=== PATIENT | male | born 1955 | race Caucasian/White ===

== ENCOUNTER 2020-01-26 08:33 | Outpatient (CLI) | payer MEDICARE, SELFPAY ==
[2020-01-26 08:57] LABS: Basophils Absolute Auto 0.1 K/mm3 (0.0-0.1); Basophils Percent Auto 1.8 % (0.2-1.2); Eosinophils Absolute Auto 0.3 K/mm3 (0-0.3); Eosinophils Percent Auto 5.1 % (0-4.4); Hematocrit 39.4 % (42.0-52.0); Hemoglobin 12.9 g/dL (14.0-18.0); Immature Granulocyte Absolute 0.02 K/mm3 (0.00-0.031); Immature Granulocyte Percent A 0.3 % (0-0.5); Lymphocytes Absolute Auto 2.12 K/mm3 (0.9-3.2); Lymphocytes Percent Auto 31.5 % (18.3-44.2); Mean Corpuscular HGB Conc 32.7 g/dl (32-36); Mean Corpuscular Hemoglobin 29.1 pg (26-34); Mean Corpuscular Volume 88.7 fl (80-100); Mean Platelet Volume 9.6 fl (7.4-10.4); Monocytes Absolute Auto 0.6 K/mm3 (0.1-0.6); Monocytes Percent Auto 9.5 % (2.6-8.5); Neutrophils Absolute Auto 3.5 K/mm3 (1.3-6.7); Neutrophils Percent Auto 51.8 % (45.5-73.1); Platelet Count Result 305 k/mm3 (150-375); Red Blood Count 4.44 M/mm3 (4.6-6.20); Red Cell Distribution Width 14.5 % (11.5-14.5); White Blood Count 6.7 K/mm3 (4.5-10.0)
[2020-01-26 12:28] LABS: Potassium 4.5 mmol/L (3.4-5.0)
[2020-01-26 12:39] LABS: Alanine Aminotransferase 23 U/L (4-50); Albumin Level 3.9 g/dL (3.5-5.1); Alkaline Phosphatase 66 U/L (38-126); Anion Gap 7 mmol/L (8-16); Aspartate Amino Transferase 30 U/L (17-59); Bilirubin,Total 0.6 mg/dL (0.2-1.3); Blood Urea Nitrogen 17 mg/dL (9-20); Calcium 9.3 mg/dL (8.4-10.2); Carbon Dioxide 28 mmol/L (22-30); Chloride 104 mmol/L (98-107); Estimated Glomerular Filt Rate > 60; Glucose 94 mg/dL (75-110); Sodium 139 mmol/L (137-145)
[2020-01-26 12:40] LABS: Immunoglobulin A 55 mg/dL (70-400); Immunoglobulin G 1203 mg/dL (700-1600)
[2020-01-26 13:37] LABS: Immunoglobulin M 1913 mg/dL (40-230)
[2020-01-31 21:23] LABS: Abnormal Protein Band 1 0.8 g/dL; Albumin 3.6 g/dL (3.8-4.8); Alpha 1 Globulin 0.3 g/dL (0.2-0.3); Alpha 2 Globulin 0.6 g/dL (0.5-0.9); Beta 1 Globulin 0.6 g/dL (0.4-0.6); Gamma Globulin 1.7 g/dL (0.8-1.7); Protein, Total 7.3 g/dL (6.1-8.1)
== END 2020-01-26 08:34 | disposition home or self-care (01) ==
LOC: ANHLAB 08:38
PROVIDERS: PCP Internal Medicine; Visit Provider Internal Medicine Hematology & Oncology
DX: D47.2 Monoclonal gammopathy (principal)
CPT/HCPCS: 36415; 80053; 82784; 84155; 84165; 85025; 86334

== ENCOUNTER 2020-10-30 08:19 | Outpatient (CLI) | payer MEDICARE, SELFPAY ==
[2020-10-30 08:43] LABS: Basophils Absolute Auto 0.1 K/mm3 (0.0-0.1); Basophils Percent Auto 1.8 % (0.2-1.2); Eosinophils Absolute Auto 0.3 K/mm3 (0-0.3); Eosinophils Percent Auto 3.9 % (0-4.4); Hematocrit 41.3 % (42.0-52.0); Hemoglobin 13.5 g/dL (14.0-18.0); Immature Granulocyte Absolute 0.01 K/mm3 (0.00-0.031); Immature Granulocyte Percent A 0.1 % (0-0.5); Lymphocytes Absolute Auto 2.15 K/mm3 (0.9-3.2); Mean Corpuscular HGB Conc 32.7 g/dl (32-36); Mean Corpuscular Hemoglobin 29.2 pg (26-34); Mean Corpuscular Volume 89.2 fl (80-100); Mean Platelet Volume 9.4 fl (7.4-10.4); Monocytes Absolute Auto 0.8 K/mm3 (0.1-0.6); Monocytes Percent Auto 10.6 % (2.6-8.5); Neutrophils Absolute Auto 3.8 K/mm3 (1.3-6.7); Neutrophils Percent Auto 53.6 % (45.5-73.1); Platelet Count Result 338 k/mm3 (150-375); Red Blood Count 4.63 M/mm3 (4.6-6.20); Red Cell Distribution Width 14.3 % (11.5-14.5); White Blood Count 7.2 K/mm3 (4.5-10.0)
[2020-10-30 11:15] LABS: Alanine Aminotransferase 20 U/L (4-50); Albumin Level 4.1 g/dL (3.5-5.1); Alkaline Phosphatase 80 U/L (38-126); Anion Gap 9 mmol/L (8-16); Aspartate Amino Transferase 24 U/L (17-59); Bilirubin,Total 0.4 mg/dL (0.2-1.3); Blood Urea Nitrogen 18 mg/dL (9-20); Calcium 10.1 mg/dL (8.4-10.2); Carbon Dioxide 29 mmol/L (22-30); Chloride 104 mmol/L (98-107); Estimated Glomerular Filt Rate > 60; Glucose 103 mg/dL (75-110); Potassium 4.7 mmol/L (3.4-5.0); Sodium 142 mmol/L (137-145)
[2020-10-30 11:24] LABS: Immunoglobulin A 56 mg/dL (70-400); Immunoglobulin G 1148 mg/dL (700-1600)
[2020-10-30 13:20] LABS: Immunoglobulin M 2148 mg/dL (40-230)
[2020-11-01 04:26] LABS: Kappa\\Lambda Light Chains 11.27 (0.26-1.65); Lambda Light Chain 10.3 mg/L (5.7-26.3)
[2020-11-01 20:50] LABS: Abnormal Protein Band 1 0.9 g/dL; Albumin 3.9 g/dL (3.8-4.8); Alpha 1 Globulin 0.3 g/dL (0.2-0.3); Alpha 2 Globulin 0.7 g/dL (0.5-0.9); Beta 1 Globulin 0.7 g/dL (0.4-0.6); Gamma Globulin 1.9 g/dL (0.8-1.7); Protein, Total 8.2 g/dL (6.1-8.1)
== END 2020-10-30 08:20 | disposition home or self-care (01) ==
LOC: ANHLAB 08:29
PROVIDERS: PCP Internal Medicine; Visit Provider Internal Medicine Hematology & Oncology
DX: D47.2 Monoclonal gammopathy (principal)
CPT/HCPCS: 36415; 80053; 82784; 83883; 84155; 84165; 85025; 86334

== ENCOUNTER 2023-06-20 11:01 | Emergency (ER) | payer MEDICARE, SELFPAY ==
--- NOTE | ~2023-06-20 | XR_ITS ---
XR ribs LT 2V w CXR 2V DATE: 06/20/2023 11:46 INDICATION: Left rib pain, worse with inspiration. TECHNIQUE: PA and lateral views of the chest. 3 views of the left ribs COMPARISON: None FINDINGS: Normal heart size. No hilar or mediastinal enlargement. There is aortic arch calcification, mild aortic unfolding. No hilar or mediastinal enlargement. There is mild discoid atelectasis or scarring at the lung bases. The lungs otherwise appear clear. No pneumothorax. No significant pleural effusion. There is an old healed fracture of the left 10th rib. No recent left rib fracture is evident. Degenerative spurring and scoliosis of the thoracic spine. Dextroscoliosis and multilevel prominent degenerative disc disease of the lumbar spine. IMPRESSION: No recent left rib fracture is evident Mild bibasilar discoid atelectasis Reviewed, dictated and finalized at location B. 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
--- NOTE | 2023-06-20 11:29 | ED.EXTPRO ---
HPI - Extremity Problem General Chief complaint: Chest Pain Stated complaint: Left Side Body Pain Time Seen by Provider: 06/20/23 11:02 Source: patient Mode of arrival: ambulatory Limitations: no limitations History of Present Illness HPI Narrative: Justin is a 67-year-old male patient presenting to the clinic today with complaints of left-sided rib pain x4 days. He reports no known injury. States pain is worse with taking a deep breath, coughing, or sneezing. History of rib fractures on the right side but nothing on the left. Denies productive cough. No fever or chills. Denies any shortness of breath. Pain does not worsen with movement of the left arm. Denies any heavy lifting recently. Related Data Home Medications Medication Instructions Recorded Confirmed omeprazole 20 mg capsule,delayed 20 mg PO DAILY 06/20/23 release pravastatin 40 mg tablet 40 mg PO DAILY 06/20/23 06/20/23 Allergies Allergy/AdvReac Type Severity Reaction Status Date / Time Penicillins Allergy Rash Verified 06/20/23 11:34 Review of Systems Review of Systems: Pertinent positives per HPI. Patient denies any fever, chills, rash, headache, visual changes, dizziness, runny nose, sore throat, shortness of breath, palpitations, nausea, vomiting, diarrhea, constipation, abdominal pain, or any urinary issues. PMFSH Comments At the time of my signature, I reviewed and agree with the nursing past medical, surgical, social, and family history. There is no relevant family history pertinent to the patient complaint. Exam Narrative: General: Well-developed, well nourished, in no apparent distress Head: Normocephalic, atraumatic Eyes: Pupils equally round and reactive to light bilaterally, EOM intact, sclera and conjunctive clear, no discharge, lids normal Ears: TMs intact and clear, ear canals clear, no drainage, grossly hearing normal. Nose: Nares patent, no discharge, no inflammation, no sinus tenderness. Mouth: Oropharynx without lesions or masses, good dentition, MMM. Neck: Supple, trachea midline, no enlargement of anterior or posterior cervical nodes, no thyroid masses or goiter palpable. Chest: Symmetric, no bruising or swelling noted, even rise and fall of the chest wall with respirations, no tenderness to palpation over the left anterior/lateral chest wall. Cardio: Regular rate and rhythm, s1 and s2 normal, no murmur appreciated. Resp: Clear to auscultation bilaterally anteriorly and posteriorly, no rhonchi, rales, wheezing or rubs Extremities: No deformity, no edema, no cyanosis, capillary refill less than 2 seconds, peripheral pulses palpable and strong. Integumentary: [place], warm, and dry, intact without lesion, no rashes. Course Course Emergency Course: Portions of this record may have been created with voice recognition software. Level of Care: Express Care Visit Vital Signs Vital signs: Vital Signs Oxygen Delivery Room Air 06/20/23 11:25 Temperature 36.6 C 06/20/23 11:35 Pulse Rate 72 06/20/23 11:35 Respiratory Rate 20 06/20/23 11:35 Blood Pressure 125/71 06/20/23 11:35 Pulse Oximetry 100 06/20/23 11:35 Oxygen Delivery Room Air 06/20/23 11:35 Vital signs reviewed MDM - Extremity (Nontraumatic) MDM Narrative Medical decision making narrative: At the time of visit patient is resting comfortably on the exam table. Patient appears to be nontoxic. Diagnostics: Chest x-rays negative for any sign pneumonia or rib fracture. Does show mild atelectasis in the bilateral lower lung bases Plan: I suspect patient may have pleurisy. Will send in prescription for Medrol Dosepak. Recommend follow-up with his PCP next week if symptoms persist. Supportive measures were discussed with the patient and they voiced understanding discharge instructions and agrees to treatment plan. Return precautions reviewed Differential Diagnosis Differential diagnosis: Likely other (Pleurisy, rib fr
[2023-06-20 11:35] VITALS: BP 125/71; PULSE 72; RESP 20; TEMP 36.6; O2SAT 100
== END 2023-06-20 12:35 | disposition home or self-care (01) ==
PROVIDERS: Emergency Provider Nurse Practitioner Family; PCP Internal Medicine
DX: R09.1 Pleurisy (principal); J98.11 Atelectasis; Z79.899 Other long term (current) drug therapy
CPT/HCPCS: 71046; 71100; 99213; G0463

== ENCOUNTER 2023-07-21 08:36 | Outpatient (CLI) | payer MEDICARE, SELFPAY ==
[2023-07-21 09:23] LABS: Basophils Absolute Auto 0.1 K/mm3 (0.0-0.1); Basophils Percent Auto 1.3 % (0.2-1.2); Eosinophils Absolute Auto 0.3 K/mm3 (0-0.3); Eosinophils Percent Auto 5.4 % (0-4.4); Hematocrit 33.9 % (42.0-52.0); Hemoglobin 10.8 g/dL (14.0-18.0); Immature Granulocyte Absolute 0.02 K/mm3 (0.00-0.031); Immature Granulocyte Percent A 0.3 % (0-0.5); Lymphocytes Absolute Auto 1.82 K/mm3 (0.9-3.2); Mean Corpuscular HGB Conc 31.9 g/dl (32-36); Mean Corpuscular Hemoglobin 29.8 pg (26-34); Mean Corpuscular Volume 93.6 fl (80-100); Mean Platelet Volume 8.9 fl (7.4-10.4); Monocytes Absolute Auto 0.7 K/mm3 (0.1-0.6); Monocytes Percent Auto 11.4 % (2.6-8.5); Neutrophils Absolute Auto 3.1 K/mm3 (1.3-6.7); Neutrophils Percent Auto 51.6 % (45.5-73.1); Platelet Count Result 363 k/mm3 (150-375); Red Blood Count 3.62 M/mm3 (4.6-6.20); Red Cell Distribution Width 16.2 % (11.5-14.5); White Blood Count 6.1 K/mm3 (4.5-10.0)
[2023-07-21 10:19] LABS: Alanine Aminotransferase 23 U/L (6-50); Albumin Level 3.8 g/dL (3.5-5.1); Alkaline Phosphatase 94 U/L (38-126); Anion Gap 3 mmol/L (8-16); Aspartate Amino Transferase 28 U/L (17-59); Bilirubin,Total 0.4 mg/dL (0.2-1.3); Blood Urea Nitrogen 18 mg/dL (9-20); Calcium 10.4 mg/dL (8.4-10.2); Carbon Dioxide 32 mmol/L (22-30); Chloride 104 mmol/L (98-107); Estimated Glomerular Filt Rate 60; Glucose 146 mg/dL (65-110); Potassium 3.8 mmol/L (3.4-5.0); Sodium 139 mmol/L (137-145)
[2023-07-21 14:57] LABS: Immunoglobulin G 1135 mg/dL (700-1600)
[2023-07-21 15:14] LABS: Immunoglobulin A < 40 mg/dL (70-400); Immunoglobulin M > 4000 mg/dL (40-230)
[2023-07-23 15:15] LABS: Abnormal Protein Band 1 3.1 g/dL; Albumin 2.9 g/dL (3.8-4.8); Alpha 1 Globulin 0.3 g/dL (0.2-0.3); Alpha 2 Globulin 0.6 g/dL (0.5-0.9); Beta 1 Globulin 0.5 g/dL (0.4-0.6); Gamma Globulin 3.8 g/dL (0.8-1.7); Protein, Total 8.5 g/dL (6.1-8.1)
[2023-07-23 22:20] LABS: Kappa\\Lambda Light Chains 9.27 (0.26-1.65); Lambda Light Chain 12.5 mg/L (5.7-26.3)
== END 2023-07-21 08:37 | disposition home or self-care (01) ==
LOC: ANHLAB 08:39
PROVIDERS: PCP Internal Medicine; Visit Provider Internal Medicine Hematology & Oncology
DX: D47.2 Monoclonal gammopathy (principal)
CPT/HCPCS: 36415; 80053; 82784; 83883; 84155; 84165; 85025

== ENCOUNTER 2023-08-05 07:49 | Outpatient (CLI) | payer MEDICARE, SELFPAY ==
--- NOTE | ~2023-08-05 | PE_ITS ---
EXAMINATION: PET skull to mid thigh DATE: 08/05/2023 09:46 INDICATION: Multiple myeloma TECHNIQUE: Blood glucose level was 80 mg/dL. 8.993 mCi of 18-fluorodeoxyglucose (18-FDG) was administ ered i.v. Low dose computed tomography (CT) images were acquired from the base of the brain to the pr oximal thighs for attenuation correction and anatomic localization. Positron emission tomography (PET ) images were acquired in the same distribution beginning 49 minutes after injection. Images includin g fused PET/CT images were reconstructed in axial, coronal, and sagittal planes. Automated exposure c ontrol technique was employed. The dose-length product was 1073.19mGy-cm. COMPARISON: CT neck, chest, abdomen and pelvis dated 06/24/2018 FINDINGS: Head/neck: There is symmetric increased activity in the oral cavity, palatine tonsils, parotid glands, submandi bular glands, laryngeal muscles and ocular muscles without CT correlate, likely physiologic. No patho logically enlarged cervical lymphadenopathy or suspicious foci of increased FDG uptake in the visuali zed head or neck. Chest: Elevation the right hemidiaphragm. No suspicious pulmonary nodules, pneumonia, pulmonary edema or ple ural effusion. Heart size is normal. Atherosclerotic coronary artery calcifications. No pericardial o r pleural effusion. No pathologically enlarged or FDG avid thoracic lymphadenopathy. Abdomen/pelvis/proximal thighs: Physiologic renal accumulation and excretion of FDG activity in the kidneys, bladder and along portio ns of ureters. Prostatomegaly measuring 4.5 x 3.5 cm. Normal degree and heterogenous pattern of incre ased uptake throughout the liver without radiologic correlate or dominant FDG avid lesion. The gallbl adder, pancreas, spleen and bilateral adrenal glands are normal. Mild uptake scattered throughout the bowels without radiologic correlate, also likely physiologic. No other abnormal foci of increased FD G uptake or pathologically enlarged lymphadenopathy in the abdomen, pelvis or proximal thighs. Musculoskeletal: Mild lumbar dextrocurvature with severe spondylosis. No interval change in a region of central macros copic fat attenuation with peripheral heterotopic ossification along the right iliac is muscle insert ion along the anterior margin of the right iliac wing which is without evident FDG uptake most likely heterotopic ossification related to old avulsion injury. No suspicious lytic, blastic or abnormally FDG avid bone lesions. IMPRESSION: 1. No abnormal FDG avid lesions to suggest malignancy/metastatic disease. Specifically no lytic or FD G avid bone lesions to suggest multiple myeloma. Reviewed, dictated and finalized at location A. IMPRESSION: 1. No abnormal FDG avid lesions to suggest malignancy/metastatic disease. Speci fically no lytic or FDG avid bone lesions to suggest multiple myeloma.
[2023-08-05 08:08] LABS: Glucose Point of Care 80 mg/dl (65-105)
== END 2023-08-05 07:50 | disposition home or self-care (01) ==
PROVIDERS: PCP Internal Medicine; Visit Provider Internal Medicine Hematology & Oncology
DX: C90.00 Multiple myeloma not having achieved remission (principal)
CPT/HCPCS: 78815; A9552

== ENCOUNTER 2023-08-06 03:36 | Day surgery (SDC) | payer MEDICARE, SELFPAY ==
[2023-08-05 13:40] VITALS: BMI 25.6
--- NOTE | ~2023-08-06 | BM_ITS ---
EXAMINATION: CCL bone marrow asp w bx diag ORDER COMPLETED DATE: 08/06/2023 16:45 INDICATION: Multiple myeloma TECHNIQUE: A time-out was performed to verify the patient's name, date of , and procedure to b e performed. The procedure including the risks and benefits was discussed with the patient. Risks dis cussed included bleeding, infection, nerve injury and allergic reaction. The patient understood the r isks and agreed to proceed. The skin overlying the right posterior iliac spine was prepped and draped in usual sterile fashion. Anesthetic was administered with 1% lidocaine subcutaneously. Moderate co nscious sedation was achieved with 50 mcg fentanyl IV. An 11 gauge needle was inserted into the right ilium with fluoroscopic guidance. Bone marrow was aspirated. An 8 gauge needle was then inserted int o the right ilium with fluoroscopic guidance. A core bone marrow biopsy was obtained. The needle was removed and the entry site was cleaned and dressed. There were no immediate complications. A total o f 0 fluoroscopic images were recorded. Fluoroscopy exposure time was 0.1 minutes. FINDINGS: Real-time fluoroscopy demonstrates the biopsy needle tip overlying the right posterior estelle c spine. IMPRESSION: 1. Successful fluoroscopic guided bone marrow aspiration. 2. Successful fluoroscopic guided bone marrow biopsy. Reviewed, dictated and finalized at location A.
[2023-08-06 08:58] VITALS: BMI 25.6
[2023-08-06 08:59] VITALS: BP 108/66; PULSE 61; RESP 16; TEMP 36.6; O2SAT 97
[2023-08-06] MEDS: SODIUM CHLORIDE 0.9% IV 500 ML 30 ML (09:17)
[2023-08-06 09:22] LABS: Basophils Absolute Auto 0.1 K/mm3 (0.0-0.1); Basophils Percent Auto 1.3 % (0.2-1.2); Eosinophils Absolute Auto 0.3 K/mm3 (0-0.3); Eosinophils Percent Auto 5.3 % (0-4.4); Hematocrit 35.4 % (42.0-52.0); Hemoglobin 11.2 g/dL (14.0-18.0); Immature Granulocyte Absolute 0.01 K/mm3 (0.00-0.031); Immature Granulocyte Percent A 0.2 % (0-0.5); Lymphocytes Absolute Auto 1.79 K/mm3 (0.9-3.2); Lymphocytes Percent Auto 29.7 % (18.3-44.2); Mean Corpuscular HGB Conc 31.6 g/dl (32-36); Mean Corpuscular Hemoglobin 29.6 pg (26-34); Mean Corpuscular Volume 93.4 fl (80-100); Mean Platelet Volume 9.5 fl (7.4-10.4); Monocytes Absolute Auto 0.8 K/mm3 (0.1-0.6); Monocytes Percent Auto 12.4 % (2.6-8.5); Neutrophils Absolute Auto 3.1 K/mm3 (1.3-6.7); Neutrophils Percent Auto 51.1 % (45.5-73.1); Platelet Count Result 326 k/mm3 (150-375); Red Blood Count 3.79 M/mm3 (4.6-6.20); Red Cell Distribution Width 15.7 % (11.5-14.5)
[2023-08-06 09:27] LABS: INR 1.2; Prothrombin Time 15.6 Seconds (11.1-14.7)
--- NOTE | 2023-08-06 10:05 | WPDMODSED ---
Moderate Sedation Note-Pt Data Patient Data Diagnosis: MGUS Present Complaint: MGUS Procedure to be performed/Plan: bone marrow biopsy Allergies Allergy/AdvReac Type Severity Reaction Status Date / Time Penicillins Allergy Rash Verified 08/06/23 08:57 Home Medications Medication Instructions Recorded Confirmed Type pravastatin 40 mg tablet 40 mg PO DAILY 06/20/23 08/05/23 History aspirin 81 mg chewable tablet 81 mg PO DAILY 08/05/23 08/05/23 History ferrous sulfate 325 mg (65 mg 325 mg PO EVERY OTHER DAY 08/05/23 08/05/23 History iron) tablet tuiyqemgqnue-hjcddlll-kakeys tablet 1 tablet PO DAILY 08/05/23 08/05/23 History psyllium husk 0.4 gram capsule 0.4 g PO DAILY 08/05/23 08/05/23 History (Metamucil) Sedation/Anesthesia: No previous sedation/anesthesia problems (including family history). [facility] Social History Social History Smoking status: Former smoker Tobacco type: cigarettes Second hand tobacco smoke exposure: No Alcohol intake: never Substance use: never Substance use type: does not use Living arrangements: with family Spiritual care concerns: No Mod Sed Physical Exam Physical Exam Pre Procedural Exam: Normal: Appearance, Neck, Throat, Lungs, Heart Rate and Heart Rhythm Hours since solid foods: 15 Hours since liquid intake: 15 Mallampati Classification: class II Internal Medicine - PN: Obj Da Vital Signs Vital Signs: Vital Signs - 24 hr 08/06/23 08:59 Temperature 97.9 F Pulse Rate 61 Respiratory Rate 16 Blood Pressure 108/66 Pulse Oximetry 97 Oxygen Delivery Room Air Labs 08/06/23 08:56 Labs: Laboratory Results - last 24 hr 08/06/23 08:56 WBC 6.0 RBC 3.79 L Hgb 11.2 L Hct 35.4 L MCV 93.4 MCH 29.6 MCHC 31.6 L RDW 15.7 H Plt Count 326 MPV 9.5 Immature Gran % (Auto) 0.2 Neut % (Auto) 51.1 Lymph % (Auto) 29.7 [facility] % (Auto) 12.4 H Eos % (Auto) 5.3 H Baso % (Auto) 1.3 H Lymph # (Auto) 1.79 [facility] # (Auto) 0.8 H Eos # (Auto) 0.3 Baso # (Auto) 0.1 Abs Immat Gran (auto) 0.01 Absolute Neuts (auto) 3.1 Absolute Nucleated RBC 0.000 Nucleated RBC % 0.0 PT 15.6 H INR 1.2 ASA Classification/Sedation ASA Classification/Sedation ASA Class: II Emergent: No Risks: Risks, benefits and alternatives explained and patient/family accepted plan for sedation. Patient re-evaluated immediately prior to sedation.
[2023-08-06 10:50] VITALS: BP 122/76; PULSE 68; RESP 14; TEMP 36.4; O2SAT 100
[2023-08-06 11:00] VITALS: BP 113/73; PULSE 72; RESP 16; O2SAT 97
[2023-08-06 11:15] VITALS: BP 120/68; PULSE 65; RESP 16; O2SAT 100
[2023-08-06 11:30] VITALS: BP 124/74; PULSE 72; RESP 16; O2SAT 97
[2023-08-06 11:45] VITALS: BP 121/75; PULSE 73; RESP 16; O2SAT 98
== END 2023-08-06 12:10 | disposition home or self-care (01) ==
PROVIDERS: PCP Internal Medicine; Referring Provider Internal Medicine Hematology & Oncology; Visit Provider Radiology Diagnostic Radiology
DX: C83.00 Small cell B-cell lymphoma, unspecified site (principal); Z79.82 Long term (current) use of aspirin; Z87.891 Personal history of nicotine dependence
CPT/HCPCS: 36415; 38222; 85025; 85610; 88184; 88185; 88305; 88311; 88313; 88342; 88364; 88365; 88368; 88369; J1642; J2250; J3010; J7040

== ENCOUNTER 2023-09-08 14:36 | Outpatient (CLI) | payer MEDICARE, SELFPAY ==
[2023-09-08 14:51] LABS: Basophils Absolute Auto 0.1 K/mm3 (0.0-0.1); Basophils Percent Auto 1.6 % (0.2-1.2); Eosinophils Absolute Auto 0.6 K/mm3 (0-0.3); Eosinophils Percent Auto 9.1 % (0-4.4); Hematocrit 33.8 % (42.0-52.0); Hemoglobin 10.8 g/dL (14.0-18.0); Immature Granulocyte Absolute 0.01 K/mm3 (0.00-0.031); Immature Granulocyte Percent A 0.1 % (0-0.5); Lymphocytes Absolute Auto 2.87 K/mm3 (0.9-3.2); Lymphocytes Percent Auto 42.3 % (18.3-44.2); Mean Corpuscular Hemoglobin 30.1 pg (26-34); Mean Corpuscular Volume 94.2 fl (80-100); Mean Platelet Volume 10.1 fl (7.4-10.4); Monocytes Absolute Auto 0.5 K/mm3 (0.1-0.6); Monocytes Percent Auto 7.2 % (2.6-8.5); Neutrophils Absolute Auto 2.7 K/mm3 (1.3-6.7); Neutrophils Percent Auto 39.7 % (45.5-73.1); Platelet Count Result 220 k/mm3 (150-375); Red Blood Count 3.59 M/mm3 (4.6-6.20); Red Cell Distribution Width 15.5 % (11.5-14.5); White Blood Count 6.8 K/mm3 (4.5-10.0)
[2023-09-08 16:38] LABS: Alanine Aminotransferase 17 U/L (6-50); Albumin Level 4.2 g/dL (3.5-5.1); Alkaline Phosphatase 82 U/L (38-126); Anion Gap 6 mmol/L (4-12); Aspartate Amino Transferase 24 U/L (17-59); Bilirubin,Total 0.6 mg/dL (0.2-1.3); Blood Urea Nitrogen 20 mg/dL (9-20); Calcium 10.2 mg/dL (8.4-10.2); Carbon Dioxide 29 mmol/L (22-30); Chloride 104 mmol/L (98-107); Estimated Glomerular Filt Rate 50; Glucose 128 mg/dL (65-110); Potassium 4.2 mmol/L (3.4-5.0); Sodium 139 mmol/L (137-145)
== END 2023-09-08 14:37 | disposition home or self-care (01) ==
LOC: ANHLAB 14:38
PROVIDERS: PCP Internal Medicine; Visit Provider Internal Medicine Hematology & Oncology
DX: C90.00 Multiple myeloma not having achieved remission (principal)
CPT/HCPCS: 36415; 80053; 85025

== ENCOUNTER 2023-10-09 14:00 | Outpatient (CLI) | payer MEDICARE, SELFPAY ==
[2023-10-09 14:18] LABS: Basophils Absolute Auto 0.1 K/mm3 (0.0-0.1); Basophils Percent Auto 1.8 % (0.2-1.2); Eosinophils Absolute Auto 0.4 K/mm3 (0-0.3); Eosinophils Percent Auto 5.8 % (0-4.4); Hematocrit 37.8 % (42.0-52.0); Hemoglobin 12.4 g/dL (14.0-18.0); Immature Granulocyte Absolute 0.01 K/mm3 (0.00-0.031); Immature Granulocyte Percent A 0.1 % (0-0.5); Lymphocytes Absolute Auto 2.46 K/mm3 (0.9-3.2); Lymphocytes Percent Auto 33.2 % (18.3-44.2); Mean Corpuscular HGB Conc 32.8 g/dl (32-36); Mean Corpuscular Hemoglobin 30.8 pg (26-34); Mean Corpuscular Volume 93.8 fl (80-100); Mean Platelet Volume 10.2 fl (7.4-10.4); Monocytes Absolute Auto 0.4 K/mm3 (0.1-0.6); Monocytes Percent Auto 5.7 % (2.6-8.5); Neutrophils Percent Auto 53.4 % (45.5-73.1); Platelet Count Result 218 k/mm3 (150-375); Red Blood Count 4.03 M/mm3 (4.6-6.20); Red Cell Distribution Width 14.5 % (11.5-14.5); White Blood Count 7.4 K/mm3 (4.5-10.0)
[2023-10-09 17:43] LABS: Alanine Aminotransferase 17 U/L (6-50); Albumin Level 3.9 g/dL (3.5-5.1); Alkaline Phosphatase 70 U/L (38-126); Anion Gap 2 mmol/L (4-12); Aspartate Amino Transferase 24 U/L (17-59); Bilirubin,Total 0.5 mg/dL (0.2-1.3); Calcium 8.9 mg/dL (8.4-10.2); Carbon Dioxide 30 mmol/L (22-30); Chloride 106 mmol/L (98-107); Estimated Glomerular Filt Rate 46; Glucose 140 mg/dL (65-110); Potassium 4.4 mmol/L (3.4-5.0); Sodium 138 mmol/L (137-145)
[2023-10-09 17:55] LABS: Blood Urea Nitrogen 25 mg/dL (9-20)
[2023-10-09 18:09] LABS: Immunoglobulin G 1011 mg/dL (700-1600)
[2023-10-09 19:29] LABS: Immunoglobulin A < 40 mg/dL (70-400); Immunoglobulin M 1734 mg/dL (40-230)
[2023-10-10 13:03] LABS: Kappa\\Lambda Light Chains 9.72 (0.26-1.65); Lambda Light Chain 8.7 mg/L (5.7-26.3)
[2023-10-11 01:13] LABS: Protein, Total 6.7 g/dL (6.1-8.1)
[2023-10-14 14:49] LABS: Abnormal Protein Band 1 1.1 g/dL (NONE DETECTED); Albumin 3.5 g/dL (3.8-4.8); Alpha 1 Globulin 0.2 g/dL (0.2-0.3); Alpha 2 Globulin 0.5 g/dL (0.5-0.9); Beta 1 Globulin 0.4 g/dL (0.4-0.6); Gamma Globulin 1.8 g/dL (0.8-1.7)
== END 2023-10-09 14:01 | disposition home or self-care (01) ==
LOC: ANHLAB 14:05
PROVIDERS: PCP Internal Medicine; Visit Provider Internal Medicine Hematology & Oncology
DX: C90.00 Multiple myeloma not having achieved remission (principal)
CPT/HCPCS: 36415; 80053; 82784; 83883; 84155; 84165; 85025

== ENCOUNTER 2023-12-12 08:14 | Outpatient (CLI) | payer MEDICARE, SELFPAY ==
[2023-12-12 08:38] LABS: Basophils Absolute Auto 0.1 K/mm3 (0.0-0.1); Eosinophils Absolute Auto 0.4 K/mm3 (0-0.3); Eosinophils Percent Auto 5.7 % (0-4.4); Hematocrit 42.7 % (42.0-52.0); Hemoglobin 14.3 g/dL (14.0-18.0); Immature Granulocyte Absolute 0.01 K/mm3 (0.00-0.031); Immature Granulocyte Percent A 0.2 % (0-0.5); Lymphocytes Absolute Auto 2.21 K/mm3 (0.9-3.2); Lymphocytes Percent Auto 36.2 % (18.3-44.2); Mean Corpuscular HGB Conc 33.5 g/dl (32-36); Mean Corpuscular Hemoglobin 30.5 pg (26-34); Mean Platelet Volume 10.4 fl (7.4-10.4); Monocytes Absolute Auto 0.5 K/mm3 (0.1-0.6); Monocytes Percent Auto 8.9 % (2.6-8.5); Neutrophils Absolute Auto 2.9 K/mm3 (1.3-6.7); Platelet Count Result 216 k/mm3 (150-375); Red Blood Count 4.69 M/mm3 (4.6-6.20); White Blood Count 6.1 K/mm3 (4.5-10.0)
[2023-12-12 14:31] LABS: Alanine Aminotransferase 18 U/L (6-50); Alkaline Phosphatase 71 U/L (38-126); Anion Gap 6 mmol/L (4-12); Aspartate Amino Transferase 24 U/L (17-59); Bilirubin,Total 0.5 mg/dL (0.2-1.3); Blood Urea Nitrogen 20 mg/dL (9-20); Calcium 9.1 mg/dL (8.4-10.2); Carbon Dioxide 29 mmol/L (22-30); Chloride 102 mmol/L (98-107); Estimated Glomerular Filt Rate 60; Glucose 89 mg/dL (65-110); Potassium 4.3 mmol/L (3.4-5.0); Sodium 137 mmol/L (137-145)
[2023-12-12 15:53] LABS: Immunoglobulin G 976 mg/dL (700-1600)
[2023-12-12 17:47] LABS: Immunoglobulin A < 40 mg/dL (70-400); Immunoglobulin M 1258 mg/dL (40-230)
[2023-12-15 11:28] LABS: Protein, Total 6.6 g/dL (6.1-8.1)
[2023-12-15 12:13] LABS: Kappa\\Lambda Light Chains 12.76 (0.26-1.65); Lambda Light Chain 7.2 mg/L (5.7-26.3)
[2023-12-16 11:13] LABS: Abnormal Protein Band 1 0.8 g/dL (NONE DETECTED); Albumin 3.6 g/dL (3.8-4.8); Alpha 1 Globulin 0.2 g/dL (0.2-0.3); Alpha 2 Globulin 0.5 g/dL (0.5-0.9); Beta 1 Globulin 0.5 g/dL (0.4-0.6); Gamma Globulin 1.4 g/dL (0.8-1.7)
== END 2023-12-12 08:15 | disposition home or self-care (01) ==
LOC: ANHLAB 08:17
PROVIDERS: PCP Internal Medicine; Visit Provider Internal Medicine Hematology & Oncology
DX: C90.00 Multiple myeloma not having achieved remission (principal)
CPT/HCPCS: 36415; 80053; 82784; 83883; 84155; 84165; 85025

== ENCOUNTER 2024-02-14 14:45 | Emergency (ER) | payer MEDICARE, SELFPAY ==
--- NOTE | 2024-02-14 14:47 | ED.URI ---
HPI - URI/Sore Throat General Chief Complaint: Upper Respiratory Infection Stated Complaint: +COVID today Time Seen by Provider: 02/14/24 14:47 Source: patient Mode of arrival: ambulatory Limitations: no limitations History of Present Illness HPI Narrative: Justin is a 68-year-old male patient presenting to the clinic today with complaints nasal congestion and headache. He reports Friday he felt like he was starting to have a head cold. Tested himself today and he was positive for COVID. He denies any chest pain, shortness of breath, fevers, chills, or body aches MD elicited complaint: nasal congestion Related Data Home Medications Medication Instructions Recorded Confirmed pravastatin 40 mg tablet 40 mg PO DAILY 06/20/23 08/05/23 aspirin 81 mg chewable tablet 81 mg PO DAILY 08/05/23 08/05/23 ferrous sulfate 325 mg (65 mg 325 mg PO EVERY OTHER DAY 08/05/23 08/05/23 iron) tablet tcwlbtytnuuc-pvbusbkv-kwznjr tablet 1 tablet PO DAILY 08/05/23 08/05/23 psyllium husk 0.4 gram capsule 0.4 g PO DAILY 08/05/23 08/05/23 (Metamucil) Allergies Allergy/AdvReac Type Severity Reaction Status Date / Time Penicillins Allergy Rash Verified 08/06/23 08:57 Review of Systems Review of Systems: Pertinent positives per HPI. Patient denies any fever, chills, rash, visual changes, dizziness, cough, shortness of breath, chest pain, palpitations, nausea, vomiting, diarrhea, constipation, abdominal pain, or any urinary issues. PMFSH Social History Social History Smoking status: Former smoker Tobacco type: cigarettes Second hand tobacco smoke exposure: No Alcohol intake: never Substance use: never Substance use type: does not use Living arrangements: with family Spiritual care concerns: No Comments At the time of my signature, I reviewed and agree with the nursing past medical, surgical, social, and family history. There is no relevant family history pertinent to the patient complaint. Exam Narrative: General: Well-developed, well nourished, in no apparent distress Head: Normocephalic, atraumatic Eyes: Pupils equally round and reactive to light bilaterally, EOM intact, sclera and conjunctive clear, no discharge, lids normal Ears: TMs intact and clear, ear canals clear, no drainage, grossly hearing normal. Nose: Nares patent, clear nasal discharge, no inflammation, no sinus tenderness. Mouth: Oral pharynx without lesions or masses, good dentition, MMM. Neck: Supple, trachea midline, no enlargement of anterior or posterior cervical nodes, no thyroid masses or goiter palpable. Cardio: Regular rate and rhythm, s1 and s2 normal, no murmur appreciated. Resp: Clear to auscultation bilaterally, no rhonchi, rales, wheezing or rubs Course Course Emergency Course: Portions of this record may have been created with voice recognition software. Level of Care: Express Care Visit Vital Signs Vital signs: Vital signs reviewed MDM - URI/Sore Throat MDM Narrative Medical decision making narrative: At the time of visit patient is resting comfortably on the exam table. Patient appears to be nontoxic. Labs: COVID testing was performed and was positive in clinic today Plan: I suspect patient has COVID-19. Supportive measures were discussed with the patient and they voiced understanding discharge instructions and agrees to treatment plan. Return precautions reviewed Differential Diagnosis Differential diagnosis: Likely upper respiratory infection, otitis media, sinusitis, viral infection, bronchitis, influenza, pharyngitis and other (COVID) Discharge Plan Discharge Clinical Impression: COVID-19 Patient Disposition: Home, Self-Care Condition: Stable Instructions: Antibiotic Form, How to Recover from COVID-19 at Home (ED) Additional Instructions: COVID testing was positive in the clinic today. May take DayQuil/NyQuil for cold/f
[2024-02-14 15:10] VITALS: BP 104/59; PULSE 59; RESP 16; TEMP 37; O2SAT 98
[2024-02-16 14:27] LABS: EDCOVIDSCREEN Positive (Negative)
== END 2024-02-14 15:25 | disposition home or self-care (01) ==
PROVIDERS: Emergency Provider Nurse Practitioner Family; PCP Internal Medicine
DX: U07.1 COVID-19 (principal); Z87.891 Personal history of nicotine dependence; E78.00 Pure hypercholesterolemia, unspecified; K21.9 Gastro-esophageal reflux disease without esophagitis; Z79.82 Long term (current) use of aspirin
CPT/HCPCS: 87426; 99212; G0463

== ENCOUNTER 2024-03-26 08:27 | Outpatient (CLI) | payer MEDICARE, SELFPAY ==
[2024-03-26 08:43] LABS: Basophils Absolute Auto 0.1 K/mm3 (0.0-0.1); Basophils Percent Auto 2.3 % (0.2-1.2); Eosinophils Absolute Auto 0.3 K/mm3 (0-0.3); Eosinophils Percent Auto 5.4 % (0-4.4); Hematocrit 41.4 % (42.0-52.0); Hemoglobin 13.8 g/dL (14.0-18.0); Immature Granulocyte Absolute 0.02 K/mm3 (0.00-0.031); Immature Granulocyte Percent A 0.4 % (0-0.5); Lymphocytes Percent Auto 40.4 % (18.3-44.2); Mean Corpuscular HGB Conc 33.3 g/dl (32-36); Mean Corpuscular Hemoglobin 30.4 pg (26-34); Mean Corpuscular Volume 91.2 fl (80-100); Mean Platelet Volume 10.3 fl (7.4-10.4); Monocytes Absolute Auto 0.5 K/mm3 (0.1-0.6); Monocytes Percent Auto 8.6 % (2.6-8.5); Neutrophils Absolute Auto 2.4 K/mm3 (1.3-6.7); Neutrophils Percent Auto 42.9 % (45.5-73.1); Platelet Count Result 236 k/mm3 (150-375); Red Blood Count 4.54 M/mm3 (4.6-6.20); White Blood Count 5.7 K/mm3 (4.5-10.0)
[2024-03-26 10:34] LABS: Alanine Aminotransferase 20 U/L (6-50); Alkaline Phosphatase 71 U/L (38-126); Anion Gap 2 mmol/L (4-12); Aspartate Amino Transferase 26 U/L (17-59); Bilirubin,Total 0.5 mg/dL (0.2-1.3); Blood Urea Nitrogen 22 mg/dL (9-20); Carbon Dioxide 32 mmol/L (22-30); Chloride 104 mmol/L (98-107); Estimated Glomerular Filt Rate > 60; Glucose 95 mg/dL (65-110); Potassium 4.3 mmol/L (3.4-5.0); Sodium 138 mmol/L (137-145)
[2024-03-26 11:51] LABS: Immunoglobulin G 846 mg/dL (700-1600)
[2024-03-26 11:55] LABS: Immunoglobulin A < 40 mg/dL (70-400)
[2024-03-26 12:18] LABS: Immunoglobulin M 1629 mg/dL (40-230)
[2024-03-29 13:33] LABS: Kappa\\Lambda Light Chains 10.01 (0.26-1.65); Lambda Light Chain 7.6 mg/L (5.7-26.3)
[2024-03-31 07:23] LABS: Protein, Total 6.9 g/dL (6.1-8.1)
== END 2024-03-26 08:28 | disposition home or self-care (01) ==
LOC: ANHLAB 08:29
PROVIDERS: PCP Internal Medicine; Visit Provider Internal Medicine Hematology & Oncology
DX: D47.2 Monoclonal gammopathy (principal)
CPT/HCPCS: 36415; 80053; 82784; 83883; 84155; 84165; 85025

== ENCOUNTER 2024-07-23 08:27 | Outpatient (CLI) | payer MEDICARE, SELFPAY ==
--- OUTSIDE RECORDS SUMMARY | 2024-07-23 08:40 | XMS_ITS | Referral Summary ---
Author Organization [facility] [address] [place] [id number] Care Team Providers Care Employee Placement Specialist Name Role Phone Ceferino Henriquez MD Primary Care Provide r Allergies Active Allergy Reactions Criticality Noted Date Comments Penicillins Rash Medium 06/10/2018 Minor reaction. PCN allergy form filled out Medications pravastatin (PRAVACHOL) 40 mg tablet Take 40 mg by mouth nightly 08/26/2019 Active aspirin 81 mg enteric coated tablet Take 81 mg by mouth daily 05/23/2020 Active multivitamin-mi nerals-lutein tablet Take 1 tablet by mouth daily Active psyllium (Metamucil) 0.4 gram capsule Take 0.4 g by mouth 2 (two) times a day 05/23/2020 Active Active Problems Problem Noted Date Diagnosed Date s/p right L4-5 natividad-lami on 11/23/[address] Brisa ashley 11/23/2020 Radiculopathy, lumbosacral region 09/12/2020 Lumbosacral spondylosis without myelopathy 09/12 Chronic left-sided low back pain with left-sided sciatica 09/12/2020 Spinal stenosis of lumbar re gion without neurogenic claudication 09/12/2020 Hyperlipidemia 08/23/2020 MGUS (monoclonal gammopathy of unknown significa nce) 06/10/2018 Immunizations Immunization Administration Dates Next Due Influenza, Quadrivalent, Sonali l Culture-based MDCK, Preservative Free, Antibiotic Free, Intramuscular 03/23/2017 Influenza, Quadrivalent, Hig h Dose, Preservative Free, Intrr 02/01/2020 Influenza, Quadrivalent, Split, Intramuscular ,04/19/2016 Influenza, Quadrivalent, Spl it, Preservative Free, Intramuscular 02/15/2018,05/01/2015 Influenza, Trivalent, IM (MDV) 04/25/2014 Influenza, Unspecified 03/12/2017 MMR 11/25/2018 Pfizer SARS-CoV-2 Monovalent Vaccination (12+ Yrs) PURPLE 07/18/2020,06/27/2020 Pneumococcal Conjugate PCV 13 11/22/2019 Pneumococcal Polysaccharide PPV23 12/27/2016, Tdap 11/26/2016,10/27/2016 ZOSTER LIVE 10/27/2016 Zoster, unspecified 11/26/2016 Social History Tobacco Use Types Packs/Day Years Used Date Smoking Tobacco: Former Cigarettes Q uit: 06/08/1987 Smokeless Tobacco: Never Sex and Gender Information Value Date Recorded Sex Assigned at Not on file Legal Sex Male 9:29 AM CDT Gender Identity Male 09/06/2020 11:42 AM CDT Sexual Orientation Straight 09/06/2020 11 :42 AM CDT Last Filed Vital Signs Vital Sign Reading Time Taken Comments Blood Pressure 104/59 11/23/2020 2:15 PM CDT Pulse 59 11/23/2020 2:15 PM CDT Temperature 36.4 C (97.5 F) 11/23/2020 1:35 PM CDT Respiratory Rate 11 11/23/2020 2:15 PM CDT Oxygen Saturation 97% 11/23/2020 2:15 PM CDT Inhaled Oxygen Concentration - - Weight 84.5 kg (186 lb 3.2 oz) 01/05/2021 10:30 AM CDT Height 180.3 cm (5' 10.98 ) 01/05/2021 10:30 AM CDT Body Mass Index 25.98 01/05/2021 10:30 AM CDT Plan of Treatment Not on file Insurance MEDICARE [facility] MEDICARE MEDICARE [facility] MEDICARE Care Teams Employee Placement Specialist Relationship Specialty Start Date End Date Ceferino Henriquez MD [address] [place] [address] PCP - General Internal Medicine 08/15/20
--- OUTSIDE RECORDS SUMMARY | 2024-07-23 08:40 | XMS_ITS | Data Portability ---
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 The re is intricate and outright complexity to this case. This case needs to be followed closely and aggressively owning to having a high degree of sequel, co-morbidity and mortality. Extensive testing/imaging /specialist consultation had to be ordered. Not available 12/16/2021 17:27:41 Plan of Treatment Reminders Order Date Submit Date Provider Last Modified By Organization Details Last Modified Time Details Appointments None recorded. Lab lipid panel, serum 2021 PARISH Not available 2 13:05:23 PTH (parathyroi d hormone), intact, serum or plasma 2021 022 [email or web address] Not available 2 10:31:36 CMP, serum or plasma 2021 022 [facility] Not available 18:37:04 calcium, ionized, blood 2021 022 [facility] Not available 18:37:05 Referral cardiologis t referral 2021 022 Masood Bonilla MD ([facility]), [address], [address], [place], [address], 15:43:[address] referral 2021 022 [email or web address] 0 [facility], [address] [place], [address], 16:19:24 Procedures None recorded. Surgeries None recorded. Imaging None recorded. Medication Orders None recorded. Patient TargetsNo targets recorded. Patient Instructions Encounter Date Encounter Id Patient Instructions Last Modified By Organization Details Last Modified Time 06/11/2021 [id number] chest pain: care instructions Not available 06/11/2021 16:38:17 hypercalcemia: care instructions Not available 06/11/2021 16:24:34 Consideration fo r MDM included time spent. The Time spent on on this patient encounter may have included (But not exclusively limited to): Time spent on referrals to other health long term care pharmacist Time spent documenting the encounter Time spent on independent review of diagnostics and interpretation of findings (unless the provider is separately billing for the interpretation of the study). Care coordination when not billed as a separate service Time spent preparing to see the patient, for example review of diagnostics Time spent reviewing a separately collected history Time spent on physical exam Time spent on ordering treatment(s) Not available 06/14/2021 07:48:50 12/11/2021 [id number] When You Want to Lose Weight: Care Instructions Not available 12/11/2021 09:19:04 learning about healthy weight Not available 12/11/2021 09:19:04 body mass index: care instructions Not available 12/11/2021 09:19:04 eating healthy foods: care instructions Not available 12/11/2021 09:19:04 high cholesterol : care instructions Not available 12/11/2021 09:19:04 Consideration fo r MDM included time spent. The Time spent on on this patient encounter may have included (But not exclusively limited to): Time spent on referrals to other health long term care pharmacist Time spent documenting the encounter Time spent on independent review of diagnostics and interpretation of findings (unless the provider is separately billing for the interpretation of the study). 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 Referral for Ch est pain Referring Physician: Evan Villegas [facility], Encounter Date: 06/11/2021 Results Created Date Observation Date Name Description Value Unit Range Abnormal Flag Note LastModifiedBy Organization Detail LastModifiedTime 06/12/1906/13/2021 PTH, INTAC T AND CALCI UM parathyroid hormone, intact 29 pg/mL 14-64 normal Inter preti ve Guide Intac t PTH Calci um ----- ----- ----- --- ----- ----- ----- -- Carmen l Parat hyroi d Carmen l Carmen l Hypop cheryl yroid ism Low or Low Carmen l Low Hyper parat hyroi dism Prima ry Carmen l or High High Secon raul High Carmen l or Low Terti ashley High High Non-P cheryl yroid Hyper calce david Low or Low Carmen l High Not Available [facility] [facility] [address], [place], [address], 06/13/2021 18:37:03 06/12/19 22 06/13/2021 PTH, INTAC T AND CALCI UM calcium 9.3 mg/dL 8.6-10 .3 normal Not Available [facility] [facility] [address], [place], [address], 06/13/2021 18:37:03 06/12/19 22 06/13/2021 COMPR EHENS JULIAN METAB OLIC PANEL glucose 89 mg/dL 65-99 normal Fasti ng refer ence inter stephanie Not Available [facility] [facility] [address], [place], [address], 06/13/2021 18:37:04 06/12/19 22 06/13/2021 COMPR EHENS JULIAN METAB OLIC PANEL urea nitrogen (BUN) 21 mg/dL 7-25 normal Not Available [facility] [address], [place], [address], 06/13/2021 18:37:04 06/12/19 22 06/13/2021 COMPR EHENS JULIAN METAB OLIC PANEL creatinine 1.09 mg/dL 0.70-1 .25 normal For patie nts >49 years of age, the refer ence limit for Creat inine is appro ximat schuyler 13% highe r for peopl e ident ified as Afric an-Am francisco javier n. Not Available [facility] [address], [place], [address], 06/13/2021 18:37:04 06/12/19 22 06/13/2021 COMPR EHENS JULIAN METAB OLIC PANEL eGFR non-afr. ethiopian 70 mL/mi n/1.7 3m2 > or = 60 normal Not Available [facility] [address], [place], [address], 06/13/2021 18:37:04 06/12/19 22 06/13/2021 COMPR EHENS JULIAN METAB OLIC PANEL eGFR 82 mL/mi n/1.7 3m2 > or = 60 normal Not Available [facility] [address], [place], [address], 06/13/2021 18:37:04 06/12/19 22 06/13/2021 COMPR EHENS JULIAN METAB OLIC PANEL BUN/creatini ne ratio NOT APPLIC ABLE (calc ) 6-22 Not Available [facility] [address], [place], [address], 06/13/2021 18:37:04 06/12/19 22 06/13/2021 COMPR EHENS JULIAN METAB OLIC PANEL sodium 138 mmol/ L 135-14 6 normal Not Available [facility] [address], [place], [address], 06/13/2021 18:37:04 06/12/19 22 06/13/2021 COMPR EHENS JULIAN METAB OLIC PANEL potassium 4.6 mmol/ L 3.5-5. 3 normal Not Available [facility] [address], [place], [address], 06/13/2021 18:37:04 06/12/19 22 06/13/2021 COMPR EHENS JULIAN METAB OLIC PANEL chloride 101 mmol/ L 98-110 normal Not Available [facility] [address], [place], [address], 06/13/2021 18:37:04 06/12/19 22 06/13/2021 COMPR EHENS JULIAN METAB OLIC PANEL carbon dioxide 29 mmol/ L 20-32 normal Not Available [facility] [address], [place], [address], 06/13/2021 18:37:04 06/12/19 22 06/13/2021 COMPR EHENS JULIAN METAB OLIC PANEL calcium 9.3 mg/dL 8.6-10 .3 normal Not Available [facility] [address], [place], [address], 06/13/2021 18:37:04 06/12/19 22 06/13/2021 COMPR EHENS JULIAN METAB OLIC PANEL protein, total 8.0 g/dL 6.1-8. 1 normal Not Available [facility] [address], [place], [address], 06/13/2021 18:37:04 06/12/19 22 06/13/2021 COMPR EHENS JULIAN METAB OLIC PANEL albumin 3.6 g/dL 3.6-5. 1 normal Not Available [facility] [facility] [address], [place], [address], 06/13/2021 18:37:04 06/12/19 22 06/13/2021 COMPR EHENS JULIAN METAB OLIC PANEL globulin 4.4 g/dL_ (calc ) 1.9-3. 7 high Not Available [facility] [address], [place], [address], 06/13/2021 18:37:04 06/12/19 22 06/13/2021 COMPR EHENS JULIAN METAB OLIC PANEL albumin/glob ulin ratio 0.8 (calc ) 1.0-2. 5 low Not Available [facility] [address], [place], [address], 06/13/2021 18:37:04 06/12/19 22 06/13/2021 COMPR EHENS JULIAN METAB OLIC PANEL bilirubin, total 0.3 mg/dL 0.2-1. 2 normal Not Available [facility] [address], [place], [address], 06/13/2021 18:37:04 06/12/19 22 06/13/2021 COMPR EHENS JULIAN METAB OLIC PANEL alkaline phosphatase 65 U/L 35-144 normal Not Available [facility] [address], [place], [address], 06/13/2021 18:37:04 06/12/19 22 06/13/2021 COMPR EHENS JULIAN METAB OLIC PANEL AST 21 U/L 10-35 normal Not Available [facility] [address], [place], [address], 06/13/2021 18:37:04 06/12/19 22 06/13/2021 COMPR EHENS JULIAN METAB OLIC PANEL ALT 17 U/L 9-46 normal Not Available [facility] [address], [place], [address], 06/13/2021 18:37:04 06/12/19 22 06/13/2021 CALCI UM, IONIZ ED calcium, ionized 5.2 mg/dL 4.8-5. 6 normal Not Available [facility] [address], [place], [address], 06/13/2021 18:37:05 12/15/19 22 12/15/2021 LIPID PANEL , STAND HERLINDA cholesterol, total 115 mg/dL <200 normal Not Available [facility] [address], [place], [address], 12/15/2021 13:05:23 12/15/19 22 12/15/2021 LIPID PANEL , STAND HERLINDA HDL cholesterol 39 mg/dL > or = 40 low Not Available [facility] [address], [place], [address], 12/15/2021 13:05:23 12/15/19 22 12/15/2021 LIPID PANEL , STAND HERLINDA triglyceride s 50 mg/dL <150 normal Not Available [facility] [address], [place], [address], 12/15/2021 13:05:23 12/15/19 22 12/15/2021 LIPID PANEL , STAND HERLINDA LDL-choleste rol 64 mg/dL _(igor c) normal Refer ence range : <100 Grabiel able range <100 mg/dL for prima ry preve ntion ; <70 mg/dL for patie nts with CHD or diabe tic patie nts with > or = 2 CHD risk facto rs. LDL-C is now calcu lated using the Tita n-Hop kins calcu asif n, which is a valid ated novel metho d rolf wise r accur acy than the Fried jenny equat ion in the estim ation of LDL-C . Tita MONTOYA et al. ZEYAD. 2013; 310(1 9): 2061- 2068 (http ://ed ucati on.[employer] Dinora sandersonBoedo. com/f aq/FA Q164) Not Available [facility] [address], [place], [address], 12/15/2021 13:05:23 12/15/19 22 12/15/2021 LIPID PANEL , STAND HERLINDA chol/HDLC ratio 2.9 (calc ) <5.0 normal Not Available [facility] [address], [place], [address], 12/15/2021 13:05:23 12/15/19 22 12/15/2021 LIPID PANEL , STAND HERLINDA non HDL cholesterol 76 mg/dL _(igor c) <130 normal For patie nts with diabe jennifer plus 1 major ASCVD risk facto r, treat ing to a non-H DL-C goal of <100 mg/dL (LDL- C of <70 mg/dL ) is consi dered a noe silvao n. Not Available [facility] [address], [place], [address], 12/15/2021 13:05:23 12/26/19 22 12/26/2021 PSA (FREE AND TOTAL ) PSA, total 0.8 NG/mL < or = 4.0 normal Not Available [facility] [address], [place], [address], 12/26/2021 13:50:35 12/26/19 22 12/26/2021 PSA (FREE AND TOTAL ) PSA, free 0.2 NG/mL normal Not Available [facility] [address], [place], [address], 12/26/2021 13:50:35 12/26/19 22 12/26/2021 PSA (FREE AND TOTAL ) PSA, % free 25 %_(ca lc) >25 low PSA(n g/mL) Free PSA(% ) Estim ated( x) Proba bilit y of Cance r(as% ) 0-2.5 (*) Appro x. 1 2.6-4 .0(1) 0-27( 2) 24(3) 4.1-1 0(4) 0-10 56 11-15 28 16-20 20 21-25 16 >or =26 8 >10(+ ) N/A >50 Refer ences :(1)Tad zelaya et al.:U rolog y 60: 469-4 74 (2001 ) (2)Peyton lucero et al.:J .Urol 168: 922-9 25 (2001 ) Free PSA(% ) Sensi tivit y(%) Speci ficit y(%) < or = 25 85 19 < or = 30 93 9 (3)Peyton lucero et al.:J AMA 277: 1452- 1455 (1996 ) (4)Peyton lucero et al.:J AMA 279: 1542- 1547 (1997 ) (x)Th david estim ates vary with age, ethni city, famil y histo ry and NORY resul ts. (*)Th e diagn ostic usefu lness of % Free PSA has not been estab lishe d in patie nts with total PSA below 2.6 ng/mL (+)In men with PSA above 10 ng/mL , prost ate cance r risk is deter mined by total PSA alone . The Total PSA value from this assay syste m is stand ardiz ed again st the equim olar PSA stand herlinda. The test resul t will be appro ximat schuyler 20% highe r when julian red to the WHO-s tanda rdize d Total PSA (Siem ens assay ). Julian rison of seria l PSA resul ts shoul d be inter prete d with this fact in mind. PSA was perfo rmed using the Beckm an Coult er Immun oassa y metho d. Value s obtai gutierrez from diffe rent assay metho ds canno t be used inter espinoza eaduncany . PSA level s, regar dless of value , shoul d not be inter prete d as absol thi evide nce of the prese nce or absen ce of [facility] se. Not Available [facility] [address], [place], [address], 12/26/2021 13:50:35 Result Notes None recorded. Problems Name Problem SNOMED Code Status Onset Date Resolution Date Notes Provider Name and Address Organization Details Recorded Time Hyperproteinem ia 27983541 Active 2021 Evan salinas MD [address] [place], [place] [address] [address], [address], [address] 07:46:06 Chest pain 17025906 Active 2021 Evan salinas MD [address] [place] [address], [address], [address] 07:46:46 Hypercalcemia 09673028 Active 2021 Evan salinas MD [address] [place], [place] [address] [address], [address], [address] 07:46:51 Monoclonal free kappa light chain detected 068425765 Active 2021 Evan salinas MD [address] [place] [address], [address], [address] 09:09:21 Hyperlipidemia 89754765 Active 2021 Evan salinas MD [facility] [address] [place] [address], [address], [address] 09:09:22 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 Procedures Surgical History Date Name Laterality Status Provider Name and Address Organization Details Recorded Time 07/01/202 1 [facility] [place] 06/11/2021 15:03:45 7 Hernia Repair [facility] [place] 06/11/2021 15:03:36 Imaging Results None recorded. Procedure Notes None recorded. Medical Equipment None Reported. Allergies Allergen ID Allergen Name Allergen Category Reaction Reaction Severity Criticality Documentation Date Start Date Code Code System Note Provider Name and Address Organization Details Recorded Time 161955 Product containin g penicilli n (product) medicatio n Not available Not available Not available 06/11/2021 99819 8001 SNOMED [facility] [place] 15:01:52 Medications Name Sig Start Date Stop Date Status Note LastModified by Organization Details LastModified Time pravastatin 40 mg tablet TAKE 1 TABLET BY MOUTH EVERY EVENING 2021 active Not Available Not Available Not Avai lable PreviDent 5000 Booster Plus 1.1 % dental paste USE DIRECTED 12/11 completed Not Available Not Available Not Available Vitals Date Recorded Body weight Body mass index (BMI) Body height Heart rate Oxygen saturation Oxygen saturation in Arterial blood by Pulse oximetry Systolic blood pressure Diastolic blood pressure Provider Name and Address Organization Details Last Updated DateTime 2 40923.1 1 g 26.4 kg/m2 180.34 cm 66 /min 97 % 97 % 130 mm[Hg] 81 mm[Hg] [facility] [place] 2 15:01:22 Date Recorded Body height Body mass index (BMI) Body weight Heart rate Oxygen saturation Oxygen saturation in Arterial blood by Pulse oximetry Systolic blood pressure Diastolic blood pressure Provider Name and Address Organization Details Last Updated DateTime 2 180.34 cm 26.3 kg/m2 94318.4 7 g 84 /min 98 % 98 % 124 mm[Hg] 70 mm[Hg] [facility] [place] 2 09:03:38 Social History Question Answer Notes LastModified by Organizat ion Details LastModified Time Tobacco Smoking Status Former [facility] [place] 06/11/2021 15:02:24 Do You Have An Advance Directive? No Information not available 06/11/2021 What Is Your Level Of Alcohol Consumption? None Information not available 06/11/2021 Do You Wear A Helmet When Biking? Yes Information not available 12/11/2021 Are You Blind Or Do You Have Difficulty Seeing? No Information not available 12/11/2021 Is Blood Transfusion Acceptable In An Emergency? Yes Information not available 12/11/2021 What Is Your Level Of Caffeine Consumption? Occasional Information not available 06/11/2021 Are You Currently Employed? No Information not available 12/11/2021 Are You Deaf Or Do You Have Serious Difficulty Hearing? No Information not available 12/11/2021 What Type Of Diet Are You Following? REGULAR Information not available 06/11/2021 When Did You Quit Smoking? 16+yearssincel astciandrésette Information not available 12/11/2021 Are There Any Guns Present In Your Home? No Information not available 06/11/2021 Do You Have A Medical Power Of Residential Housekeeper? No Information not available 12/11/2021 How Many Children Do You Have? 2 Information not available 12/11/2021 Do You Have Any Pets? Yes [facility] Information not available 12/11/2021 What Is Your Relationship Status? Information not available 06/11/2021 Do You Use Your Seat Belt Or Car Seat Routinely? Yes Information not available 06/11/2021 Are You Sexually Active? Yes [facility] Information not available 12/11/2021 Do You Have Smoke And Carbon Monoxide Detectors In Your Home? Yes Information not available 06/11/2021 Are You Passively Exposed To Smoke? No Information no t available 06/11/2021 Do You Use Any Illicit Or Recreational Drugs? No [facility] Information not available 12/11/2021 Do You Use Sunscreen Routinely? Yes Information not available 06/11/2021 How Many Years Have You Smoked Tobacco? 14 Information not available 06/11/2021 Do You Or Have You Ever Used Any Other Forms Of Tobacco Or Nicotine? No [facility] Information not available 12/11/2021 Sex: Unknown Functional Status Question Answer Note LastModified by Organizat ion Details LastModified Time Do you have difficulty walking or climbing stairs? No [facility] Information not available 12/11/2021 Do you have difficulty doing errands alone? No [facility] Information not available 12/11/2021 Are you able to care for yourself? Yes [facility] Information n ot available 12/11/2021 Do you have difficulty dressing or bathing? No [facility] Information not available 12/11/2021 What is your exercise level? Moderate Information not available 06/11/2021 Mental Status Question Answer Note LastModified by Organization D etails LastModified Time Do you have difficulty concentrating, remembering or making decisions? No [facility] Information no t available 12/11/2021 Family History Relationship Description Onset Age of this Age Resolved Age Notes LastModified by Organization Details LastModified Time Father Family history of malignant neoplasm Not available 2021 15:04:28 Medical History Condition Response Hyperlipidemia Y Past Encounters Encounter ID Performer Location Encounter Start Date Encounter Closed Date Diagnosis/Indication Diagnosis SNOMED-CT Code Diagnosis ICD10 Code Diagnosis Note [id number] Evan Villegas MD [facility] [address] [place] [address] [address] [place] [address] 06/11/2021 14:27:33 06/11/2021 16:40:33 Hyperproteinemia 83807298 E88.[address] núñez for 1 year follow up in get labs Hypercalcemia 52734124 E 83.52 albumin corrected 10.2it was 10.3 and correted was 10.5will do work up Screening for malignant neoplasm of skin 704013587 Z12.83 Utilizing the Dermlite DL 4, an evaluation was performed on the patient using polarized and non-polari zed light (with and without Pigment boost). Using the Chaos and Clues method her skin and any lesions found were evaluated. I discussed the results with the patient. My findings were consistent with a concern for -malignanc y (SCC, BCC, MM) -benign lesions Pt will need: -dermatolo gy/surgica l referral Chest pain 90568557 R07. 9 atypicalwi ll send to cardiology for evaluation [id number] Evan Villegas MD [facility] [address] [place] [address] 12/11/2021 08:58:19 12/11/2021 09:34:04 Monoclonal free kappa light chain detected 428244929 R89.4 following with heme Hyperlipidemia 40093190 E78.5 lipids Hyperproteinemia 4570217 9 E88.09 following with heme Hyperimmun oglobulin M syndrome 05890381 D80.5 following with heme Overweight 482762513 E66 .3 Recommend weight loss of 1 lb per week, Recommend daily walking program, walking a minimum of 30 mins most days of the week. Recommend avoiding alcohol on a regular basis. Recommend regular meals do not skip meals. Avoid sodas, and consume a diet high in fiber and protein. recommend fruits vegetables on a regular basis, and lean sources of protein. Recommend increased water consumptio n. No Sodas or energy drinks I do not recommend protein bars or protein powders. Recommend counting calories using My Plate applicatio n. Recommend Keep a food log/journa l. Health Concerns Section Related Observation LastModified by Organization Detai ls LastModified Time None Recorded Concern Status LastModified by Organization Details LastModified Time None Recorded Advance Directives Directive N: Payers Encounter Date Sequence Insurance Name Policy Number Policy Reddy Covered Member ID Reddy Member ID Guarantor Name 06/11/2021 1 [place]ICARE-[place] (MEDICARE[place] Justin Mckeon [id number] Justin Mckeon 06/11/2021 2 [facility] Justin Mckeon [id number] Justin Mckeon 12/11/2021 1 [place] (MEDICARE[place] Justin Mckeon [id number] Justin Mckeon 12/11/2021 2 [facility] Justin Mckeon [id number] Justin Mckeon Notes Date Note Type Note Provider Name and Address Organization Details Recorded Time 2 text/html Initial Khys04th male who presents for initial visit:PMHhyperlipidemiaS ome atypical chestpain - followed by a 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 protein level - no abnormalitiesAortic ultrosound - 2019 no abnormalitieshernia repair -2006laminectomy- 20Fam HxFather: cancer of the lung, cancer of the liverMother: diseased at 49 y.o dt. dvt- pulmonary embolism, kidney failureCurrent symptomsGeneral: Denies weight changes, night sweats, fatigue, fevers.HEENT: Denies headache, sore throat, coughing, changes in vision, blurry vision, rhinorrhea, changing hearing, tinnitis, dizziness, bleeding gums, photophobiaCardio/lung: Admits some chest pain secondary to stress, tension. Denies syncope, SOB, cyanosis, palpitations, dyspena, claudication, edema, wheezing, sputum productionAbdominal: 2-3BM/day. Denies abdominal pain, nausea, vomiting, diarrhea, constipation, dysphagia, anorexiaGU: Denies dysuria, nocturia, frequency, hesitancy.Skin: Denies rashes, mass, lesions itching. Changing molesEndo: Denies excessive hunger, thirst, sweating. Hot /cold intolerancePsych: Denies insomnia, depression, anxiety or mood changes Evan Villegas MD [address], [place], [address], [facility] [place] 06/14/2021 07:49:06 2 text/html 6 month follow up He has benign paraproteinemiaDr. Singhjust had blood work for FCSprotein 8.2albumin 3.6 kappa light chains+igm kappa monoclonal detected was found to have hypercalcemia but repeat was norm phizercovid vaccine2///06/2109// /12/07 Evan Villegas MD [address], [place], [address], [place] - [facility] [place] 12/16/2021 17:28:24
--- OUTSIDE RECORDS SUMMARY | 2024-07-23 08:40 | XMS_ITS | Clinical Summary ---
Author Organization [facility] Address [address] [place] [address] Care Team Providers Care Automobile Rental Representative Name Role Phone Joy Henriquez MD Primary Care Provider Allergies Active Allergy Reactions Criticality Noted Date Comments Penicillins Rash Low 06/10/2018 Medications aspirin (ECOTRIN EC) 81 mg Tablet, Delayed Release (E.C.) Take 81 mg by mouth daily. Active multivitamins-mi nerals-lutein (CENTRUM SILVER) Tablet Take 1 Tablet by mouth daily. Active pravastatin (PRAVACHOL) 40 mg tablet pravastatin 40 mg tablet TK 1 T PO QD IN THE KATELYN 0 Active ferrous sulfate 325 mg (65 mg iron) tablet Take 325 mg by mouth daily. Active Psyllium Husk-Aspartame (Metamucil [facility] Fiber) 3.4 gram/5.8 gram Powder 8 Active zanubrutinib 80 mg capsuleIndicatio ns:MGUS (monoclonal gammopathy of unknown significance) Take 2 Capsules (160 mg) by mouth 2 times daily. 120 Capsule 3 5 Active Active Problems Problem Noted Date Diagnosed Date MGUS (monoclonal gammopathy of unknown significa nce) 06/10/2018 Encounters Date Type Department Care Team Description 06/08/2024 Specialty Pharmacy [facility] [address] [place] [phone] Nini Aguilar PHARMACIST 06/01/2024 Specialty Pharmacy [facility] [address] [place] [phone] Zoe Cruz, PHARMACIST Specialty Pharmacy Refill Coordination 05/27/2024 Refill [facility] [address] [place] [address] Eduardo Zuniga MD MGUS (monoclonal gammopathy of unknown significance) 05/25/2024 External Device Data [facility] ABSTRACTION Provider, Abstract 05/03/2024 Refill [facility] [address] [place] [address] Eduardo Zuniga MD MGUS (monoclonal gammopathy of unknown significance) 05/03/2024 Refill [facility] [address] [place] [address] Eduardo Zuniga MD MGUS (monoclonal gammopathy of unknown significance) from Last 3 Months Family History Medical History Relation Name Comments Cancer Father Heart Disease Half-Sister Relation Name Status Comments Brother Alive Father Half-Brother Alive Half-Sister Alive Mother Sister Alive Social History Tobacco Use Types Packs/Day Years Used Date Smoking Tobacco: Former Cigarettes 1.5 14 0 06/10/1974 - 06/10/1988 Smokeless Tobacco: Never Tobacco Cessation:Counseling Given: Not Answered Alcohol Use Standard Drinks/Week Comments Yes 0 (1 standard drink = 0.6 oz pur e alcohol) occasional Sex and Gender Information Value Date Recorded Sex Assigned at Male 03/01/2024 7:22 PM CDT Legal Sex Male 1:36 PM 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 RELATIONS ACCOUNT EXECUTIVE Gender Identity Male 03/01/2024 7:22 PM CDT Sexual Orientation Not on file Last Filed Vital Signs Vital Sign Reading Time Taken Comments Blood Pressure 111/59 04/02/2024 11:54 AM PUBLIC RELATIONS ACCOUNT EXECUTIVE Pulse 64 04/02/2024 11:54 AM PUBLIC RELATIONS ACCOUNT EXECUTIVE Temperature 36.7 C (98 F) 04/02/2024 11:54 AM PUBLIC RELATIONS ACCOUNT EXECUTIVE Respiratory Rate 16 04/02/2024 11:54 AM PUBLIC RELATIONS ACCOUNT EXECUTIVE Oxygen Saturation 96% 04/02/2024 11:54 AM PUBLIC RELATIONS ACCOUNT EXECUTIVE Inhaled Oxygen Concentration - - Weight 86.3 kg (190 lb 3.2 oz) 04/02/2024 11:54 AM PUBLIC RELATIONS ACCOUNT EXECUTIVE Height 180.3 cm (5' 11 ) 11/07/2020 10:40 AM CDT Body Mass Index 26.53 11/07/2020 10:40 AM CDT Plan of Treatment Upcoming Encounters Date Type Department Care Team (Late st Contact Info) Description 08/06/2024 11:00 AM CDT Office Visit [facility] - [facility] [address] [place] [address] Eduardo Zuniga MD [address] [facility] [address] [place] [address] Health Maintenance Due Date Last Done Comments Pre-Diabetes and Diabetes Screening 1955 Traditional Medicare (ACO) A nnual Wellness Visit 1973 FIT-DNA Q 3 years 08/14/1999 FIT/FOBT Q 1 year 08/14/1999 Flex Sig/CT Colonography Q 5 years 08/14/1999 RSV VACCINE (60+ or ) (1 - Risk 60-74 years 1-dose series) 2014 ZOSTER VACCINE (1 of 2) 12/22/2016 10/27/2016 Abdominal Aortic Aneurysm (A AA) Screening 08/14/2019 INFLUENZA VACCINE (#1) 2023 , 02/21/2021, 02/01/2020, Additional history exists COVID-19 Vaccine (4 - 2023-2 5 season) 2024 02/22/2021, 07/18/2020, 06/27/2020 PNEUMOCOCCAL VACCINE 50+ YEA RS (4 of 4 - PCV20 or PCV21) 11/21/2024 11/22/2019, 12/27/2016, 12/01/2016 DTAP/TDAP/TD VACCINES (3 - T d or Tdap) 11/26/2026 11/26/2016, 10/27/2016 COLORECTAL SCREENING 01/02/2033 01/02/2023 Colorectal Cancer Screening 01/02/2033 Insurance MEDICARE PART A AND B [facility] [id number] [employer] Medicare Part D RX [employer] Member Subscriber Plan / Payer (Ef fective 2024-Present) Name:Justin Mckeon Relation to Subscriber:Self Name:Justin Mckeon Payer ID:Not on file Group ID:[id number] Type:RX Medicare Part D Address: [address] Care Teams Automobile Rental Representative Relationship Specialty Start Date End Date Joy Henriquez MD PCP - General Internal Medicine 05/25/18
--- OUTSIDE RECORDS SUMMARY | 2024-07-23 08:40 | XMS_ITS | Data Portability ---
Author Organization [facility] She[facility], [facility] [address] [place] [address] Assessment No assessment recorded. Plan of Treatment Reminders Order Date Submit Date Provider Last Modified By Organization Details Last Modified Time Details Appointments None recorded. Lab None recorded. Referral None recorded. Procedures None recorded. Surgeries None recorded. Imaging None recorded. Medication Orders clindamycin HCl 300 mg capsule 2021 [facility][id number], [address] [place], [id number], 19:50:03 Allergy Relief (fluticason e) 50 mcg/actuati on nasal spray,suspe nsion 2021 [facility] #[id number], [address] [place], [place], [id number], 19:50:02 Patient TargetsNo targets recorded. Patient Instructions Encounter Date Encounter Id Patient Instructions Last Modified By Organization Details Last Modified Time 04/25/2022 [id number] earache: care instructions Not available 04/25/2022 19:49:52 ear infection (otitis media): care instructions Not available 04/25/2022 19:49:52 eustachian tube problems: care instructions Not available 04/25/2022 19:49:52 Reason for Referral None Reported. Problems Name Problem SNOMED Code Status Onset Date Resolution Date Notes Provider Name and Address Organization Details Recorded Time Hyperlipidemia 78005862 Active 2021 CRISTIANROSA Betancur [facility] 19:41:06 Problem Notes None recorded. Procedures Surgical History Date Name Laterality Status Provider Name and Address Organization Details Recorded Time Hernia Repair completed CRISTIAN Sheehan [facility] 04/25/2022 19:42:22 Imaging Results None recorded. Procedure Notes None recorded. Medical Equipment None Reported. Allergies Allergen ID Allergen Name Allergen Category Reaction Reaction Severity Criticality Documentation Date Start Date Code Code System Note Provider Name and Address Organization Details Recorded Time Product containin g penicilli n (product) medicatio n Not available Not available Not available 04/25/2022 [id number] SNOMED ROSA Ngo [facility] 19:40:04 Medications Name Sig Start Date Stop Date Status Note LastModified by Organization Details LastModified Time clindamycin HCl 300 mg capsule Take 1 capsule every 8 hours by oral route for 10 days. 2021 active Not Available Not Available Not Avai lable pravastatin active Not Available Not A vailable Not Available Allergy Relief (fluticasone ) 50 mcg/actuatio n nasal spray,suspen blas Loman 2 sprays every day by intranasal route for 7 days. 2021 active Not Available Not Available Not Avai lable Vitals Date Recorded Body height Body mass index (BMI) Body weight Oxygen saturation Oxygen saturation in Arterial blood by Pulse oximetry Heart rate Respiratory rate Body temperature Systolic blood pressure Diastolic blood pressure Provider Name and Address Organization Details Last Updated DateTime 2 180.34 cm 25.1 kg/m2 42557.6 3 g 100 % 100 % 65 /min 16 /min 97.9 [degF] 124 mm[Hg] 77 mm[Hg] CRISTIAN LEE - [facility] 19:43:24 Social History Question Answer Notes LastModified by Organizat ion Details LastModified Time Tobacco Smoking Status Never Smoker ROSA Jimenez [facility] 04/25/2022 19:42:08 What Is Your Level Of Alcohol Consumption? None Information not available 04/25/2022 Are You Currently Employed? No Information not available 04/25/2022 Have You Had Direct Contact, Or Contact During Intimacy, With Monkeypox Rash, Scabs, Or Body Fluids From A Person With Monkeypox? No Information not available 04/25/2022 Do You Use Any Illicit Or Recreational Drugs? No Information not available 04/25/2022 Have You Recently Traveled Abroad? No Information not available 04/25/2022 Are You Currently In School? No Information not available 04/25/2022 Do You Or Have You Ever Used Any Other Forms Of Tobacco Or Nicotine? No Information not available 04/25/2022 Sex: Unknown Functional Status None recorded. Mental Status None recorded. Family History Relationship Description Onset Age of this Age Resolved Age Notes LastModified by Organization Details LastModified Time Father No current problems or disability [email or web address] Not available 04/25/2022 19:41:11 Mother No current problems or disability [email or web address] [email or web address] Not available 04/25/2022 19:41:11 Medical History No medical history recorded. Past Encounters Encounter ID Performer Location Encounter Start Date Encounter Closed Date Diagnosis/Indication Diagnosis SNOMED-CT Code Diagnosis ICD10 Code Diagnosis Note [id number] [facility] [address] [facility] [address] [place] [address] 04/25/2022 18:59:42 04/25/2022 19:59:54 Acute right otitis media 973802905 H66.91 Health Concerns Section Related Observation LastModified by Organization Detai ls LastModified Time None Recorded Concern Status LastModified by Organization Details LastModified Time None Recorded Advance Directives Directive None Recorded Payers Encounter Date Sequence Insurance Name Policy Number Policy Reddy Covered Member ID Reddy Member ID Guarantor Name 04/25/2022 1 [place] Justin Mckeon [id number] Justin Mckeon 04/25/2022 2 [employer] OPTIONS (MEDICARE SUPPLEMENT) Justin Mckeon [id number] Justin Mckeon Notes Date Note Type Note Provider Name and Address Organization Details Recorded Time 04/25/2022 text/html Ear Pain Brief HPIReported bypatient.Notes:ri ght ear pain x 3 d, feels full. Using OTC ear pain gtts without relief. ROSA HERNÁNDEZ [facility] [place], [address], [place] - [facility] 04/25/2022 19:52:09
--- OUTSIDE RECORDS SUMMARY | 2024-07-23 08:40 | XMS_ITS | Encounter Summary ---
Author Organization [facility] [employer] [place] [facility] Address [address] [place] [address] Phone Care Team Providers Care Clinical Resource Coordinator Name Role Phone Joy Henriquez MD Primary Care Provider [phone] Encounter Details Date Type Department Care Team (Late st Contact Info) Description 07/21/2024 Documentation Only [place] [facility] [address] [place] [address] [address] [place] [address] Shoaib Murray DO [address] [facility] [address] [place] [address] Social History Tobacco Use Types Packs/Day Years Used Date Smoking Tobacco: Never Assessed Sex and Gender Information Value Date Recorded Sex Assigned at Not on file Legal Sex Male 3:33 PM EDT Gender Identity Not on file Sexual Orientation Not on file documented as of this encounter Plan of Treatment Upcoming Encounters Date Type Department Care Team (Late st Contact Info) Description 07/27/2024 1:45 PM CDT Office [facility] [place] [facility] [address] [facility] [address] [place] [address] Shoaib Murray DO [address] [facility] [address] [place] [address] documented as of this encounter Visit Diagnoses Not on filedocumented in this encounter Care Teams Clinical Resource Coordinator Relationship Specialty Start Date End Date Joy Henriquez MD [address] [facility] [place] [address] PCP - General Internal Medicine 09/12/23 documented as of this encounter
--- OUTSIDE RECORDS SUMMARY | 2024-07-23 08:40 | XMS_ITS | Referral Summary ---
Author Organization [facility] Address [address] [place] [address] Care Team Providers Care Reclamation Furnace Operator Name Role Phone Unavailable Primary Care Provider Unavailabl e Source Comments [facility],non-owned Affiliates and Associated Physician Practices is amultiple site organization consisting of ambulatory clinics and hospital sitesin [place], [place], [place] and [place]. This disclosure is being madepursuant to the Care Everywhere program and may not contain all information available regarding this patient. Last updated 18.[facility] Social History Tobacco Use Types Packs/Day Years Used Date Smoking Tobacco: Never Assessed Sex and Gender Information Value Date Recorded Sex Assigned at Not on file Gender Identity Not on file Sexual Orientation Not on file Plan of Treatment Not on file
--- OUTSIDE RECORDS SUMMARY | 2024-07-23 08:40 | XMS_ITS | Clinical Summary ---
Author Organization [facility] [address] [place] [address] Care Team Providers Care Aviation Boatswain'S Mate Name Role Phone Ceferino Henriquez MD Primary [...] 11/26/2016,10/27/2016 ZOSTER LIVE 10/27/2016 Zoster, unspecified 11/26/2016 Surgical History Surgery Date Site/Laterality Comments HERNIA REPAIR 05/19/2006 - 05/18/2007 Medical History Medical History Date Comments Hypertension Low back pain Arthritis Lumbar spondylosis Family History Medical History Relation Name Comments No Known Problems Father No Known Problems Mother Relation Name Status Comments Father Mother Social History Tobacco Use Types Packs/Day Years Used Date Smoking Tobacco: Former Cigarettes Q uit: 06/08/1987 Smokeless Tobacco: Never Sex and Gender Information Value Date Recorded Sex Assigned at Not on file Legal Sex Male 9:29 AM CDT Gender Identity Male 09/06/2020 11:42 AM CDT Sexual Orientation Straight 09/06/2020 11 :42 AM CDT Obstetrics History Last Filed Vital Signs Vital Sign Reading [...] 01/05/2021 10:30 AM CDT Plan of Treatment Health Maintenance Due Date Last Done Comments Colon Cancer Screening-Colonoscopy 1955 Depression Screening 1955 Hepatitis C Screening 1955 Prostate Cancer Screening-PSA 1955 Hepatitis B Screening 1972 Zoster Vaccine (1 of 2) 12/22/2016 11/26/2016, 10/27 Abdominal Aortic Aneurysm (A AA) Screen 08/14/2019 Well Visit 65+ 08/14/2019 Covid-19 Vaccine (3 - Pfizer risk series) 08/15/2020 07/18/2020, 06/27/2020 Fall Risk Assessment 11/23/2021 11/23/2020 Influenza Vaccine (#1) 2024 , 02/01/2020, 02/04/2019, Additional history exists Pneumococcal vaccine 65+ (4 of 4 - PCV20 or PCV21) 11/21/2024 11/22/2019, 12/27/2016, 12/01/2016 DTaP/Tdap/Td Vaccine (3 - Td or Tdap) 11/26/2026 11/26/2016, 10/27/2016 Insurance MEDICARE [facility] Member Subscriber Plan / Payer (Ef fective 2020-Present) Name:Justin Mckeon Relation to Subscriber:Self Name:Justin Mckeon Payer ID:[id number] Group ID:Not on file Type:COMMERCIAL Address: [facility] [id number] [place] [phone] MEDICARE MEDICARE [facility] MEDICARE Care Teams Aviation Boatswain'S Mate Relationship Specialty Start Date End Date Ceferino Henriquez MD [address] [place] [address] PCP - General Internal Medicine 08/15/20
--- OUTSIDE RECORDS SUMMARY | 2024-07-23 08:40 | XMS_ITS | Data Portability ---
Author Organization [facility], Main Office [place] [address] [place] [address] Care Team Providers Care Clerical Specialist Name Role Phone HUY HENRIQUEZ Primary Care Provider [phone] BILL ZUNIGA Hematology/Oncology [phone] BRIA ALEXANDRE Administrative Specialist SHOAIB CABRERA Message Broker Developer Assessment Encounter Date Assessment Date Assessment LastModified by Organization Details LastModified Time 05/05/2023 05/05/2023 11/02/2020: PSA 0.79 TSH/FT4; WNL CMP: WNL Chol 131, TG 57, HDL 39, LDL 81 CBC: HGB 12.7 02/19/2021: CMP: BUN 20H, TP 8.5, Glob 4.5H Chol 152, TG 54, HDL 50, LDL 91 TSH/FT4: WNL CBC: WNL Not available 05/05/2023 08:53:15 09/08/2023 09/08/2023 11/02/2020: PSA 0.79 TSH/FT4; WNL CMP: WNL Chol 131, TG 57, HDL 39, LDL 81 CBC: HGB 12.7 02/19/2021: CMP: BUN 20H, TP 8.5, Glob 4.5H Chol 152, TG 54, HDL 50, LDL 91 TSH/FT4: WNL CBC: WNL 08/11/2023: Dr Zuniga [facility] Bx: Lymphocytic Lymphoma : H/H 11.1/34.7 Gluc 100, BUN 23, Cr 1.43, GFR 49, TP 10.9 Here for 40 minutes Not available 09/08/2023 10:28:17 12/15/2023 12/15/2023 11/02/2020: PSA 0.79 TSH/FT4; WNL CMP: WNL Chol 131, TG 57, HDL 39, LDL 81 CBC: HGB 12.7 02/19/2021: CMP: BUN 20H, TP 8.5, Glob 4.5H Chol 152, TG 54, HDL 50, LDL 91 TSH/FT4: WNL CBC: WNL 08/11/2023: Dr Zuniga [facility] Bx: Lymphocytic Lymphoma : H/H 11.1/34.7 Gluc 100, BUN 23, Cr 1.43, GFR 49, TP 10.9 12/08/2023: Lipids: WNL BUN 12/12/2023: Dr Zuniga CMP/CBC: WNL Here for 40 minutes, discussed his various labs, also his apts with his consults [email or web address] Not available 12/15/2023 14:17:43 03/29/2024 03/29/2024 11/02/2020: PSA 0.79 TSH/FT4; WNL CMP: WNL Chol 131, TG 57, HDL 39, LDL 81 CBC: HGB 12.7 02/19/2021: CMP: BUN 20H, TP 8.5, Glob 4.5H Chol 152, TG 54, HDL 50, LDL 91 TSH/FT4: WNL CBC: WNL 08/11/2023: Dr Zuniga [facility] Bx: Lymphocytic Lymphoma : H/H 11.1/34.7 Gluc 100, BUN 23, Cr 1.43, GFR 49, TP 10.9 12/08/2023: Lipids: WNL BUN 22 12/12/2023: Dr Zuniga CMP/CBC: WNL 01/05/2024: PSA 0.9 03/26/2024: Dr Zuniga BUN 22 Not available 03/29/2024 11:12:28 Plan of Treatment Reminders Order Date Submit Date Provider Last Modified By Organization Details Last Modified Time Details Appointments Any 15 2024 09:30A Stefani ashley MD Not available Not available Not available Lab lipid panel, serum 2023 024 [email or web address] Not available 03/29/2024 11:39:41 CMP, serum or plasma 2023 024 Not available 03/29/2024 11:39:41 CBC w/ auto diff 2023 024 [email or web address] Not available 03/29/2024 11:39:42 TSH + free T4, serum 2023 024 [email or web address] Not available 03/29/2024 11:39:42 PSA, total + free, serum or plasma [email or web address] ([facility] [address] [place], [address], 01/21/2024 11:07:14 lipid panel, serum 2023 024 PARISH Not available 03/22/2024 12:20:59 CMP, serum or plasma 2023 024 PARISH Not available 03/22/2024 12:21:05 CBC w/ auto diff 2023 024 PARISH Not available 03/22/2024 11:42:11 TSH + free T4, serum 2023 024 [email or web address] Not available 06/14/2024 10:12:31 lipid panel, serum 2023 024 PARISH Not available 12/08/2023 11:53:03 CMP, serum or plasma 2023 024 PARISH Not available 09/08/2023 18:23:00 CBC w/ auto diff 2023 024 PARISH Not available 09/08/2023 17:58:20 TSH + free T4, serum 2023 024 PARISH Not available 12/09/2023 15:01:59 PSA, total + free, serum or plasma 2023 024 [email or web address] Not available 03/15/2024 09:57:02 lipid panel, serum 2022 023 PARISH Not available 08/29/2023 13:12:25 CMP, serum or plasma 2022 023 PARISH Not available 08/29/2023 13:12:29 CBC w/ auto diff 2022 023 PARISH Not available 07/22/2023 17:08:03 TSH + free T4, serum 2022 023 PARISH Not available 09/02/2023 10:27:39 Referral nephrolog ist referral 2023 024 [email or web address] [place], [address], [address], [place], [address], 03/29/2024 14:46:18 ophthalmo logist referral - Please call patient to schedule. 2023 024 [email or web address] Mena Mcqueen MD, [address], [address], 06/29/2024 16:34:11 nephrolog ist referral 2023 024 [email or web address] [place], [address], [address], [place], [address], 06/14/2024 11:26:16 ophthalmo logist referral 2023 024 [email or web address] Mena Mcqueen MD, [address], [address], 06/14/2024 11:26:15 nephrolog ist referral 2023 024 [email or web address] [place], [address], [address], [place], [address], 04/12/2024 09:03:18 ophthalmo logist referral 2023 024 Mena Mcqueen MD, [address] [facility], [facility], [place], [address], 03/08/2024 10:59:43 cardiolog ist referral 2022 023 [place], [address] [facility] [address], [place], [address], 06/23/2023 15:34:22 ophthalmo logist referral 2022 023 Mena Mcqueen MD, [address] [facility], [facility], [place], [address], 12/03/2023 17:04:47 hematolog ist referral 2022 023 PARISH Zuniga MD, [address], [place], [address], 07/31/2023 17:59:03 Procedures None recorded. Surgeries None recorded. Imaging None recorded. Medication Orders None recorded. Patient TargetsNo targets recorded. Patient Instructions Encounter Date Encounter Id Patient Instructions Last Modified By Organization Details Last Modified Time 09/08/2023 [id number] dementia rating scale-2* [email or web address] Not available 09/08/2023 10:27:30 depression screening* [email or web address] 2 Not available 09/08/2023 10:27:30 alcohol misuse* [email or web address] 2 Not available 09/08/2023 10:27:30 multi-dimensiona l health assessment questionnaire* [email or web address] Not available 09/08/2023 10:27:30 Personalized a lt Plan and Screening Recommendations Advance Directives - Do you have one? No Advance Directives - Do we have your advance directive on file in your health record? Primary Prevention/Interven tion (prevents or decreases the chance of common diseases from occurring) Smoking Risk: Non Smoker Alcohol Misuse Screening: Negative Weight: Appropriate Physical activity: Appropriate physical activity minimum of 10-20 minutes of activity that causes mild breathlessness/day Nutrition: Good Average Fall Risk (screened today): Low Vaccines Pneumococcal: Ordered Recommended today Recommended today, but you have declined No further needed Influenza: Your next one in the fall of this year Chronic Disease Risks Stroke: Low Risk I have no recommendations Heart Attack: Low risk I have no recommendations Clogging of the Arteries: Low risk I have no recommendations Diabetes: Low Risk Intermediate Risk Active diagnosis, Continue current treatment plan Secondary Prevention/Interven tion (detects treatable diseases before they may cause symptoms, disability, or ) Prostate Cancer Screening: Colon Cancer Screening: Colonoscopy Date Screening Last Performed: Eye Disease Screening: Dementia Risk: Low I have no recommendations Depression Screening: Negative [email or web address] Not available 09/08/2023 10:22:10 Reason for Referral Seaming Machine Operator Referral for Retinal disorder Referring Physician: Lizbet Selby Medicine, Encounter Date: 05/05/2023 Administrative Specialist Referral for At ypical chest pain Referring Physician: Lizbet Selby, Encounter Date: 05/05/2023 Referring Physician: Lizbet Selby, Encounter Date: 05/05/2023 Seaming Machine Operator Referral for Retinal disorder Referring Physician: Lizbet Selby, Encounter Date: 09/08/2023 Message Broker Developer Referral for Ch ronic kidney disease Referring Physician: Lizbet Selby, Encounter Date: 09/08/2023 Seaming Machine Operator Referral for Retinal disorder Referring Physician: Lizbet Selby, Encounter Date: 12/15/2023 Message Broker Developer Referral for Ch ronic kidney disease Referring Physician: Lizbet Selby, Encounter Date: 12/15/2023 Seaming Machine Operator Referral for Retinal disorder Please call patient to schedule. Referring Physician: Lizbet Selby, Encounter Date: 03/29/2024 Message Broker Developer Referral for Ch ronic kidney disease Referring Physician: Lizbet Selby, Encounter Date: 03/29/2024 Results Created Date Observation Date Name Description Value Unit Range Abnormal Flag Note LastModifiedBy Organization Detail LastModifiedTime 02/20/20 21 02/19/2021 COMPR EHENS JULIAN METAB OLIC PANEL alanine aminotransfe rase 23 U/L 0-50 Not Available [facility] (Lab) [address] [place], [address], 02/19/2021 21:09:47 02/20/20 21 02/19/2021 COMPR EHENS JULIAN METAB OLIC PANEL creatinine 1.15 mg/dL 0.66-1 .25 Not Available [facility] (Lab) [address], [place], [address], 02/19/2021 21:09:47 02/20/20 21 02/19/2021 COMPR EHENS JULIAN METAB OLIC PANEL GFR >60 Refer ence Range : Ralph ge GFR Healt hy Adult : >60 mL/mi n/1.7 3 m2 Chron ic Kidne y Disea se: 15-60 mL/mi n/1.7 3 m2 Kidne y Failu re: <15/m L/min /1.73 m2 www.n iddk. nih.g ov MDRD study equat ion hasn' t been valid ated in child juana <18 yrs of age, pregn ant women , the elder ly >85 yrs of age, or in some racia l or ethni c subgr oups, suc as Hispa nics. Outsi de the valid ated mike eters , estim ated GFR is less accur ate requi ring clini igor judgm ent on a case by case basis . Clini igor inter preta tion for other races and ages must be made by the clini slick . Futhe rmore , any of th e limit ation s with the use of serum creat inine relat ed to nutri rafaela l statu s o r medic ation usage hasn' t accou nted for the MDRD Study equat ion. For perso ns < 18 yrs of age, a pedia tric GFR calcu lator can be locat ed on the [facility] websi te: https ://maddie de la rosa.o carmelo/pr ofess ional s/kdo qi/gf r_cal culat or Not Available [facility] (Lab) [address] [place], [address], 02/19/2021 21:09:47 02/20/20 21 02/19/2021 COMPR EHENS JULIAN METAB OLIC PANEL alkaline phosphatase 86 U/L 38-126 Not Available [facility] (Lab) [address] [place], [address], 02/19/2021 21:09:47 02/20/20 21 02/19/2021 COMPR EHENS JULIAN METAB OLIC PANEL aspartate aminotransfe rase 25 U/L 15-46 Not Available [facility] (Lab) [address] [place], [address], 02/19/2021 21:09:47 02/20/20 21 02/19/2021 COMPR EHENS JULIAN METAB OLIC PANEL bilirubin, total 0.50 mg/dL 0.20-1 .30 Not Available [facility] (Lab) [address] [place], [address], 02/19/2021 21:09:47 02/20/20 21 02/19/2021 COMPR EHENS JULIAN METAB OLIC PANEL calcium 9.7 mg/dL 8.4-10 .2 Not Available [facility] (Lab) [address] [place], [address], 02/19/2021 21:09:47 02/20/20 21 02/19/2021 COMPR EHENS JULIAN METAB OLIC PANEL total protein 8.5 g/dL 6.3-8. 2 high Not Available [facility] (Lab) [address] [place], [address], 02/19/2021 21:09:47 02/20/20 21 02/19/2021 COMPR EHENS JULIAN METAB OLIC PANEL albumin 4.0 g/dL 3.0-4. 4 Not Available [facility] (Lab) [address] [place], [address], 02/19/2021 21:09:47 02/20/20 21 02/19/2021 COMPR EHENS JULIAN METAB OLIC PANEL globulin 4.5 g/dL 2.6-4. 2 high Not Available [facility] (Lab) [address] [place], [address], 02/19/2021 21:09:47 02/20/20 21 02/19/2021 COMPR EHENS JULIAN METAB OLIC PANEL A/G ratio 0.9 ratio 1.0-2. [address] [facility] (Lab) [address] [place], [address], 02/19/2021 21:09:47 02/20/20 21 02/19/2021 COMPR EHENS JULIAN METAB OLIC PANEL carbon dioxide 26 mmol/ L 22-[address] [facility] (Lab) [address] [place], [address], 02/19/2021 21:09:47 02/20/20 21 02/19/2021 COMPR EHENS JULIAN METAB OLIC PANEL sodium 138 mmol/ L 137-[address] [facility] (Lab) [address] [place], [address], 02/19/2021 21:09:47 02/20/20 21 02/19/2021 COMPR EHENS JULIAN METAB OLIC PANEL potassium 4.4 mmol/ L 3.5-5. [address] [facility] (Lab) [address] [place], [address], 02/19/2021 21:09:47 02/20/20 21 02/19/2021 COMPR EHENS JULIAN METAB OLIC PANEL chloride 104 mmol/ L 98-[address] [facility] (Lab) [address] [place], [address], 02/19/2021 21:09:47 02/20/20 21 02/19/2021 COMPR EHENS JULIAN METAB OLIC PANEL agap 12.4 mmol/ L 14-22 low Not Available [facility] (Lab) [address] [place], [address], 02/19/2021 21:09:47 02/20/20 21 02/19/2021 COMPR EHENS JULIAN METAB OLIC PANEL glucose 92 mg/dL 70-[address] [facility] (Lab) [address] [place], [address], 02/19/2021 21:09:47 02/20/20 21 02/19/2021 COMPR EHENS JULIAN METAB OLIC PANEL BUN 20 mg/dL 8-19 high Not Available [facility] (Lab) [address] [place], [address], 02/19/2021 21:09:47 02/20/20 21 02/19/2021 TSH thyroid-stim ulating hormone 1.380 uIU/m L 0.465- 4.680 Not Available [facility] (Lab) [address] [place], [address], 02/19/2021 13:49:55 02/20/20 21 02/19/2021 CBC/C OMPLE TE BLD COUNT W/DIF F hematocrit 43.2 % 39.3-5 0.0 Not Available [facility] (Lab) [address] [place], [address], 02/19/2021 12:57:27 02/20/20 21 02/19/2021 CBC/C OMPLE TE BLD COUNT W/DIF F white blood cells 8.1 x10'3 /uL 4.2-10 .8 Not Available [facility] (Lab) [address] [place], [address], 02/19/2021 12:57:27 02/20/20 21 02/19/2021 CBC/C OMPLE TE BLD COUNT W/DIF F red blood cells 4.73 x10'6 /uL 4.10-[address] [facility] (Lab) [address] [place], [address], 02/19/2021 12:57:27 02/20/20 21 02/19/2021 CBC/C OMPLE TE BLD COUNT W/DIF F hemoglobin 13.8 g/dL 13.2-[address] [facility] (Lab) [address] [place], [address], 02/19/2021 12:57:27 02/20/20 21 02/19/2021 CBC/C OMPLE TE BLD COUNT W/DIF F mean red cell volume 91.3 fL 80.0-9 7.0 Not Available [facility] (Lab) [address] [place], [address], 02/19/2021 12:57:27 02/20/20 21 02/19/2021 CBC/C OMPLE TE BLD COUNT W/DIF F mean red cell hemoglobin 29.2 pg 27.0-3 3.0 Not Available [facility] (Lab) [address] [place], [address], 02/19/2021 12:57:27 02/20/20 21 02/19/2021 CBC/C OMPLE TE BLD COUNT W/DIF F mean RBC HGB concentratio n 31.9 g/dL 31.0-3 6.0 Not Available [facility] (Lab) [address] [place], [address], 02/19/2021 12:57:27 02/20/20 21 02/19/2021 CBC/C OMPLE TE BLD COUNT W/DIF F red cell distribution width 14.8 % 11.8-1 5.5 Not Available [facility] (Lab) [address] [place], [address], 02/19/2021 12:57:27 02/20/2002/19/2021 CBC/C OMPLE TE BLD COUNT W/DIF F platelets 352 x10'3 /uL 150-[address] [facility] (Lab) [address] [place], [address], 02/19/2021 12:57:27 02/20/20 21 02/19/2021 CBC/C OMPLE TE BLD COUNT W/DIF F mean platelet volume 10.6 fL 9.0-[address] [facility] (Lab) [address] [place], [address], 02/19/2021 12:57:27 02/20/2002/19/2021 CBC/C OMPLE TE BLD COUNT W/DIF F neutrophils 58.5 % 39.0-[address] [facility] (Lab) [address] [place], [address], 02/19/2021 12:57:27 02/20/2002/19/2021 CBC/C OMPLE TE BLD COUNT W/DIF F lymphocytes 26.1 % 16.0-[address] [facility] (Lab) [address] [place], [address], 02/19/2021 12:57:27 02/20/2002/19/2021 CBC/C OMPLE TE BLD COUNT W/DIF F monocytes 10.1 % 5.0-12 .0 Not Available [facility] (Lab) [address] [place], [address], 02/19/2021 12:57:27 02/20/2002/19/2021 CBC/C OMPLE TE BLD COUNT W/DIF F eosinophils 3.7 % 1.0-7. 0 Not Available [facility] (Lab) [address] [place], [address], 02/19/2021 12:57:27 02/20/2002/19/2021 CBC/C OMPLE TE BLD COUNT W/DIF F basophils 1.2 % 0.0-2. 0 Not Available [facility] (Lab) [address] [place], [address], 02/19/2021 12:57:27 02/20/20 21 02/19/2021 CBC/C OMPLE TE BLD COUNT W/DIF F immature granulocytes 0.4 % 0.00-0 .50 Not Available [facility] (Lab) [address] [place], [address], 02/19/2021 12:57:27 02/20/2002/19/2021 CBC/C OMPLE TE BLD COUNT W/DIF F neutrophils, absolute count 4.72 x10'3 /uL 1.5-8. 0 Not Available [facility] (Lab) [address] [place], [address], 02/19/2021 12:57:27 02/20/2002/19/2021 CBC/C OMPLE TE BLD COUNT W/DIF F lymphocytes, absolute count 2.11 x10'3 /uL 1.07-3 .43 Not Available [facility] (Lab) [address] [place], [address], 02/19/2021 12:57:27 02/20/2002/19/2021 CBC/C OMPLE TE BLD COUNT W/DIF F monocytes, absolute count 0.82 x10'3 /uL 0.29-0 .99 Not Available [facility] (Lab) [address] [place], [address], 02/19/2021 12:57:27 02/20/20 21 02/19/2021 CBC/C OMPLE TE BLD COUNT W/DIF F eosinophils, absolute count 0.30 x10'3 /uL 0.02-0 .53 Not Available [facility] (Lab) [address] [place], [address], 02/19/2021 12:57:27 02/20/2002/19/2021 CBC/C OMPLE TE BLD COUNT W/DIF F basophils, absolute count 0.10 x10'3 /uL 0.01-0 .08 high Not Available [facility] (Lab) [address] [place], [address], 02/19/2021 12:57:27 02/20/20 21 02/19/2021 CBC/C OMPLE TE BLD COUNT W/DIF F immature granulocytes ,absolute 0.03 x10'3 /uL 0.00-0 .05 Not Available [facility] (Lab) [address] [place], [address], 02/19/2021 12:57:27 02/20/2002/19/2021 CBC/C OMPLE TE BLD COUNT W/DIF F nucleated red blood cells 0.0 % -0 Not Available [facility] (Lab) [address] [place], [address], 02/19/2021 12:57:27 02/20/2002/19/2021 CBC/C OMPLE TE BLD COUNT W/DIF F NRBC# 0.00 x10'3 /uL Not Available [facility] (Lab) [address] [place], [address], 02/19/2021 12:57:27 02/20/2002/19/2021 LIPID PANEL cholesterol 152 mg/dL 140-19 9 NIH DARCIE NSUS RECOM MENDA TION FOR EDWIGE STERO L: ADULT CHILD LOW RISK: <200 <170 BORDE RLINE : <200- 239 ----- HIGH RISK: >240 >200 Not Available [facility] (Lab) [address] [place], [address], 02/19/2021 21:09:41 02/20/20 21 02/19/2021 LIPID PANEL triglyceride s 54 mg/dL 0-150 NIH DARCIE NSUS REPOR T RECOM MENDA TION FOR TRIGL YCERI CAIO: ADULT CHILD LOW RISK: <150 ----- BODER LINE: 150-1 99 ----- HIGH RISK: >200 ----- Not Available [facility] (Lab) [address] [place], [address], 02/19/2021 21:09:41 02/20/20 21 02/19/2021 LIPID PANEL HDL cholesterol 50 mg/dL 40- Not Available [facility] (Lab) [address] [place], [address], 02/19/2021 21:09:41 02/20/20 21 02/19/2021 LIPID PANEL LDL cholesterol, calculated 91 mg/dL 0-130 NIH DARCIE NSUS REPOR T RECOM MENDA TIONS FOR LDL: ADULT CHILD LOW RISK <130 <110 (OPTI MAL LDL) <100 ----- BORDE RLINE : 130-1 59 ----- HIGH RISK: >160 >130 A TRIGL YCERI DE RESUL T >400 INVAL IDATE S THE CALCU LATIO N FOR LDL FRACT IONAT ION - THE LDL RESUL T WILL NOT BE REPOR DANELLE. Not Available [facility] (Lab) [address] [place], [address], 02/19/2021 21:09:41 02/20/20 21 02/19/2021 T4 FREE free T4 1.08 NG/dL 0.78-2 .19 Not Available [facility] (Lab) [address] [place], [address], 02/19/2021 13:40:21 05/07/20 23 05/07/2023 RAPID STREP A DNA strep A DNA, JESSICA NEGATI VE negati ve Not Available [facility] (Lab) [address] [place], [address], 05/07/2023 15:20:19 05/07/20 23 05/07/2023 COVID -19, INFLU SELMA A+B PANEL sars-cov-2 RNA(covid19) ,RT-PCR NEGATI VE This test has been autho rized by the FDA under an Emerg ency Use Autho rizat ion (EUA) for use by autho rized labor atori es. Negat julian resul ts do not precl ude SARS- CoV-2 and shoul d not be used as the sole basis for treat ment or other patie nt manag ement decis ions. Test resul ts shoul d be corre lated with the clini igor histo ry, epide miolo gical data, and other data avail able to the clini slick evalu ating the patie nt. Braxton marks w the Fact Sheet s for healt h care provi ders and patie nts at the [facility] jennifer: https ://ww w.[employer]aila technologies .gov/ media /3057 12/do wnloa d https ://[employer] w.[employer] .gov/ media /6747 13/do wnloa d Sasha blanco y: Real- Time RT-PC R Not Available [facility] (Lab) [address] [place], [address], 05/07/2023 16:18:32 05/07/20 23 05/07/2023 COVID -19, INFLU SELMA A+B PANEL influenza A RNA, RT-PCR NEGATI VE Not Available [facility] (Lab) [address] [place], [address], 05/07/2023 16:18:32 05/07/20 23 05/07/2023 COVID -19, INFLU SELMA A+B PANEL influenza B RNA, RT-PCR NEGATI VE Not Available [facility] (Lab) [address] [place], [address], 05/07/2023 16:18:32 08/29/19 24 08/29/2023 LIPID PANEL cholesterol 102 mg/dL 140-19 9 low NIH DARCIE NSUS RECOM MENDA TION FOR EDWIGE STERO L: ADULT CHILD LOW RISK: <200 <170 BORDE RLINE : <200- 239 ----- HIGH RISK: >240 >200 Not Available [facility] (Lab) [address] [place], [address], 08/29/2023 13:12:25 08/29/19 24 08/29/2023 LIPID PANEL triglyceride s 51 mg/dL 0-150 NIH DARCIE NSUS REPOR T RECOM MENDA TION FOR TRIGL YCERI CAIO: ADULT CHILD LOW RISK: <150 ----- BODER LINE: 150-1 99 ----- HIGH RISK: >200 ----- Not Available [facility] (Lab) [address] [place], [address], 08/29/2023 13:12:25 08/29/19 24 08/29/2023 LIPID PANEL HDL cholesterol 46 mg/dL 40- Not Available [facility] (Lab) [address] [place], [address], 08/29/2023 13:12:25 08/29/19 24 08/29/2023 LIPID PANEL LDL cholesterol, calculated 46 mg/dL 0-130 NIH DARCIE NSUS REPOR T RECOM MENDA TIONS FOR LDL: ADULT CHILD LOW RISK <130 <110 (OPTI MAL LDL) <100 ----- BORDE RLINE : 130-1 59 ----- HIGH RISK: >160 >130 A TRIGL YCERI DE RESUL T >400 INVAL IDATE S THE CALCU LATIO N FOR LDL FRACT IONAT ION - THE LDL RESUL T WILL NOT BE REPOR DANELLE. Not Available [facility] (Lab) [address] [place], [address], 08/29/2023 13:12:25 08/29/1908/29/2023 COMPR EHENS JULIAN METAB OLIC PANEL sodium 139 mmol/ L 137-[address] [facility] (Lab) [address] [place], [address], 08/29/2023 13:12:29 08/29/19 24 08/29/2023 COMPR EHENS JULIAN METAB OLIC PANEL potassium 4.5 mmol/ L 3.5-5. [address] [facility] (Lab) [address] [place], [address], 08/29/2023 13:12:29 08/29/19 24 08/29/2023 COMPR EHENS JULIAN METAB OLIC PANEL chloride 104 mmol/ L 98-[address] [facility] (Lab) [address] [place], [address], 08/29/2023 13:12:29 08/29/19 24 08/29/2023 COMPR EHENS JULINA METAB OLIC PANEL carbon dioxide 34 mmol/ L 22-[address] [facility] (Lab) [address] [place], [address], 08/29/2023 13:12:29 08/29/19 24 08/29/2023 COMPR EHENS JULIAN METAB OLIC PANEL anion gap 5.5 mmol/ L 14-[address] [facility] (Lab) [address] [place], [address], 08/29/2023 13:12:29 08/29/19 24 08/29/2023 COMPR EHENS JULIAN METAB OLIC PANEL glucose 100 mg/dL 70-[address] [facility] (Lab) [address] [place], [address], 08/29/2023 13:12:29 08/29/19 24 08/29/2023 COMPR EHENS JULIAN METAB OLIC PANEL BUN 23 mg/dL 8-[address] [facility] (Lab) [address] [place], [address], 08/29/2023 13:12:29 08/29/19 24 08/29/2023 COMPR EHENS JULIAN METAB OLIC PANEL creatinine 1.43 mg/dL 0.66-1 [address] [facility] (Lab) [address] [place], [address], 08/29/2023 13:12:29 08/29/19 24 08/29/2023 COMPR EHENS JULIAN METAB OLIC PANEL GFR 49 Refer ence Range : Ralph ge GFR Healt hy Adult : >60 mL/mi n/1.7 3 m2 Chron ic Kidne y Disea se: 15-60 mL/mi n/1.7 3 m2 Kidne y Failu re: <15/m L/min /1.73 m2 [email or web address] The MDRD study equat ion has not been valid ated in child juana <18 years of age; pregn ant women ; the elder ly >85 years of age; or in some racia l or ethni c subgr oups, such as Hispa nics. Outsi de the valid ated mike eters , estim ated GFR is less accur ate, requi ring clini igor judgm ent on a case- by-ca se basis . Clini igor inter preta tion for other races and ages must be made by the clini slick. The MDRD study equat ion has not been valid ated for the evalu ation of serum creat inine relat ed to nutri rafaela l statu s or medic ation usage . For perso ns <18 years of age, a pedia tric GFR calcu lator is avail able on the [facility] websi te: [email or web address] :[email or web address] culat or Not Available [facility] (Lab) [address] [place], [address], 08/29/2023 13:12:29 08/29/19 24 08/29/2023 COMPR EHENS JULIAN METAB OLIC PANEL alkaline phosphatase 83 U/L 38-126 Not Available [facility] (Lab) [address] [place], [address], 08/29/2023 13:12:29 08/29/19 24 08/29/2023 COMPR EHENS JULIAN METAB OLIC PANEL alanine aminotransfe rase 19 U/L 0-50 Not Available [facility] (Lab) [address] [place], [address], 08/29/2023 13:12:29 08/29/19 24 08/29/2023 COMPR EHENS JULIAN METAB OLIC PANEL aspartate aminotransfe rase 26 U/L 15-46 Not Available [facility] (Lab) [address] [place], [address], 08/29/2023 13:12:29 08/29/19 24 08/29/2023 COMPR EHENS JULIAN METAB OLIC PANEL bilirubin, total 0.60 mg/dL 0.20-1 .30 Not Available [facility] (Lab) [address] [place], [address], 08/29/2023 13:12:29 08/29/19 24 08/29/2023 COMPR EHENS JULIAN METAB OLIC PANEL calcium 10.6 mg/dL 8.4-10 .2 high Not Available [facility] (Lab) [address] [place], [address], 08/29/2023 13:12:29 08/29/19 24 08/29/2023 COMPR EHENS JULIAN METAB OLIC PANEL total protein 10.9 g/dL 6.3-8. 2 high Not Available [facility] (Lab) [address] [place], [address], 08/29/2023 13:12:29 08/29/19 24 08/29/2023 COMPR EHENS JULIAN METAB OLIC PANEL albumin 3.8 g/dL 3.0-4. 4 Not Available [facility] (Lab) [address] [place], [address], 08/29/2023 13:12:29 08/29/19 24 08/29/2023 COMPR EHENS JULIAN METAB OLIC PANEL globulin 7.1 g/dL 2.6-4. 2 high Not Available [facility] (Lab) [address] [place], [address], 08/29/2023 13:12:29 08/29/19 24 08/29/2023 COMPR EHENS JULIAN METAB OLIC PANEL A/G ratio 0.5 ratio 1.0-2. 0 low Not Available [facility] (Lab) [address] [place], [address], 08/29/2023 13:12:29 08/29/19 24 08/29/2023 CBC/C OMPLE TE BLD COUNT W/DIF F white blood cells 6.7 x10'3 /uL 4.2-10 .8 Not Available [facility] (Lab) [address] [place], [address], 08/29/2023 13:13:35 08/29/19 24 08/29/2023 CBC/C OMPLE TE BLD COUNT W/DIF F red blood cells 3.66 x10'6 /uL 4.10-5 .80 low Not Available [facility] (Lab) [address] [place], [address], 08/29/2023 13:13:35 08/29/19 24 08/29/2023 CBC/C OMPLE TE BLD COUNT W/DIF F hemoglobin 11.1 g/dL 13.2-1 7.0 low Not Available [facility] (Lab) [address] [place], [address], 08/29/2023 13:13:35 08/29/19 24 08/29/2023 CBC/C OMPLE TE BLD COUNT W/DIF F hematocrit 34.7 % 39.3-5 0.0 low Not Available [facility] (Lab) [address] [place], [address], 08/29/2023 13:13:35 08/29/19 24 08/29/2023 CBC/C OMPLE TE BLD COUNT W/DIF F mean red cell volume 94.8 fL 80.0-9 7.0 Not Available [facility] (Lab) [address] [place], [address], 08/29/2023 13:13:35 08/29/19 24 08/29/2023 CBC/C OMPLE TE BLD COUNT W/DIF F mean red cell hemoglobin 30.3 pg 27.0-[address] [facility] (Lab) [address] [place], [address], 08/29/2023 13:13:35 08/29/19 24 08/29/2023 CBC/C OMPLE TE BLD COUNT W/DIF F mean RBC HGB concentratio n 32.0 g/dL 31.0-3 6.0 Not Available [facility] (Lab) [address] [place], [address], 08/29/2023 13:13:35 08/29/19 24 08/29/2023 CBC/C OMPLE TE BLD COUNT W/DIF F red cell distribution width 15.4 % 11.8-1 5.5 Not Available [facility] (Lab) [address] [place], [address], 08/29/2023 13:13:35 08/29/19 24 08/29/2023 CBC/C OMPLE TE BLD COUNT W/DIF F platelets 304 x10'3 /uL 150-40 0 Not Available [facility] (Lab) [address] [place], [address], 08/29/2023 13:13:35 08/29/19 24 08/29/2023 CBC/C OMPLE TE BLD COUNT W/DIF F mean platelet volume 10.1 fL 9.0-12 .4 Not Available [facility] (Lab) [address] [place], [address], 08/29/2023 13:13:35 08/29/19 24 08/29/2023 CBC/C OMPLE TE BLD COUNT W/DIF F neutrophils 34.6 % 39.0-7 2[address] [facility] (Lab) [address] [place], [address], 08/29/2023 13:13:35 08/29/19 24 08/29/2023 CBC/C OMPLE TE BLD COUNT W/DIF F lymphocytes 49.7 % 16.0-4 [address] [facility] (Lab) [address] [place], [address], 08/29/2023 13:13:35 08/29/19 24 08/29/2023 CBC/C OMPLE TE BLD COUNT W/DIF F monocytes 6.1 % 5.0-12 .0 Not Available [facility] (Lab) [address] [place], [address], 08/29/2023 13:13:35 08/29/19 24 08/29/2023 CBC/C OMPLE TE BLD COUNT W/DIF F eosinophils 7.4 % 1.0-7. [address] [facility] (Lab) [address] [place], [address], 08/29/2023 13:13:35 08/29/19 24 08/29/2023 CBC/C OMPLE TE BLD COUNT W/DIF F basophils 2.1 % 0.0-2. [address] [facility] (Lab) [address] [place], [address], 08/29/2023 13:13:35 08/29/19 24 08/29/2023 CBC/C OMPLE TE BLD COUNT W/DIF F immature granulocytes 0.1 % 0.00-0 .50 Not Available [facility] (Lab) [address] [place], [address], 08/29/2023 13:13:35 08/29/19 24 08/29/2023 CBC/C OMPLE TE BLD COUNT W/DIF F neutrophils, absolute count 2.33 x10'3 /uL 1.5-8. 0 Not Available [facility] (Lab) [address] [place], [address], 08/29/2023 13:13:35 08/29/19 24 08/29/2023 CBC/C OMPLE TE BLD COUNT W/DIF F lymphocytes, absolute count 3.35 x10'3 /uL 1.07-3 .43 Not Available [facility] (Lab) [address] [place], [address], 08/29/2023 13:13:35 08/29/19 24 08/29/2023 CBC/C OMPLE TE BLD COUNT W/DIF F monocytes, absolute count 0.41 x10'3 /uL 0.29-0 .99 Not Available [facility] (Lab) [address] [place], [address], 08/29/2023 13:13:35 08/29/19 24 08/29/2023 CBC/C OMPLE TE BLD COUNT W/DIF F eosinophils, absolute count 0.50 x10'3 /uL 0.02-0 .53 Not Available [facility] (Lab) [address] [place], [address], 08/29/2023 13:13:35 08/29/19 24 08/29/2023 CBC/C OMPLE TE BLD COUNT W/DIF F basophils, absolute count 0.14 x10'3 /uL 0.01-0 .08 high Not Available [facility] (Lab) [address] [place], [address], 08/29/2023 13:13:35 08/29/19 24 08/29/2023 CBC/C OMPLE TE BLD COUNT W/DIF F immature granulocytes ,absolute 0.01 x10'3 /uL 0.00-0 .05 Not Available [facility] (Lab) [address] [place], [address], 08/29/2023 13:13:35 08/29/19 24 08/29/2023 CBC/C OMPLE TE BLD COUNT W/DIF F nucleated red blood cells 0.0 % -0 Not Available [facility] (Lab) [address] [place], [address], 08/29/2023 13:13:35 08/29/19 24 08/29/2023 CBC/C OMPLE TE BLD COUNT W/DIF F NRBC# 0.00 x10'3 /uL Not Available [facility] (Lab) [address] [place], [address], 08/29/2023 13:13:35 08/30/19 24 09/03/2023 MISCE LLANE OUS TEST misc test COMMEN T SENT TO REFER ENCE LAB; SEE SEPAR ATE REPOR T Not Available [facility] (Lab) [address] [place], [address], 09/03/2023 10:15:32 09/17/19 24 09/17/2023 HEMOG LOBIN A1C HA1C 5.5 % 4.0-6. 0 Diabe jennifer Scree to Crite matthew: <5.7% Consi stent with absen ce of diabe jennifer 5.7-6 .4% Consi stent with incre ased risk for diabe jennifer (pred iabet es) >OR=6 .5% Consi stent with diabe jennifer REFER ENCE: Diabe jennifer Care 2015, 39(Summers ppl.1 ):s13 -s22 Not Available [facility] (Lab) [address] [place], [address], 09/17/2023 21:11:08 12/08/19 24 12/08/2023 CBC/C OMPLE TE BLD COUNT W/DIF F white blood cells 5.7 x10'3 /uL 4.2-10 .8 Not Available [facility] (Lab) [address] [place], [address], 12/08/2023 11:43:21 12/08/19 24 12/08/2023 CBC/C OMPLE TE BLD COUNT W/DIF F red blood cells 4.57 x10'6 /uL 4.10-5 .80 Not Available [facility] (Lab) [address] [facility] [place], [address], 12/08/2023 11:43:21 12/08/19 24 12/08/2023 CBC/C OMPLE TE BLD COUNT W/DIF F hemoglobin 14.2 g/dL 13.2-1 7.0 Not Available [facility] (Lab) [address] [place], [address], 12/08/2023 11:43:21 12/08/19 24 12/08/2023 CBC/C OMPLE TE BLD COUNT W/DIF F hematocrit 42.7 % 39.3-5 0.0 Not Available [facility] (Lab) [address] [place], [address], 12/08/2023 11:43:21 12/08/19 24 12/08/2023 CBC/C OMPLE TE BLD COUNT W/DIF F mean red cell volume 93.4 fL 80.0-9 7.0 Not Available [facility] (Lab) [address] [place], [address], 12/08/2023 11:43:21 12/08/19 24 12/08/2023 CBC/C OMPLE TE BLD COUNT W/DIF F mean red cell hemoglobin 31.1 pg 27.0-3 3.0 Not Available [facility] (Lab) [address] [place], [address], 12/08/2023 11:43:21 12/08/19 24 12/08/2023 CBC/C OMPLE TE BLD COUNT W/DIF F mean RBC HGB concentratio n 33.3 g/dL 31.0-3 6.0 Not Available [facility] (Lab) [address] [place], [address], 12/08/2023 11:43:21 12/08/19 24 12/08/2023 CBC/C OMPLE TE BLD COUNT W/DIF F red cell distribution width 14.1 % 11.8-1 5.5 Not Available [facility] (Lab) [address] [facility] [place], [address], 12/08/2023 11:43:21 12/08/19 24 12/08/2023 CBC/C OMPLE TE BLD COUNT W/DIF F platelets 208 x10'3 /uL 150-40 0 Not Available [facility] (Lab) [address] [facility] [place], [address], 12/08/2023 11:43:21 12/08/19 24 12/08/2023 CBC/C OMPLE TE BLD COUNT W/DIF F mean platelet volume 11.1 fL 9.0-12 .4 Not Available [facility] (Lab) [address] [place], [address], 12/08/2023 11:43:21 12/08/19 24 12/08/2023 CBC/C OMPLE TE BLD COUNT W/DIF F neutrophils 45.5 % 39.0-7 2.0 Not Available [facility] (Lab) [address] [place], [address], 12/08/2023 11:43:21 12/08/19 24 12/08/2023 CBC/C OMPLE TE BLD COUNT W/DIF F lymphocytes 37.6 % 16.0-4 7.0 Not Available [facility] (Lab) [address] [place], [address], 12/08/2023 11:43:21 12/08/19 24 12/08/2023 CBC/C OMPLE TE BLD COUNT W/DIF F monocytes 8.7 % 5.0-12 .0 Not Available [facility] (Lab) [address] [place], [address], 12/08/2023 11:43:21 12/08/19 24 12/08/2023 CBC/C OMPLE TE BLD COUNT W/DIF F eosinophils 6.1 % 1.0-7. 0 Not Available [facility] (Lab) [address] [place], [address], 12/08/2023 11:43:21 12/08/19 24 12/08/2023 CBC/C OMPLE TE BLD COUNT W/DIF F basophils 1.9 % 0.0-2. 0 Not Available [facility] (Lab) [address] [place], [address], 12/08/2023 11:43:21 12/08/19 24 12/08/2023 CBC/C OMPLE TE BLD COUNT W/DIF F immature granulocytes 0.2 % 0.00-0 .50 Not Available [facility] (Lab) [address] [place], [address], 12/08/2023 11:43:21 12/08/19 24 12/08/2023 CBC/C OMPLE TE BLD COUNT W/DIF F neutrophils, absolute count 2.60 x10'3 /uL 1.5-8. 0 Not Available [facility] (Lab) [address] [place], [address], 12/08/2023 11:43:21 12/08/19 24 12/08/2023 CBC/C OMPLE TE BLD COUNT W/DIF F lymphocytes, absolute count 2.15 x10'3 /uL 1.07-3 .43 Not Available [facility] (Lab) [address] [place], [address], 12/08/2023 11:43:21 12/08/19 24 12/08/2023 CBC/C OMPLE TE BLD COUNT W/DIF F monocytes, absolute count 0.50 x10'3 /uL 0.29-0 .99 Not Available [facility] (Lab) [address] [place], [address], 12/08/2023 11:43:21 12/08/19 24 12/08/2023 CBC/C OMPLE TE BLD COUNT W/DIF F eosinophils, absolute count 0.35 x10'3 /uL 0.02-0 .53 Not Available [facility] (Lab) [address] [place], [address], 12/08/2023 11:43:21 12/08/19 24 12/08/2023 CBC/C OMPLE TE BLD COUNT W/DIF F basophils, absolute count 0.11 x10'3 /uL 0.01-0 .08 high Not Available [facility] (Lab) [address] [place], [address], 12/08/2023 11:43:21 12/08/19 24 12/08/2023 CBC/C OMPLE TE BLD COUNT W/DIF F immature granulocytes ,absolute 0.01 x10'3 /uL 0.00-0 .05 Not Available [facility] (Lab) [address] [place], [address], 12/08/2023 11:43:21 12/08/19 24 12/08/2023 CBC/C OMPLE TE BLD COUNT W/DIF F nucleated red blood cells 0.0 % -0 Not Available [facility] (Lab) [address] [place], [address], 12/08/2023 11:43:21 12/08/19 24 12/08/2023 CBC/C OMPLE TE BLD COUNT W/DIF F NRBC# 0.00 x10'3 /uL Not Available [facility] (Lab) [address] [place], [address], 12/08/2023 11:43:21 12/08/19 24 12/08/2023 LIPID PANEL cholesterol 137 mg/dL 140-19 9 low NIH DARCIE NSUS RECOM MENDA TION FOR EDWIGE STERO L: ADULT CHILD LOW RISK: <200 <170 BORDE RLINE : <200- 239 ----- HIGH RISK: >240 >[address] [facility] (Lab) [address] [place], [address], 12/08/2023 15:10:13 12/08/19 24 12/08/2023 LIPID PANEL triglyceride s 63 mg/dL 0-150 NIH DARCIE NSUS REPOR T RECOM MENDA TION FOR TRIGL YCERI CAIO: ADULT CHILD LOW RISK: <150 ----- BODER LINE: 150-1 99 ----- HIGH RISK: >200 ----- Not Available [facility] (Lab) [address] [place], [address], 12/08/2023 15:10:13 12/08/19 24 12/08/2023 LIPID PANEL HDL cholesterol 50 mg/dL 40- Not Available [facility] (Lab) [address] [place], [address], 12/08/2023 15:10:13 12/08/19 24 12/08/2023 LIPID PANEL LDL cholesterol, calculated 74 mg/dL 0-130 NIH DARCIE NSUS REPOR T RECOM MENDA TIONS FOR LDL: ADULT CHILD LOW RISK <130 <110 (OPTI MAL LDL) <100 ----- BORDE RLINE : 130-1 59 ----- HIGH RISK: >160 >130 A TRIGL YCERI DE RESUL T >400 INVAL IDATE S THE CALCU LATIO N FOR LDL FRACT IONAT ION - THE LDL RESUL T WILL NOT BE REPOR DANELLE. Not Available [facility] (Lab) [address] [place], [address], 12/08/2023 15:10:13 12/08/19 24 12/08/2023 COMPR EHENS JULIAN METAB OLIC PANEL sodium 136 mmol/ L 137-[address] [facility] (Lab) [address] [place], [address], 12/08/2023 11:53:13 12/08/19 24 12/08/2023 COMPR EHENS JULIAN METAB OLIC PANEL potassium 4.2 mmol/ L 3.5-5. [address] [facility] (Lab) [address] [place], [address], 12/08/2023 11:53:13 12/08/19 24 12/08/2023 COMPR EHENS JULIAN METAB OLIC PANEL chloride 107 mmol/ L 98-107 Not Available [facility] (Lab) [address] [place], [address], 12/08/2023 11:53:13 12/08/19 24 12/08/2023 COMPR EHENS JULIAN METAB OLIC PANEL carbon dioxide 28 mmol/ L 22-[address] [facility] (Lab) [address] [place], [address], 12/08/2023 11:53:13 12/08/19 24 12/08/2023 COMPR EHENS JULIAN METAB OLIC PANEL anion gap 5.2 mmol/ L 14-22 low Not Available [facility] (Lab) [address] [place], [address], 12/08/2023 11:53:13 12/08/19 24 12/08/2023 COMPR EHENS JULIAN METAB OLIC PANEL glucose 95 mg/dL 70-99 Not Available [facility] (Lab) [address] [place], [address], 12/08/2023 11:53:13 12/08/19 24 12/08/2023 COMPR EHENS JULIAN METAB OLIC PANEL BUN 22 mg/dL 8-19 high Not Available [facility] (Lab) [address] [place], [address], 12/08/2023 11:53:13 12/08/19 24 12/08/2023 COMPR EHENS JULIAN METAB OLIC PANEL creatinine 1.11 mg/dL 0.66-1 .25 Not Available [facility] (Lab) [address] [place], [address], 12/08/2023 11:53:13 12/08/19 24 12/08/2023 COMPR EHENS JULIAN METAB OLIC PANEL GFR >60 Refer ence Range : Ralph ge GFR Healt hy Adult : >60 mL/mi n/1.7 3 m2 Chron ic Kidne y Disea se: 15-60 mL/mi n/1.7 3 m2 Kidne y Failu re: <15/m L/min /1.73 m2 www.n iddk. nih.g ov The MDRD study equat ion has not been valid ated in child juana <18 years of age; pregn ant women ; the elder ly >85 years of age; or in some racia l or ethni c subgr oups, such as Hispr nics. Outsi de the valid ated mike eters , estim ated GFR is less accur ate, requi ring clini igor judgm ent on a case- by-ca se basis . Clini igor inter preta tion for other races and ages must be made by the clini slick. The MDRD study equat ion has not been valid ated for the evalu ation of serum creat inine relat ed to nutri rafaela l statu s or medic ation usage . For perso ns <18 years of age, a pedia tric GFR calcu lator is avail able on the F websi te: https ://maddie w.kid rj.o rg/pr jose manueless ional s/kdo qi/gf r_cal culat or Not Available [facility] (Lab) [address] [place], [address], 12/08/2023 11:53:13 12/08/19 24 12/08/2023 COMPR EHENS JULIAN METAB OLIC PANEL alkaline phosphatase 71 U/L 38-126 Not Available [facility] (Lab) [address] [place], [address], 12/08/2023 11:53:13 12/08/19 24 12/08/2023 COMPR EHENS JULIAN METAB OLIC PANEL alanine aminotransfe rase 17 U/L 0-50 Not Available [facility] (Lab) [address] [place], [address], 12/08/2023 11:53:13 12/08/19 24 12/08/2023 COMPR EHENS JULIAN METAB OLIC PANEL aspartate aminotransfe rase 23 U/L 15-46 Not Available [facility] (Lab) [address] [place], [address], 12/08/2023 11:53:13 12/08/19 24 12/08/2023 COMPR EHENS JULIAN METAB OLIC PANEL bilirubin, total 0.60 mg/dL 0.20-1 .30 Not Available [facility] (Lab) [address] [place], [address], 12/08/2023 11:53:13 12/08/19 24 12/08/2023 COMPR EHENS JULIAN METAB OLIC PANEL calcium 9.1 mg/dL 8.4-10 .2 Not Available [facility] (Lab) [address] [place], [address], 12/08/2023 11:53:13 12/08/19 24 12/08/2023 COMPR EHENS JULIAN METAB OLIC PANEL total protein 7.2 g/dL 6.3-8. 2 Not Available [facility] (Lab) [address] [place], [address], 12/08/2023 11:53:13 12/08/19 24 12/08/2023 COMPR EHENS JULIAN METAB OLIC PANEL albumin 3.8 g/dL 3.0-4. 4 Not Available [facility] (Lab) [address] [place], [address], 12/08/2023 11:53:13 12/08/19 24 12/08/2023 COMPR EHENS JULIAN METAB OLIC PANEL globulin 3.4 g/dL 2.6-4. 2 Not Available [facility] (Lab) [address] [place], [address], 12/08/2023 11:53:13 12/08/19 24 12/08/2023 COMPR EHENS JULIAN METAB OLIC PANEL A/G ratio 1.1 ratio 1.0-2. 0 Not Available [facility] (Lab) [address] [place], [address], 12/08/2023 11:53:13 12/08/19 24 12/08/2023 T4 FREE free T4 1.06 NG/dL 0.78-2 .19 Not Available [facility] (Lab) [address] [place], [address], 12/08/2023 12:34:19 12/08/19 24 12/08/2023 TSH thyroid-stim ulating hormone 1.890 uIU/m L 0.465- 4.680 Not Available [facility] (Lab) [address] [place], [address], 12/08/2023 12:50:51 01/05/20 24 01/06/2024 PSA FREE + TOTAL (LC) prostate specific Ag, serum 0.9 NG/mL 0.0-4. 0 Carmelo ECLIA metho dolog y. . Accor ding to the Ameri can [employer] g[employer] iatio n, Serum PSA shoul d decre ase and remai n at undet ectab le level s after radic al prost atect avinash. The AUA defin es bioch emica l recur rence as an initi al PSA value 0.2 ng/mL or great er follo wed by a subse quent confi rmato ry PSA value 0.2 ng/mL or great er. Value s obtai gutierrez with diffe rent assay metho ds or kits canno t be used inter espinoza eaduncany . Resul ts canno t be inter prete d as absol thi evide nce of the prese nce or absen ce of juarez wolff se. Not Available [facility] (Lab) [address] [place], [address], 01/06/2024 12:12:44 01/05/20 24 01/06/2024 PSA FREE + TOTAL (LC) PSA, free 0.20 NG/mL n/a Carmelo ECLIA metho dolog y. Not Available [facility] (Lab) [address] [place], [address], 01/06/2024 12:12:44 01/05/20 24 01/06/2024 PSA FREE + TOTAL (LC) % free PSA 22.2 % The table below lists the proba bilit y of prost ate cance r for men with non-s uspic ious NORY resul ts and total PSA betwe en 4 and 10 ng/mL , by patie nt age (Jeannie giles et al, ZEYAD 1998, 279:1 542). % Free PSA 50-64 yr 65-75 yr 0.00- 10.00 % 56% 55% 10.01 -15.0 0% 24% 35% 15.01 -20.0 0% 17% 23% 20.01 -25.0 0% 10% 20% >25.0 0% 5% 9% Pleas e note: Richa marcus et al did not make speci fic recom menda tions regar ding the use of perce nt free PSA for any other popul ation of men. Perfo rmed at: CB - [facility] [address], [place] [address] 1473 Lab Direc tor: Jorge Luis manrique PhD, Phone : [phone] Not Available [facility] (Lab) [address] [place], [address], 01/06/2024 12:12:44 03/22/20 24 03/22/2024 CBC/C OMPLE TE BLD COUNT W/DIF F white blood cells 6.5 x10'3 /uL 4.2-[address] [facility] (Lab) [address] [place], [address], 03/22/2024 11:42:10 03/22/20 24 03/22/2024 CBC/C OMPLE TE BLD COUNT W/DIF F red blood cells 4.42 x10'6 /uL 4.10-[address] [facility] (Lab) [address] [facility] [place], [address], 03/22/2024 11:42:10 03/22/20 24 03/22/2024 CBC/C OMPLE TE BLD COUNT W/DIF F hemoglobin 13.8 g/dL 13.2-1 7.0 Not Available [facility] (Lab) [address] [place], [address], 03/22/2024 11:42:10 03/22/20 24 03/22/2024 CBC/C OMPLE TE BLD COUNT W/DIF F hematocrit 41.9 % 39.3-[address] [facility] (Lab) [address] [place], [address], 03/22/2024 11:42:10 03/22/20 24 03/22/2024 CBC/C OMPLE TE BLD COUNT W/DIF F mean red cell volume 94.8 fL 80.0-9 7.0 Not Available [facility] (Lab) [address] [place], [address], 03/22/2024 11:42:10 03/22/20 24 03/22/2024 CBC/C OMPLE TE BLD COUNT W/DIF F mean red cell hemoglobin 31.2 pg 27.0-3 3.0 Not Available [facility] (Lab) [address] [place], [address], 03/22/2024 11:42:10 03/22/20 24 03/22/2024 CBC/C OMPLE TE BLD COUNT W/DIF F mean RBC HGB concentratio n 32.9 g/dL 31.0-3 6.0 Not Available [facility] (Lab) [address] [place], [address], 03/22/2024 11:42:10 03/22/20 24 03/22/2024 CBC/C OMPLE TE BLD COUNT W/DIF F red cell distribution width 15.0 % 11.8-1 5.5 Not Available [facility] (Lab) [address] [place], [address], 03/22/2024 11:42:10 03/22/2003/22/2024 CBC/C OMPLE TE BLD COUNT W/DIF F platelets 217 x10'3 /uL 150-40 0 Not Available [facility] (Lab) [address] [place], [address], 03/22/2024 11:42:10 03/22/20 24 03/22/2024 CBC/C OMPLE TE BLD COUNT W/DIF F mean platelet volume 11.2 fL 9.0-12 .4 Not Available [facility] (Lab) [address] [place], [address], 03/22/2024 11:42:10 03/22/20 24 03/22/2024 CBC/C OMPLE TE BLD COUNT W/DIF F neutrophils 51.1 % 39.0-7 2.0 Not Available [facility] (Lab) [address] [place], [address], 03/22/2024 11:42:10 03/22/20 24 03/22/2024 CBC/C OMPLE TE BLD COUNT W/DIF F lymphocytes 32.5 % 16.0-4 7.0 Not Available [facility] (Lab) [address] [place], [address], 03/22/2024 11:42:10 03/22/20 24 03/22/2024 CBC/C OMPLE TE BLD COUNT W/DIF F monocytes 7.7 % 5.0-[address] [facility] (Lab) [address] [place], [address], 03/22/2024 11:42:10 03/22/20 24 03/22/2024 CBC/C OMPLE TE BLD COUNT W/DIF F eosinophils 6.6 % 1.0-7. 0 Not Available [facility] (Lab) [address] [place], [address], 03/22/2024 11:42:10 03/22/2003/22/2024 CBC/C OMPLE TE BLD COUNT W/DIF F basophils 1.8 % 0.0-2. 0 Not Available [facility] (Lab) [address] [place], [address], 03/22/2024 11:42:10 03/22/2003/22/2024 CBC/C OMPLE TE BLD COUNT W/DIF F immature granulocytes 0.3 % 0.00-0 .50 Not Available [facility] (Lab) [address] [place], [address], 03/22/2024 11:42:10 03/22/2003/22/2024 CBC/C OMPLE TE BLD COUNT W/DIF F neutrophils, absolute count 3.34 x10'3 /uL 1.5-8. 0 Not Available [facility] (Lab) [address] [place], [address], 03/22/2024 11:42:10 03/22/20 24 03/22/2024 CBC/C OMPLE TE BLD COUNT W/DIF F lymphocytes, absolute count 2.12 x10'3 /uL 1.07-3 .43 Not Available [facility] (Lab) [address] [place], [address], 03/22/2024 11:42:10 03/22/20 03/22/2024 CBC/C OMPLE TE BLD COUNT W/DIF F monocytes, absolute count 0.50 x10'3 /uL 0.29-0 .99 Not Available [facility] (Lab) [address] [place], [address], 03/22/2024 11:42:10 03/22/20 24 03/22/2024 CBC/C OMPLE TE BLD COUNT W/DIF F eosinophils, absolute count 0.43 x10'3 /uL 0.02-0 .53 Not Available [facility] (Lab) [address] [place], [address], 03/22/2024 11:42:10 03/22/20 24 03/22/2024 CBC/C OMPLE TE BLD COUNT W/DIF F basophils, absolute count 0.12 x10'3 /uL 0.01-0 .08 high Not Available [facility] (Lab) [address] [place], [address], 03/22/2024 11:42:10 03/22/20 24 03/22/2024 CBC/C OMPLE TE BLD COUNT W/DIF F immature granulocytes ,absolute 0.02 x10'3 /uL 0.00-0 .05 Not Available [facility] (Lab) [address] [place], [address], 03/22/2024 11:42:10 03/22/20 24 03/22/2024 CBC/C OMPLE TE BLD COUNT W/DIF F nucleated red blood cells 0.0 % -0 Not Available [facility] (Lab) [address] [place], [address], 03/22/2024 11:42:10 03/22/20 24 03/22/2024 CBC/C OMPLE TE BLD COUNT W/DIF F NRBC# 0.00 x10'3 /uL Not Available [facility] (Lab) [address] [place], [address], 03/22/2024 11:42:10 03/22/20 24 03/22/2024 LIPID PANEL cholesterol 160 mg/dL 140-19 9 NIH DARCIE NSUS RECOM MENDA TION FOR EDWIGE STERO L: ADULT CHILD LOW RISK: <200 <170 BORDE RLINE : <200- 239 ----- HIGH RISK: >240 >200 Not Available [facility] (Lab) [address] [place], [address], 03/22/2024 12:20:59 03/22/20 24 03/22/2024 LIPID PANEL triglyceride s 74 mg/dL 0-150 NIH DARCIE NSUS REPOR T RECOM MENDA TION FOR TRIGL YCERI CAIO: ADULT CHILD LOW RISK: <150 ----- BODER LINE: 150-1 99 ----- HIGH RISK: >200 ----- Not Available [facility] (Lab) [address] [place], [address], 03/22/2024 12:20:59 03/22/20 24 03/22/2024 LIPID PANEL HDL cholesterol 52 mg/dL 40- Not Available [facility] (Lab) [address] [place], [address], 03/22/2024 12:20:59 03/22/20 24 03/22/2024 LIPID PANEL LDL cholesterol, calculated 93 mg/dL 0-130 NIH DARCIE NSUS REPOR T RECOM MENDA TIONS FOR LDL: ADULT CHILD LOW RISK <130 <110 (OPTI MAL LDL) <100 ----- BORDE RLINE : 130-1 59 ----- HIGH RISK: >160 >130 A TRIGL YCERI DE RESUL T >400 INVAL IDATE S THE CALCU LATIO N FOR LDL FRACT IONAT ION - THE LDL RESUL T WILL NOT BE REPOR DANELLE. Not Available [facility] (Lab) [address] [place], [address], 03/22/2024 12:20:59 03/22/20 24 03/22/2024 COMPR EHENS JULIAN METAB OLIC PANEL sodium 139 mmol/ L 137-[address] [facility] (Lab) [address] [place], [address], 03/22/2024 12:21:05 03/22/20 24 03/22/2024 COMPR EHENS JULIAN METAB OLIC PANEL potassium 4.3 mmol/ L 3.5-5. [address] [facility] (Lab) [address] [place], [address], 03/22/2024 12:21:05 03/22/20 24 03/22/2024 COMPR EHENS JULIAN METAB OLIC PANEL chloride 103 mmol/ L 98-107 Not Available [facility] (Lab) [address] [place], [address], 03/22/2024 12:21:05 03/22/20 24 03/22/2024 COMPR EHENS JULIAN METAB OLIC PANEL carbon dioxide 28 mmol/ L 22-[address] [facility] (Lab) [address] [place], [address], 03/22/2024 12:21:05 03/22/20 24 03/22/2024 COMPR EHENS JULIAN METAB OLIC PANEL anion gap 12.3 mmol/ L 14-22 low Not Available [facility] (Lab) [address] [place], [address], 03/22/2024 12:21:05 03/22/20 24 03/22/2024 COMPR EHENS JULIAN METAB OLIC PANEL glucose 91 mg/dL 70-99 Not Available [facility] (Lab) [address] [place], [address], 03/22/2024 12:21:05 03/22/20 24 03/22/2024 COMPR EHENS JULIAN METAB OLIC PANEL BUN 18 mg/dL 8-19 Not Available [facility] (Lab) [address] [place], [address], 03/22/2024 12:21:05 03/22/20 24 03/22/2024 COMPR EHENS JULIAN METAB OLIC PANEL creatinine 1.16 mg/dL 0.66-1 .25 Not Available [facility] (Lab) [address] [place], [address], 03/22/2024 12:21:05 03/22/20 24 03/22/2024 COMPR EHENS JULIAN METAB OLIC PANEL GFR >60 Refer ence Range : Ralph ge GFR Healt hy Adult : >60 mL/mi n/1.7 3 m2 Chron ic Kidne y Disea se: 15-60 mL/mi n/1.7 3 m2 Kidne y Failu re: <15/m L/min /1.73 m2 www.n iddk. nih.g ov The MDRD study equat ion has not been valid ated in child juana <18 years of age; pregn ant women ; the elder ly >85 years of age; or in some racia l or ethni c subgr oups, such as Hispr nics. Outsi de the valid ated mike eters , estim ated GFR is less accur ate, requi ring clini igor judgm ent on a case- by-ca se basis . Clini igor inter preta tion for other races and ages must be made by the clini slick. The MDRD study equat ion has not been valid ated for the evalu ation of serum creat inine relat ed to nutri rafalea l statu s or medic ation usage . For perso ns <18 years of age, a pedia tric GFR calcu lator is avail able on the F websi te: https ://ww w.kid rj.o rg/pr ofess ional s/kdo qi/gf r_cal culat or Not Available [facility] (Lab) [address] [place], [address], 03/22/2024 12:21:05 03/22/20 24 03/22/2024 COMPR EHENS JULIAN METAB OLIC PANEL alkaline phosphatase 69 U/L 38-126 Not Available [facility] (Lab) [address] [place], [address], 03/22/2024 12:21:05 03/22/20 24 03/22/2024 COMPR EHENS JULIAN METAB OLIC PANEL alanine aminotransfe rase 21 U/L 0-50 Not Available [facility] (Lab) [address] [place], [address], 03/22/2024 12:21:05 03/22/20 24 03/22/2024 COMPR EHENS JULIAN METAB OLIC PANEL aspartate aminotransfe rase 26 U/L 15-46 Not Available [facility] (Lab) [address] [place], [address], 03/22/2024 12:21:05 03/22/20 24 03/22/2024 COMPR EHENS JULIAN METAB OLIC PANEL bilirubin, total 0.50 mg/dL 0.20-1 .30 Not Available [facility] (Lab) [address] [place], [address], 03/22/2024 12:21:05 03/22/20 24 03/22/2024 COMPR EHENS JULIAN METAB OLIC PANEL calcium 9.0 mg/dL 8.4-10 .2 Not Available [facility] (Lab) [address] [place], [address], 03/22/2024 12:21:05 03/22/20 24 03/22/2024 COMPR EHENS JULIAN METAB OLIC PANEL total protein 7.1 g/dL 6.3-8. 2 Not Available [facility] (Lab) [address] [place], [address], 03/22/2024 12:21:05 03/22/20 24 03/22/2024 COMPR EHENS JULIAN METAB OLIC PANEL albumin 3.7 g/dL 3.0-4. 4 Not Available [facility] (Lab) [address] [place], [address], 03/22/2024 12:21:05 03/22/20 24 03/22/2024 COMPR EHENS JULIAN METAB OLIC PANEL globulin 3.4 g/dL 2.6-4. 2 Not Available [facility] (Lab) [address] [place], [address], 03/22/2024 12:21:05 03/22/20 24 03/22/2024 COMPR EHENS JULIAN METAB OLIC PANEL A/G ratio 1.1 ratio 1.0-2. 0 Not Available [facility] (Lab) [address] [place], [address], 03/22/2024 12:21:05 03/22/20 24 03/22/2024 TSH thyroid-stim ulating hormone 1.410 uIU/m L 0.465- 4.680 Not Available [facility] (Lab) [address] [place], [address], 03/22/2024 12:37:16 03/22/20 24 03/22/2024 T4 FREE free T4 1.02 NG/dL 0.78-2 .19 Not Available [facility] (Lab) [address] [place], [address], 03/22/2024 13:22:50 06/20/19 24 06/20/2023 imagi ng/di agnos tic resul t No observ ation record ed. [facility] [address], [place], [address], 06/20/2023 13:25:36 08/06/19 24 08/05/2023 PET, skull base to mid-t high No observ ation record ed. [address], [place], [address], 09/02/2023 15:43:13 08/06/19 24 08/06/2023 diagn ostic bone marro w; biops y and aspir ation (PROC ) No observ ation record ed. [email or web address] [facility] [address], [place], [address], 09/02/2023 15:44:03 Result Notes None recorded. Problems Name Problem SNOMED Code Status Onset Date Resolution Date Notes Provider Name and Address Organization Details Recorded Time Hyperlipidemi a 07286529 Active Not Available [facility] 3 06:00:35 Hyperproteine david 84196420 Active 2022 Huy lucero MD [address], [place], [address] , [employer] [facility] 3 08:49:14 Chronic kidney disease 351653224 Active 2022 Huy lucero MD [address], [place], [address] , [employer] [facility] 3 08:49:23 Anemia 695526610 Active 2022 Huy lucero MD [address], [place], [address] , [facility] 3 08:49:28 Atypical chest pain 737242989 Active 2022 Huy lucero MD [address], [place], [address] , [employer] [facility] 3 08:49:45 Low back pain 828577460 Active 2022 Huy lucero MD [address], [place], [address] , [employer] 3 08:49:51 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 2022 Huy lucero MD [address], [place], [address] , [employer] [facility] 3 08:56:03 Upper respiratory infection 30830110 Active 2022 Paulette Melodie null, [facility] [facility] 3 14:24:11 Hyperglycemia 25174307 Active 2023 Eileen Diaz MA null, [place] [facility] [facility] 4 16:47:28 COVID-19 547470080 Active 2023 Huy lucero MD [address] [address], [place], [address] , [facility] 4 13:20:39 Prostate specific antigen above reference range 226474321 Active 2023 Huy lucero MD [address] [facility] [facility] [address], [place], [address] , [facility] 4 11:10:12 Problem Notes None recorded. Procedures Surgical History Date Name Laterality Status Provider Name and Address Organization Details Recorded Time 4 Medicare Wellness CPT Code, subsequent completed Angel Ash LPN [facility] 09/08/2023 10:16:39 3 Colonoscopy completed Evelin Hamilton [facility] 05/05/2023 11:00:24 Cardiac Cath completed Evelin Hamilton [facility] 05/05/2023 11:00:30 Laminectomy completed Evelin Hamilton [facility] 05/05/2023 10:59:34 Hernia Repair completed Evelin Hamilton Anabell [facility] 05/05/2023 10:59:43 Imaging Results Imaging Date Name Status LastModified by [facility] Details LastModified Time 06/20/2023 imaging/diagnos tic result active [address], [place], [address], 06/20/2023 13:25:36 08/05/2023 PET, skull base to mid-thigh active [address], [place], [address], 09/02/2023 15:43:13 08/06/2023 diagnostic bone marrow; biopsy and aspiration (PROC) active [email or web address], [place], [address], 09/02/2023 15:44:03 Procedure Notes None recorded. Medical Equipment None Reported. Allergies Allergen ID Allergen Name Allergen Category Reaction Reaction Severity Criticality Documentation Date Start Date Code Code System Note Provider Name and Address Organization Details Recorded Time 79535 Product containin g penicilli n (product) medicatio n Not available Not available Not available 07/17/2022 87868 8001 SNOMED Not Available [facility] 06:07:56 Medications Name Sig Start Date Stop Date Status Note LastModified by Organization Details LastModified Time Iron (ferrous sulfate) 325 mg (65 mg iron) tablet Take 1 tablet every other day by oral route. active Not Available Not Available No t Available azithromyc in 250 mg tablet TAKE 2 TABLETS (500 MG) BY ORAL ROUTE ONCE DAILY FOR 1 DAY THEN 1 TABLET (250 MG) BY ORAL ROUTE ONCE DAILY FOR 4 DAYS 09/07 completed Not Available Not Available Not Available pravastati n 40 mg tablet TAKE 1 TABLET BY MOUTH EVERY EVENING active Not Available Not Available No t Available hydrocodon e 5 mg-acetami nophen 325 mg tablet TK 1 T PO Q 6 H PRN PAIN active Not Available Not Available No t Available ondansetro n HCl 4 mg tablet 02/28 completed Not Available Not Available Not Available clindamyci n HCl 150 mg capsule TK ONE C PO Q 6 H TAT active Not Available Not Available No t Available sulfametho xazole 800 mg-trimeth oprim 160 mg tablet active Not Available Not Available No t Available aspirin 81 mg tablet,del ayed release Take 1 tablet every day by oral route. active Not Available Not Available No t Available tramadol 50 mg tablet TAKE 1 TABLET BY MOUTH EVERY DAY NEEDED ONLY 09/25 completed Not Available Not Available Not Available pravastati n 10 mg tablet TK 1 T PO QD 05/24 completed Not Available Not Available Not Available pantoprazo le 40 mg tablet,del ayed release Take 1 tablet twice a day by oral route. 12/14 completed Not Available Not Available Not Available erythromyc in 5 mg/gram (0.5 %) eye ointment APPLY 1/2 INCH RIBBON TO LEFT CORNER EYELID THREE TIMES DAILY FOR 5 DAYS active Not Available Not Available No t Available dexamethas one 4 mg tablet active Not Available Not Available Not Available ibuprofen 400 mg tablet TK 1 T PO Q 4 H PRN P. MAX 8 TS IN 24 H . active Not Available Not Available No t Available gabapentin 300 mg capsule TK 1C PO AT BEDTIME PRN 02/28 completed Not Available Not Available Not Available pravastati n 20 mg tablet TK 1 T PO QD 09/05 completed Not Available Not Available Not Available ergocalcif robbie (vitamin D2) 1,250 mcg (50,000 unit) capsule TK ONE C PO Q WEEK 05/20 completed Not Available Not Available Not Available ibuprofen 600 mg tablet TK 1 T PO Q 6 H PRF PAIN active Not Available Not Available No t Available methylpred nisolone 4 mg tablets in a dose pack FOLLOW PACKAGE DIRECTIO NS 03/29 completed Not Available Not Available Not Available oxycodone 5 mg tablet 02/28 completed Not Available Not Available Not Available Pneumovax- 23 25 mcg/0.5 mL injection syringe ADM 0.5ML IM UTD 04/28 completed Not Available Not Available Not Available Boostrix Tdap 2.5 Lf unit-8 mcg-5 Lf/0.5 mL intramuscu lar syringe ADM 0.5ML IM UTD 04/28 completed Not Available Not Available Not Available chlorhexid ine gluconate 0.12 % mouthwash RINSE WITH 1/2 OZ AFTER BREAKFAS T AND BEFORE BED active Not Available Not Available No t Available Aspir-81 1 Tablet Daily 05/05 completed Not Available Not Available Not Available pravastati n 2012 active Not Available Not Available Not Avai lable Metamucil 2 times daily 2018 active Not Available Not Available Not Avai lable gabapentin 09/[address] Burns 021 Not Available Not Available Not Available Centrum 1 daily 2018 active Not Available Not Available Not Avai lable Zostavax (PF) 19,400 unit/0.65 mL subcutaneo us suspension ADM 0.65ML SC UTD 04/28 completed Not Available Not Available Not Available M-M-R II (PF) 1,000-12,5 00 TCID50/0.5 mL subcutaneo us solution ADM 0.5ML SC UTD 05/24 completed Not Available Not Available Not Available Suprep Bowel Prep Kit 17.5 gram-3.13 gram-1.6 gram oral solution active Not Available Not Available Not Available PreviDent 5000 Booster Plus 1.1 % dental paste USE DIRECTED active Not Available Not Available No t Available Flucelvax Quad [id number] (PF) 60 mcg (15 mcg x 4)/0.5 mL IM syringe ADM 0.5ML IM UTD 04/28 completed Not Available Not Available Not Available Afluria Quad (PF) 60 mcg (15 mcg x 4)/0.5 mL IM syringe ADM 0.5ML IM UTD 11/25 completed Not Available Not Available Not Available Afluria Qd 2018- (36 mos up)(PF)60 mcg (15 mcg x4)/0.5 mL IM syringe active Not Available Not Available N ot Available Brukinsa 80 mg capsule Take 2 capsules twice a day by oral route. active Not Available Not Available No t Available Brukinsa 1 BID 12/[address] Zuniga Not Available Not Available Not Available Fluzone High-Dose Quad (PF) 240 mcg/0.7 mL IM syringe ADM 0.7ML IM UTD 05/22 completed Not Available Not Available Not Available Paxlovid 300 mg (150 mg x 2)-100 mg tablets in a dose pack FOLLOW PACKAGE DIRECTIO NS 03/29 completed Not Available Not Available Not Available Vitals Date Recorded Body mass index (BMI) Body height Oxygen saturation Oxygen saturation in Arterial blood by Pulse oximetry Heart rate Body temperature Body weight Systolic blood pressure Diastolic blood pressure Provider Name and Address Organization Details Last Updated DateTime 1 1080.8 kg/m2 27.94 cm 99 % 99 % 71 /min 96.7 [degF] 15033.1 8 g 120 mm[Hg] 70 mm[Hg] Not Available [facility] 3 05:59:00 Date Recorded Body weight Body mass index (BMI) Body height Body temperature Heart rate Systolic blood pressure Diastolic blood pressure Provider Name and Address Organization Details Last Updated DateTime 3 58067.1 8 g 25.9 kg/m2 180.34 cm 97.9 [degF] 72 /min 120 mm[Hg] 60 mm[Hg] ROBBIN Perea [facility] [place] [facility] 3 11:03:00 Date Recorded Body height Body mass index (BMI) Body weight Body temperature Heart rate Systolic blood pressure Diastolic blood pressure Provider Name and Address Organization Details Last Updated DateTime 4 180.34 cm 25.5 kg/m2 64904.4 g 97.6 [degF] 66 /min 100 mm[Hg] 50 mm[Hg] ROBBIN Perea [facility] 4 09:47:52 Date Recorded Pain severity - 0-10 verbal numeric rating [Score] - Reported Provider Name and Address Organization Details Last Updated DateTime 09/08/2023 0 WINNIE Vivar [facility] 09/08/2023 10:11:59 Date Recorded Body height Body mass index (BMI) Body weight Body temperature Heart rate Systolic blood pressure Diastolic blood pressure Provider Name and Address Organization Details Last Updated DateTime 4 180.34 cm 26.2 kg/m2 67910.3 7 g 97.6 [degF] 60 /min 110 mm[Hg] 60 mm[Hg] ROBBIN Perea [facility] 4 09:50:29 Date Recorded Body height Body mass index (BMI) Body weight Body temperature Heart rate Respiratory rate Oxygen saturation Oxygen saturation in Arterial blood by Pulse oximetry Systolic blood pressure Diastolic blood pressure Provider Name and Address Organization Details Last Updated DateTime 4 180.34 cm 26.1 kg/m2 44846.7 7 g 98.2 [degF] 80 /min 16 /min 96 % 96 % 124 mm[Hg] 70 mm[Hg] Angel Ash LPN [facility] 4 11:02:18 Social History Question Answer Notes LastModified by Organization Details LastModified Time Tobacco Smoking Status Former Smoker quit 1987 ROBBIN Perea [facility] 05/05/2023 10:56:24 Do You Have An Advance Directive? No Information not available 05/05/2023 What Is Your Level Of Alcohol Consumption? Occasional Very Rare Information not available 05/05/2023 Are You Blind Or Do You Have Difficulty Seeing? No Information not available 05/05/2023 What Is Your Level Of Caffeine Consumption? Moderate Information not available 05/05/2023 In The 14 Days Before Symptom Onset, Have You Had Close Contact With A Laboratory-conf irmed COVID-19 While That Case Was Ill? No [id number] Information not available 07/17/2022 In The 14 Days Before Symptom Onset, Have You Had Close Contact With A Person Who Is Under Investigation For COVID-19 While That Person Was Ill? No [id number] Information not available 07/17/2022 Are You Currently Employed? No Information not available 09/08/2023 Are You Deaf Or Do You Have Serious Difficulty Hearing? No Information not available 05/05/2023 What Type Of Diet Are You Following? REGULAR Information not available 05/05/2023 What Is The Highest Grade Or Level Of School You Have Completed Or The Highest Degree You Have Received? [id number] Information not available 05/05/2023 What Is Your Occupation? Retired [email or web address] Information not available 09/08/2023 Have There Been Any Changes To Your Family Or Social Situation? No [email or web address] Information not available 09/08/2023 What Is The Fluoride Status Of Your Home? Unknown Information not available 05/05/2023 When Did You Quit Smoking? 16+yearssincelastc igarette Information not available 05/05/2023 Are There Any Guns Present In Your Home? No Information not available 05/05/2023 Where Do You Live? SingleLevelHouse With Basement Information not available 05/05/2023 Do You Have A Medical Power Of Seismograph Observer? No Information not available 05/05/2023 What Was The Date Of Your Most Recent Tobacco Screening? 12/15/2023 Information not available 12/15/2023 Have You Ever Been Counseled For Unhealthy Alcohol Use? No Information not available 09/08/2023 Do You Have Any Pets? Yes [email or web address] Information not available 09/08/2023 What Is Your Relationship Status? Information not available 05/05/2023 Do You Use Your Seat Belt Or Car Seat Routinely? Yes Information not available 05/05/2023 Do You Have Smoke And Carbon Monoxide Detectors In Your Home? No Information not available 05/05/2023 At What Age Did You Start Smoking Tobacco? 17 Was 1.5ppd Information not available 05/05/2023 Are You Passively Exposed To Smoke? No Information not available 05/05/2023 Are There Any Smokers In Your House? No Information not available 05/05/2023 Do You Feel Stressed (tense, Restless, Nervous, Or Anxious, Or Unable To Sleep At Night)? [id number] Information not available 05/05/2023 Do You Use Any Illicit Or Recreational Drugs? No Information not available 05/05/2023 Has Tobacco Cessation Counseling Been Provided? No N/a Information not available 05/05/2023 Have You Recently Traveled Abroad? No Information not available 05/05/2023 Do You Have Any Dietary Restrictions? No Information not available 09/08/2023 Do You Or Have You Ever Used Any Other Forms Of Tobacco Or Nicotine? No Information not available 05/05/2023 Sex: Male Functional Status Question Answer Note LastModified by Organizat ion Details LastModified Time Do you have difficulty walking or climbing stairs? No Information not available 05/05/2023 Do you have transportation difficulties? No Information not available 05/05/2023 Are you able to walk? YESWOREST Information not available 05/05/2023 Do you have difficulty doing errands alone? No Information not available 05/05/2023 Are you able to care for yourself? Yes Information not available 05/05/2023 Do you have difficulty dressing or bathing? No Information not available 05/05/2023 What is your exercise level? Moderate Information not available 05/05/2023 Mental Status Question Answer Note LastModified by Organization D etails LastModified Time Do you have difficulty concentrating, remembering or making decisions? No [email or web address] Information no t available 05/05/2023 Family History Nothing Reported. Medical History Condition Response NERVE DISEASE N BLINDNESS N RHEUMATIC FEVER N KIDNEY STONES N BLADDER PROBLEMS N MRSA N OTHER # 1 N POLIO N LUNG DISEASE/DISORDER N HISTORY OF DRUG ABUSE N RADIATION / CHEMOTHERAPY N COPD N Other # 2 N BLOOD DISEASES N EAR OR HEARING PROBLEMS N MUMPS N SHINGLES N BOWEL PROBLEMS N DEPRESSION (INCLUDING POST ) N FAILED BACK SYNDROME N STROKE/TIA N ULCERS N BENIGN PROSTATIC HYPERPLASIA N MEASLES N HYPOTENSION N MYOCARDIAL INFARCTION N OBESITY N GERD/NAUSEA N ANEURYSM N URINARY/BLADDER/KIDNEY PROBLEMS N CORONARY ARTERY DISEASE (CAD) N Do you have Advance directive? N ADDICTION CONCERNS N Impotence N ENDOMETRIOSIS N USE OF BLOOD THINNERS N SKIN PROBLEMS N GASTROINTESTINAL DISORDER N PERIPHERAL VASCULAR DISEASE N MUSCLE,JOINT OR BONE PROBLEMS N GASTROINTESTINAL BLEEDING N BLOOD CLOTS N ASTHMA N CATARACTS N Abdominal Pain N ERECTILE DYSFUNCTION N ARTERIAL INSUFFICIENCY N VARICOSITIES N GI PROBLEMS N Low Testosterone N INFERTILITY N AIDS/HIV N CHEMOTHERAPY / RADIATION N LIVER DISEASE N MALE HYPOGONADISM N HYPERTENSION N Deficiency N TOURETTE'S N ANXIETY DISORDER N BLOOD TRANSFUSION N ANEMIA/BLOOD DISORDER Y CHRONIC EAR INFECTIONS N TUBERCULOSIS N GLAUCOMA N FOOT PROBLEM N DIVERTICULITIS N SLEEP APNEA N CHICKENPOX N ALLERGIES/HAYFEVER N BACK INJECTIONS N INFECTIOUS DISEASE N PROSTATE N HEART ARRHYTHMIA N ESRD N INSOMNIA N HIGH CHOLESTEROL / HYPERLIPIDEMIA Y EYE PROBLEMS N HYPERTHYROIDISM N PVD N EDEMA N CHRONIC PAIN SYNDROME N HYPOTHYROIDISM N CONSTIPATION N CAROTID BLOCKAGE N BACK / NECK PROBLEMS Y ATHEROSCLEROSIS N BREAST PROBLEMS N DIALYSIS N POLYCYSTIC OVARIES N ECZEMA N OSTEOPOROSIS N ARTHRITIS N APPENDICITIS N DIABETES, TYPE N BAD TEETH N VON WILLIBRAND'S DISEASE N ENT N HEARTBURN / REFLUX N GI N AUTISM SPECTRUM DISORDER (ASD) N POST LAMINECTOMY SYNDROME N HEPATITIS / LIVER DISEASE N GOUT N SLEEP DISORDER N ALZHEIMER'S DISEASE N Brain Problems N DEMENTIA N HERPES N SEIZURES/EPILEPSY N HEADACHES/MIGRAINES N VASCULAR DISEASE N PACEMAKER N DIZZINESS N HEART DISEASE/HEART PROBLEMS N KIDNEY DISEASE N MULTIPLE SCLEROSIS N NEUROPSYCHOLOGICAL N CANCER: SPECIFY N CARDIAC ARRHYTHMIA N ATRIAL FIBRILLATION N Gall Stones N PULMONARY EMBOLISM N AUTOIMMUNE DISEASE N Immunizations Vaccine Type Date Status Note Provider Nam e and Address Organization Details Recorded Time COVID-19, mRNA, LNP-S, PF, 30 mcg/0.3 mL dose 1 completed Not Available [facility] 07/17/2022 06:07:44 SARS-COV-2 (COVID-19) vaccine, UNSPECIFIED 1 completed Not Available [facility] 07/17/2022 06:07:44 Influenza, split virus, quadrivalent, preservative 9 completed Not Available [facility] 07/17/2022 06:07:45 MMR 9 completed Not Available [facility] 07/17/2022 06:07:45 COVID-19, subunit, rS-nanoparticle+Mat alondra-M1 Adjuvant, PF, 0.5 mL 1 completed [facility] [place] [facility] 05/05/2023 10:23:50 Influenza, split virus, quadrivalent, preservative 1 completed Not Available [facility] 07/17/2022 06:07:45 Influenza, high-dose, trivalent, PF 0 completed Not Available [facility] 07/17/2022 06:07:45 influenza, unspecified formulation 7 completed Not Available [facility] 07/17/2022 06:07:45 pneumococcal polysaccharide PPV23 7 completed Not Available [facility] 07/17/2022 06:07:45 Tdap 7 completed Not Available [facility] 07/17/2022 06:07:45 zoster, unspecified formulation 7 completed Not Available [facility] 07/17/2022 06:07:45 Pneumococcal conjugate PCV 13 0 completed Not Available [facility] 07/17/2022 06:07:45 Influenza, split virus, quadrivalent, preservative 6 completed Not Available [facility] 07/17/2022 06:07:45 Influenza, split virus, quadrivalent, PF 5 completed Not Available [facility] 07/17/2022 06:07:46 Influenza, split virus, trivalent, preservative 4 completed Not Available [facility] 07/17/2022 06:07:46 Past Encounters Encounter ID Performer Location Encounter Start Date Encounter Closed Date Diagnosis/Indication Diagnosis SNOMED-CT Code Diagnosis ICD10 Code Diagnosis Note [id number] [facility] [place] [address] [place] [address] [place] [address] 09/25/2020 00:00:00 09/25/2020 16:30:21 [id number] [facility] Internal Med [place] [address] [place] [address] [place] [address] 11/13/2020 00:00:00 11/13/2020 16:00:22 [id number] [facility] Internal [facility] Alfredito lldexter [address] [place] [address] [place] [address] 02/28/2021 00:00:00 03/12/2021 15:44:45 [id number] Huy lucero MD [facility] Internal [address] [place] [address] 05/05/2023 10:21:53 05/05/2023 11:45:24 Screening - NAD [id number] Z13.9 C-scope: in 2014 as per the surgical hx. Next in 10 years AAA: 09/10/2019 : Neg He is UTD on flu shotUTD Tdap, and shingles vaccineHe is UTD on pneumovax #23, #13 11/22/2019 UTD on COVID 19 vaccineCan do RSV vaccineCan do shingrix vaccine RTC in 4 months, as per his history PSA in 12/2023wit h labsER if worseHe and his did verbalize his understand ing of the above Hyperlipidemia 34658017 E78.5 On ASAOn pravastati n 40mg dailyDoes wellGet labs Hyperproteinemia 4881193 9 E88.09 V 05/20/17:Ge t UPEP and SPEPOV 11/25/18:W as seen by Dr Zuniga and is to get labsGet OV noteOV 05/24/2019 :Is doing well at this time, will keep with Dr Zuniga and discuss his kidney issue also with himOV 09/06/2019 :Does well keep apt with Dr Alejo 11/22/2019 :Keep apt with Dr Zuniga, states now sees him every 9 monthsOV 05/22/2020:D huang wellCMP: WNL for proteins 05/08/2020 OV 09/25/2020 :Get labsOV 02/28/2021 :Needs to see Dr Zuniga OV 05/05/2023 : Needs to see Dr Crowley Chronic ki dney disease 934723061 N18.9 Get labsDoes well now Anemia 330906550 D64.9 Get labs Atypical chest pain 1025 26780 R07.89 OV 05/22/2019: He has seen a cardiologi st and has had a coronary angio done in the past 11 years agoAt this time he would like a referral again to cardiology OV 09/25/2020 :Did see [facility] Dr Alexandre 05/23/2020 S/p CT chest ca score 05/24/2020 : Score [address] Alexandre in 11/2020 No CVS or CLINICAL RN complaints now OV 02/28/2021 :Does well now OV 05/05/2023 : Get an apt with Dr Alexandre [facility] Low back pain 879061355 M54.50 OV 09/25/2020 :Did see Dr Burns, who put him on gabapentin He was also given tramadol, but is not taking this nowHe was referred to pain management and is now getting shots in the backOV 11/13/2020 :Now is to get surgery with Dr Rolan ochoa for surgery by Dr Alexandre [facility] s a moderate risk for this procedureO V 02/28/2021 :Keep apt with Dr Burns OV 05/05/2023 : Does well now Retinal disorder 2165665 9 H35.9 OV 09/25/2020 :Sees eye MD, Dr Alonso, and he has leftHas seen Dr Mcqueen for skin tags in the L lower eyelid OV 02/28/2021 :Keep apt with eye OV 05/05/2023 : Keep apt with Dr Mcqueen [id number] Huy lucero MD [facility] javiere [address] [facility] [place] [address] 09/08/2023 09:32:28 09/08/2023 10:29:31 Screening - NAD 105311324 Z13.9 C-scope: in 2014 as per the surgical hx. Next in 10 years AAA: 09/10/2019 : Neg He is UTD on flu shotUTD Tdap, and shingles vaccineHe is UTD on pneumovax #23, #13 11/22/2019 UTD on COVID 19 vaccineCan do RSV vaccineCan do shingrix vaccine RTC in 4 months, as per his history PSA in 12/2023wit h labsER if worseHe and his did verbalize his understand ing of the above Hyperlipidemia 03625167 E78.5 On ASAOn pravastati n 40mg dailyDoes wellGet labs Retinal disorder 1277825 9 H35.9 OV 09/25/2020 :Sees eye MD, Dr Alonso, and he has leftHas seen Dr Mcqueen for skin tags in the L lower eyelid OV 02/28/2021 :Keep apt with eye MD OV 05/05/2023 : Keep apt with Dr Mcqueen OV 09/08/2023 : See Dr Mcqueen Hyperproteinemia 6400973 9 E88.09 V 05/20/17:Ge t UPEP and SPEPOV 11/25/18:W as seen by Dr Zuniga and is to get labsGet OV noteOV 05/24/2019 :Is doing well at this time, will keep with Dr Zuniga and discuss his kidney issue also with himOV 09/06/2019 :Does well keep apt with Dr Alejo 11/22/2019 :Keep apt with Dr Zuniga, states now sees him every 9 monthsOV 05/22/2020:D oes wellCMP: WNL for proteins 05/08/2020 OV 09/25/2020 :Get labsOV 02/28/2021 :Needs to see Dr Zuniga OV 05/05/2023 : Needs to see Dr Crowley OV 09/08/2023 :Dr Zuniga 08/18/2023 , f/u in 3 weeks, diagnosed with lymphoma Chronic ki dney disease 114440921 N18.9 Get labsDoes well nowRefer to Dr Cabrera nephrology Anemia 016849506 D64.9 Get labs Atypical chest pain 1025 28737 R07.89 OV 05/22/2019: He has seen a cardiologi st and has had a coronary angio done in the past 11 years agoAt this time he would like a referral again to cardiology OV 09/25/2020 :Did see [facility] Dr Alexandre 05/23/2020 S/p CT chest ca score 05/24/2020 : Score [address] Alexandre in 11/2020 No CVS or CLINICAL RN complaints now OV 02/28/2021 :Does well now OV 05/05/2023 : Get an apt with Dr Alexandre [facility] Dr Alexandre [facility] 06/23/2023 , f/u in one year Low back pain 138625406 M54.50 OV 09/25/2020 :Did see Dr Burns, who put him on gabapentin He was also given tramadol, but is not taking this nowHe was referred to pain management and is now getting shots in the backOV 11/13/2020 :Now is to get surgery with Dr Rolan ochoa for surgery by Dr Alexandre [facility] s a moderate risk for this procedureO V 02/28/2021 :Keep apt with Dr Burns OV 05/05/2023 : Does well now Screening for malignant neoplasm of prostate 464601767 Z12.5 Adult heal th examination 046542521 Z00.00 Screening for disorder 608172348 Z13.9 [id number] Huy lucero MD [facility] varela [address] [facility] [place] [address] 12/15/2023 09:40:21 12/15/2023 10:40:34 Screening - NAD 472374382 Z13.9 C-scope: in 2014 as per the surgical hx. Next in 10 years AAA: 09/10/2019 : Neg He is UTD on flu shotUTD Tdap, and shingles vaccineHe is UTD on pneumovax #23, #13 11/22/2019 UTD on COVID 19 vaccineCan do RSV vaccineCan do shingrix vaccine RTC in 4 months, as per his history PSA in 12/2023wit h labsER if worseHe and his did verbalize his understand ing of the above Hyperlipidemia 95684331 E78.5 On ASAOn pravastati n 40mg dailyDoes wellGet labs Retinal disorder 7508657 9 H35.9 OV 09/25/2020 :Sees eye MD, Dr Alonso, and he has leftHas seen Dr Mcqueen for skin tags in the L lower eyelid OV 02/28/2021 :Keep apt with eye OV 05/05/2023 : Keep apt with Dr Mcqueen OV 09/08/2023 : See Dr Mcqueen OV 12/15/2023 : See eye 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 V 05/20/17:Ge t UPEP and SPEPOV 11/25/18:W as seen by Dr Zuniga and is to get labsGet OV noteOV 05/24/2019 :Is doing well at this time, will keep with Dr Zuniga and discuss his kidney issue also with himOV 09/06/2019 :Does well keep apt with Dr Alejo 11/22/2019 :Keep apt with Dr Zuniga, states now sees him every 9 monthsOV 05/22/2020:D huang wellCMP: WNL for proteins 05/08/2020 OV 09/25/2020 :Get labsOV 02/28/2021 :Needs to see Dr Zuniga OV 05/05/2023 : Needs to see Dr Crowley OV 09/08/2023 :Dr Zuniga 08/18/2023 , f/u in 3 weeks, diagnosed with lymphoma OV 12/15/2023 : Keep apt with Dr Zuniga, on Brukinsa Chronic ki dney disease 996854699 N18.9 Get labsDoes well nowRefer to Dr Cabrera nephrology Anemia 655505307 D64.9 Get labs Atypical chest pain 1025 26317 R07.89 OV 05/22/2019: He has seen a cardiologi and has had a coronary angio done in the past 11 years agoAt this time he would like a referral again to cardiology OV 09/25/2020 :Did see [facility] Dr Alexandre 05/23/2020 S/p CT chest ca score 05/24/2020 : Score [address] Alexandre in 11/2020 No CVS or CLINICAL RN complaints now OV 02/28/2021 :Does well now OV 05/05/2023 : Get an apt with Dr Fransisco ROSALES OV 12/15/2023 :Dr Fransisco ROSALES 06/23/2023 , f/u in one year Low back pain 112668425 M54.50 OV 09/25/2020 :Did see Dr Burns, who put him on gabapentin He was also given tramadol, but is not taking this nowHe was referred to pain management and is now getting shots in the backOV 11/13/2020 :Now is to get surgery with Dr Rolan ochoa for surgery by Dr Fransisco Workman s a moderate risk for this procedureO V 02/28/2021 :Keep apt with Dr Burns OV 05/05/2023 : Does well now Screening for malignant neoplasm of prostate 333717692 Z12.5 Prostate s pecific antigen above reference range 725984772 R97.20 [id number] Huy lucero MD [facility] [address] [place] [address] 03/29/2024 10:17:09 03/29/2024 11:39:51 Screening - NAD 653645026 Z13.9 C-scope: in 2014 as per the surgical hx. Next in 10 years AAA: 09/10/2019 : Neg He is UTD on flu shotUTD Tdap, and shingles vaccineHe is UTD on pneumovax #23, #13 11/22/2019 UTD on COVID 19 vaccineCan do RSV vaccineCan do shingrix vaccine RTC in 1 monthwith labsER if worseHe and his did verbalize his understand ing of the above Hyperlipidemia 64160273 E78.5 On ASAOn pravastati n 40mg dailyDoes [facility] Retinal disorder 4605909 9 H35.9 OV 09/25/2020 :Sees eye MD, Dr Alonso, and he has leftHas seen Dr Mcqueen for skin tags in the L lower eyelid OV 02/28/2021 :Keep apt with eye OV 05/05/2023 : Keep apt with Dr Mcqueen OV 09/08/2023 : See Dr Mcqueen OV 12/15/2023 : See eye OV 03/29/2024 : Sees Dr Mcqueen Hyperproteinemia 6681040 9 E88.09 V 05/20/17:Ge t UPEP and SPEPOV 11/25/18:W as seen by Dr Zuniga and is to get labsGet OV noteOV 05/24/2019 :Is doing well at this time, will keep with Dr Zuniga and discuss his kidney issue also with himOV 09/06/2019 :Does well keep apt with Dr Alejo 11/22/2019 :Keep apt with Dr Zuniga, states now sees him every 9 monthsOV 05/22/2020:D oes wellCMP: WNL for proteins 05/08/2020 OV 09/25/2020 :Get labsOV 02/28/2021 :Needs to see Dr Zuniga OV 05/05/2023 : Needs to see Dr Crowley OV 09/08/2023 :Dr Zuniga 08/18/2023 , f/u in 3 weeks, diagnosed with lymphoma OV 12/15/2023 : Keep apt with Dr Zuniga, on Brukinsa OV 03/29/2024 : Sees Dr Zuniga Chronic ki dney disease 241935963 N18.9 Get labsDoes well nowRefer to Dr Cabrera nephrology Anemia 267009832 D64.9 Get labs Atypical chest pain [address] Alexandre 05/23/2020 S/p CT chest ca score 05/24/2020 : Score 84 Dr Alexandre [facility] 06/23/2023 , f/u in one year Low back pain 598394079 M54.50 OV 09/25/2020 :Did see Dr Burns, who put him on gabapentin He was also given tramadol, but is not taking this nowHe was referred to pain management and is now getting shots in the backOV 11/13/2020 :Now is to get surgery with Dr Rolan ochoa for surgery by Dr Fransisco MEDINARemain s a moderate risk for this procedureO V 02/28/2021 :Keep apt with Dr Burns OV 05/05/2023 : Does well now COVID-19 062301935 U07.1 Addendum: 02/15/2024 : Left phone message, diagnosed wit COVID 19, contracted from his sisterGet on DavisHolyTransaction ssage sent to his pharmacyOV 03/29/2024 : Does well now Health Concerns Section Related Observation LastModified by Organization Detai ls LastModified Time None Recorded Concern Status LastModified by Organization Details LastModified Time None Recorded Advance Directives Directive N: Payers Encounter Date Sequence Insurance Name Policy Number Policy Reddy Covered Member ID Reddy Member ID Guarantor Name 05/05/2023 1 [place] Justin Mishra Linda [id number] Justin Mishra Linda 05/05/2023 2 [employer] OPTIONS (MEDICARE SUPPLEMENT) Justin Mishra Linda [id number] Justin Mishra Anicetoierjoeliane 09/08/2023 1 [place] Justin Mishra Linda [id number] Justin Mishra Anicetoierjoeliane 09/08/2023 2 [employer] OPTIONS (MEDICARE SUPPLEMENT) Justin Mishra Linda [id number] Justin Mishra Anicetoierconi 12/15/2023 1 [place] Justin Mishra Linda [id number] Justni Mishra Anicetoierjoeliane 12/15/2023 2 [employer] OPTIONS (MEDICARE SUPPLEMENT) Justin Mishra Linda [id number] Justin Mishra Anicetoierconi 03/29/2024 1 [place] Justin Mishra Linda [id number] Justin Mishra Schwierjoeliane 03/29/2024 2 [employer] OPTIONS (MEDICARE SUPPLEMENT) Justin Mishra Linda [id number] Justin Mishra Linda Notes Date Note Type Note Provider Name and Address Organization Details Recorded Time 05/05/2023 text/html Here to ori [facility]:Past Hx:HLDReviewed his past social, surgical and family historyHe states that he is doing well, here to get some labs. OV 04/28/17:Here for his 6 months apts and is doing well, did do labs OV 10/27/17:He is here for his routine aptHe is doing wellHe is did do the labs on 10/20/17 and is here to review the labsHe does want to check out a skin lesion on the Right forehead, he states that this is been there for 'years' and he did tell his prior PMD but now wants to' check this out' OV 05/20/18:Here with his wifeHe recently has come from his vacation from [facility] doing well at this timeHere for his routine apt and to discuss the labs done on 04/08/18 OV 11/25/18:Here with his wifeHe did do the labsHe feels wellHe is to see Dr Zuniga also, was told he has MGUS OV 05/24/2019:Here for his routine aptHe is doing very wellHe states that he does do a lot of exercises and does well with that evenHe also is going to keep seeing Dr Zuniga OV 09/06/2019:Here for televisitHe did agree to do the visit televisitHdexter states that he is doing very well, he is walking 5 miles a dayHe did do the labs OV 11/22/2019:Here for his routine aptHe is doing very wellHe did do the labsHe also did have L rib pain, see patient cases, he did have xrays and feels that this is much better nowHe is here also for his initial wellcome to medical wellness visit OV 05/22/2020:Here for his routine aptHe feels well, he is here with his Eber does c/o intermittent L sided chest pain, none since the past month or so, he is very active and feels that this is d/t his 'thinking about' the pain in the chestLasts for a few seconds to minutes, not associated with exertion, no palpitations, no SOB, no SINGH, no pre syncope or syncope, in fact he states that he 'works out' and is very active and takes long walksHe has done his labs OV 09/25/2020:ACV:Her e for L thigh painNoted since one weekWants to confirm that it is 'not a blood clot'No new labsHe has also seen Dr Burns the NS and is now getting shots in the back, he still has LBP, it is located in the R lower back, no N/T or weakness noted, no loss of bowel or bladder control OV 11/13/2020:Here for his routine aptHe feels wellHere with his wiffeHe did do the labsNow is to get surgery by Dr Burns, he has been cleared for this surgery by Dr Alexandre [facility] OV 02/28/2021:Here for his routine aptHe is doing wellHe is here with hs and they do plan to move to [place] OV 05/05/2023: Here to re [facility] care, moved back from [place], is doing well, here with his Huy Henriquez MD [address], [address], [place], [address], [place] [facility] 05/05/2023 15:38:41 09/08/2023 text/html Here to ori curtis:Past Hx:HLDReviewed his past social, surgical and family historyHe states that he is doing well, here to get some labs.OV 04/28/17:Here for his 6 months apts and is doing well, did do labsOV 10/27/17:He is here for his routine aptHe is doing wellHe is did do the labs on 10/20/17 and is here to review the labsHe does want to check out a skin lesion on the Right forehead, he states that this is been there for 'years' and he did tell his prior PMD but now wants to' check this out'OV 05/20/18:Here with his wifeHe recently has come from his vacation from [facility] doing well at this timeHere for his routine apt and to discuss the labs done on 04/08/18OV 11/25/18:Here with his wifeHe did do the labsHe feels wellHe is to see Dr Zuniga also, was told he has MGUSOV 05/24/2019:Here for his routine aptHe is doing very wellHe states that he does do a lot of exercises and does well with that evenHe also is going to keep seeing Dr Zuniga OV 09/06/2019:Here for televisitHe did agree to do the visit televisitHdexter states that he is doing very well, he is walking 5 miles a dayHe did do the labsOV 11/22/2019:Here for his routine aptHe is doing very wellHe did do the labsHe also did have L rib pain, see patient cases, he did have xrays and feels that this is much better nowHe is here also for his initial wellcome to medical wellness visitOV 05/22/2020:Here for his routine aptHe feels well, he is here with his Eber does c/o intermittent L sided chest pain, none since the past month or so, he is very active and feels that this is d/t his 'thinking about' the pain in the chestLasts for a few seconds to minutes, not associated with exertion, no palpitations, no SOB, no SINGH, no pre syncope or syncope, in fact he states that he 'works out' and is very active and takes long walksHe has done his labsOV 09/25/2020:ACV:Her e for L thigh painNoted since one weekWants to confirm that it is 'not a blood clot'No new labsHe has also seen Dr Burns the NS and is now getting shots in the back, he still has LBP, it is located in the R lower back, no N/T or weakness noted, no loss of bowel or bladder controlOV 11/13/2020:Here for his routine aptHe feels wellHere with his wiffeHe did do the labsNow is to get surgery by Dr Burns, he has been cleared for this [facility] by Dr [facility]:Here for his routine aptHe is doing wellHe is here with hs and they do plan to move to [place] OV 05/05/2023: Here to re establish care, moved back from [place], is doing well, here with his OV 09/08/2023: Here for his f/u apt, he is doing well today, he is here with his , he has seen Dr Zuniga and he is here for his MWV Huy Henriquez MD [address] [facility], [address], [place], [address], [place] [facility] 09/08/2023 17:02:45 12/15/2023 text/html Here to ori [facility]:Past Hx:HLDReviewed his past social, surgical and family historyHe states that he is doing well, here to get some labs.OV 04/28/17:Here for his 6 months apts and is doing well, did do labsOV 10/27/17:He is here for his routine aptHe is doing wellHe is did do the labs on 10/20/17 and is here to review the labsHe does want to check out a skin lesion on the Right forehead, he states that this is been there for 'years' and he did tell his prior PMD but now wants to' check this out'OV 05/20/18:Here with his wifeHe recently has come from his vacation from [facility] doing well at this timeHere for his routine apt and to discuss the labs done on 04/08/18OV 11/25/18:Here with his wifeHe did do the labsHe feels wellHe is to see Dr Zuniga also, was told he has MGUSOV 05/24/2019:Here for his routine aptHe is doing very wellHe states that he does do a lot of exercises and does well with that evenHe also is going to keep seeing Dr Zuniga OV 09/06/2019:Here for televisitHe did agree to do the visit televisitHe states that he is doing very well, he is walking 5 miles a dayHe did do the labsOV 11/22/2019:Here for his routine aptHe is doing very wellHe did do the labsHe also did have L rib pain, see patient cases, he did have xrays and feels that this is much better nowHe is here also for his initial wellcome to medical wellness visitOV 05/22/2020:Here for his routine aptHe feels well, he is here with his Eber does c/o intermittent L sided chest pain, none since the past month or so, he is very active and feels that this is d/t his 'thinking about' the pain in the chestLasts for a few seconds to minutes, not associated with exertion, no palpitations, no SOB, no SINGH, no pre syncope or syncope, in fact he states that he 'works out' and is very active and takes long walksHdexter has done his labsOV 09/25/2020:ACV:Her e for L thigh painNoted since one weekWants to confirm that it is 'not a blood clot'No new labsCrescencio has also seen Dr Burns the NS and is now getting shots in the back, he still has LBP, it is located in the R lower back, no N/T or weakness noted, no loss of bowel or bladder controlOV 11/13/2020:Here for his routine aptHe feels wellHere with his wiffeHe did do the labsNow is to get surgery by Dr Burns, he has been cleared for this surgery by Dr Alexandre [facility] 02/28/20[facility]:Here for his routine aptHe is doing wellHe is here with hs and they do plan to move to [place] OV 05/05/2023: Here to re [facility] care, moved back from [place], is doing well, here with his OV 09/08/2023: Here for his f/u apt, he is doing well today, he is here with his , he has seen Dr Zuniga and he is here for his MWV OV 12/15/2023: Here for his f/u apt, he is doing well today, he is here with his Huy Henriquez MD [address] [place] [address], [facility] [address], [place], [address], [place] [facility] 12/15/2023 14:18:25 03/29/2024 text/html Here to [facility]:Past Hx:HLDReviewed his past social, surgical and family historyHe states that he is doing well, here to get some labs.OV 04/28/17:Here for his 6 months apts and is doing well, did do labsOV 10/27/17:He is here for his routine aptHe is doing wellHe is did do the labs on 10/20/17 and is here to review the labsHe does want to check out a skin lesion on the Right forehead, he states that this is been there for 'years' and he did tell his prior PMD but now wants to' check this out'OV 05/20/18:Here with his wifeHe recently [facility] doing well at this timeHere for his routine apt and to discuss the labs done on 04/08/18OV 11/25/18:Here with his wifeHe did do the labsHe feels wellHe is to see Dr Zuniga also, was told he has MGUSOV 05/24/2019:Here for his routine aptHe is doing very wellHe states that he does do a lot of exercises and does well with that evenHe also is going to keep seeing Dr Zuniga OV 09/06/2019:Here for televisitHe did agree to do the visit televisitHdexter states that he is doing very well, he is walking 5 miles a dayHe did do the labsOV 11/22/2019:Here for his routine aptHe is doing very wellHe did do the labsHe also did have L rib pain, see patient cases, he did have xrays and feels that this is much better nowHe is here also for his initial wellcome to medical wellness visitOV 05/22/2020:Here for his routine aptHe feels well, he is here with his Eber does c/o intermittent L sided chest pain, none since the past month or so, he is very active and feels that this is d/t his 'thinking about' the pain in the chestLasts for a few seconds to minutes, not associated with exertion, no palpitations, no SOB, no SINGH, no pre syncope or syncope, in fact he states that he 'works out' and is very active and takes long walksHe has done his labsOV 09/25/2020:ACV:Her e for L thigh painNoted since one weekWants to confirm that it is 'not a blood clot'No new labsCrescencio has also seen Dr Burns the NS and is now getting shots in the back, he still has LBP, it is located in the R lower back, no N/T or weakness noted, no loss of bowel or bladder controlOV 11/13/2020:Here for his routine aptHe feels wellHere with his wiffeHe did do the labsNow is to get surgery by Dr Burns, he has been cleared for this surgery by Dr [facility] 02/28/[facility]21:Here for his routine aptHe is doing wellHe is here with hs and they do plan to move to [place] OV 05/05/2023: Here to re establish care, moved back from [place], is doing well, here with his OV 09/08/2023: Here for his f/u apt, he is doing well today, he is here with his , he has seen Dr Zuniga and he is here for his MWV OV 12/15/2023: Here for his f/u apt, he is doing well today, he is here with his OV 03/29/2024: Here for his routine apt, he is doing well today, here with his Huy Henriquez MD [address], [facility], [place], [address], [facility] 03/29/2024 11:38:10
--- OUTSIDE RECORDS SUMMARY | 2024-07-23 08:40 | XMS_ITS | Encounter Summary ---
Author Organization [facility] Address [address] [facility] [facility] [place] [address] Care Team Providers Care Assembly Leader Name Role Phone Unavailable Primary Care Provider Unavailabl e Encounter Details Date Type Department Care Team (Late st Contact Info) Description 08/06/2023 Lab Requisition [facility] - Pathology Lab [address] [place] [id number] Jason Meehan MD [address] [facility] [address] [place] [id number] Multiple myeloma not having achieved remission (HCC) Social History Tobacco Use Types Packs/Day Years Used Date Smoking Tobacco: Never Assessed Sex and Gender Information Value Date Recorded Sex Assigned at Not on file Gender Identity Not on file Sexual Orientation Not on file documented as of this encounter Plan of Treatment Not on file documented as of this encounter Procedures Procedure Name Priority Date/Time Associated Diagnosis Comments FLOW CYTOMETRY BONE MARROW Routine 08/06/2023 10:27 AM CDT Multiple myeloma not having achieved remission (HCC) documented in this encounter Results * FLOW CYTOMETRY BONE MARROW (08/06/2023 10:27 AM CDT) Case Report Flow Cytometry Case: [id number] Authorizing Provider: Jason Meehan Collected: 08/06/2023 10:27 AM MD David Ordering Location: [facility] - Received: 08/06/2023 01:52 PM Pathology Lab Pathologist: Henrry Gage MD Specimen: Bone Marrow 08/06/2023 4:36 PM CDT [facility] Final Diagnosis Bone marrow, flow cytometry: - Clonal kappa restricted B-cell population detected (~26% of overall events) - Minute clonal kappa restricted plasma cell population detected (~2% of overall events) 08/06/2023 4:36 PM [facility] Flow Cytometry Interpretation Viability: 88% B-cells: monoclonal, kappa-restricted, expressing CD20, CD19, and negative for CD5 and CD10 T-cells: not increased Blasts: not increased Plasma cells: monoclonal, kappa-restricted, CD19+, CD20+, CD56+ The immunophenotype of both a clonal B-cell and clonal plasma cell population may signify lymphoplasmacytic lymphoma. The bone marrow histology is pending.lymphoma A bone marrow aspirate smear prepared from the flow cytometry specimen has been reviewed for senior quality assurance engineer purposes. 08/06/2023 4:36 PM [facility] Flow Cytometry Results Differential Result Comment Flow Cell Count /uL 50,000 Total Viability % 88.0 Lymphocytes % 51 Dim CD45 Region % 13 Monocytes % 14 Granulocytes % 21 08/06/2023 4:36 PM [facility] Reason for test Multiple myeloma not having achieved remission (HCC) 203.00 08/06/2023 4:36 PM [facility] Client Specimen ID # [id number] 08/06/2023 4:36 PM [facility] Number of markers 14 were performed. A-2 Flow CD10 A-3 Flow CD13 A-5 Flow CD20 A-13 Flow CD117 A-14 FLOW CD138 A-1 Flow CD5 A-4 Flow CD19 A-6 Flow CD33 A-7 Flow CD34 A-8 Flow CD45 A-11 Flow CD38 A-12 Flow CD56 A-9 [place]+CD19+ A-10 Lambda+CD19+ 08/06/2023 4:36 PM [facility] Pathologist Location at [facility] 08/06/2023 4:36 PM [facility] Disclaimer Test performed at [facility], [address] [place] [address], [id number]. *The established laboratory minimum viability is 70%. Values below the minimum may result in the failure to find an abnormal population of cells. This test was developed and its performance characteristics determined by the Flow Cytometry Laboratory. It has not been cleared by the [place] Food and Drug Administration (FDA). The FDA has determined that such clearance or approval is not necessary. This test is used for clinical purposes. It should not be regarded as investigational or for research. This laboratory is regulated under the Clinical Laboratory Improvement Amendments of 1998 (CLIA) as a qualified to perform high complexity clinical testing. 08/06/2023 4:36 PM CDT [facility] Embedded Images 4:36 PM CDT [facility] Pathology/Cytolo gy BONE MARROW SPECIMEN / Unknown 08/06/2023 10:27 AM CDT 08/06/2023 1:52 PM CDT Jason Meehan MD LAB - PATHO LOGY/CYTOLOGY ORDERABLES [facility] [address] [phone] documented in this encounter Visit Diagnoses Diagnosis Multiple myeloma not having achieved remission (HCC) Multiple myeloma, without mention of having achieved remission documented in this encounter
--- OUTSIDE RECORDS SUMMARY | 2024-07-23 08:40 | XMS_ITS | Encounter Summary ---
Author Organization [facility] Address [address] [facility] [place] [address] Care Team Providers Care Meter Tester Name Role Phone Unavailable Primary Care Provider Unavailabl e Encounter Details Date Type Department Care Team (Late st Contact Info) Description 08/07/2023 Lab Requisition [facility] - Pathology Lab [address] [place] [phone] Jason Meehan MD [address] [facility] [address] [place] [id number] Illness, unspecified Social History Tobacco Use Types Packs/Day Years Used Date Smoking Tobacco: Never Assessed Sex and Gender Information Value Date Recorded Sex Assigned at Not on file Gender Identity Not on file Sexual Orientation Not on file documented as of this encounter Plan of Treatment Not on file documented as of this encounter Procedures Procedure Name Priority Date/Time Associated Diagnosis Comments BONE MARROW BIOPSY (STL) Routine 08/06/2023 10:27 AM CDT Illness, unspecified documented in this encounter Results * BONE MARROW BIOPSY (STL) (08/06/2023 10:27 AM CDT) Case Report Bone Marrow Patholog y Report Case: [id number] Authorizing Provider: Jason Meehan Collected: 08/06/2023 10:27 AM MD David Ordering Location: [facility] - Received: 08/07/2023 04:42 PM Pathology Lab Pathologist: Henrry Gage MD Specimens: A) - Bone Marrow Clot B) - Bone Marrow Core 08/11/2023 12:47 PM CDT [facility] Final Diagnosis Bone marrow, aspirate, clot section, and core biopsy: - 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 - See description. 08/11/2023 12:47 PM [facility] Comment Immunohistochemistry is performed to assess staining cells in an architectural context: CD20 highlights ~90% of marrow cellularity as lymphoid cells. CD138 highlights ~5-7% of marrow elements as plasma cells. CD3 highlights background T-lymphocytes. 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 08/11/2023 12:47 PM [facility] Peripheral Smear Description RBC: normocytic anemia, marked Rouleaux formation. WBC: normal in number and morphology Platelets: normal in number and morphology. 08/11/2023 12:47 PM [facility] Bone Marrow Aspirate Differential count (200 cells): 0% blasts, 31% maturing myeloid precursors, 7% erythroid progenitors, 1% monocytes, 0% eosinophils, 50% lymphocytes, 10% plasma cells. Specimen quality: adequate. Spicules: numerous. Trilineage Hematopoiesis: present. Myeloid:Erythroid ratio: normal. Myeloid Maturation: normal, but decreased in number. Erythroid Maturation: normal, but decreased in number. Megakaryocyte morphology: normal size. 08/11/2023 12:47 PM [facility] Bone Marrow Core Biopsy and Clot Section Description Specimen quality: adequate with 2 cm of evaluable marrow. Cellularity: >90% Normal trilineage hematopoiesis is extensively replaced by a diffuse small lymphocytic and plasma cell infiltrate with virtually no remaining trilineage hematopoiesis. No large cell transformation is seen. Storage iron (by special stain): adequate. Sideroblastic iron (by special stain): no ring sideroblasts. Clot section marrow particles: numerous. Clot section morphology: similar to core biopsy. 08/11/2023 12:47 PM [facility] Flow Cytometry Summary Bone marrow, flow cytometry ([id number]): - Clonal kappa restricted B-cell population detected (~26% of overall events) - Minute clonal kappa restricted plasma cell population detected (~2% of overall events) 08/11/2023 12:47 PM [facility] Clinical History IgM monoclonal protein. 08/11/2023 12:47 PM [facility] Microscopic Description Received are 20 slide(s) and 3 blocks labeled [id number] along with a copy of the outside pathology report[place] [address] . All original materials are returned to the referring institution, along with a copy of our final report. 08/11/2023 12:47 PM T [facility] Pathologist Location at [facility] 08/11/2023 12:47 PM T [facility] Disclaimer The performance characteristics of all immunohistochemical and indirect immunofluorescence stains (if any) cited in this report were determined by the Histopathology Laboratory of [facility]. Some of these tests were developed by our own laboratory and have not been cleared or approved by the US Food and Drug Administration. The FDA does not require this test to go through premarket FDA review. These tests are used for clinical purposes. They should not be regarded as investigational or for research. This laboratory is certified under the Clinical Laboratory Improvement Amendments (CLIA) as qualified to perform high complexity clinical laboratory testing. This case has been personally reviewed and interpreted by the attending (teaching) pathologist. 08/11/2023 12:47 PM T [facility] Addendum 1 In situ hybridizatio n for kappa and lambda mRNA shows kappa restriction in plasma cells and plasmacytoid lymphocytes (kappa:lambda .5:1). Original diagnosis remains unchanged 08/11/2023 12:47 PM [facility] Addendum electronically signed by Henrry Gage MD on 08/11/2023 at 12:47 PM Embedded Images 08/11/2023 12:47 PM CDT [facility] Pathology/Cytology BONE MARROW SPECIMEN / Unknown 08/06/2023 10:27 AM CDT 08/07/2023 4:42 PM CDT Miscellaneous samples (specimen) BONE MARROW SPECIMEN / Unknown 08/06/2023 10:27 AM CDT 08/07/2023 4:42 PM CDT Jason Meehan MD LAB - PATHO LOGY/CYTOLOGY ORDERABLES [facility] [address] [place], [place] [id number] [place] [address] documented in this encounter Visit Diagnoses Diagnosis Illness, unspecified documented in this encounter
--- OUTSIDE RECORDS SUMMARY | 2024-07-23 08:40 | XMS_ITS | Patient Health Summary ---
Author Organization [facility] Address [address] [place] [address] Care Team Providers Care Pigskin Trimmer Name Role Phone Unavailable Primary Care Provider Unavailabl e Note from [facility],non-owned Affiliates and Associated Physician Practices is amultiple site organization consisting of ambulatory clinics and hospital sitesin [place], [place], [place] and [place]. This disclosure is being madepursuant to the Care Everywhere program and may not contain all information available regarding this patient. Last updated 18.[facility] Social History Tobacco Use Types Packs/Day Years Used Date Smoking Tobacco: Never Assessed Sex and Gender Information Value Date Recorded Sex Assigned at Not on file Gender Identity Not on file Sexual Orientation Not on file Procedures * BONE MARROW BIOPSY (STL)(Performed 08/06/2023) Performed for Illness, unspecified * FLOW CYTOMETRY BONE MARROW(Performed 08/06/2023) Performed for Multiple myeloma not having achieved remission (HCC) Results * FLOW CYTOMETRY BONE MARROW (08/06/2023 10:27 AM CDT) Case Report Flow Cytometry Case: [id number] Authorizing Provider: Jason Meehan Collected: 08/06/2023 10:27 AM MD David Ordering Location: [facility] - Received: 08/06/2023 01:52 PM Pathology Lab Pathologist: Henrry Gage MD Specimen: Bone Marrow 08/06/2023 4:36 PM CDT [facility] Final Diagnosis Bone marrow, flow cytometry: - Clonal kappa restricted B-cell population detected (~26% of overall events) - Minute clonal kappa restricted plasma cell population detected (~2% of overall events) 08/06/2023 4:36 PM CDT [facility] Flow Cytometry Interpretation Viability: 88% [...] flow cytometry specimen has been reviewed for production quality analyst purposes. 08/06/2023 4:36 PM [facility] Flow Cytometry Results Differential Result Comment Flow Cell Count /uL 50,000 Total Viability % 88.0 Lymphocytes % 51 Dim CD45 Region % 13 Monocytes % 14 Granulocytes % 21 08/06/2023 4:36 PM [facility] Reason for test Multiple myeloma not having achieved remission (HCC) 203.00 08/06/2023 4:36 PM [facility] Client Specimen ID # [id number] 08/06/2023 4:36 PM [facility] Number of markers 14 were performed. A-2 Flow CD10 A-3 Flow CD13 A-5 Flow CD20 A-13 Flow CD117 A-14 FLOW CD138 A-1 Flow CD5 A-4 Flow CD19 A-6 Flow CD33 A-7 Flow CD34 A-8 Flow CD45 A-11 Flow CD38 A-12 Flow CD56 A-9 [place]+CD19+ A-10 Lambda+CD19+ 08/06/2023 4:36 PM [facility] Pathologist Location at [facility] 08/06/2023 4:36 PM [facility] Disclaimer Test performed at [facility], [address] [place] [address], [id number]. *The established laboratory minimum viability is 70%. [...] complexity clinical testing. 08/06/2023 4:36 PM CDT [facility] Embedded Images 4:36 PM CDT [facility] Pathology/Cytolo gy BONE MARROW SPECIMEN / Unknown 08/06/2023 10:27 AM CDT 08/06/2023 1:52 PM CDT Jason Meehan MD LAB - PATHO LOGY/CYTOLOGY ORDERABLES Performing Organization Address City/State/[facility] Co de Phone Number [facility] [address] [phone] * BONE MARROW BIOPSY (STL) (08/06/2023 10:27 AM CDT) Case Report Bone Marrow Patholog y Report Case: [id number] Authorizing Provider: Jason Meehan Collected: 08/06/2023 10:27 AM MD David Ordering Location: [facility] - Received: 08/07/2023 04:42 PM Pathology Lab Pathologist: Henrry Gage MD Specimens: A) - Bone Marrow Clot B) - Bone Marrow Core 08/11/2023 12:47 PM CDT [facility] Final Diagnosis Bone marrow, aspirate, clot section, and core biopsy: - 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 - See description. 08/11/2023 12:47 PM CDT [facility] Comment Immunohistochemistry is performed to assess staining cells in an architectural context: CD20 highlights ~90% of marrow cellularity as lymphoid cells. CD138 highlights ~5-7% of marrow elements as plasma cells. CD3 highlights background T-lymphocytes. 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 08/11/2023 12:47 PM CDT [facility] Peripheral Smear Description RBC: normocytic anemia, marked Rouleaux formation. WBC: normal in number and morphology Platelets: normal in number and morphology. 08/11/2023 12:47 PM [facility] Bone Marrow Aspirate Differential count (200 cells): 0% blasts, 31% maturing myeloid precursors, 7% erythroid progenitors, 1% monocytes, 0% eosinophils, 50% lymphocytes, 10% plasma cells. Specimen quality: adequate. Spicules: numerous. Trilineage Hematopoiesis: present. Myeloid:Erythroid ratio: normal. Myeloid Maturation: normal, but decreased in number. Erythroid Maturation: normal, but decreased in number. Megakaryocyte morphology: normal size. 08/11/2023 12:47 PM [facility] Bone Marrow Core Biopsy and [...] similar to core biopsy. 08/11/2023 12:47 PM [facility] Flow Cytometry Summary Bone marrow, flow cytometry ([id number]): - Clonal kappa restricted B-cell population detected (~26% of overall events) - Minute clonal kappa restricted plasma cell population detected (~2% of overall events) 08/11/2023 12:47 PM [facility] Clinical History IgM monoclonal protein. 08/11/2023 12:47 PM [facility] Microscopic Description Received are 20 slide(s) and 3 blocks labeled [id number] along with a copy of the outside pathology report. [place] [address] . All original materials are returned to the referring institution, along with a copy of our final report. 08/11/2023 12:47 PM [facility] Pathologist Location at [facility] 08/11/2023 12:47 PM [facility] Disclaimer The performance characteristics of all immunohistochemical and indirect immunofluorescence stains (if any) cited in this report were determined by the Histopathology Laboratory of [facility]. Some of these tests were developed by [...] the attending (teaching) pathologist. 08/11/2023 12:47 PM CDT [facility] Addendum 1 In situ hybridizatio n for kappa and lambda mRNA shows kappa restriction in plasma cells and plasmacytoid lymphocytes (kappa:lambda .5:1). Original diagnosis remains unchanged 08/11/2023 12:47 PM CDT [facility] Addendum electronically signed by Henrry Gage MD on 08/11/2023 at 12:47 PM Embedded Images 08/11/2023 12:47 PM CDT [facility] Pathology/Cytology BONE MARROW SPECIMEN / Unknown 08/06/2023 10:27 AM CDT 08/07/2023 4:42 PM CDT Miscellaneous samples (specimen) BONE MARROW SPECIMEN / Unknown 08/06/2023 10:27 AM CDT 08/07/2023 4:42 PM CDT Jason Meehan MD LAB - PATHO LOGY/CYTOLOGY ORDERABLES [facility] [address] [place] [address], [facility] [phone]
--- OUTSIDE RECORDS SUMMARY | 2024-07-23 08:40 | XMS_ITS | Clinical Summary ---
Author Organization [facility] Address [address] [place] [address] Care Team Providers Care Theatrical Variety Agent Name Role Phone Unavailable Primary Care Provider Unavailabl e Source Comments [facility],non-owned Affiliates and Associated Physician Practices is amultiple site organization consisting of ambulatory clinics and hospital sitesin [place], [place] and [place]. This disclosure is being madepursuant to the Care Everywhere program and may not contain all information available regarding this patient. Last updated 18.[facility] Social History Tobacco Use Types Packs/Day Years Used Date Smoking Tobacco: Never Assessed Sex and Gender Information Value Date Recorded Sex Assigned at Not on file Gender Identity Not on file Sexual Orientation Not on file Plan of Treatment Health Maintenance Due Date Last Done Comments COLOGUARD (AGES 45-75) - COL ON CA SCREENING 1954 COLON MONITORING 1954 COLONOSCOPY - COLON CA SCREENING 1954 CT COLONOGRAPHY - COLON CA SCREENING 1954 Colorectal Cancer Screening 1954 FIT - COLON CA SCREENING 1954 FLEX SIG - COLON CA SCREENING 1954 LIPID TESTING 1954 MEDICARE AWV 12 MONTHS 1954 COVID-19 VACCINE (#1) 08/14/1959 HEPATITIS C SCREENING 08/08/1972 DTAP/TDAP/TD VACCINES (1 - Tdap) 1973 PNEUMOCOCCAL VACCINE 50+ (1 of 2 - PCV) 1973 ZOSTER VACCINE (1 of 2) 1973 Respiratory Syncytial Virus (RSV) Vaccine Pt: or over 60 yrs (1 - Risk 60-74 years 1-dose series) 2014 INFLUENZA VACCINE (#1) 2024 DEPRESSION SCREENING 05/19/2024 HEPATITIS B VACCINE Aged Out No longe r eligible based on patient's age to complete this topic HIB VACCINE Aged Out No longer eligi ble based on patient's age to complete this topic HPV VACCINE Aged Out No longer eligi ble based on patient's age to complete this topic MENINGOCOCCAL (Group B) VACCINE Aged Out No longer eligible based on patient's age to complete this topic MENINGOCOCCAL VACCINE Aged Out No dipak marilyn eligible based on patient's age to complete this topic
--- OUTSIDE RECORDS SUMMARY | 2024-07-23 08:40 | XMS_ITS | Clinical Summary ---
Author Organization [facility] Facility Address [address] [place] [address] Care Team Providers Care Shoeshiner Name Role Phone Joy Henriquez MD Primary Care Provider [phone] Allergies Active Allergy Reactions Criticality Noted Date Comments Penicillins Rash Medium 06/10/2018 Minor reaction. PCN allergy form filled out Encounters Date Type Department Care Team Description 07/21/2024 Documentation Only [facility], [address] [address] Shoaib Murray DO 07/15/2024 Documentation Only [address] [address] Shoaib Murray DO from Last 3 Months Social History Tobacco Use Types Packs/Day Years Used Date Smoking Tobacco: Never Assessed Sex and Gender Information Value Date Recorded Sex Assigned at Not on file Legal Sex Male 3:33 PM EDT Gender Identity Not on file Sexual Orientation Not on file Last Filed Vital Signs Vital Sign Reading Time Taken Comments Blood Pressure 100/62 01/27/2024 1:47 PM CDT Pulse 55 01/27/2024 1:47 PM CDT Temperature 36.1 C (97 F) 01/27/2024 1:47 PM CDT Respiratory Rate 18 01/27/2024 1:47 PM CDT Oxygen Saturation 99% 01/27/2024 1:47 PM CDT Inhaled Oxygen Concentration - - Weight 84.4 kg (186 lb) 01/27/2024 1:47 PM CDT Height 180.3 cm (5' 11 ) 10/22/2023 2:25 PM CDT Body Mass Index 25.94 10/22/2023 2:25 PM CDT Plan of Treatment Upcoming Encounters Date Type Department Care Team (Late st Contact Info) Description 07/27/2024 1:45 PM CDT Office [facility] Care, [facility] [address] [place] [address] Shoaib Murray DO [address] [facility] [address] [place] [address] Health Maintenance Due Date Last Done Comments Colorectal Cancer Screening: Annual FOBT 08/14/2003 Colorectal Cancer Screening: Colonoscopy 08/14/2003 Colorectal Cancer Screening: Sigmoidoscopy 08/14/2003 Pneumococcal Vaccine: 65+ Years (4 of 4 - PPSV23 or PCV20) 12/27/2021 11/22/2019, 12/27/2016, 12/01/2016 Influenza Vaccine (#1) 2024 , 02/01/2020, 02/04/2019, Additional history exists Hepatitis B Vaccine Aged Out No longe r eligible based on patient's age to complete this topic Insurance MEDICARE [facility] Advance Directives Documents on File Type Date Recorded Patient Merchandise Pickup/Receiving Associate Expl anation Advance Care Planning 12/15/2023 3:21 PM Care Teams Shoeshiner Relationship Specialty Start Date End Date Joy Henriquez MD [address] [facility] [place] [address] PCP - General Internal Medicine 09/12/23
--- OUTSIDE RECORDS SUMMARY | 2024-07-23 08:40 | XMS_ITS | CONTINUITY OF CARE DOCUMENT ---
Author Name kym maiteemelyn Address Unknown Organization [facility] Address [address] [place] [address] Phone [phone] Care Team Providers Care Dust Box Tender Name Role Phone Raffy Moody MD Unavailable [phone] HUY SIMMONS MD Unavailable HUY SIMMONS MD Unavailable PROBLEMS Condition Status Date Provider Notes Chest pain, CCS 84--202 active Raffy luque MD Hyperlipidemia active Raffy Mooyd MD Acid reflux active Raffy Moody MD Cardiology examination active Tavon Ahmedzai Waldenstroms macroglobulinemia, MGUS active Tavon Ahlaurozai ENCOUNTERS Date Type Provider Location Encounter Diag nosis - In-person encounter Office Visit Raffy Moody MD [facility] Cardiology examinationWaldenstroms macroglobulinemia, MGUS - In-person encounter Office Visit Raffy Moody MD [facility] Chest pain, CCS 84--2020HyperlipidemiaAcid reflux - In-person encounter Office Visit Raffy Moody MD [facility] - In-person encounter Office Visit Raffy Moody MD [facility] Chest pain, CCS 84--2020Hyperlipidemia VITAL SIGNS Date Observation Value Provider Body Mass Index (Ratio) 26.64 kg/m2 Kumar Moody MD blood pressure, diastolic 73 mm[Hg] [facility], systolic 124 mm[Hg] Salma bustamante Gomez oxygen saturation, oximetry 97 % [facility] pulse rate 60 /min [facility] respiratory rate E&M 12 /min [facility] weight E&M 191 [lb_av] [facility] height E&M 71 [in_i] [facility] blood pressure, cuff size regular [facility] Body Mass Index (Ratio) 26.36 kg/m2 Kumar Moody MD blood pressure, diastolic 74 mm[Hg] Rosaura nkLogic blood pressure, systolic 116 mm[Hg] Maki kLog pulse rate 85 /min Ronnell blood pressure, cuff size regular Luis Antonio rret blood pressure, diastolic 74 mm[Hg] Ja rret blood pressure, systolic 116 mm[Hg] Jar ret respiratory rate E&M 12 /min Ronnell oxygen saturation, oximetry 97 % Ronnell weight E&M 189 [lb_av] Ronnell height E&M 71 [in_i] Ronnell erda y Body Mass Index (Ratio) 26.22 kg/m2 Kumar Moody MD blood pressure, diastolic 70 mm[Hg] Mary Ellen Groves blood pressure, systolic 120 mm[Hg] Anna Groves blood pressure, resting No Javon Groves pulse rate 82 /min Cherie reyes oxygen saturation, oximetry 98 % Cherie Groves respiratory rate E&M 18 /min Teddy Groves weight E&M 188 [lb_av] Cherie reyes height E&M 71 [in_i] Cherie reyes Body Mass Index (Ratio) 26.50 kg/m2 Kumar Moody MD blood pressure, cuff size large Ke rri Gruenenfelder blood pressure, diastolic 64 mm[Hg] Ke rri Gruenenfelder blood pressure, systolic 106 mm[Hg] Tiffany ri Pranavnfelder oxygen saturation, oximetry 98 % Nayeli Saritaeldjoan respiratory rate E&M 16 /min Nayeli stephensonelder pulse rate 74 /min Nayeli Kirit lder weight E&M 190 [lb_av] Nayeli Saritae lder height E&M 71 [in_i] Nayeli Shenanenfe lder ALLERGIES Allergy Name Onset Date Reaction Criticality Status PCN Low Criticality active HISTORY OF MEDICATION USE Medication Status Instructions Dates Provider Indications Com ments rosuvastatin 20 mg tablet active Take 1 tablet by mouth every night 3 Tavon Barrett Brukinsa 80 mg capsule active 2 capsule by mouth once a day Alvina Gomez pantoprazole 40 mg tablet,delayed release (DR/EC) active TAKE 1 TABLET BY MOUTH EVERY 12 HOURS Tavon Barrett gabapentin 300 mg capsule completed 5 - 5 Tavon Barrett Metamucil 0.4 gram capsule completed twice a day 5 - 5 Tavon Barrett MULTIVITAMINS ORAL CAPSULE completed 1 tablet once a day 5 - 5 Tavon Barrett ASPIRIN 81 81 MG ORAL TABLET DELAYED RELEASE active 1 tablet by mouth once a day 5 Tavon Barrett pravastatin 40 mg tablet completed Take 1 once a day 5 - 3 Tavon Barrett SOCIAL HISTORY Date Observation Value Provider smoking, year quit 1987 Tavon arguelles number of years as a smoker 14 a Tavon Barrett smoking history, tot al pack/day 2 ppd Tavon Barrett cigarette use yes Tavon Barrett smoking status Former smoker Tavon Wilhelm i smoking, year quit 1987 Tavon arguelles number of years as a smoker 14 a Tavon Barrett smoking history, tot al pack/day 2 ppd Tavon Barrett cigarette use yes Tavon Barrett smoking status Former smoker Tavon Wilhelm i social history reviewed E&M revi ewed - no changes required Hamida Nj NP smoking, year quit 1987 Javonagapito lucero Germain number of years as a smoker 14 a Cherie Groves smoking history, tot al pack/day 2 ppd Cherie Groves cigarette use yes Cherie Elvis reina smoking status Former smoker Cherie drakeamy social history E&M S moking History: Sherman tavares is a former smoker. Rogelio Zavala social history reviewed E&M revi ewed - no changes required Rogelio Zavala number of years as a smoker 14 a Nayeli Coppola smoking history, tot al pack/day 2 ppd Nayeli Coppola smoking, year quit 1987 Nayeli hurd cigarette use yes Nayeli mason smoking status Former smoker Nayeli coombs FAMILY HISTORY Family Member Condition Father Negative FH of Coron ashley Artery Disease Mother Negative FH of Coron ashley Artery Disease INSURANCE PROVIDERS Payer name Policy type / Coverage type [place] red libertarian ID AARP [employer] insurance Property Partner [id number] [place] MEDICARE Medicare [id number] ADVANCE DIRECTIVES Name Date DISCUSSED - NO DECISION MADE TREATMENT PLAN Date Name Performer [id number],S, Hamida pittman STENOTYPE MACHINE OPERATOR [id number],S, Hamida pittman STENOTYPE MACHINE OPERATOR Cardiology Raffy Moody MD Cardiology: T he following medications were removed from the medication list: Pravastatin 40 Mg Tablet (Pravastatin) ..... Take 1 once a day His updated medication list for this problem includes: Rosuvastatin 20 Mg Tablet (Rosuvastatin) ..... Take 1 tablet by mouth every night Raffy Moody MD Cardiology Raffy Moody MD Cardiology Tavon Barrett Cardiology: H is updated medication list for this problem includes: Pravastatin 40 Mg Tablet (Pravastatin) ..... Take 1 once a day Tavon Barrett Cardiology: H is updated medication list for this problem includes: Pantoprazole 40 Mg Tablet,delayed Release (dr/ec) (Pantoprazole) ..... Take 1 tablet by mouth every 12 hours Tavon Barrett Cardiology Hamida Nj NP Cardiology Hamida Nj NP Date Name CT, Coronary Calcium Score HISTORY OF PROCEDURES Procedure Date Procedure Name Provider Procedure Notes S tatus Complex e/m visit add on Raffy Moody MD completed EKG Raffy Moody MD completed EKG Raffy Moody MD completed CT- Coronary CA score Raffy Moody MD completed
[2024-07-23 08:42] LABS: Basophils Absolute Auto 0.2 K/mm3 (0.0-0.1); Basophils Percent Auto 2.5 % (0.2-1.2); Eosinophils Absolute Auto 0.3 K/mm3 (0-0.3); Eosinophils Percent Auto 4.9 % (0-4.4); Hematocrit 42.3 % (42.0-52.0); Hemoglobin 14.1 g/dL (14.0-18.0); Immature Granulocyte Absolute 0.02 K/mm3 (0.00-0.031); Immature Granulocyte Percent A 0.3 % (0-0.5); Lymphocytes Absolute Auto 2.03 K/mm3 (0.9-3.2); Lymphocytes Percent Auto 32.2 % (18.3-44.2); Mean Corpuscular HGB Conc 33.3 g/dl (32-36); Mean Corpuscular Hemoglobin 30.1 pg (26-34); Mean Corpuscular Volume 90.2 fl (80-100); Mean Platelet Volume 10.4 fl (7.4-10.4); Monocytes Absolute Auto 0.6 K/mm3 (0.1-0.6); Monocytes Percent Auto 9.5 % (2.6-8.5); Neutrophils Absolute Auto 3.2 K/mm3 (1.3-6.7); Neutrophils Percent Auto 50.6 % (45.5-73.1); Platelet Count Result 224 k/mm3 (150-375); Red Blood Count 4.69 M/mm3 (4.6-6.20); Red Cell Distribution Width 13.8 % (11.5-14.5); White Blood Count 6.3 K/mm3 (4.5-10.0)
[2024-07-23 10:33] LABS: Alanine Aminotransferase 18 U/L (6-50); Alkaline Phosphatase 63 U/L (38-126); Anion Gap 6 mmol/L (4-12); Aspartate Amino Transferase 22 U/L (17-59); Bilirubin,Total 0.5 mg/dL (0.2-1.3); Blood Urea Nitrogen 14 mg/dL (9-20); Calcium 9.1 mg/dL (8.4-10.2); Carbon Dioxide 29 mmol/L (22-30); Chloride 103 mmol/L (98-107); Estimated Glomerular Filt Rate > 60; Glucose 94 mg/dL (65-110); Potassium 4.4 mmol/L (3.4-5.0); Sodium 138 mmol/L (137-145)
[2024-07-23 10:40] LABS: Immunoglobulin G 730 mg/dL (700-1600)
[2024-07-23 12:38] LABS: Immunoglobulin A < 40 mg/dL (70-400); Immunoglobulin M 1054 mg/dL (40-230)
[2024-07-25 07:08] LABS: Protein, Total 6.3 g/dL (6.1-8.1)
[2024-07-26 22:07] LABS: Abnormal Protein Band 1 0.5 g/dL (NONE DETECTED); Albumin 3.7 g/dL (3.8-4.8); Alpha 1 Globulin 0.2 g/dL (0.2-0.3); Alpha 2 Globulin 0.5 g/dL (0.5-0.9); Beta 1 Globulin 0.5 g/dL (0.4-0.6)
[2024-07-27 10:14] LABS: Kappa\\Lambda Light Chains 12.38 (0.26-1.65)
== END 2024-07-23 08:28 | disposition home or self-care (01) ==
LOC: ANHLAB 08:28
PROVIDERS: PCP Internal Medicine; Visit Provider Internal Medicine Hematology & Oncology
DX: C90.00 Multiple myeloma not having achieved remission (principal)
CPT/HCPCS: 36415; 80053; 82784; 83883; 84155; 84165; 85025

== ENCOUNTER 2024-11-29 08:35 | Outpatient (CLI) | payer MEDICARE, SELFPAY ==
--- OUTSIDE RECORDS SUMMARY | 2024-11-29 08:42 | XMS_ITS | Referral Summary ---
Author Organization [facility] [address] [place] [address] Care Team Providers Care Environmental Attorney Name Role Phone Ceferino Henriquez MD Primary [...] 10:30 AM CDT Height 180.3 cm (5' 10.98) 01/05/2021 10:30 AM CDT Body Mass Index 25.98 01/05/2021 10:30 AM CDT Plan of Treatment Not on file Insurance MEDICARE [facility] MEDICARE MEDICARE [facility] MEDICARE Care Teams Environmental Attorney Relationship Specialty Start Date End Date Ceferino Henriquez MD [address] [place] [address] PCP - General Internal Medicine 08/15/20
--- OUTSIDE RECORDS SUMMARY | 2024-11-29 08:42 | XMS_ITS | Clinical Summary ---
Author Organization [facility] [address] [place] [address] Care Team Providers Care Photographic Supervisor Name Role Phone Ceferino Henriquez MD Primary [...] Depression Screening 1955 Hepatitis C Screening 1955 Hepatitis B Screening 1972 Zoster Vaccine (1 of 2) 12/22/2016 11/26/2016, 10/27 Abdominal Aortic Aneurysm (A AA) Screen 08/14/2019 Well Visit 65+ 08/14/2019 Covid-19 Vaccine (3 - Pfizer risk series) 08/15/2020 07/18/2020, 06/27/2020 Fall Risk Assessment 11/23/2021 11/23/2020 Pneumococcal vaccine 65+ (4 of 4 - PCV20 or PCV21) 11/21/2024 11/22/2019, 12/27/2016, 12/01/2016 Influenza Vaccine (Season Ended) 2025 02/21/2021, 02/01/2020, 02/04/2019, Additional history exists DTaP/Tdap/Td Vaccine (3 - Td or Tdap) 11/26/2026 11/26/2016, 10/27/2016 Insurance MEDICARE [facility] Address: [address] [address] [place] [address] [facility] MEDICARE MEDICARE Member Subscriber Plan / Payer (Ef fective 2019-Present) Name:Justin Mckeon Member ID:[id number] Relation to Subscriber:Self Name:SweetieconiJustin Subscriber ID:[id number] Payer ID:[id number] Group ID:Not on file Type:MEDICARE TRADITIONAL Address: [place] [phone] [facility] MEDICARE Care Teams Photographic Supervisor Relationship Specialty Start Date End Date Cfeerino Henriquez MD [address] [facility] [address] [place] [address] PCP - General Internal Medicine 08/15/20
--- OUTSIDE RECORDS SUMMARY | 2024-11-29 08:43 | XMS_ITS | Data Portability ---
Author Organization [facility], [id number] Address [place] [address] Assessment No assessment recorded. Plan of Treatment Reminders Order Date Submit Date Provider Last Modified By Organization Details Last Modified Time Details Appointments None recorded. Lab None recorded. Referral None recorded. Procedures None recorded. Surgeries None recorded. Imaging None recorded. Medication Orders clindamycin HCl 300 mg capsule 2021 [facility] #[id number], [address] [place], [place], [id number], 19:50:03 Allergy Relief (fluticason e) 50 mcg/actuati on nasal spray,suspe nsion [address] [facility] #[id number], [address] [place], [place], [id number], 19:50:02 Patient TargetsNo targets recorded. Patient Instructions Encounter Date Encounter Id Patient Instructions Last Modified By Organization Details Last Modified Time 04/25/2022 [id number] earache: care instructions Not available 04/25/2022 19:49:52 ear infection (otitis media): care instructions Not available 04/25/2022 19:49:52 eustachian tube problems: care instructions Not available 04/25/2022 19:49:52 Reason for Referral None Reported. Problems Name Problem SNOMED Code Status Onset Date Resolution Date Notes Provider Name and Address Organization Details Recorded Time Hyperlipidemia 77181642 Active 2021 ROSA Ngo [facility] 19:41:06 Problem Notes None [...] Not available Not available Not available 04/25/2022 [id number] SNOMED ROSA Ngo [facility] [...] ) 50 mcg/actuatio n nasal spray,suspen blas [place] 2 sprays every day by intranasal route for 7 days. 2021 active Not Available Not Available Not Avai lable Vitals Date Recorded Body height Body mass index (BMI) Body weight Oxygen saturation Oxygen saturation in Arterial blood by Pulse oximetry Heart rate Respiratory rate Body temperature Systolic And Diastolic Provider Name and Address Organization Details Last Updated DateTime 2 180.34 cm 25.1 kg/m2 66049.6 3 g 100 % 100 % 65 /min 16 /min 97.9 [degF] 124/77 mm[Hg] CRISTIAN LEE - [facility] 19:43:24 Social History Question Answer Notes LastModified by Organizat ion Details LastModified Time Tobacco Smoking Status Never Smoker ROSA Jimenez [facility] 04/25/2022 19:42:08 Have You Had Direct Contact, Or Contact During Intimacy, With Monkeypox Rash, Scabs, Or Body Fluids From A Person With Monkeypox? No Information not available 04/25/2022 Have You Recently Traveled Abroad? No Information not available 04/25/2022 Are You Currently In School? No Information not available 04/25/2022 Sex: Unknown Functional Status Question Answer Note LastModified by Organizat ion Details LastModified Time Do you use any illicit or recreational drugs? No Information not available 04/25/2022 Do you or have you ever used any other forms of tobacco or nicotine? No Information not available 04/25/2022 What is your level of alcohol consumption? None Information not available 04/25/2022 Are you currently employed? No Information not available 04/25/2022 Mental Status None recorded. Family History Relationship [...] SNOMED-CT Code Diagnosis ICD10 Code Diagnosis Note [id number] ROSA HERNÁNDEZ [address] [facility] [facility] [address] [place] [address] 04/25/2022 18:59:42 04/25/2022 19:59:54 Acute right otitis media 646245092 H66.91 Health Concerns Section Related Observation LastModified by Organization Detai ls LastModified Time None Recorded Concern Status LastModified by Organization Details LastModified Time None Recorded Advance Directives Directive None Recorded Payers Insurance Date Sequence Insurance Name Policy Number Policy Reddy Covered Member ID Reddy Member ID Guarantor Name 04/25/2022 1 [place] Justin Mckeon [id number] Justin Mckeon 04/25/2022 2 AARP (MEDICARE SUPPLEMENT) Justin Mckeon [id number] Justin Mckeon Notes Date Note Type Note Provider Name and Address Organization Details Recorded Time 04/25/2022 text/html Ear Pain Brief HPIReported bypatient.Notes:ri ght ear pain x 3 d, feels full. Using OTC ear pain gtts without relief. ROSA HERNÁNDEZ [address] [place], [place] [address], [address], [place] - [facility] 04/25/2022 19:52:09
--- OUTSIDE RECORDS SUMMARY | 2024-11-29 08:43 | XMS_ITS | Clinical Summary ---
Author Organization [facility] Address [address] [place] [address] Care Team Providers Care Buttermaker Name Role Phone Joy Henriquez MD Primary Care Provider Allergies Active Allergy Reactions Criticality Noted Date Comments Penicillins Rash Low 06/10/2018 Medications aspirin (ECOTRIN EC) 81 mg Tablet, Delayed Release (E.C.) Take 81 mg by mouth daily. Active multivitamins-mi nerals-lutein (CENTRUM SILVER) Tablet Take 1 Tablet by mouth daily. Active ferrous sulfate 325 mg (65 mg iron) tablet Take 325 mg by mouth daily. Active Psyllium Husk-Aspartame (Metamucil [facility] Fiber) 3.4 gram/5.8 gram Powder 8 Active rosuvastatin (CRESTOR) 20 mg tablet Take 20 mg by mouth daily. 5 Active zanubrutinib (Brukinsa) 80 mg capsuleIndicatio ns:MGUS (monoclonal gammopathy of unknown significance) TAKE 2 CAPSULES BY MOUTH TWICE A DAY. 120 Capsule 3 5 Active Active Problems Problem Noted Date Diagnosed Date MGUS (monoclonal gammopathy of unknown significa nce) 06/10/2018 Encounters Date Type Department Care Team Description 11/02/2024 External Device Data ST[facility] ABSTRACTION Provider, Abstract 10/12/2024 External Device Data ST[facility] ABSTRACTION Provider, Abstract 10/07/2024 External Device Data ST[facility] ABSTRACTION Provider, Abstract 10/06/2024 External Device Data ST[facility] ABSTRACTION Provider, Abstract 10/05/2024 External Device Data ST[facility] ABSTRACTION Provider, Abstract 09/24/[address] 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 Gender Identity Male 03/01/2024 7:22 PM CDT Sexual Orientation Not on file Last Filed Vital Signs Vital Sign Reading Time Taken Comments Blood Pressure 137/77 08/06/2024 10:45 AM CDT Pulse 59 08/06/2024 10:41 AM CDT Temperature 36.7 C (98 F) 08/06/2024 10:41 AM CDT Respiratory Rate 15 08/06/2024 10:41 AM CDT Oxygen Saturation 96% 08/06/2024 10:41 AM CDT Inhaled Oxygen Concentration - - Weight 86.3 kg (190 lb 3.2 oz) 08/06/2024 10:41 AM CDT Height 180.3 cm (5' 11) 11/07/2020 10:40 AM CDT Body Mass Index 26.53 11/07/2020 10:40 AM CDT Plan of Treatment Upcoming Encounters Date Type Department Care Team (Late st Contact Info) Description 12/10/2024 10:45 AM CDT Office Visit [facility] Oncology and Hematology [facility] [address] [place] [address] Eduardo Zuniga MD [address] [place] [address] Health Maintenance Due Date Last Done Comments Pre-Diabetes and Diabetes Screening 1955 FIT-DNA Q 3 years 08/14/1999 FIT/FOBT Q 1 year 08/14/1999 Flex Sig/CT Colonography Q 5 years 08/14/1999 RSV VACCINE (60+ or ) (1 - Risk 60-74 years 1-dose series) 2014 ZOSTER VACCINE (1 of 2) 12/22/2016 10/27/2016 Abdominal Aortic Aneurysm (A AA) Screening 08/14/2019 COVID-19 Vaccine (4 - 2023-2 5 season) 2024 02/22/2021, 07/18/2020, 06/27/2020 Traditional Medicare (ACO) A nnual Wellness Visit 09/08/2024 09/08/2023 PNEUMOCOCCAL VACCINE 50+ YEA RS (4 of 4 - PCV20 or PCV21) 11/21/2024 11/22/2019, 12/27/2016, 12/01/2016 INFLUENZA VACCINE (#1) 2024 3, 02/21/2021, 02/01/2020, Additional history exists DTAP/TDAP/TD VACCINES (3 - T d or Tdap) 11/26/2026 11/26/2016, 10/27/2016 COLORECTAL SCREENING 01/02/2033 01/02/2023 Colorectal Cancer Screening 01/02/2033 Insurance MEDICARE PART A AND B [facility] [id number] [employer] Medicare Part D RX [employer] Member Subscriber Plan / Payer (Ef fective 2024-Present) Name:Justin Mckeon Relation to Subscriber:Self Name:Justin Mckeon Payer ID:Not on file Group ID:[id number] Type:RX Medicare Part D Address: [address] Care Teams Buttermaker Relationship Specialty Start Date End Date Joy Henriquez MD PCP - General Internal Medicine 05/25/18
--- OUTSIDE RECORDS SUMMARY | 2024-11-29 08:43 | XMS_ITS | Data Portability ---
Author Organization [facility] [employer], Main Office Address [address] [place] [address] Care Team Providers Care Etl Architect Name Role Phone JOY HENRIQUEZ Primary Care Provider BILL ZUNIGA Hematology/Oncology BRIA ALEXANDRE Ob Gyn Physician Assistant SHOAIB CABRERA Gripper Installer Assessment Encounter Date Assessment Date Assessment LastModified by Organization Details LastModified Time 12/15/2023 12/15/2023 11/02/2020: PSA 0.79 TSH/FT4; WNL [...] BUN 22 12/12/2023: Dr Zuniga CMP/CBC: WNL Here for 40 minutes, discussed his various labs, also his apts with his consults [email or web address] Not available 12/15/2023 14:17:43 03/29/2024 03/29/2024 11/02/2020: [...] CMP/CBC: WNL 01/05/2024: PSA 0.9 03/26/2024: Dr Efrain MALDONADO 22 Not available 03/29/2024 11:12:28 08/09/2024 08/09/2024 11/02/2020: PSA 0.79 TSH/FT4; WNL CMP: WNL [...] WNL BUN 12/12/2023: Dr Zuniga CMP/CBC: WNL 01/05/2024: PSA 0.9 03/26/2024: Dr Efrain MALDONADO 22 07/30/2024: Na 134 Not available 08/08/2024 11:55:30 Plan of Treatment Reminders Order Date Submit Date Provider Last Modified By Organization Details Last Modified Time Details Appointments Follow Up 15 2024 09:15A Stefani ashley MD Not available Not available Not available Lab lipid panel, serum 2024 025 [facility] Not available 11/24/2024 14:41:28 CMP, serum or plasma 2024 025 [facility] Not available 11/24/2024 14:41:33 CBC w/ auto diff 2024 025 [facility] Not available 11/24/2024 13:47:53 TSH + free T4, serum 2024 025 Not available 11/24/2024 11:20:31 lipid panel, serum 2023 024 [facility] Not available 07/30/2024 13:38:33 CMP, serum or plasma 2023 024 [facility] Not available 07/30/2024 13:38:39 CBC w/ auto diff 2023 024 [facility] Not available 07/23/2024 13:38:48 TSH + free T4, serum 2023 024 [email or web address] Not available 07/30/2024 10:14:32 PSA, total + free, serum or plasma [email or web address] ([facility]), [address] [place], [address], 01/21/2024 11:07:14 lipid panel, serum 2023 024 [facility] Not available 03/22/2024 12:20:59 CMP, serum or plasma 2023 024 [facility] Not available 03/22/2024 12:21:05 CBC w/ auto diff 2023 024 [facility] Not available 03/22/2024 11:42:11 TSH + free T4, serum 2023 024 [email or web address] Not available 06/14/2024 10:12:31 Referral ophthalmo logist referral - Please call patient to schedule an appointme nt. Thank you. 2024 025 jasper Mcqueen MD, [address] [facility], [address], [address], 11/08/2024 09:57:16 nephrolog ist referral 2023 024 [email or web address] [place], [address], [address], [place], [address], 03/29/2024 14:46:18 ophthalmo logist referral - Please call patient to schedule. 2023 024 [email or web address] Mena Mcqueen MD, [address], [address], 06/29/2024 16:34:11 nephrolog ist referral 2023 024 [place], [address], [address], [place], [address], 06/14/2024 11:26:16 ophthalmo logist referral 2023 024 Mena Mcqueen MD, [address] [facility] [address], [address], 06/14/2024 11:26:15 Procedures None recorded. Surgeries None recorded. Imaging None recorded. Medication Orders Zyrtec 10 mg tablet 2024 025 [id number], [address], [place], [place], [id number], 08/09/2024 11:08:05 Patient TargetsNo targets recorded. Patient InstructionsNo instructions recorded. Reason for Referral Trip Rider Referral for Retinal disorder Referring Physician: Joy Henriquez, Internal Medicine, Encounter Date: 12/15/2023 Gripper Installer Referral for Ch ronic kidney disease Referring Physician: Joy Henriquez Internal Medicine, Encounter Date: 12/15/2023 Trip Rider Referral for Retinal disorder Please call patient to schedule. Referring Physician: Joy Henriquez Internal Medicine, Encounter Date: 03/29/2024 Gripper Installer Referral for Ch ronic kidney disease Referring Physician: Joy Henriquez, Internal Medicine, Encounter Date: 03/29/2024 Trip Rider Referral for Retinal disorder Please call patient to schedule an appointment. Thank you. Referring Physician: Joy Henriquez, Internal Medicine, Encounter Date: 08/09/2024 Results Created Date Observation Date Name Description Value Unit Range Abnormal Flag Note LastModifiedBy Organization Detail LastModifiedTime 12/08/19 24 12/08/2023 CBC/C OMPLE TE BLD COUNT W/DIF F white blood cells 5.7 x10'3 /uL 4.2-10 .8 Not Available [facility] (Lab) [address] [place], [address], 12/08/2023 11:43:21 12/08/19 24 12/08/2023 CBC/C OMPLE TE BLD COUNT W/DIF F red blood cells 4.57 x10'6 /uL 4.10-5 .80 Not Available [facility] (Lab) [address] [place], [address], 12/08/2023 11:43:21 12/08/19 24 12/08/2023 CBC/C OMPLE TE BLD COUNT W/DIF F hemoglobin 14.2 g/dL 13.2-1 7.0 Not Available [facility] (Lab) [address] [place], [address], 12/08/2023 11:43:21 12/08/19 24 12/08/2023 CBC/C OMPLE TE BLD COUNT W/DIF F hematocrit 42.7 % 39.3-5 0.0 Not Available [facility] (Lab) [address] [place], [address], 12/08/2023 11:43:21 12/08/19 24 12/08/2023 CBC/C OMPLE TE BLD COUNT W/DIF F mean red cell volume 93.4 fL 80.0-9 7.0 Not Available [facility] (Lab) [address] [place], [address], 12/08/2023 11:43:21 12/08/19 24 12/08/2023 CBC/C OMPLE TE BLD COUNT W/DIF F mean red cell hemoglobin 31.1 pg 27.0-3 3.0 Not Available [facility] (Lab) [address] [facility] [place], [address], 12/08/2023 11:43:21 12/08/19 24 12/08/2023 CBC/C OMPLE TE BLD COUNT W/DIF F mean RBC HGB concentratio n 33.3 g/dL 31.0-3 6.0 Not Available [facility] (Lab) [address] [place], [address], 12/08/2023 11:43:21 12/08/19 24 12/08/2023 CBC/C OMPLE TE BLD COUNT W/DIF F red cell distribution width 14.1 % 11.8-1 5.5 Not Available [facility] (Lab) [address] [place], [address], 12/08/2023 11:43:21 12/08/19 24 12/08/2023 CBC/C OMPLE TE BLD COUNT W/DIF F platelets 208 x10'3 /uL 150-40 0 Not Available [facility] (Lab) [address] [place], [address], 12/08/2023 11:43:21 12/08/19 24 12/08/2023 CBC/C OMPLE TE BLD COUNT W/DIF F mean platelet volume 11.1 fL 9.0-12 .4 Not Available [facility] (Lab) [address] [place], [address], 12/08/2023 11:43:21 12/08/19 24 12/08/2023 CBC/C OMPLE TE BLD COUNT W/DIF F neutrophils 45.5 % 39.0-7 2.0 Not Available [facility] (Lab) [address] [place], [address], 12/08/2023 11:43:21 12/08/19 24 12/08/2023 CBC/C OMPLE TE BLD COUNT W/DIF F lymphocytes 37.6 % 16.0-4 7.0 Not Available [facility] (Lab) [address] [place], [address], 12/08/2023 11:43:21 12/08/19 24 12/08/2023 CBC/C OMPLE TE BLD COUNT W/DIF F monocytes 8.7 % 5.0-12 .0 Not Available [facility] (Lab) [address] [place], [address], 12/08/2023 11:43:21 12/08/19 24 12/08/2023 CBC/C OMPLE TE BLD COUNT W/DIF F eosinophils 6.1 % 1.0-7. 0 Not Available [facility] (Lab) [address] [place], [address], 12/08/2023 11:43:21 12/08/19 24 12/08/2023 CBC/C OMPLE TE BLD COUNT W/DIF F basophils 1.9 % 0.0-2. 0 Not Available [facility] (Lab) [address] [place], [address], 12/08/2023 11:43:21 12/08/19 24 12/08/2023 CBC/C OMPLE TE BLD COUNT W/DIF F immature granulocytes 0.2 % 0.00-0 .50 Not Available [facility] (Lab) [address] [place], [address], 12/08/2023 11:43:21 12/08/19 24 12/08/2023 CBC/C OMPLE TE BLD COUNT W/DIF F neutrophils, absolute count 2.60 x10'3 /uL 1.5-8. 0 Not Available [facility] (Lab) [address] [place], [address], 12/08/2023 11:43:21 12/08/19 24 12/08/2023 CBC/C OMPLE TE BLD COUNT W/DIF F lymphocytes, absolute count 2.15 x10'3 /uL 1.07-3 .43 Not Available [facility] (Lab) [address] [place], [address], 12/08/2023 11:43:21 12/08/19 24 12/08/2023 CBC/C OMPLE TE BLD COUNT W/DIF F monocytes, absolute count 0.50 x10'3 /uL 0.29-0 .99 Not Available [facility] (Lab) [address] [place], [address], 12/08/2023 11:43:21 12/08/19 24 12/08/2023 CBC/C OMPLE TE BLD COUNT W/DIF F eosinophils, absolute count 0.35 x10'3 /uL 0.02-0 .53 Not Available [facility] (Lab) [address] [place], [address], 12/08/2023 11:43:21 12/08/19 24 12/08/2023 CBC/C OMPLE TE BLD COUNT W/DIF F basophils, absolute count 0.11 x10'3 /uL 0.01-0 .08 high Not Available [facility] (Lab) [address] [place], [address], 12/08/2023 11:43:21 12/08/19 24 12/08/2023 CBC/C OMPLE TE BLD COUNT W/DIF F immature granulocytes ,absolute 0.01 x10'3 /uL 0.00-0 .05 Not Available [facility] (Lab) [address] [place], [address], 12/08/2023 11:43:21 07/22/20 24 12/08/2023 CBC/C OMPLE TE BLD COUNT W/DIF F nucleated red blood cells 0.0 % -0 Not Available [facility] (Lab) [address] [place], [address], 12/08/2023 11:43:21 12/08/19 24 12/08/2023 CBC/C OMPLE TE BLD COUNT W/DIF F NRBC# 0.00 x10'3 /uL Not Available [facility] (Lab) [address] [place], [address], 12/08/2023 11:43:21 12/08/19 24 12/08/2023 LIPID PANEL cholesterol 137 mg/dL 140-19 9 low NIH DARCIE NSUS RECOM MENDA TION FOR EDWIGE STERO L: ADULT CHILD LOW RISK: <200 <170 BORDE RLINE : <200- 239 ----- HIGH RISK: >240 >200 Not Available [facility] (Lab) [address] [place], [address], 12/08/2023 15:10:13 12/08/19 24 12/08/2023 LIPID PANEL triglyceride s 63 mg/dL 0-150 NIH DARCIE NSUS REPOR T RECOM MENDA TION FOR TRIGL YCERI CAIO: ADULT CHILD LOW RISK: <150 ----- BODER LINE: 150-1 99 ----- HIGH RISK: >200 ----- Not Available [facility] (Lab) [address] [place], [address], 12/08/2023 15:10:13 12/08/19 24 12/08/2023 LIPID PANEL HDL cholesterol 50 mg/dL 40- Not Available [facility] (Lab) [address] [place], [address], 12/08/2023 15:10:13 12/08/19 24 12/08/2023 LIPID PANEL [...] WILL NOT BE REPOR DANELLE. Not Available [facility] (Lab) [address] [place], [address], 12/08/2023 15:10:13 12/08/19 24 12/08/2023 COMPR EHENS JULIAN METAB OLIC PANEL sodium 136 mmol/ L 137-14 5 low Not Available [facility] (Lab) [address] [place], [address], 12/08/2023 11:53:13 12/08/19 24 12/08/2023 COMPR EHENS JULIAN METAB OLIC PANEL potassium 4.2 mmol/ L 3.5-5. 1 Not Available [facility] (Lab) [address] [place], [address], 12/08/2023 11:53:13 12/08/19 24 12/08/2023 COMPR EHENS JULIAN METAB OLIC PANEL chloride 107 mmol/ L 98-107 Not Available [facility] (Lab) [address] [place], [address], 12/08/2023 11:53:13 12/08/19 24 12/08/2023 COMPR EHENS JULIAN METAB OLIC PANEL carbon dioxide 28 mmol/ L 22-30 Not Available [facility] (Lab) [address] [place], [address], 12/08/2023 11:53:13 12/08/19 24 12/08/2023 COMPR EHENS JULIAN METAB OLIC PANEL anion gap 5.2 mmol/ L 14-22 low Not Available [facility] (Lab) [address] [place], [address], 12/08/2023 11:53:13 12/08/19 24 12/08/2023 COMPR EHENS JULIAN METAB OLIC PANEL glucose 95 mg/dL 70-99 Not Available [facility] (Lab) [address] [place], [address], 12/08/2023 11:53:13 12/08/19 24 12/08/2023 COMPR EHENS JULIAN METAB OLIC PANEL BUN 22 mg/dL 8-19 high Not Available [facility] (Lab) [address] [place], [address], 12/08/2023 11:53:13 12/08/19 24 12/08/2023 COMPR EHENS JULIAN METAB OLIC PANEL creatinine 1.11 mg/dL 0.66-1 .25 Not Available [facility] (Lab) [address] [place], [address], 12/08/2023 11:53:13 12/08/19 24 12/08/2023 COMPR EHENS JULIAN METAB OLIC PANEL GFR >60 Refer ence Range : [place] ge GFR Healt hy Adult : >60 [...] calcu lator is avail able on the [facility] websi te: https ://maddie rhodes/mick ofess ional s/kdo qi/gf r_cal culat or Not Available [facility] (Lab) [address] [place], [address], 12/08/2023 11:53:13 12/08/19 24 12/08/2023 COMPR EHENS JULIAN METAB OLIC PANEL alkaline phosphatase 71 U/L 38-126 Not Available [facility] (Lab) [address] [place], [address], 12/08/2023 11:53:13 12/08/19 24 12/08/2023 COMPR EHENS JULIAN METAB OLIC PANEL alanine aminotransfe rase 17 U/L 0-50 Not Available [facility] (Lab) [address] [place], [address], 12/08/2023 11:53:13 12/08/19 24 12/08/2023 COMPR EHENS JULIAN METAB OLIC PANEL aspartate aminotransfe rase 23 U/L 15-46 Not Available [facility] (Lab) [address] [place], [address], 12/08/2023 11:53:13 12/08/19 24 12/08/2023 COMPR EHENS JULIAN METAB OLIC PANEL bilirubin, total 0.60 mg/dL 0.20-1 .30 Not Available [facility] (Lab) [address] [place], [address], 12/08/2023 11:53:13 12/08/19 24 12/08/2023 COMPR EHENS JULIAN METAB OLIC PANEL calcium 9.1 mg/dL 8.4-10 .2 Not Available [facility] (Lab) [address] [place], [address], 12/08/2023 11:53:13 12/08/19 24 12/08/2023 COMPR EHENS JULIAN METAB OLIC PANEL total protein 7.2 g/dL 6.3-8. 2 Not Available [facility] (Lab) [address] [place], [address], 12/08/2023 11:53:13 12/08/19 24 12/08/2023 COMPR EHENS JULIAN METAB OLIC PANEL albumin 3.8 g/dL 3.0-4. 4 Not Available [facility] (Lab) [address] [place], [address], 12/08/2023 11:53:13 12/08/19 24 12/08/2023 COMPR EHENS JULIAN METAB OLIC PANEL globulin 3.4 g/dL 2.6-4. 2 Not Available [facility] (Lab) [address] [place], [address], 12/08/2023 11:53:13 12/08/19 24 12/08/2023 COMPR EHENS JULIAN METAB OLIC PANEL A/G ratio 1.1 ratio 1.0-2. 0 Not Available [facility] (Lab) [address] [place], [address], 12/08/2023 11:53:13 12/08/19 24 12/08/2023 T4 FREE free T4 1.06 NG/dL 0.78-2 .19 Not Available [facility] (Lab) [address] [place], [address], 12/08/2023 12:34:19 12/08/19 24 12/08/2023 TSH thyroid-stim ulating hormone 1.890 uIU/m L 0.465- 4.680 Not Available [facility] (Lab) [address] [place], [address], 12/08/2023 12:50:51 01/05/20 24 01/06/2024 PSA FREE [...] kits canno t be used inter espinoza eably . Resul ts canno t be inter prete d as absol thi evide nce of the prese nce or absen ce of juarez wolff se. Not Available [facility] (Lab) [address] [place], [address], 01/06/2024 12:12:44 01/05/20 24 01/06/2024 PSA FREE + TOTAL (LC) PSA, free 0.20 NG/mL n/a Carmelo ECLIA metho dolog y. Not Available [facility] (Lab) [address] [place], [address], 01/06/2024 12:12:44 01/05/20 24 01/06/2024 PSA FREE [...] did not make speci fic recom menda celeste winters ding the use of perce nt free PSA for any other popul ation of men. Lindao rmed at: - [facility] [address] [place] [address], [place] [address] Lab Direc tor: Jorge Luis manrique PhD, Phone : [phone] Not Available [facility] (Lab) [address] [place], [address], 01/06/2024 12:12:44 03/22/2003/22/2024 CBC/C OMPLE TE BLD COUNT W/DIF F white blood cells 6.5 x10'3 /uL 4.2-10 .8 Not Available [facility] (Lab) [address] [place], [address], 03/22/2024 11:42:10 03/22/20 24 03/22/2024 CBC/C OMPLE TE BLD COUNT W/DIF F red blood cells 4.42 x10'6 /uL 4.10-5 .80 Not Available [facility] (Lab) [address] [place], [address], 03/22/2024 11:42:10 03/22/20 24 03/22/2024 CBC/C OMPLE TE BLD COUNT W/DIF F hemoglobin 13.8 g/dL 13.2-1 7.0 Not Available [facility] (Lab) [address] [place], [address], 03/22/2024 11:42:10 03/22/20 24 03/22/2024 CBC/C OMPLE TE BLD COUNT W/DIF F hematocrit 41.9 % 39.3-5 0.0 Not Available [facility] (Lab) [address] [place], [address], 03/22/2024 11:42:10 03/22/20 24 03/22/2024 CBC/C OMPLE TE BLD COUNT W/DIF F mean red cell volume 94.8 fL 80.0-9 7.0 Not Available [facility] (Lab) [address] [place], [address], 03/22/2024 11:42:10 03/22/20 24 03/22/2024 CBC/C OMPLE TE BLD COUNT W/DIF F mean red cell hemoglobin 31.2 pg 27.0-3 3.0 Not Available [facility] (Lab) [address] [place], [address], 03/22/2024 11:42:10 03/22/2003/22/2024 CBC/C OMPLE TE BLD COUNT W/DIF F mean RBC HGB concentratio n 32.9 g/dL 31.0-3 6.0 Not Available [facility] (Lab) [address] [place], [address], 03/22/2024 11:42:10 03/22/20 24 03/22/2024 CBC/C OMPLE TE BLD COUNT W/DIF F red cell distribution width 15.0 % 11.8-1 5.5 Not Available [facility] (Lab) [address] [place], [address], 03/22/2024 11:42:10 03/22/20 24 03/22/2024 CBC/C OMPLE TE BLD COUNT W/DIF F platelets 217 x10'3 /uL 150-40 0 Not Available [facility] (Lab) [address] [place], [address], 03/22/2024 11:42:10 03/22/20 24 03/22/2024 CBC/C OMPLE TE BLD COUNT W/DIF F mean platelet volume 11.2 fL 9.0-12 .4 Not Available [facility] (Lab) [address] [place], [address], 03/22/2024 11:42:10 03/22/20 24 03/22/2024 CBC/C OMPLE TE BLD COUNT W/DIF F neutrophils 51.1 % 39.0-7 2.0 Not Available [facility] (Lab) [address] [place], [address], 03/22/2024 11:42:10 03/22/20 24 03/22/2024 CBC/C OMPLE TE BLD COUNT W/DIF F lymphocytes 32.5 % 16.0-4 7.0 Not Available [facility] (Lab) [address] [place], [address], 03/22/2024 11:42:10 03/22/20 24 03/22/2024 CBC/C OMPLE TE BLD COUNT W/DIF F monocytes 7.7 % 5.0-12 .0 Not Available [facility] (Lab) [address] [place], [address], 03/22/2024 11:42:10 03/22/20 24 03/22/2024 CBC/C OMPLE TE BLD COUNT W/DIF F eosinophils 6.6 % 1.0-7. 0 Not Available [facility] (Lab) [address] [place], [address], 03/22/2024 11:42:10 03/22/20 24 03/22/2024 CBC/C OMPLE TE BLD COUNT W/DIF F basophils 1.8 % 0.0-2. 0 Not Available [facility] (Lab) [address] [place], [address], 03/22/2024 11:42:10 03/22/20 24 03/22/2024 CBC/C OMPLE TE BLD COUNT W/DIF F immature granulocytes 0.3 % 0.00-0 .50 Not Available [facility] (Lab) [address] [place], [address], 03/22/2024 11:42:10 03/22/20 24 03/22/2024 CBC/C OMPLE TE BLD COUNT W/DIF F neutrophils, absolute count 3.34 x10'3 /uL 1.5-8. 0 Not Available [facility] (Lab) [address] [place], [address], 03/22/2024 11:42:10 03/22/20 24 03/22/2024 CBC/C OMPLE TE BLD COUNT W/DIF F lymphocytes, absolute count 2.12 x10'3 /uL 1.07-3 .43 Not Available [facility] (Lab) [address] [place], [address], 03/22/2024 11:42:10 03/22/20 24 03/22/2024 CBC/C OMPLE TE BLD COUNT W/DIF F monocytes, absolute count 0.50 x10'3 /uL 0.29-0 .99 Not Available [facility] (Lab) [address] [place], [address], 03/22/2024 11:42:10 03/22/20 24 03/22/2024 CBC/C OMPLE TE BLD COUNT W/DIF F eosinophils, absolute count 0.43 x10'3 /uL 0.02-0 .53 Not Available [facility] (Lab) [address] [place], [address], 03/22/2024 11:42:10 03/22/20 24 03/22/2024 CBC/C OMPLE TE BLD COUNT W/DIF F basophils, absolute count 0.12 x10'3 /uL 0.01-0 .08 high Not Available [facility] (Lab) [address] [place], [address], 03/22/2024 11:42:10 03/22/20 24 03/22/2024 CBC/C OMPLE TE BLD COUNT W/DIF F immature granulocytes ,absolute 0.02 x10'3 /uL 0.00-0 .05 Not Available [facility] (Lab) [address] [place], [address], 03/22/2024 11:42:10 03/22/20 24 03/22/2024 CBC/C OMPLE TE BLD COUNT W/DIF F nucleated red blood cells 0.0 % -0 Not Available [facility] (Lab) [address] [place], [address], 03/22/2024 11:42:10 03/22/20 24 03/22/2024 CBC/C OMPLE TE BLD COUNT W/DIF F NRBC# 0.00 x10'3 /uL Not Available [facility] (Lab) [address] [place], [address], 03/22/2024 11:42:10 03/22/20 24 03/22/2024 LIPID PANEL cholesterol 160 mg/dL 140-19 9 NIH DARCIE NSUS RECOM MENDA TION FOR EDWIGE STERO L: ADULT CHILD LOW RISK: <200 <170 BORDE RLINE : <200- 239 ----- HIGH RISK: >240 >200 Not Available [facility] (Lab) [address] [place], [address], 03/22/2024 12:20:59 03/22/2003/22/2024 LIPID PANEL triglyceride s 74 mg/dL 0-150 NIH DARCIE NSUS REPOR T RECOM MENDA TION FOR TRIGL YCERI CAIO: ADULT CHILD LOW RISK: <150 ----- BODER LINE: 150-1 99 ----- HIGH RISK: >200 ----- Not Available [facility] (Lab) [address] [place], [address], 03/22/2024 12:20:59 03/22/2003/22/2024 LIPID PANEL HDL cholesterol 52 mg/dL 40- Not Available [facility] (Lab) [address] [place], [address], 03/22/2024 12:20:59 03/22/2003/2203/22/2024 LIPID PANEL LDL cholesterol, calculated 93 mg/dL 0-130 NIH DARCIE NSUS REPOR T RECOM MENDA TIONS FOR LDL: ADULT CHILD LOW RISK <130 <110 (OPTI MAL LDL) <100 ----- FERNY RLINE : 130-1 59 ----- HIGH RISK: >160 >130 A TRIGL YCERI DE RESUL T >400 INVAL IDATE S THE CALCU LATIO N FOR LDL FRACT IONAT ION - THE LDL RESUL T WILL NOT BE REPOR DANELLE. Not Available [facility] (Lab) [address] [place], [address], 03/22/2024 12:20:59 03/22/20 24 03/22/2024 COMPR EHENS JULIAN METAB OLIC PANEL sodium 139 mmol/ L 137-14 5 Not Available [facility] (Lab) [address] [place], [address], 03/22/2024 12:21:05 03/22/20 24 03/22/2024 COMPR EHENS JULIAN METAB OLIC PANEL potassium 4.3 mmol/ L 3.5-5. 1 Not Available [facility] (Lab) [address] [place], [address], 03/22/2024 12:21:05 03/22/20 24 03/22/2024 COMPR EHENS JULIAN METAB OLIC PANEL chloride 103 mmol/ L 98-107 Not Available [facility] (Lab) [address] [place], [address], 03/22/2024 12:21:05 03/22/20 24 03/22/2024 COMPR EHENS JULIAN METAB OLIC PANEL carbon dioxide 28 mmol/ L 22-30 Not Available [facility] (Lab) [address] [place], [address], 03/22/2024 12:21:05 03/22/20 24 03/22/2024 COMPR EHENS JULIAN METAB OLIC PANEL anion gap 12.3 mmol/ L 14-22 low Not Available [facility] (Lab) [address] [place], [address], 03/22/2024 12:21:05 03/22/20 24 03/22/2024 COMPR EHENS JULIAN METAB OLIC PANEL glucose 91 mg/dL 70-99 Not Available [facility] (Lab) [address] [place], [address], 03/22/2024 12:21:05 03/22/20 24 03/22/2024 COMPR EHENS JULIAN METAB OLIC PANEL BUN 18 mg/dL 8-19 Not Available [facility] (Lab) [address] [facility] [place], [address], 03/22/2024 12:21:05 03/22/20 24 03/22/2024 COMPR EHENS JULIAN METAB OLIC PANEL creatinine 1.16 mg/dL 0.66-1 .25 Not Available [facility] (Lab) [address] [place], [address], 03/22/2024 12:21:05 03/22/20 24 03/22/2024 COMPR EHENS JULIAN METAB OLIC PANEL GFR >60 Refer ence Range : [place] [facility] GFR Healt hy Adult : >60 [...] years of age, a pedia tric GFR kuldeepu lalo is avail able on the [facility] websi te: [email or web address] :[email or web address] [email or web address].hosea de la [email or web address] carmelo/pr ofess ional s/kdo qi/gf r_cal culat or Not Available [facility] (Lab) [address] [place], [address], 03/22/2024 12:21:05 03/22/20 24 03/22/2024 COMPR EHENS JULIAN METAB OLIC PANEL alkaline phosphatase 69 U/L 38-126 Not Available [facility] (Lab) [address] [place], [address], 03/22/2024 12:21:05 03/22/20 24 03/22/2024 COMPR EHENS JULIAN METAB OLIC PANEL alanine aminotransfe rase 21 U/L 0-50 Not Available [facility] (Lab) [address] [place], [address], 03/22/2024 12:21:05 03/22/20 24 03/22/2024 COMPR EHENS JULIAN METAB OLIC PANEL aspartate aminotransfe rase 26 U/L 15-46 Not Available [facility] (Lab) [address] [place], [address], 03/22/2024 12:21:05 03/22/20 24 03/22/2024 COMPR EHENS JULIAN METAB OLIC PANEL bilirubin, total 0.50 mg/dL 0.20-1 .30 Not Available [facility] (Lab) [address] [place], [address], 03/22/2024 12:21:05 03/22/20 24 03/22/2024 COMPR EHENS JULIAN METAB OLIC PANEL calcium 9.0 mg/dL 8.4-10 .2 Not Available [facility] (Lab) [address] [place], [address], 03/22/2024 12:21:05 03/22/20 24 03/22/2024 COMPR EHENS JULIAN METAB OLIC PANEL total protein 7.1 g/dL 6.3-8. 2 Not Available [facility] (Lab) [address] [place], [address], 03/22/2024 12:21:05 03/22/20 24 03/22/2024 COMPR EHENS JULIAN METAB OLIC PANEL albumin 3.7 g/dL 3.0-4. 4 Not Available [facility] (Lab) [address] [place], [address], 03/22/2024 12:21:05 03/22/20 24 03/22/2024 COMPR EHENS JULIAN METAB OLIC PANEL globulin 3.4 g/dL 2.6-4. 2 Not Available [facility] (Lab) [address] [place], [address], 03/22/2024 12:21:05 03/22/20 24 03/22/2024 COMPR EHENS JULIAN METAB OLIC PANEL A/G ratio 1.1 ratio 1.0-2. 0 Not Available [facility] (Lab) [address] [place], [address], 03/22/2024 12:21:05 03/22/2003/22/2024 TSH thyroid-stim ulating hormone 1.410 uIU/m L 0.465- 4.680 Not Available [facility] (Lab) [address] [place], [address], 03/22/2024 12:37:16 03/22/2003/22/2024 T4 FREE free T4 1.02 NG/dL 0.78-2 .19 Not Available [facility] (Lab) [address] [place], [address], 03/22/2024 13:22:50 Result Notes None recorded. 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 Active 2022 Joy lucero MD [address], [place], [address] , [facility] [place] [facility] 3 08:49:14 Chronic kidney disease 398703526 Active 2022 Joy lucero MD [address], [place], [address] , [facility] 3 08:49:23 Anemia 877508460 Active 2022 Joy lucero MD [address], [place], [address] , [facility] 3 08:49:28 Atypical chest pain 458210829 Active 2022 Joy lucero MD [address], [place], [address] , [facility] 3 08:49:45 Low back pain 500914487 Active 2022 Joy lucero MD [address], [place], [address] , [facility] 3 08:49:51 Retinal disorder 12963523 Active 2022 Joy lucero MD [address], [place], [address] , [facility] 3 08:56:03 Upper respiratory infection 88654983 Active 2022 Paulette hoff, [facility] 3 14:24:11 Hyperglycemia 03840251 Active 2023 Eileen Diaz MA null, [place] [facility] [place] [facility] 4 16:47:28 COVID-19 477499065 Active 2023 Joy lucero MD [address] [facility], [address] [address], [place], [address] , [facility] 4 13:20:39 Prostate specific antigen above reference range 211325739 Active 2023 Joy lucero MD [address] [facility], [address] [address], [place], [address] , [facility] [place] [facility] 4 11:10:12 Environmental allergy 387313794 Active 2024 Joy lucero MD [address] [facility], [address] [address], [place], [address] , [facility] [place] [employer] [facility] 5 11:07:13 Problem Notes None recorded. Procedures Surgical History Date Name Laterality Status Provider Name and Address Organization Details Recorded Time 4 Medicare Wellness CPT Code, subsequent completed Angel Ash LPN [facility] [place] [employer] [facility] 09/08/2023 10:16:39 3 Colonoscopy completed Evelin Hamilton [facility] [place] [employer] [facility] 05/05/2023 11:00:24 Cardiac Cath completed Evelin Hamilton [facility] [place] [employer] [facility] 05/05/2023 11:00:30 Laminectomy completed Evelin Hamilton [facility] [place] [employer] [facility] 05/05/2023 10:59:34 Hernia Repair completed Evelin Hamilton [facility] [employer] [facility] 05/05/2023 10:59:43 Imaging Results None recorded. Procedure Notes None recorded. Medical Equipment None Reported. Allergies Allergen ID Allergen Name Allergen Category Reaction Reaction Severity Criticality Documentation Date Start Date Code Code System Note Provider Name and Address Organization Details Recorded Time 80378 Product containin g penicilli n (product) medicatio n Not available Not available Not available 07/17/2022 49508 8001 SNOMED Not Available [facility] 3 06:07:56 Medications Name Sig Start Date Stop Date Status Note LastModified by Organization Details LastModified Time cetirizine 10 mg tablet TAKE 1 TABLET BY MOUTH EVERY DAY active Not Available Not Available No t Available Iron (ferrous sulfate) 325 mg (65 mg [...] TAKE 1 TABLET BY MOUTH EVERY EVENING 08/09 completed Not Available Not Available Not Available hydrocodon e 5 mg-acetami nophen 325 [...] completed Not Available Not Available Not Available rosuvastat in 20 mg tablet TAKE 1 TABLET BY MOUTH EVERY NIGHT active Not Available Not Available No t Available Boostrix Tdap 2.5 Lf unit-8 mcg-5 Lf/0.5 mL intramuscu lar syringe ADM 0.5ML IM UTD 04/28 completed Not Available Not Available Not Available chlorhexid ine gluconate 0.12 % mouthwash RINSE WITH 1/2 OZ AFTER BREAKFAS T AND BEFORE BED active Not Available Not Available No t Available Aspir-81 1 Tablet Daily 05/05 completed Not Available Not Available Not Available pragodwintachaz n 2012 active Not Available Not Available [...] Plus 1.1 % dental paste USE DIRECTED 08/09 completed Not Available Not Available Not Available Flucelvax Quad 1259-5546 (PF) 60 mcg (15 mcg x 4)/0.5 mL IM syringe ADM 0.5ML IM UTD 04/28 completed Not Available Not Available Not Available Afluria Quad 6289-0019 (PF) 60 mcg (15 mcg x 4)/0.5 [...] Available Not Available Vitals Date Recorded Body height Body mass index (BMI) Body weight Body temperature Heart rate Systolic And Diastolic Provider Name and Address Organization Details Last Updated DateTime 5 180.34 cm 26.5 kg/m2 58242.5 5 g 99 [degF] 78 /min 120/68 mm[Hg] ROBBIN ePrea [facility] [employer] [facility] 5 10:32:59 Date Recorded Body height Body mass index (BMI) Body weight Body temperature Heart rate Systolic And Diastolic Provider Name and Address Organization Details Last Updated DateTime 4 180.34 cm 26.2 kg/m2 55654.3 7 g 97.6 [degF] 60 /min 110/60 mm[Hg] ROBBIN Perea [facility] [employer] [facility] 4 09:50:29 Date Recorded Body height Body mass index (BMI) Body weight Body temperature Heart rate Respiratory rate Oxygen saturation Oxygen saturation in Arterial blood by Pulse oximetry Systolic And Diastolic Provider Name and Address Organization Details Last Updated DateTime 4 180.34 cm 26.1 kg/m2 88328.7 7 g 98.2 [degF] 80 /min 16 /min 96 % 96 % 124/70 mm[Hg] Angel Ash LPN [facility] [employer] [facility] 4 11:02:18 Social History Question Answer Notes LastModified by Organization Details LastModified Time Tobacco Smoking Status Former Smoker quit 1987 ROBBIN Perea null, [facility] [email or web address] [facility] 05/05/2023 10:56:24 Do You Have An Advance Directive? No Information not available 05/05/2023 Are You Blind Or Do You Have Difficulty Seeing? No Information not available 05/05/2023 What Is Your Level Of Caffeine Consumption? Moderate Information not available 05/05/2023 In The 14 Days Before Symptom Onset, Have You Had Close Contact With A Laboratory-conf irmed COVID-19 While That Case Was Ill? No [id number] Information not available 07/17/2022 In The 14 Days Before Symptom Onset, Have You Had Close Contact With A Person Who Is Under Investigation For COVID-19 While That Person Was Ill? No [id number] Information not available 07/17/2022 Are You Deaf Or Do You Have Serious Difficulty Hearing? No Information not available 05/05/2023 What Type Of Diet Are You Following? REGULAR Information not available 05/05/2023 What Is The Highest Grade Or Level Of School You Have Completed Or The Highest Degree You Have Received? [id number] Information not available 05/05/2023 Have There Been Any Changes To Your Family Or Social Situation? No Information not available 09/08/2023 What Is The Fluoride Status Of Your Home? Unknown Information not available 05/05/2023 When Did You Quit Smoking? 16+yearssincelastc igarette Information not available 05/05/2023 Are There Any Guns Present In Your Home? No Information not available 05/05/2023 Where Do You Live? SingleLevelHouse With Basement Information not available 05/05/2023 Do You Have A Medical Power Of Choral Teacher? No Information not available 05/05/2023 What Was The Date Of Your Most Recent Tobacco Screening? 08/09/2024 Information not available 08/09/2024 Have You Ever Been Counseled For Unhealthy Alcohol Use? No [email or web address] Information not available 09/08/2023 Do You Have Any Pets? Yes [email or web address] Information not available 09/08/2023 What Is Your [...] Your House? No Information not available 05/05/2023 Has Tobacco Cessation Counseling Been Provided? No N/a Information not available 05/05/2023 Have You Recently Traveled Abroad? No Information not available 05/05/2023 Do You Have Difficulty Walking Or Climbing Stairs? No Information not available 05/05/2023 Do You Have Any Dietary Restrictions? No [email or web address] Information not available 09/08/2023 Sex: Male Functional Status Question Answer Note LastModified by Organizat ion Details LastModified Time Do you use any illicit or recreational drugs? No Information not available 05/05/2023 Do you or have you ever used any other forms of tobacco or nicotine? No Information not available 05/05/2023 What is your level of alcohol consumption? Occasional very rare Information not available 05/05/2023 Are you currently employed? No Information not available 09/08/2023 Do you have transportation difficulties? No Information not available 05/05/2023 Are you able to walk? YESWOREST Information not available 05/05/2023 Do you have difficulty doing errands alone? No Information not available 05/05/2023 Are you able to care for yourself? Yes Information n ot available 05/05/2023 What is your occupation? Retired Information not available 09/08/2023 Do you have difficulty dressing or bathing? No Information not available 05/05/2023 What is your exercise level? Moderate Information not available 05/05/2023 Mental Status Question Answer Note LastModified by Organizat ion Details LastModified Time Do you feel stressed (tense, restless, nervous, or anxious, or unable to sleep at night)? [id number] Information not available 05/05/2023 Do you have difficulty concentrating, remembering or making decisions? No [email or web address] [email or web address] Information no t available 05/05/2023 Family History Nothing Reported. Medical History Condition Response BLINDNESS N NERVE DISEASE N RHEUMATIC FEVER N BLADDER PROBLEMS N KIDNEY STONES N MRSA N OTHER # 1 N POLIO N LUNG DISEASE/DISORDER N HISTORY OF DRUG ABUSE N RADIATION / CHEMOTHERAPY N COPD N Other # 2 N BLOOD DISEASES N EAR OR HEARING PROBLEMS N MUMPS N SHINGLES N DEPRESSION (INCLUDING POST ) N BOWEL PROBLEMS N FAILED BACK SYNDROME N STROKE/TIA N ULCERS N BENIGN PROSTATIC HYPERPLASIA N MEASLES N HYPOTENSION N MYOCARDIAL INFARCTION N OBESITY N GERD/NAUSEA N ANEURYSM N URINARY/BLADDER/KIDNEY PROBLEMS N CORONARY ARTERY DISEASE (CAD) N Do you have Advance directive? N ADDICTION CONCERNS N ENDOMETRIOSIS N Impotence N USE OF BLOOD THINNERS N SKIN PROBLEMS N GASTROINTESTINAL DISORDER N PERIPHERAL VASCULAR DISEASE N MUSCLE,JOINT OR BONE PROBLEMS N GASTROINTESTINAL BLEEDING N BLOOD CLOTS N ASTHMA N Abdominal Pain N CATARACTS N ARTERIAL INSUFFICIENCY N ERECTILE DYSFUNCTION N VARICOSITIES N GI PROBLEMS N Low Testosterone N INFERTILITY N AIDS/HIV N CHEMOTHERAPY / RADIATION N LIVER DISEASE N MALE HYPOGONADISM N HYPERTENSION N Deficiency N TOURETTE'S N ANXIETY DISORDER N BLOOD TRANSFUSION N ANEMIA/BLOOD DISORDER Y CHRONIC EAR INFECTIONS N TUBERCULOSIS N GLAUCOMA N FOOT PROBLEM N DIVERTICULITIS N CHICKENPOX N SLEEP APNEA N BACK INJECTIONS N ALLERGIES/HAYFEVER N INFECTIOUS DISEASE N HEART ARRHYTHMIA N PROSTATE N ESRD N INSOMNIA N HIGH CHOLESTEROL / HYPERLIPIDEMIA Y HYPERTHYROIDISM N EYE PROBLEMS N PVD N EDEMA N CHRONIC PAIN [...] N ALZHEIMER'S DISEASE N Brain Problems N HERPES N DEMENTIA N HEADACHES/MIGRAINES N SEIZURES/EPILEPSY N VASCULAR DISEASE N PACEMAKER N DIZZINESS N HEART DISEASE/HEART PROBLEMS N KIDNEY DISEASE N MULTIPLE SCLEROSIS N NEUROPSYCHOLOGICAL N CARDIAC ARRHYTHMIA N CANCER: SPECIFY N ATRIAL FIBRILLATION N Gall Stones N PULMONARY EMBOLISM N AUTOIMMUNE DISEASE N Immunizations Vaccine Type Date Status Note Provider Nam e and Address Organization Details Recorded Time COVID-19, mRNA, LNP-S, PF, 30 mcg/0.3 mL dose 1 completed Not Available [facility] 07/17/2022 06:07:44 SARS-COV-2 (COVID-19) vaccine, UNSPECIFIED 1 completed Not Available [facility] 07/17/2022 06:07:44 Influenza, split virus, quadrivalent, preservative 9 completed Not Available [facility] 07/17/2022 06:07:45 MMR 9 completed Not Available [facility] 07/17/2022 06:07:45 COVID-19, subunit, rS-nanoparticle+Mat alondra-M1 Adjuvant, PF, 0.5 mL 1 completed [facility] [employer] [facility] 05/05/2023 10:23:50 Influenza, split virus, quadrivalent, preservative 1 completed Not Available [facility] 07/17/2022 06:07:45 Influenza, high-dose, trivalent, PF 0 completed Not Available [facility] 07/17/2022 06:07:45 influenza, unspecified formulation 7 completed Not Available [facility] 07/17/2022 06:07:45 pneumococcal polysaccharide PPV23 7 completed Not Available [facility] 07/17/2022 06:07:45 Tdap 7 completed Not Available [facility] 07/17/2022 06:07:45 zoster, unspecified formulation 7 completed Not Available [facility] 07/17/2022 06:07:45 Pneumococcal conjugate PCV 13 0 completed Not Available [facility] 07/17/2022 06:07:45 Influenza, split virus, quadrivalent, preservative 6 completed Not Available [facility] 07/17/2022 06:07:45 Influenza, split virus, quadrivalent, PF 5 completed Not Available [facility] 07/17/2022 06:07:46 Influenza, split virus, trivalent, preservative 4 completed Not Available [facility] 07/17/2022 06:07:46 Past Encounters Encounter ID Performer Location Encounter Start Date Encounter Closed Date Diagnosis/Indication Diagnosis SNOMED-CT Code Diagnosis ICD10 Code Diagnosis Note [id number] Joy lucero MD [facility] [address] [place] [address] [place] [address] 09/25/2020 00:00:00 09/25/2020 16:30:21 [id number] Joy lucero MD [facility] Internal Med [address] [place] [address] 11/13/2020 00:00:00 11/13/2020 16:00:22 [id number] Joy lucero MD [facility] Internal [address] [place] [address] 02/28/2021 00:00:00 03/12/2021 15:44:45 [id number] Joy lucero MD [facility] Internal [address] [place] [address] 05/05/2023 10:21:53 05/05/2023 11:45:24 Screening - NAD 036641195 Z13.9 C-scope: in 2014 as per the [...] his understand ing of the above Hyperlipidemia 08715229 E78.5 On ASAOn pravastati n 40mg dailyDoes wellGet labs Hyperproteinemia 9814576 9 E88.09 V 05/20/17:Ge t UPEP and [...] see Dr Crowley Chronic ki dney disease 894640490 N18.9 Get labsDoes well now Anemia 459237840 D64.9 Get labs Atypical chest pain 1025 27211 R07.89 OV 05/22/2019: He has seen a cardiologi and has had a coronary angio done in the past 11 years agoAt this time he would like a referral again to cardiology OV 09/25/2020 :Did see [facility] Dr Alexandre 05/23/2020 S/p CT chest ca score 05/24/2020 : Score [address] Alexandre in 11/2020 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 OV 02/28/2021 :Does well now OV 05/05/2023 : Get an apt with Dr Alexandre RED Low back pain 752859695 M54.50 OV 09/25/2020 :Did see Dr Burns, who put him on gabapentin He was also given tramadol, but is not taking this nowHe was referred to pain management and is now getting shots in the backOV 11/13/2020 :Now is to get surgery with Dr Rolan ochoa for surgery [facility] Dr [facility] risk for this procedureO V 02/28/2021 :Keep apt with Dr Burns OV 05/05/2023 : Does well now 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 OV 09/25/2020 :Sees eye , Dr Alonso, and he has leftHas seen Dr Mcqueen for skin tags in the L lower eyelid OV 02/28/2021 :Keep apt with eye OV 05/05/2023 : Keep apt with Dr Mcqueen [id number] Joy lucero MD [facility] [address] [facility] [place] [address] 09/08/2023 09:32:28 09/08/2023 10:29:31 Screening - NAD 966450608 Z13.9 C-scope: in 2014 as per the [...] his understand ing of the above Hyperlipidemia 90739894 E78.5 On ASAOn pravastati n 40mg dailyDoes wellGet labs Retinal disorder 8789554 9 H35.9 OV 09/25/2020 :Sees eye , Dr Alonso, and he has leftHas seen Dr Mcqueen for skin tags in the L lower eyelid OV 02/28/2021 :Keep apt with eye OV 05/05/2023 : Keep apt with Dr Mcqueen OV 09/08/2023 : See Dr Mcqueen Hyperproteinemia 3970961 9 E88.09 V 05/20/17:Ge t UPEP and SPEPOV 11/25/18:W as seen by Dr Zuniga and is to get labsGet OV noteOV 05/24/2019 :Is doing well at this time, will keep with Dr Zuniga and discuss his kidney issue also with himOV 09/06/2019 :Does well keep apt with Dr Alejo 11/22/2019 :Keep apt with Dr Zuniga, states now sees him every 9 monthsOV 05/22/2020:Judd encinas wellCMP: WNL for proteins 05/08/2020 OV 09/25/2020 :Get labsOV 02/28/2021 :Needs to see Dr Zuniga OV 05/05/2023 : Needs to see Dr Crowley OV 09/08/2023 :Dr Zuniga 08/18/2023 , f/u in 3 weeks, diagnosed with lymphoma Chronic ki dney disease 770415388 N18.9 Get labsDoes well nowRefer to Dr Cabrera nephrology Anemia 730415109 D64.9 Get labs Atypical chest pain 1025 62429 R07.89 OV 05/22/2019: He has seen a cardiologi st and has had a coronary angio done in the past 11 years agoAt this time he would like a referral again to cardiology OV 09/25/2020 :Did see [facility] Dr Alexandre 05/23/2020 S/p CT chest ca score 05/24/2020 : Score [address] Alexandre in 11/2020 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 OV 02/28/2021 :Does well now OV 05/05/2023 : Get an apt with Dr Alexandre [facility] Dr Alexandre [facility] 06/23/2023 , f/u in one year Low back pain 823216580 M54.50 OV 09/25/2020 :Did see Dr Burns, who put him on gabapentin He was also given tramadol, but is not taking this nowHe was referred to pain management and is now getting shots in the backOV 11/13/2020 :Now is to get surgery with Dr Rolan ochoa for surgery by Dr Alexandre [facility] risk for this procedureO V 02/28/2021 :Keep apt with Dr Burns OV 05/05/2023 : Does well now Screening for malignant neoplasm of prostate 310181242 Z12.5 Adult heal th examination 719054582 Z00.00 Screening for disorder 259581545 Z13.9 [id number] Joy lucero MD [facility] [address] [place] [address] 12/15/2023 09:40:21 12/15/2023 10:40:34 Screening - NAD 339966614 Z13.9 C-scope: in 2015 as per the surgical hx. Next in [...] his understand ing of the above Hyperlipidemia 19099537 E78.5 On ASAOn pravastati n 40mg dailyDoes wellGet labs Retinal disorder 8541280 9 H35.9 OV 09/25/2020 :Sees eye MD, Dr Alonso, and he has leftHas seen Dr Mcqueen for skin tags in the L lower eyelid OV 02/28/2021 :Keep apt with eye OV 05/05/2023 : Keep apt with Dr Mcqueen OV 09/08/2023 : See Dr Mcqueen OV 12/15/2023 : See eye Hyperproteinemia 3544612 9 E88.09 V 05/20/17:Ge t UPEP and SPEPOV 11/25/18:W as seen by Dr Zuniga and is to get labsGet OV noteOV 05/24/2019 :Is doing well at this time, will keep with Dr Zuniga and discuss his kidney issue also with himOV 09/06/2019 :Does well keep apt with Dr Alejo 11/22/2019 :Keep apt with Dr Zuniga, states now sees him every 9 monthsOV 05/22/2020:Judd pearsonCMP: WNL for proteins 05/08/2020 OV 09/25/2020 :Get labsOV 02/28/2021 :Needs to see Dr Zuniga OV 05/05/2023 : Needs to see Dr Crowley OV 09/08/2023 :Dr Zuniga 08/18/2023 , f/u in 3 weeks, diagnosed with lymphoma OV 12/15/2023 : Keep apt with Dr Zuniga, on Brukinsa Chronic ki dney disease 857433618 N18.9 Get labsDoes well nowRefer to Dr Cabrera nephrology Anemia 046372534 D64.9 Get labs Atypical chest pain 1025 20163 R07.89 OV 05/22/2019: He has seen a cardiologi st and has had a coronary angio done in the past 11 years agoAt this time he would like a referral again to cardiology OV 09/25/2020 :Did see [facility] Dr Alexandre 05/23/2020 S/p CT chest ca score 05/24/2020 : Score [address] Alexandre in 11/2020 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 OV 02/28/2021 :Does well now OV 05/05/2023 : Get an apt with Dr Alexandre [facility] OV 12/15/2023 :Dr Alexandre [facility] 06/23/2023 , f/u in one year Low back pain 276018553 M54.50 OV 09/25/2020 :Did see Dr Burns, who put him on gabapentin He was also given tramadol, but is not taking this nowHe was referred to pain management and is now getting shots in the backOV 11/13/2020 :Now is to get surgery with Dr Rolan ochoa for surgery by Dr Alexandre [facility] risk for this procedureO V 02/28/2021 :Keep apt with Dr Burns OV 05/05/2023 : Does well now Screening for malignant neoplasm of prostate 615911657 Z12.5 Prostate s pecific antigen above reference range 506530720 R97.20 [id number] Joy lucero MD [facility] Primary Care [address] [place] [address] 03/29/2024 10:17:09 03/29/2024 11:39:51 Screening - NAD 869325098 Z13.9 C-scope: in 2014 as per the surgical hx. Next in 10 years AAA: 09/10/2019 : Neg He is UTD on flu shotUTD Tdap, and shingles vaccineHe is UTD on pneumovax #23, #13 11/22/2019 UTD on COVID 19 vaccineCan do RSV vaccineCan do shingrix vaccine RTC in 1 monthwith labsER if worseHe and his did verbalize his understand ing of the above Hyperlipidemia 64150524 E78.5 On ASAOn pravastati n 40mg dailyDoes wellGet labs Retinal disorder 2337287 9 H35.9 OV 09/25/2020 :Sees eye MD, Dr Alonso, and he has leftHas seen Dr Mcqueen for skin tags in the L lower eyelid OV 02/28/2021 :Keep apt with eye OV 05/05/2023 : Keep apt with Dr Mcqueen OV 09/08/2023 : See Dr Mcqueen OV 12/15/2023 : See eye OV 03/29/2024 : Sees Dr Mcqueen Hyperproteinemia 6065536 9 E88.09 V 05/20/17:Ge t UPEP and [...] Sees Dr Zuniga Chronic ki dney disease 458407556 N18.9 Get labsDoes well nowRefer to Dr Cabrera nephrology Anemia 048460974 D64.9 Get labs Atypical chest pain 1025 06050 R07.[address] [facility] [address] Alexandre 05/23/2020 S/p CT chest ca score 05/24/2020 : Score 84 Dr Alexandre [facility] 06/23/2023 , f/u in one year Low back pain 864723631 M54.50 OV 09/25/2020 :Did see Dr Burns, [...] OV 05/05/2023 : Does well now COVID-19 986593082 U07.1 Addendum: 02/15/2024 : Left phone message, diagnosed wit COVID 19, contracted from his sisterRicardo on Sita ortiz sent to his pharmacyOV 03/29/2024 : Does well now [id number] Joy lucero MD [facility] Primary Care [address] [place] [address] 07/30/2024 09:48:54 07/30/2024 10:13:35 [id number] Joy lucero MD [facility] Primary Care [address] [place] [id number] 08/09/2024 10:10:04 08/09/2024 11:08:25 Screening - NAD [id number] Z13.9 C-scope: in 2014 as per the surgical hx. Next in 10 years AAA: 09/10/2019 : Neg He is UTD on flu shotUTD Tdap, and shingles vaccineHe is UTD on pneumovax #23, #13 11/22/2019 UTD on COVID 19 vaccineCan do RSV vaccineCan do shingrix vaccine RTC in 3 monthswith labsER if worseHe and his did verbalize his understand ing of the above Hyperlipidemia [id number] E78.5 On ASANot on pravastati n 40mg dailyOn rosuvastat in 20mg dailyDoes [facility] labs Retinal disorder [id number] H35.9 OV 09/25/2020 :Sees eye MD, Dr Alonso, and he has leftHas seen Dr Mcqueen for skin tags in the L lower eyelid OV 02/28/2021 :Keep apt with eye OV 05/05/2023 : Keep apt with Dr Mcqueen OV 09/08/2023 : See Dr Mcqueen OV 12/15/2023 : See eye OV 03/29/2024 : Sees Dr Mcqueen Hyperproteinemia [id number] E88.09 V 05/20/17:Ge t UPEP and [...] Brukinsa OV 03/29/2024 : Sees Dr Zuniga OV 08/09/2024 : Does well, see Dr Zuniga Chronic ki dney disease [id number] N18.9 Get labsDoes well nowDr Trevor nephrology , last OV 07/27/2024 , next apt in one year Atypical chest pain [id number] R07.[address] [facility] [address] Alexandre 05/23/2020 S/p CT chest ca score 05/24/2020 : Score 84 Dr Alexandre [facility] 06/23/2023 , f/u in one yearDr Alexandre [facility] 06/23/2024 , f/u in one year Low back pain [id number] M54.50 OV 09/25/2020 :Did see Dr Burns, [...] Burns OV 05/05/2023 : Does well now Environmental allergy 42 [id number] T78.49XA Has noted nasal congestion and a cough, no fevers or chills, will get on zyrtec as needed Adult heal th examination 550496212 Z00.00 [id number] Joy lucero MD [facility] [address] [place] [address] 11/24/2024 10:39:24 11/24/2024 10:59:40 Health Concerns Section Related Observation LastModified by Organization Detai ls LastModified Time None Recorded Concern Status LastModified by Organization Details LastModified Time None Recorded Advance Directives Directive N: Payers Insurance Date Sequence Insurance Name Policy Number Policy Reddy Covered Member ID Reddy Member ID Guarantor Name 11/24/2024 1 MEDICARE-I L (MEDICARE) Justin Mckeon [id number] Justin Mckeon 11/24/2024 2 AARP (MEDICARE SUPPLEMENT ) Justin Mckeon [id number] Justin Mckeon Notes Date Note Type Note Provider Name and Address Organization Details Recorded Time 12/15/2023 text/html Here to ori luque care:Past Hx:HLDReviewed [...] recently has come from his vacation from [facility] doing well at this timeHere for his [...] and they do plan to move to [place] OV 05/05/2023: Here to re establish care, moved back from [place], is doing well, here with his OV 09/08/2023: Here for his f/u apt, he is doing well today, he is here with his , he has seen Dr Zuniga and he is here for his MWV OV 12/15/2023: Here for his f/u apt, he is doing well today, he is here with his Joy Henriquez MD [address], [place], [address], [place] [facility] 12/15/2023 14:18:25 03/29/2024 text/html Here to ori luque care:Past Hx:HLDReviewed [...] recently has come from his vacation from [facility] doing well at this timeHere for his [...] cleared [facility] this [facility]Here for his routine aptHe is doing wellHe is here with hs and they do plan to move to [place] OV 05/05/2023: Here to re [facility] care, moved back from [place], is doing well, here with his OV [...] is doing well today, here with his Joy Henriquez MD [address], [place], [address], [facility] 03/29/2024 11:38:10 08/09/2024 text/html Here to ori luque care:Past Hx:HLDReviewed [...] recently has come from his vacation from [facility] doing well at this timeHere for his [...] labsHe has also seen Dr Burns the and is now getting shots in the [...] and they do plan to move to [place] OV 05/05/2023: Here to re establish care, moved back from [place], is doing well, here with his OV [...] is doing well today, here with his OV 08/09/2024: Here for his f/u apt, he feels well today and he is here with his , he did do the labs, he would like this visit to be his annual wellness visit Joy Henriquez MD [address] [place] [address], [address] [address], [place], [address], [facility] 08/09/2024 12:05:12
--- OUTSIDE RECORDS SUMMARY | 2024-11-29 08:43 | XMS_ITS | Clinical Summary ---
Author Organization [facility] Address [address] [place] [address] Care Team Providers Care Validation Consultant Name Role Phone Unavailable Primary Care Provider Unavailabl e Source Comments [facility],non-owned Affiliates and Associated Physician Practices is amultiple site organization consisting of ambulatory clinics and hospital sitesin [place], [place], [place]. This disclosure is being madepursuant to the Care Everywhere program and may not contain all information available regarding this patient. Last updated 18.[facility] Social History Tobacco Use Types Packs/Day Years Used Date Smoking Tobacco: Never Assessed Sex and Gender Information Value Date Recorded Sex Assigned at Not on file Legal Sex Male 1:41 PM CDT Gender Identity Not on file Sexual Orientation [...] TESTING 1955 MEDICARE AWV 12 MONTHS 1955 HEPATITIS C SCREENING 08/08/1972 DTAP/TDAP/TD VACCINES (1 - Tdap) 1973 PNEUMOCOCCAL VACCINE 50+ (1 of 1 - PCV) 2004 ZOSTER VACCINE (1 of 2) 2004 COVID-19 VACCINE ( - 2023-2 5 season) 2024 DEPRESSION SCREENING 05/19/2024 INFLUENZA VACCINE (#1) 2025 Respiratory Syncytial Virus (RSV) Vaccine Pt: or over 60 yrs (1 - 1-dose 75+ series) 2029 HEPATITIS B VACCINE Aged Out No longe r eligible based on patient's age to complete this topic HIB VACCINE Aged Out No longer eligi ble based on patient's age to complete this topic HPV VACCINE Aged Out No longer eligi ble based on patient's age to complete this topic MENINGOCOCCAL (Group B) VACC INE SHARED DECISION-MAKING Aged Out No longer eligibl e based on patient's age to complete this topic MENINGOCOCCAL GROUPS A/C/Y/W VACCINE Aged Out No longer eligible b ased on patient's age to complete this topic Insurance MEDICARE
--- OUTSIDE RECORDS SUMMARY | 2024-11-29 08:43 | XMS_ITS | Data Portability ---
Author Organization [place] - [place], [employer] [employer] [facility] Address [address] [place] [address] Care Team Providers Care Oracle Soa Consultant Name Role Phone FAHAD PAEZ Primary Care Provider [phone] FAHAD PAEZ Referring Provider GREG ALEXANDRE OTHER Assessment Encounter Date Assessment Date Assessment LastModified by Organization Details LastModified Time 07/23/2022 07/23/2022 (1) HLP: Last LDL 64, HDL 39, TG 50. Continue on a heart healthy diet with Pravastatin 40 mg once daily and I am obtaining new lipid profile. 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 Following with Dr. Alexandre. [email or web address] Not available 07/24/2022 14:57:45 11/27/2022 11/27/2022 (1) JUN: Patient was started on iron supplement by DR. Alexandre. I will refer him to DR. Rock for colonoscopy and EGD . we will recheck CBC and iron studies in 6 months. (2) HLP: Last LDL 61, HDL 35, TG 38. Continue on a heart healthy diet with Pravastatin 40 mg once daily and recheck lipid profile in 6 months. (3) IgM MGUS: Monitoring for now. Following with Dr. Alexandre. (4) Depression screening: A Depression screening assessment was conducted during this encounter and all actions of this assessment and time elements up to 15 minutes were met Not available 11/27/2022 15:21:10 04/17/2023 04/17/2023 (1) Annual Wellness Visit done today. Immunizations are up to date. [place] moving back to [place]. [email or web address] Not available 04/17/2023 14:43:15 Plan of Treatment Reminders Order Date Submit Date Provider Last Modified By Organization Details Last Modified Time Details Appointments None recorded. Lab rapid influenza virus A + B and SARS CoV + SARS CoV 2 Ag panel, IA, upper respirato ry specimen 2022 023 In-Office Order, Internal Use Only DO Not Attach Compendium DO Not Attach Compendium, Do Not Delete/merge, [id number] 3 11:47:21 PSA, serum or plasma 2022 023 [facility], [address], [place], [address], 3 19:33:45 CMP, serum or plasma 2022 023 [place] [facility], [address], [place], [address], 3 19:33:42 lipid panel, serum 2022 023 [facility], [address], [place], [address], 3 19:33:44 TSH, serum or plasma 2022 023 [email or web address] [facility], [address], [place], [address], 3 14:23:46 CBC 2022 023 [facility], [address], [place], [address], 3 19:33:41 iron + TIBC + ferritin, serum 2022 023 [facility], [address], [place], [address], 3 19:33:43 vitamin B12 + folate, serum or blood 2022 023 [facility], [address], [place], [address], 3 19:33:46 CBC 2022 023 [facility], [address], [place], [address], 3 15:53:44 CMP, serum or plasma 2022 023 [facility], [address], [place], [address], 3 15:53:45 lipid panel, serum 2022 023 [facility], [address], [place], [address], 3 15:53:47 TSH, serum or plasma 2022 023 [facility], [address], [place], [address], 3 15:53:48 Referral None recorded. Procedures colonosco py procedure (PROC) 2022 023 [place] Rock MD ([facility] [address] [facility] [place], [address], 3 16:18:04 Surgeries None recorded. Imaging electroca rdiogram 2022 023 [email or web address] In-Office Order, Internal Use Only DO Not Attach Compendium DO Not Attach Compendium, Do Not Delete/merge, [id number] 3 10:12:31 Medication Orders Zithromax Z-Juan 250 mg tablet 2022 023 [facility] #[id number], [address], [place], [id number], 3 13:40:14 Medrol (Juan) 4 mg tablets in a dose pack 2022 023 [facility] #[id number], [address], [place], [id number], 3 13:40:18 albuterol sulfate HFA 90 mcg/actua tion aerosol inhaler 2022 023 [facility] #[id number], [address], [place], [id number], 13:40:51 Patient TargetsNo targets recorded. Patient Instructions Encounter Date Encounter Id Patient Instructions Last Modified By Organization Details Last Modified Time 07/23/2022 [id number] high cholesterol : care instructions [email or web address] Not available 07/23/2022 15:45:39 11/27/2022 [id number] high cholesterol : care instructions Not available 11/27/2022 15:19:26 04/09/2023 [id number] bronchitis: care instructions Not available 04/09/2023 09:51:12 04/17/2023 [id number] starting a weigh t loss plan: care instructions [email or web address] Not available 04/17/2023 14:59:12 Reason for Referral None Reported. Results Created Date Observation Date Name Description Value Unit Range Abnormal Flag Note LastModifiedBy Organization Detail LastModifiedTime 11/21/1911/20/2022 CBC W/ AUTOD IFF, COMPL ETE BLOOD COUNT WBC 8.0 K/uL 3.6-10 .0 Not Available [facility] [address], [place], [address], 11/20/2022 15:53:44 11/21/19 23 11/20/2022 CBC W/ AUTOD IFF, COMPL ETE BLOOD COUNT nucleated RBC 0.00 % 0.00-2 .00 Not Available [facility] [address], [place], [address], 11/20/2022 15:53:44 11/21/19 23 11/20/2022 CBC W/ AUTOD IFF, COMPL ETE BLOOD COUNT RBC 3.85 L M/uL 4.10-5 .80 low Not Available [facility] [address], [place], [address], 11/20/2022 15:53:44 11/21/19 23 11/20/2022 CBC W/ AUTOD IFF, COMPL ETE BLOOD COUNT HGB 11.1 L g/dL 13.2-1 7.0 low Not Available [facility], [place], [address], 11/20/2022 15:53:44 11/21/19 23 11/20/2022 CBC W/ AUTOD IFF, COMPL ETE BLOOD COUNT hematocrit 33.20 L % 37.00- 51.00 low Not Available [facility] [address], [place], [address], 11/20/2022 15:53:44 11/21/19 23 11/20/2022 CBC W/ AUTOD IFF, COMPL ETE BLOOD COUNT MCV 86.3 fL 80.0-9 9.0 Not Available [facility] [address], [place], [address], 11/20/2022 15:53:44 11/21/19 23 11/20/2022 CBC W/ AUTOD IFF, COMPL ETE BLOOD COUNT MCH 28.7 pg 27.0-3 3.0 Not Available [facility] [address], [place], [address], 11/20/2022 15:53:44 11/21/19 23 11/20/2022 CBC W/ AUTOD IFF, COMPL ETE BLOOD COUNT MCHC 33.3 g/dL 32.0-3 6.0 Not Available [facility], [place], [address], 11/20/2022 15:53:44 11/21/19 23 11/20/2022 CBC W/ AUTOD IFF, COMPL ETE BLOOD COUNT platelets 374 K/uL 140-44 0 Not Available [facility] [address] [place] [address] [address], [place], [address], 11/20/2022 15:53:44 11/21/19 23 11/20/2022 CBC W/ AUTOD IFF, COMPL ETE BLOOD COUNT RDW 15.1 H % 11.0-1 5.0 high Not Available [facility] [address] [place], [place] [address], [place], [address], 11/20/2022 15:53:44 11/21/19 23 11/20/2022 CBC W/ AUTOD IFF, COMPL ETE BLOOD COUNT MPV 8.1 fL 7.4-10 .4 Not Available [facility] [address] [place], [place] [address]y [address] [place], [address], 11/20/2022 15:53:44 11/21/19 23 11/20/2022 CBC W/ AUTOD IFF, COMPL ETE BLOOD COUNT neutrophil, % 57.5 % Not Available [facility], [place], [address], 11/20/2022 15:53:44 11/21/19 23 11/20/2022 CBC W/ AUTOD IFF, COMPL ETE BLOOD COUNT lymphocyte % 25.9 % Not Available [facility] [address] [place], [place] [address]y [address], [place], [address], 11/20/2022 15:53:44 11/21/19 23 11/20/2022 CBC W/ AUTOD IFF, COMPL ETE BLOOD COUNT monocyte % 10.6 H % Not Available [facility] [address], [place], [address], 11/20/2022 15:53:44 11/21/19 23 11/20/2022 CBC W/ AUTOD IFF, COMPL ETE BLOOD COUNT eosinophil % 5.5 % Not Available [facility] [address] [place], [place] [address], [place], [address], 11/20/2022 15:53:44 11/21/19 23 11/20/2022 CBC W/ AUTOD IFF, COMPL ETE BLOOD COUNT basophil % 0.5 % Not Available [facility] [address] [place], [place] [address]y [address], [place], [address], 11/20/2022 15:53:44 11/21/19 23 11/20/2022 CBC W/ AUTOD IFF, COMPL ETE BLOOD COUNT neutrophil, # 4.6 K/uL 1.5-7. 5 Not Available [facility] [address] [place], [place] [address], [place], [address], 11/20/2022 15:53:44 11/21/19 23 11/20/2022 CBC W/ AUTOD IFF, COMPL ETE BLOOD COUNT lymphocyte # 2.1 K/uL 0.8-4. 0 Not Available [facility] [address] [place], [place] [address], [place], [address], 11/20/2022 15:53:44 11/21/19 23 11/20/2022 CBC W/ AUTOD IFF, COMPL ETE BLOOD COUNT monocyte # 0.9 K/uL 0.1-1. 0 Not Available [facility] [address] [place], [place] [address]y [address], [place], [address], 11/20/2022 15:53:44 11/21/19 23 11/20/2022 CBC W/ AUTOD IFF, COMPL ETE BLOOD COUNT eosinophil # 0.4 K/uL 0.1-1. 0 Not Available [facility] [address] [place] [address] [address], [place], [address], 11/20/2022 15:53:44 11/21/19 23 11/20/2022 CBC W/ AUTOD IFF, COMPL ETE BLOOD COUNT basophil # 0.0 K/uL 0.0-0. 2 Not Available [facility] [address] [place] [address] [address], [place], [address], 11/20/2022 15:53:44 11/21/19 23 11/20/2022 CMP, COMPR EHENS JULIAN METAB OLIC PANEL glucose 83 mg/dL 70-100 Not Available [facility] [address] [place] [address] [address], [place], [address], 11/20/2022 15:53:45 11/21/19 23 11/20/2022 CMP, COMPR EHENS JULIAN METAB OLIC PANEL BUN 14 mg/dL 7-25 Not Available [facility] [address] [place] [address] [address] [place], [address], 11/20/2022 15:53:45 11/21/19 23 11/20/2022 CMP, COMPR EHENS JULIAN METAB OLIC PANEL creatinine 0.9 mg/dL 0.6-1. 3 Not Available [facility] [address] [place] [address] [address], [place], [address], 11/20/2022 15:53:45 11/21/19 23 11/20/2022 CMP, COMPR EHENS JULIAN METAB OLIC PANEL BUN/creatini ne ratio 14.89 calc Not Available [facility] [address] [facility] [address], [place], [address], 11/20/2022 15:53:45 11/21/19 23 11/20/2022 CMP, COMPR EHENS JULIAN METAB OLIC PANEL eGFR 103 mL/mi n/1.7 3m2 >60 eGFR <60 mL/mi n for 3 or more month s may be indic ative of Kidne y Disea se. Not Available [facility] [address] [facility] [address], [place], [address], 11/20/2022 15:53:45 11/21/19 23 11/20/2022 CMP, COMPR EHENS JULIAN METAB OLIC PANEL eGFR non- 85 mL/mi n/1.7 3m2 >60 eGFR <60 mL/mi n for 3 or more month s may be indic ative of Kidne y Disea se. Not Available [facility] [address] [facility] [address] [place], [address], 11/20/2022 15:53:45 11/21/19 23 11/20/2022 CMP, COMPR EHENS JULIAN METAB OLIC PANEL sodium 138 mmol/ L 135-14 5 Not Available [facility] [address] [place], [address], 11/20/2022 15:53:45 11/21/19 23 11/20/2022 CMP, COMPR EHENS JULIAN METAB OLIC PANEL potassium 4.7 mmol/ L 3.5-5. 5 Not Available [facility] [address] [facility] [address], [place], [address], 11/20/2022 15:53:45 11/21/19 23 11/20/2022 CMP, COMPR EHENS JULIAN METAB OLIC PANEL chloride 102 mmol/ L 100-11 5 Not Available [facility] [address] [facility] [address], [place], [address], 11/20/2022 15:53:45 11/21/19 23 11/20/2022 CMP, COMPR EHENS JULIAN METAB OLIC PANEL CO2 26 mmol/ L 21-33 Not Available [facility] [address] [facility] [address], [place], [address], 11/20/2022 15:53:45 11/21/19 23 11/20/2022 CMP, COMPR EHENS JULIAN METAB OLIC PANEL anion gap 9.8 calc Not Available [facility] [address] [facility] [address], [place], [address], 11/20/2022 15:53:45 11/21/19 23 11/20/2022 CMP, COMPR EHENS JULIAN METAB OLIC PANEL calcium 8.8 mg/dL 8.8-10 .6 Not Available [facility] [address] [facility] [address], [place], [address], 11/20/2022 15:53:45 11/21/19 23 11/20/2022 CMP, COMPR EHENS JULIAN METAB OLIC PANEL total protein 8.5 g/dL 6.2-8. 6 Not Available [facility] [address], [place], [address], 11/20/2022 15:53:45 11/21/19 23 11/20/2022 CMP, COMPR EHENS JULIAN METAB OLIC PANEL albumin 3.0 g/dL 3.5-5. 7 low Not Available [facility] [address] [facility] [address], [place], [address], 11/20/2022 15:53:45 11/21/19 23 11/20/2022 CMP, COMPR EHENS JULIAN METAB OLIC PANEL globulin 5.5 g/dL 1.3-4. 0 high Not Available [facility] [address] [facility] [address], [place], [address], 11/20/2022 15:53:45 11/21/19 23 11/20/2022 CMP, COMPR EHENS JULIAN METAB OLIC PANEL A/G ratio 0.5 calc 1.0-2. 8 low Not Available [facility] [address] [facility] [address], [place], [address], 11/20/2022 15:53:45 11/21/19 23 11/20/2022 CMP, COMPR EHENS JULIAN METAB OLIC PANEL AST (SGOT) 33 U/L 13-39 Not Available [facility] [address] [facility] [address], [place], [address], 11/20/2022 15:53:45 11/21/19 23 11/20/2022 CMP, COMPR EHENS JULIAN METAB OLIC PANEL ALT (SGPT) 18 U/L 7-52 Not Available [facility] [address] [facility] [address] [place], [address], 11/20/2022 15:53:45 11/21/19 23 11/20/2022 CMP, COMPR EHENS JULIAN METAB OLIC PANEL total bilirubin 0.36 mg/dL 0.30-1 .00 Not Available [facility] [address] [facility] [address] [facility], [place], [address], 11/20/2022 15:53:45 11/21/19 23 11/20/2022 CMP, COMPR EHENS JULIAN METAB OLIC PANEL alkaline phosphatase 70 U/L 20-128 Not Available [facility] [address] [facility] [address] [place], [address], 11/20/2022 15:53:45 11/21/19 23 11/20/2022 LIPID PANEL W/ CALCU LATED LDL cholesterol 104 mg/dL 20-180 EXPEC DOMENICO RESUL TS for ADULT S: Total amanda stero l: Risk Class ifica tion: <200 mg/dl Grabiel able 200-2 39 mg/dl Borde rline high >240 mg/dl High Not Available [facility] [address] [facility] [address], [place], [address], 11/20/2022 15:53:47 11/21/19 23 11/20/2022 LIPID PANEL W/ CALCU LATED LDL triglyceride 38 mg/dL 30-150 Not Available [facility] [facility] [address] [place], [address], 11/20/2022 15:53:47 11/21/19 23 11/20/2022 LIPID PANEL W/ CALCU LATED LDL HDL cholesterol 35 mg/dL 23-92 Not Available [facility] [facility] [address], [place], [address], 11/20/2022 15:53:47 11/21/19 23 11/20/2022 LIPID PANEL W/ CALCU LATED LDL chol/HDL risk ratio 3 calc <3.5 OPTIM AL Not Available [facility] [address] [facility] [address] [place], [address], 11/20/2022 15:53:47 11/21/19 23 11/20/2022 LIPID PANEL W/ CALCU LATED LDL non-HDL cholesterol 69 mg/dL GRABIEL ABLE IS <130 mg/dl Not Available [facility] [address] [place] [address] [address] [place], [address], 11/20/2022 15:53:47 11/21/19 23 11/20/2022 LIPID PANEL W/ CALCU LATED LDL VLDL cholesterol 7.60 mg/dL Not Available [facility] [facility] [address] [place], [address], 11/20/2022 15:53:47 11/21/19 23 11/20/2022 LIPID PANEL W/ CALCU LATED LDL LDL calculated 61 mg/dL 0-99 Not Available [facility] [address] [place] [address] [address], [place], [address], 11/20/2022 15:53:47 11/21/19 23 11/20/2022 TSH, THYRO ID STIMU LATIN G HORMO NE TSH II 1.9500 uIU/m L 0.2700 -4.200 0 Not Available [facility] [address] [place] [address] [address], [place], [address], 11/20/2022 15:53:48 11/21/19 23 11/20/2022 VENIP UNCTU RE results Compl ete Not Available [facility] [address] [place] [address] [address], [place], [address], 11/20/2022 09:15:21 11/26/19 23 11/25/2022 IRON, TIBC AND SYLVIE TIN PANEL serum iron 39 ug/dL 45-210 low Not Available [facility] [address] [place] [address] [address], [place], [address], 11/25/2022 19:33:28 11/26/19 23 11/25/2022 IRON, TIBC AND SYLVIE TIN PANEL unsaturated iron binding capacity 198 ug/dL Not Available [facility] [address] [place] [address] [address] [place], [address], 11/25/2022 19:33:28 11/26/19 23 11/25/2022 IRON, TIBC AND SYLVIE TIN PANEL iron binding capacity 237 ug/dL 250-45 0 low Not Available [facility] [address] [place] [address] [address], [place], [address], 11/25/2022 19:33:28 11/26/19 23 11/25/2022 IRON, TIBC AND SYLVIE TIN PANEL percent iron saturation 16.5 % 13.0-4 5.0 Not Available [facility] [address] [place] [address] [address], [place], [address], 11/25/2022 19:33:28 11/26/19 23 11/25/2022 IRON, TIBC AND SYLVIE TIN PANEL ferritin 84.0 NG/mL 16.0-2 43.0 Not Available [facility] [address] [facility] [address] [facility], [place], [address], 11/25/2022 19:33:28 11/26/19 23 11/25/2022 VITAM IN B12 AND FOLAT E folate >20.0 NG/mL Range s for Folat e: >4.6 is consi dered olu l 3.1-4 .6 is consi dered borde relin e <3.1 is consi dered a low serum level . Not Available [facility] [address] [facility] [address] [place], [address], 11/25/2022 19:33:29 11/26/19 23 11/25/2022 VITAM IN B12 AND FOLAT E vitamin B-12 557 pg/mL 232-12 45 Not Available [facility] [address] [facility] [address] [place], [address], 11/25/2022 19:33:29 11/26/19 23 11/29/2022 UIFIX , IMMUN OFIXA TION, URINE roseanne interpretati on SEE NOTE A faint monoc lonal free kappa light chain is detec domenico. Flaco serna MD Not Available [facility] [address] [facility] [address] [place], [address], 11/29/2022 00:28:14 11/26/19 23 11/29/2022 IFIX, IMMUN OFIXA TION, SERUM roseanne interpretati on SEE NOTE An IgM (etelvina a) monoc lonal immun oglob ulin is detec ted. Flaco serna MD Not Available [facility] [address] [facility] [address] [place], [address], 11/29/2022 00:28:16 11/26/19 23 11/29/2022 FREE KAPPA AND LAMBD A WITH K/L RATIO , SE kappa light chain, free, serum 133.1 mg/L 3.3-19 .4 high Not Available [facility] [address] [facility] [address], [place], [address], 11/29/2022 00:28:17 11/26/1911/29/2022 FREE KAPPA AND LAMBD A WITH K/L RATIO , SE lambda light chain, free, serum 18.0 mg/L 5.7-26 .3 normal Not Available [facility] [address] [facility] [address], [place], [address], 11/29/2022 00:28:17 11/26/1911/29/2022 FREE KAPPA AND LAMBD A WITH K/L RATIO , SE kappa/lambda light chains free with ratio, serum 7.39 0.26-1 .65 high Free kappa /gonzalez da ratio in serum of olu l indiv idual s is 0.26- 1.65. Exces s produ ction of free kappa or lambd a chain s can alter this ratio . Monoc lonal free light chain s are found in serum of patie nts with multi ple myelo ma, Walde nstro m's macro globu linem ia, mu-he wilber chain disea se, prima ry amylo idosi s, light chain depos ition disea se, monoc lonal gammo rachelle of undet ermin ed signi fican ce, and lymph oprol ifera tive disor ders. Measu remen t of free light chain dutch ntrat ion in serum is usefu l for diagn osis, progn osis, monit oring disea se activ ity and follo wing respo nse to thera py of these disor ders. Not Available [facility] [address] [facility] [address], [place], [address], 11/29/2022 00:28:17 11/26/19 23 11/25/2022 VENIP UNCTU RE results Compl ete Not Available [facility] [address], [place], [address], 11/25/2022 12:47:58 01/02/20 23 01/01/2023 CBC W/ AUTOD IFF, COMPL ETE BLOOD COUNT WBC 7.2 K/uL 3.6-10 .0 Not Available [facility], [place], [address], 01/01/2023 19:33:41 01/02/20 23 01/01/2023 CBC W/ AUTOD IFF, COMPL ETE BLOOD COUNT nucleated RBC 0.10 % 0.00-2 .00 Not Available [facility] [address], [place], [address], 01/01/2023 19:33:41 01/02/20 23 01/01/2023 CBC W/ AUTOD IFF, COMPL ETE BLOOD COUNT RBC 3.77 M/uL 4.10-5 .80 low Not Available [facility], [place], [address], 01/01/2023 19:33:41 01/02/20 23 01/01/2023 CBC W/ AUTOD IFF, COMPL ETE BLOOD COUNT HGB 11.3 g/dL 13.2-1 7.0 low Not Available [facility] [address], [place], [address], 01/01/2023 19:33:41 01/02/20 23 01/01/2023 CBC W/ AUTOD IFF, COMPL ETE BLOOD COUNT hematocrit 33.10 % 37.00- 51.00 low Not Available [facility] [address], [place], [address], 01/01/2023 19:33:41 01/02/20 23 01/01/2023 CBC W/ AUTOD IFF, COMPL ETE BLOOD COUNT MCV 88.0 fL 80.0-9 9.0 Not Available [facility], [place], [address], 01/01/2023 19:33:41 01/02/20 23 01/01/2023 CBC W/ AUTOD IFF, COMPL ETE BLOOD COUNT MCH 29.9 pg 27.0-3 3.0 Not Available [facility], [place], [address], 01/01/2023 19:33:41 01/02/20 23 01/01/2023 CBC W/ AUTOD IFF, COMPL ETE BLOOD COUNT MCHC 34.0 g/dL 32.0-3 6.0 Not Available [facility] [address] [place] [address] [address], [place], [address], 01/01/2023 19:33:41 01/02/20 23 01/01/2023 CBC W/ AUTOD IFF, COMPL ETE BLOOD COUNT platelets 365 K/uL 140-44 0 Not Available [facility] [address] [place] [address] [address], [place], [address], 01/01/2023 19:33:41 01/02/20 23 01/01/2023 CBC W/ AUTOD IFF, COMPL ETE BLOOD COUNT RDW 15.8 % 11.0-1 5.0 high Not Available [facility], [place], [address], 01/01/2023 19:33:41 01/02/20 23 01/01/2023 CBC W/ AUTOD IFF, COMPL ETE BLOOD COUNT MPV 8.1 fL 7.4-10 .4 Not Available [facility], [place], [address], 01/01/2023 19:33:41 01/02/20 23 01/01/2023 CBC W/ AUTOD IFF, COMPL ETE BLOOD COUNT neutrophil, % 51.8 % Not Available [facility] [address], [place], [address], 01/01/2023 19:33:41 01/02/20 23 01/01/2023 CBC W/ AUTOD IFF, COMPL ETE BLOOD COUNT lymphocyte % 30.3 % Not Available [facility] [address], [place], [address], 01/01/2023 19:33:41 01/02/20 23 01/01/2023 CBC W/ AUTOD IFF, COMPL ETE BLOOD COUNT monocyte % 13.5 % Not Available [facility] [address], [place], [address], 01/01/2023 19:33:41 01/02/20 23 01/01/2023 CBC W/ AUTOD IFF, COMPL ETE BLOOD COUNT eosinophil % 3.0 % Not Available [facility] [address], [place], [address], 01/01/2023 19:33:41 01/02/20 23 01/01/2023 CBC W/ AUTOD IFF, COMPL ETE BLOOD COUNT basophil % 1.4 % Not Available [facility] [address], [place], [address], 01/01/2023 19:33:41 01/02/20 23 01/01/2023 CBC W/ AUTOD IFF, COMPL ETE BLOOD COUNT neutrophil, # 3.7 K/uL 1.5-7. 5 Not Available [facility] [address], [place], [address], 01/01/2023 19:33:41 01/02/20 23 01/01/2023 CBC W/ AUTOD IFF, COMPL ETE BLOOD COUNT lymphocyte # 2.2 K/uL 0.8-4. 0 Not Available [facility] [facility] [address], [place], [address], 01/01/2023 19:33:41 01/02/20 23 01/01/2023 CBC W/ AUTOD IFF, COMPL ETE BLOOD COUNT monocyte # 1.0 K/uL 0.1-1. 0 Not Available [facility] [address] [facility], [place], [address], 01/01/2023 19:33:41 01/02/20 23 01/01/2023 CBC W/ AUTOD IFF, COMPL ETE BLOOD COUNT eosinophil # 0.2 K/uL 0.1-1. 0 Not Available [facility] [address] [place], [place] [address]y [address], [place], [address], 01/01/2023 19:33:41 01/02/20 23 01/01/2023 CBC W/ AUTOD IFF, COMPL ETE BLOOD COUNT basophil # 0.1 K/uL 0.0-0. 2 Not Available [facility] [address] [place], [place] [address]y [address] [place], [address], 01/01/2023 19:33:41 01/02/20 23 01/01/2023 CMP, COMPR EHENS JULIAN METAB OLIC PANEL glucose 84 mg/dL 70-100 Not Available [facility] [address] [facility] [address], [place], [address], 01/01/2023 19:33:42 01/02/20 23 01/01/2023 CMP, COMPR EHENS JULIAN METAB OLIC PANEL BUN 18 mg/dL 7-25 Not Available [facility] [address] [place], [place] [address]y [address] [place], [address], 01/01/2023 19:33:42 01/02/20 23 01/01/2023 CMP, COMPR EHENS JULIAN METAB OLIC PANEL creatinine 1.2 mg/dL 0.6-1. 3 Not Available [facility] [address], [place], [address], 01/01/2023 19:33:42 01/02/20 23 01/01/2023 CMP, COMPR EHENS JULIAN METAB OLIC PANEL BUN/creatini ne ratio 15.25 calc Not Available [facility] [address], [place], [address], 01/01/2023 19:33:42 01/02/20 23 01/01/2023 CMP, COMPR EHENS JULIAN METAB OLIC PANEL eGFR 79 mL/mi n/1.7 3m2 >60 eGFR <60 mL/mi n for 3 or more month s may be indic ative of Kidne y Disea se. Not Available [facility] [address], [place], [address], 01/01/2023 19:33:42 01/02/20 23 01/01/2023 CMP, COMPR EHENS JULIAN METAB OLIC PANEL eGFR non- 65 mL/mi n/1.7 3m2 >60 eGFR <60 mL/mi n for 3 or more month s may be indic ative of Kidne y Disea se. Not Available [facility] [address], [place], [address], 01/01/2023 19:33:42 01/02/20 23 01/01/2023 CMP, COMPR EHENS JULIAN METAB OLIC PANEL sodium 139 mmol/ L 135-14 5 Not Available [facility] [address] [place], [address], 01/01/2023 19:33:42 01/02/20 23 01/01/2023 CMP, COMPR EHENS JULIAN METAB OLIC PANEL potassium 4.5 mmol/ L 3.5-5. 5 Not Available [facility] [address] [facility] [address], [place], [address], 01/01/2023 19:33:42 01/02/20 23 01/01/2023 CMP, COMPR EHENS JULIAN METAB OLIC PANEL chloride 100 mmol/ L 100-11 5 Not Available [facility] [address] [facility] [address], [place], [address], 01/01/2023 19:33:42 01/02/20 23 01/01/2023 CMP, COMPR EHENS JULIAN METAB OLIC PANEL CO2 26 mmol/ L 21-33 Not Available [facility] [address] [facility] [address], [place], [address], 01/01/2023 19:33:42 01/02/20 23 01/01/2023 CMP, COMPR EHENS JULIAN METAB OLIC PANEL anion gap 13.5 calc Not Available [facility] [address] [facility], [place], [address], 01/01/2023 19:33:42 01/02/20 23 01/01/2023 CMP, COMPR EHENS JULIAN METAB OLIC PANEL calcium 9.5 mg/dL 8.8-10 .6 Not Available [facility] [address], [place], [address], 01/01/2023 19:33:42 01/02/20 23 01/01/2023 CMP, COMPR EHENS JULIAN METAB OLIC PANEL total protein 10.0 g/dL 6.2-8. 6 high Not Available [facility] [address] [facility] [address], [place], [address], 01/01/2023 19:33:42 01/02/20 23 01/01/2023 CMP, COMPR EHENS JULIAN METAB OLIC PANEL albumin 3.3 g/dL 3.5-5. 7 low Not Available [facility] [address] [facility] [address], [place], [address], 01/01/2023 19:33:42 01/02/20 23 01/01/2023 CMP, COMPR EHENS JULAIN METAB OLIC PANEL globulin 6.7 g/dL 1.3-4. 0 high Not Available [facility] [address] [facility] [address], [place], [address], 01/01/2023 19:33:42 01/02/20 23 01/01/2023 CMP, COMPR EHENS JULIAN METAB OLIC PANEL A/G ratio 0.5 calc 1.0-2. 8 low Not Available [facility] [address], [place], [address], 01/01/2023 19:33:42 01/02/20 23 01/01/2023 CMP, COMPR EHENS JULIAN METAB OLIC PANEL AST (SGOT) 29 U/L 13-39 Not Available [facility] [address], [place], [address], 01/01/2023 19:33:42 01/02/20 23 01/01/2023 CMP, COMPR EHENS JULIAN METAB OLIC PANEL ALT (SGPT) 15 U/L 7-52 Not Available [facility] [address], [place], [address], 01/01/2023 19:33:42 01/02/20 23 01/01/2023 CMP, COMPR EHENS JULIAN METAB OLIC PANEL total bilirubin 0.43 mg/dL 0.30-1 .00 Not Available [facility] [address], [place], [address], 01/01/2023 19:33:42 01/02/20 23 01/01/2023 CMP, COMPR EHENS JULIAN METAB OLIC PANEL alkaline phosphatase 72 U/L 20-128 Not Available [facility] [address] [facility] [address], [place], [address], 01/01/2023 19:33:42 01/02/20 23 01/01/2023 IRON, TIBC & SYLVIE TIN PANEL serum iron 38 ug/dL 45-210 low Not Available [facility] [address] [facility] [address], [place], [address], 01/01/2023 19:33:43 01/02/20 23 01/01/2023 IRON, TIBC & SYLVIE TIN PANEL unsaturated iron binding capacity 193 ug/dL Not Available [facility] [address] [facility], [place], [address], 01/01/2023 19:33:43 01/02/20 23 01/01/2023 IRON, TIBC & SYLVIE TIN PANEL iron binding capacity 231 ug/dL 250-45 0 low Not Available [facility] [address] [facility] [address], [place], [address], 01/01/2023 19:33:43 01/02/20 23 01/01/2023 IRON, TIBC & SYLVIE TIN PANEL percent iron saturation 16.5 % 13.0-4 5.0 Not Available [facility] [address] [facility] [address], [place], [address], 01/01/2023 19:33:43 01/02/20 23 01/01/2023 IRON, TIBC & SYLVIE TIN PANEL ferritin 92.3 NG/mL 16.0-2 43.0 Not Available [facility] [address] [facility] [address], [place], [address], 01/01/2023 19:33:43 01/02/20 23 01/01/2023 LIPID PANEL W/ CALCU LATED LDL cholesterol 98 mg/dL 20-180 EXPEC DOMENICO RESUL TS for ADULT S: Total Amanda stero l: Risk Class ifica tion: <200 mg/dl Grabiel able 200-2 39 mg/dl Borde rline high >240 mg/dl High Not Available [facility] [address] [facility] [address], [place], [address], 01/01/2023 19:33:44 01/02/20 23 01/01/2023 LIPID PANEL W/ CALCU LATED LDL triglyceride 43 mg/dL 30-150 Not Available [facility] [address] [facility] [address], [place], [address], 01/01/2023 19:33:44 01/02/20 23 01/01/2023 LIPID PANEL W/ CALCU LATED LDL HDL cholesterol 32 mg/dL 23-92 Not Available [facility] [address] [facility] [address], [place], [address], 01/01/2023 19:33:44 01/02/20 23 01/01/2023 LIPID PANEL W/ CALCU LATED LDL chol/HDL risk ratio 3 calc <3.5 OPTIM AL Not Available [facility] [address] [facility] [address] [place], [address], 01/01/2023 19:33:44 01/02/20 23 01/01/2023 LIPID PANEL W/ CALCU LATED LDL non-HDL cholesterol 66 mg/dL GRABIEL ABLE IS <130 mg/dl Not Available [facility] [address] [facility] [address], [place], [address], 01/01/2023 19:33:44 01/02/20 23 01/01/2023 LIPID PANEL W/ CALCU LATED LDL VLDL cholesterol 8.60 mg/dL Not Available [facility] [address] [facility] [address], [place], [address], 01/01/2023 19:33:44 01/02/20 23 01/01/2023 LIPID PANEL W/ CALCU LATED LDL LDL calculated 57 mg/dL 0-99 Not Available [facility] [address] [facility] [address] [place], [address], 01/01/2023 19:33:44 01/02/20 23 01/01/2023 PSA SCREE N PSA, total 0.943 NG/mL 0.000- 4.500 Updat ed range s in accor dance with ASC stand ards: Age Refer ence Range Up to 50 0.00- 2.50 ng/ml 50-59 0.00- 3.50 ng/ml 60-69 0.00- 4.50 ng/ml >70 0.00- 6.50 ng/ml Age speci fic olu l value s from the liter ature for PSA are provi ded as a guide only. No one decis ion level is appro priat e when utili zing PSA in scree to situa tion. Age, famil y histo ry, previ ous value s, and other facto rs shoul d be used in decis ions invol ving PSA value s. Not Available [facility] [address] [facility] [address] [place], [address], 01/01/2023 19:33:45 01/02/2001/01/2023 TSH+F REE T4 T4, free 0.98 NG/dL 0.93-1 .70 Not Available [facility] [address] [facility] [address] [place], [address], 01/01/2023 19:33:45 01/02/2001/01/2023 TSH+F REE T4 TSH II 1.7000 uIU/m L 0.2700 -4.200 0 Not Available [facility] [address] [facility] [address] [place], [address], 01/01/2023 19:33:45 01/02/20 23 01/01/2023 VITAM IN B12 & FOLAT E folate 19.5 NG/mL Range s for Folat e: >4.6 is consi dered olu l 3.1-4 .6 is consi dered borde relin e <3.1 is consi dered a low serum level . Not Available [facility] [address], [place], [address], 01/01/2023 19:33:46 01/02/20 23 01/01/2023 VITAM IN B12 & FOLAT E vitamin B-12 666 pg/mL 232-12 45 Not Available [facility] [address], [place], [address], 01/01/2023 19:33:46 01/02/20 23 01/01/2023 VENIP UNCTU RE results Compl ete Not Available [facility] [address], [place], [address], 01/01/2023 11:15:12 03/19/2003/19/2023 TROPI HIGH SENSI TIVIT Y tropi high sensitivity 40 NG/L <78 99th perce ntile Femal e: <54 ng/L Male: <78 ng/L Per the 4th unive rsal defin ition of Myoca rdial infar ction (OK), OK is defin ed as the prese nce of acute myoca rdial injur y (i.e. , detec tion of a rise and/o r fall of tropo mike value s with at least 1 tropo mike > 99th perce ntile Upper Refer ence Limit ) in the setti ng of clini igor evide nce of acute myoca rdial ische david such as ische michelle sympt oms or new ische michelle EKG espinoza es. High- sensi tivit y tropo mike resul ts shoul d be inter prete d in conju nctio n with other diagn ostic tests and clini igor infor matio n. Not Available [facility] [place], [address], 03/19/2023 10:08:02 03/19/20 23 03/19/2023 TROPI HIGH SENSI TIVIT Y performing lab: [facility] Sandra da [facility] [address] Not Available [facility] [place], [address], 03/19/2023 10:08:02 03/19/20 23 03/19/2023 NOVEL CORON AVIRU S 2019 INHOU SE novel coronavirus 2019 inhouse Negati ve negati ve Negat julian resul ts shoul d be treat ed as presu mptiv e and, if incon siste nt with clini igor signs and sympt oms or neces diane for patie nt manag ement , shoul d be teste d with diffe rent autho rized or clear ed molec ular tests . Negat julian resul ts do not precl ude SARS- CoV-2 infec tion and shoul d not be used as the sole basis for patie nt manag ement decis ions. Negat julian resul ts shoul d be consi dered in the anna xt of a patie nt's recen t expos ures, histo ry, and the prese nce of clini igor signs and sympt oms consi stent with COVID -19. The ID NOW COVID -19 has been autho rized by the FDA under an emerg ency use autho rizat ion for use by autho rized labor atori es and patie nt care setti ngs. The test has been autho rized only for the detec tion of nucle ic acid from SARS- CoV-2 . Assay Metho dolog y:Iso therm al nucle ic acid ampli ficat ion techn ology Not Available [facility] [place], [address], 03/19/2023 09:43:49 03/19/2003/19/2023 NOVEL CORON AVIRU S 2019 INHOU SE performing lab: [facility] [address] [facility] [address] Not Available [facility] [address] [facility], [place], [address], 03/19/2023 09:43:49 03/19/2003/19/2023 NT PROBN P nt probnp 190.00 pg/mL <300 NT-pr oBNP age appro priat e cutof f value s for CHF AGE RESUL T INDIC ATION ----- ----- ----- ---- ----- ----- --- - ----- ----- ----- ----- ----- 301-4 50 pg/mL Rose Maryet rosa ate for CHF ----- ----- ----- ---- ----- ----- --- - ----- ----- ----- ----- ----- 0-49 years >450 pg/mL Sugge stive of CHF ----- ----- ----- ---- ----- ----- --- - ----- ----- ----- ----- ----- 50-74 years >900 pg/mL Sugge stive of CHF ----- ----- ----- ---- ----- ----- --- - ----- ----- ----- ----- ----- > 75 years >1800 pg/mL Sugedwige bravove of CHF Condi tions other than Acute CHF resul ting in incre ased NT-pr oBNP level s are: ----- ----- ----- ----- ----- ----- ----- ----- ----- ----- ----- ----- Acute Coron ashley Syndr ome Pulmo nary Embol ism Obstr uctiv e Pulmo nary Disea se Criti igor Scooterne ss Renal Failu re Not Available [facility] [address] [place] [address], [address], 03/19/2023 09:18:39 03/19/20 23 03/19/2023 NT PROBN P performing lab: [facility] [address] Not Available [facility] [place], [address], 03/19/2023 09:18:39 03/19/20 23 03/19/2023 MAGNE SIUM magnesium 2.1 mg/dL 1.6-2. 6 normal Not Available [facility] [place], [address], 03/19/2023 09:18:38 03/19/20 23 03/19/2023 LUIS BRYANT performing lab: [facility] Sandra da [facility] [address] [facility] [address] Not Available [place] [address], [place], [address], 03/19/2023 09:18:38 03/19/20 23 03/19/2023 LIPAS E lipase 11 units /L 13-75 low Not Available [place] [address], [place], [address], 03/19/2023 09:18:38 03/19/20 23 03/19/2023 LIPAS E performing lab: [facility] [address] [facility] [address] Not Available [place] [address], [place], [address], 03/19/2023 09:18:38 03/19/20 23 03/19/2023 COMPR EHENS JULIAN METAB OLIC PANEL glucose 118 mg/dL 74-106 high Not Available [place] [address] [facility], [place], [address], 03/19/2023 09:18:37 03/19/20 23 03/19/2023 COMPR EHENS JULIAN METAB OLIC PANEL urea nitrogen 12 mg/dL 7-18 Not Available [place] [address], [place], [address], 03/19/2023 09:18:37 03/19/20 23 03/19/2023 COMPR EHENS JULIAN METAB OLIC PANEL creatinine 1.2 mg/dL 0.70-1 .30 Not Available [facility] [address] [place] [address], [address], 03/19/2023 09:18:37 03/19/20 23 03/19/2023 COMPR EHENS JULIAN METAB OLIC PANEL est glomerular filtration rate 65.9 >90.0 low The eGFR is calcu lated using the 2020 CKD-E PI Cr equat ion, which inclu perry serum Cr, age, and sex but does not inclu de a race coeff icien t. The [employer] [facility] ation recom mends this formu la for calcu latin g eGFR in adult s. GFR will not calcu late if sex is unkno wn or patie nt age is <18 years . Ref range : >/=90 mL/mi n/1.7 3m2 Not Available [address], [address], 03/19/2023 09:18:37 03/19/20 23 03/19/2023 COMPR EHENS JULIAN METAB OLIC PANEL sodium 135 mmol/ L 136-14 5 low Not Available [address], [address], 03/19/2023 09:18:37 03/19/20 23 03/19/2023 COMPR EHENS JULIAN METAB OLIC PANEL potassium 3.7 mmol/ L 3.0-4. 8 Not Available [address], [address], 03/19/2023 09:18:37 03/19/20 23 03/19/2023 COMPR EHENS JULIAN METAB OLIC PANEL chloride 97 mmol/ L 98-107 low Not Available [address], [address], 03/19/2023 09:18:37 03/19/20 23 03/19/2023 COMPR EHENS JULIAN METAB OLIC PANEL carbon dioxide 32 mmol/ L 21-32 Not Available [address] [facility], [place], [address], 03/19/2023 09:18:37 03/19/20 23 03/19/2023 COMPR EHENS JULIAN METAB OLIC PANEL anion gap 10 mmol/ L 10-20 Not Available [address] [facility], [place], [address], 03/19/2023 09:18:37 03/19/20 23 03/19/2023 COMPR EHENS JULIAN METAB OLIC PANEL BUN/creatini ne ratio 10 9.0-25 .0 Not Available [address] [facility], [place], [address], 03/19/2023 09:18:37 03/19/20 23 03/19/2023 COMPR EHENS JULIAN METAB OLIC PANEL calcium 9.2 mg/dL 8.5-10 .1 Not Available [address], [address], 03/19/2023 09:18:37 03/19/20 23 03/19/2023 COMPR EHENS JULIAN METAB OLIC PANEL albumin/glob ulin ratio 0.4 0.8-2. 0 low Not Available [address], [address], 03/19/2023 09:18:37 03/19/20 23 03/19/2023 COMPR EHENS JULIAN METAB OLIC PANEL total protein 9.8 g/dL 6.4-8. 2 high Not Available [address], [address], 03/19/2023 09:18:37 03/19/20 23 03/19/2023 COMPR EHENS JULIAN METAB OLIC PANEL albumin 2.6 g/dL 3.4-5. 0 low Not Available [address], [address], 03/19/2023 09:18:37 03/19/20 23 03/19/2023 COMPR EHENS JULIAN METAB OLIC PANEL globulin 7.2 g/dL 2.7-4. 1 high Not Available [address], [address], 03/19/2023 09:18:37 03/19/20 23 03/19/2023 COMPR EHENS JULIAN METAB OLIC PANEL aspartate aminotransfe rase 17 units /L 15-37 Not Available [address], [address], 03/19/2023 09:18:37 03/19/20 23 03/19/2023 COMPR EHENS JULIAN METAB OLIC PANEL alanine aminotransfe rase 23.0 units /L 12-78 Not Available [address], [address], 03/19/2023 09:18:37 03/19/20 23 03/19/2023 COMPR EHENS JULIAN METAB OLIC PANEL alkaline phosphatase 82 units /L 45-117 Not Available [address], [address], 03/19/2023 09:18:37 03/19/20 23 03/19/2023 COMPR EHENS JULIAN METAB OLIC PANEL total bilirubin 0.33 mg/dL 0.2-1. 0 Not Available [address], [address], 03/19/2023 09:18:37 03/19/20 23 03/19/2023 COMPR EHENS JULIAN METAB OLIC PANEL performing lab: [facility] da [facility] tt [facility] [address] Not Available [facility] [address] [place] [address], [address], 03/19/2023 09:18:37 03/19/20 23 03/19/2023 TROPI HIGH SENSI TIVIT Y tropi high sensitivity 42 NG/L <78 99th perce ntile Femal e: <54 ng/L Male: <78 ng/L Per the 4th unive rsal defin ition of Myoca rdial infar ction (OK), OK is defin ed as the prese nce of acute myoca rdial injur y (i.e. , detec tion of a rise and/o r fall of tropo mike value s with at least 1 tropo mike > 99th perce ntile Upper Refer ence Limit ) in the setti ng of clini igor evide nce of acute myoca rdial ische david such as ische michelle sympt oms or new ische michelle EKG espinoza es. High- sensi tivit y tropo mike resul ts shoul d be inter prete d in conju nctio n with other diagn ostic tests and clini igor infor matio n. Not Available [facility] [address] [place] [address], [address], 03/19/2023 09:18:35 03/19/20 23 03/19/2023 TROPI HIGH SENSI TIVIT Y performing lab: [facility] tt [facility] [address] Not Available [facility] [address] [place] [address], [address], 03/19/2023 09:18:35 03/19/20 23 03/19/2023 D-DIM ER QUANT ITATI VE D-dimer quantitative 634 NG/ml feu 0-529 high New metho dolog y, pleas e revie w new refer ence range s. When exclu ding VTE, the cutof f value is <500 ng/mL FEU. For all other event s the cutof f value is <529 ng/mL FEU. This test is a Latex Enhan barrie Immun oassa y which is FDA appro paul for use in conju nctio n with a Clini igor Prete st Proba bilit y (PTP) Asses sment model to exclu de venou s throm boemb olism (VTE) for patie nts suspe cted of deep venou s throm bosis (DVT) and pulmo nary embol ism (PE). Not Available [address], [address], 03/19/2023 09:09:31 03/19/2003/19/2023 D-DIM ER QUANT ITATI VE performing lab: [facility] Sandra da [place] [facility] [id number] [place] [address] Not Available [address], [address], 03/19/2023 09:09:31 03/19/2003/19/2023 PTT PTT 41 secon ds 25-38 high New metho dolog y, pleas e revie w new refer ence range s. Thera peuti c hepar in range is 58-92 secon ds. Not Available [address], [address], 03/19/2023 09:09:31 03/19/20 23 03/19/2023 PTT performing lab: [facility] Sandra da [place] [facility] [address] [place] [address] Not Available [address], [address], 03/19/2023 09:09:31 03/19/20 23 03/19/2023 PROTH ROMBI N TIME protime 13.1 secon ds 10.0-1 2.8 high New metho dolog y, pleas e revie w new refer ence range s. Not Available [facility] [place], [address], 03/19/2023 09:09:30 03/19/20 23 03/19/2023 PROTH ROMBI N TIME internationa l normalized ratio 1.2 0.8-1. 1 high New metho dolog y, pleas e revie w new refer ence range s. Use INR for clini igor decis ion makin g Recom zeke d Thera peuti c Range : INDIC ATION TARGE DOMENICO INR RANGE On-x value (aort ic posit ion) 1.5-2 .0 Preve ntion and treat ment of VTE 2.0-3 .0 Atria l Fibri llati on 2.0-3 .0 Acute myoca rdial infar ction 2.0-3 .0 Valvu lar heart disea se 2.0-3 .0 Prost hetic tissu e heart valve s 2.5-3 .5 Recur rent Throm boemb olism 2.5-3 .5 Targe dmoenico INR range of 2-3 is appro priat e for patie nts who have a mecha nical bilea flet in the aorti c posit ion, olu l cardi ac chamb er size, and no other risk facto rs for strok e. Co-ad minis trati on of argat roban and warfa rin produ patel a combi gutierrez effec t on INR. Consu lt pharm acist or physi slick to deter mine if warfa rin dose shoul d be held when INR is eleva domenico and patie nt is recei ving argat roban . Not Available [facility] [place], [address], 03/19/2023 09:09:30 03/19/20 23 03/19/2023 PROTH ROMBI N TIME performing lab: [facility] [address] [facility] [address] Not Available [facility] [address], [place], [address], 03/19/2023 09:09:30 03/19/20 23 03/19/2023 CBC WITH 6 PART DIFFE RENTI AL WBC 10.5 10_3/ uL 4.0-10 .5 Not Available [facility] [address], [place], [address], 03/19/2023 09:06:27 03/19/2003/19/2023 CBC WITH 6 PART DIFFE RENTI AL RBC 3.89 10_6/ uL 4.63-6 .08 low Not Available [facility] [address] [facility], [place], [address], 03/19/2023 09:06:27 03/19/20 23 03/19/2023 CBC WITH 6 PART DIFFE RENTI AL HGB 11.5 g/dL 13.7-1 7.5 low Not Available [facility] [address] [facility], [place], [address], 03/19/2023 09:06:27 03/19/2003/19/2023 CBC WITH 6 PART DIFFE RENTI AL hematocrit 35.0 % 40.1-5 1.0 low Not Available [facility] [address], [place], [address], 03/19/2023 09:06:27 03/19/2003/19/2023 CBC WITH 6 PART DIFFE RENTI AL mean corpuscular volume 90.0 fL 79.0-9 2.2 Not Available [facility] [address] [facility], [place], [address], 03/19/2023 09:06:27 03/19/20 03/19/2023 CBC WITH 6 PART DIFFE RENTI AL mean corpuscular hemoglobin 29.6 pg 25.7-3 2.2 Not Available [address] [address] [place], [address], 03/19/2023 09:06:27 03/19/20 23 03/19/2023 CBC WITH 6 PART DIFFE RENTI AL mean corpuscular HGB conc 32.9 g/dL 32.2-3 6.5 Not Available [address] [facility], [place], [address], 03/19/2023 09:06:27 03/19/2003/19/2023 CBC WITH 6 PART DIFFE RENTI AL RDW 16.6 % 11.6-1 4.4 high Not Available [address], [address], 03/19/2023 09:06:27 03/19/20 23 03/19/2023 CBC WITH 6 PART DIFFE RENTI AL platelet count 320 10_3/ uL 150-40 0 Not Available [address] [place], [address], 03/19/2023 09:06:27 03/19/20 23 03/19/2023 CBC WITH 6 PART DIFFE RENTI AL mean platelet volume 9.3 fL 9.4-12 .4 low Not Available [address], [address], 03/19/2023 09:06:27 03/19/20 23 03/19/2023 CBC WITH 6 PART DIFFE RENTI AL neut% 73.1 % 34.0-6 7.9 high Not Available [address], [address], 03/19/2023 09:06:27 03/19/20 23 03/19/2023 CBC WITH 6 PART DIFFE RENTI AL lymph% 14.7 % 21.8-5 3.1 low Not Available [address], [address], 03/19/2023 09:06:27 03/19/20 23 03/19/2023 CBC WITH 6 PART DIFFE RENTI AL mono% 10.1 % 5.3-12 .2 Not Available [address], [address], 03/19/2023 09:06:27 03/19/20 23 03/19/2023 CBC WITH 6 PART DIFFE RENTI AL eo% 0.9 % 0.8-7. 0 Not Available [address], [address], 03/19/2023 09:06:27 03/19/2003/19/2023 CBC WITH 6 PART DIFFE RENTI AL baso% 0.7 % 0.2-1. 2 Not Available [address], [address], 03/19/2023 09:06:27 03/19/2003/19/2023 CBC WITH 6 PART DIFFE RENTI AL immature grans % 0.5 % 0.0-0. 4 high Not Available [address], [address], 03/19/2023 09:06:27 03/19/2003/19/2023 CBC WITH 6 PART DIFFE RENTI AL automated NRBC % 0.0 % 0.0-0. 0 Not Available [address], [address], 03/19/2023 09:06:27 03/19/20 23 03/19/2023 CBC WITH 6 PART DIFFE RENTI AL neut# 7.69 10_3/ uL 1.78-5 .38 high Not Available [address], [place], [address], 03/19/2023 09:06:27 03/19/20 23 03/19/2023 CBC WITH 6 PART DIFFE RENTI AL lymph# 1.55 10_3/ uL 1.32-3 .57 Not Available [address], [address], 03/19/2023 09:06:27 03/19/20 23 03/19/2023 CBC WITH 6 PART DIFFE RENTI AL mono# 1.06 10_3/ uL 0.30-0 .82 high Not Available [address], [address], 03/19/2023 09:06:27 03/19/2003/19/2023 CBC WITH 6 PART DIFFE RENTI AL eo# 0.09 10_3/ uL 0.04-0 .54 Not Available [address], [address], 03/19/2023 09:06:27 03/19/20 23 03/19/2023 CBC WITH 6 PART DIFFE RENTI AL baso# 0.07 10_3/ uL 0.01-0 .08 Not Available [address], [address], 03/19/2023 09:06:27 03/19/20 23 03/19/2023 CBC WITH 6 PART DIFFE RENTI AL immature grans # 0.05 10_3/ uL 0.00-0 .03 high Not Available [facility] [address] [facility], [place], [address], 03/19/2023 09:06:27 03/19/20 23 03/19/2023 CBC WITH 6 PART DIFFE RENTI AL automated NRBC # 0 /100_ WBC 0.0-0. 0 Not Available [facility] [id number] [place] [address], [place], [address], 03/19/2023 09:06:27 03/19/20 23 03/19/2023 CBC WITH 6 PART DIFFE RENTI AL performing lab: [facility] [id number] [place] [address] Not Available [facility] [address] [place] [address], [place], [address], 03/19/2023 09:06:27 03/20/20 23 03/20/2023 CBC W/ AUTOD IFF, COMPL ETE BLOOD COUNT WBC 10.2 K/uL 3.6 - 10.0 high Not Available [facility] [address] [place], [address], 03/20/2023 15:37:47 03/20/20 23 03/20/2023 CBC W/ AUTOD IFF, COMPL ETE BLOOD COUNT RBC 3.5 M/uL 4.1 - 5.8 low Not Available [facility] [address] [place], [address], 03/20/2023 15:37:47 03/20/20 23 03/20/2023 CBC W/ AUTOD IFF, COMPL ETE BLOOD COUNT hemoglobin 10.5 g/dL 13.2 - 17.0 low Not Available [facility] [address] [place], [address], 03/20/2023 15:37:47 03/20/20 23 03/20/2023 CBC W/ AUTOD IFF, COMPL ETE BLOOD COUNT hematocrit 31.3 % 37.0 - 51.0 low Not Available [facility] [address], [place], [address], 03/20/2023 15:37:47 03/20/20 23 03/20/2023 CBC W/ AUTOD IFF, COMPL ETE BLOOD COUNT MCV 90.2 fL 80.0 - 99.0 Not Available [facility] [address], [place], [address], 03/20/2023 15:37:47 03/20/20 23 03/20/2023 CBC W/ AUTOD IFF, COMPL ETE BLOOD COUNT MCH 30.3 pg 27.0 - 33.0 Not Available [facility], [place], [address], 03/20/2023 15:37:47 03/20/20 23 03/20/2023 CBC W/ AUTOD IFF, COMPL ETE BLOOD COUNT MCHC 33.5 g/dL 32.0 - 36.0 Not Available [facility], [place], [address], 03/20/2023 15:37:47 03/20/20 23 03/20/2023 CBC W/ AUTOD IFF, COMPL ETE BLOOD COUNT RDW 16.6 % 11.0 - 15.0 high Not Available [facility] [address], [place], [address], 03/20/2023 15:37:47 03/20/20 23 03/20/2023 CBC W/ AUTOD IFF, COMPL ETE BLOOD COUNT nucleated RBC 0 % 0 - 2 Not Available [facility] [address], [place], [address], 03/20/2023 15:37:47 03/20/20 23 03/20/2023 CBC W/ AUTOD IFF, COMPL ETE BLOOD COUNT platelet 306 K/uL 140 - 440 Not Available [facility] [address], [place], [address], 03/20/2023 15:37:47 03/20/20 23 03/20/2023 CBC W/ AUTOD IFF, COMPL ETE BLOOD COUNT MPV 8.2 fL 7.4 - 10.4 Not Available [facility] [address], [place], [address], 03/20/2023 15:37:47 03/20/20 23 03/20/2023 CBC W/ AUTOD IFF, COMPL ETE BLOOD COUNT neutrophil, percentage 68.4 % Not Available [facility] [address], [place], [address], 03/20/2023 15:37:47 03/20/20 23 03/20/2023 CBC W/ AUTOD IFF, COMPL ETE BLOOD COUNT lymphocyte, percentage 16.0 % Not Available [facility] [address], [place], [address], 03/20/2023 15:37:47 03/20/20 23 03/20/2023 CBC W/ AUTOD IFF, COMPL ETE BLOOD COUNT monocyte, percentage 13.7 % Not Available [facility] [address], [place], [address], 03/20/2023 15:37:47 03/20/20 23 03/20/2023 CBC W/ AUTOD IFF, COMPL ETE BLOOD COUNT eosinophil, percentage 1.0 % Not Available [facility] [address], [place], [address], 03/20/2023 15:37:47 03/20/20 23 03/20/2023 CBC W/ AUTOD IFF, COMPL ETE BLOOD COUNT basophil, percentage 0.9 % Not Available [facility] [address], [place], [address], 03/20/2023 15:37:47 03/20/20 23 03/20/2023 CBC W/ AUTOD IFF, COMPL ETE BLOOD COUNT neutrophil, absolute 7.0 K/uL 1.5 - 7.5 Not Available [facility] [address] [place], [place] [address], [place], [address], 03/20/2023 15:37:47 03/20/20 23 03/20/2023 CBC W/ AUTOD IFF, COMPL ETE BLOOD COUNT lymphocyte, absolute 1.6 K/uL 0.8 - 4.0 Not Available [facility] [address] [place], [place] [address], [place], [address], 03/20/2023 15:37:47 03/20/20 23 03/20/2023 CBC W/ AUTOD IFF, COMPL ETE BLOOD COUNT monocyte, absolute 1.4 K/uL 0.1 - 1.0 high Not Available [facility] [address] [place], [place] [address], [place], [address], 03/20/2023 15:37:47 03/20/20 23 03/20/2023 CBC W/ AUTOD IFF, COMPL ETE BLOOD COUNT eosinophil, absolute 0.1 K/uL 0.1 - 1.0 Not Available [facility] [address] [place], [place] [address], [place], [address], 03/20/2023 15:37:47 03/20/20 23 03/20/2023 CBC W/ AUTOD IFF, COMPL ETE BLOOD COUNT basophil, absolute 0.1 K/uL 0.0 - 0.2 Not Available [facility] [address] [place], [place] [address], [place], [address], 03/20/2023 15:37:47 03/20/20 23 03/20/2023 IRON, TIBC & SYLVIE TIN PANEL serum iron 21 ug/dL 45 - 210 low Not Available [facility] [address], [place], [address], 03/20/2023 15:46:01 03/20/20 23 03/20/2023 IRON, TIBC & SYLVIE TIN PANEL iron binding capacity 159 ug/dL 250 - 450 low Not Available [facility] [address], [place], [address], 03/20/2023 15:46:01 03/20/20 23 03/20/2023 IRON, TIBC & SYLVIE TIN PANEL unsaturated iron binding capacity 138 ug/dL Not Available [facility] [address], [place], [address], 03/20/2023 15:46:01 03/20/20 23 03/20/2023 IRON, TIBC & SYLVIE TIN PANEL % iron saturation 13 % 13 - 45 Not Available [facility] [address], [place], [address], 03/20/2023 15:46:01 03/20/20 23 03/20/2023 IRON, TIBC & SYLVIE TIN PANEL ferritin 325 NG/mL 16 - 243 high Not Available [facility] [address] [facility] [address], [place], [address], 03/20/2023 15:46:01 03/20/20 23 03/20/2023 VENIP UNCTU RE results Compl ete Not Available [facility] [address], [place], [address], 03/20/2023 09:28:26 11/2204/09/2023 rapid influ silverio virus A + B and SARS CoV + SARS CoV 2 Ag panel , IA, upper respi rator y speci men INFLUENZA TYPE A NEGATI VE Not Available In-Office Order Internal Use Only DO Not Attach Compendium DO Not Attach Compendium, Do Not Delete/merge, [id number] 04/09/2023 09:06:55 04/09/20 23 04/09/2023 rapid influ silverio virus A + B and SARS CoV + SARS CoV 2 Ag panel , [place], upper respi rator y speci men INFLUENZA TYPE B NEGATI VE Not Available In-Office Order Internal Use Only DO Not Attach Compendium DO Not Attach Compendium, Do Not Delete/merge, [id number] 04/09/2023 09:06:55 04/09/20 23 04/09/2023 rapid influ silverio virus A + B and SARS CoV + SARS CoV 2 Ag panel , [place], upper respi rator y speci men Rapid SARS COV, ANTIGEN NEGATI VE Not Available In-Office Order Internal Use Only DO Not Attach Compendium DO Not Attach Compendium, Do Not Delete/merge, [id number] 04/09/2023 09:06:55 04/09/20 23 04/09/2023 rapid influ silverio virus A + B and SARS CoV + SARS CoV 2 Ag panel , [place], upper respi rator y speci men INTERNAL CONTROL VALID Not Available In-Off ice Order Internal Use Only DO Not Attach Compendium DO Not Attach Compendium, Do Not Delete/merge, [id number] 04/09/2023 09:06:55 01/08/2001/03/2023 colon oscop y proce dure (PROC ) No observ ation record ed. PARISH Rock MD ([facility]) [address] [facility] [place], [address], 01/09/2023 08:39:27 04/09/[address] No observ ation record ed. Not Available 2022 11:51:22 Result Notes None recorded. Problems Name Problem SNOMED Code Status Onset Date Resolution Date Notes Provider Name and Address Organization Details Recorded Time Hyperlipidemia 03671988 Active Nathalie Too null, [facility], [facility] 3 15:15:58 Monoclonal gammopathy of uncertain significance 029281415 Active [facility] 3 15:16:02 Problem Notes None recorded. Procedures Surgical History Date Name Laterality Status Provider Name and Address Organization Details Recorded Time 04/17/20 Quality Functional Assessment completed [facility] 04/15/2023 16:37:45 04/17/20 23 Quality Medication Reviewed and Updated completed [facility] 04/15/2023 16:37:45 04/17/20 23 Quality BMI with follow up completed [facility] 04/15/2023 16:37:45 04/17/20 23 Quality Advanced Care Planning completed [facility] 04/15/2023 16:37:45 04/17/20 23 Quality Incontinence Screening completed [facility] 04/15/2023 16:37:45 04/17/20 23 Medicare AWV-Screening Schedule completed Carla Harris [facility] 04/17/2023 14:24:29 04/17/20 23 Quality Fall Risk Assessment completed [facility] 04/15/2023 16:37:45 01/03/20 23 Colonoscopy completed [facility] 04/16/2023 11:55:01 01/03/20 23 EGD-Upper Endoscopy completed [facility] 04/16/2023 11:55:33 11/17/19 21 Laminectomy completed Not Available [facility] 03/11/20 22 21:09:09 10/27/19 15 Colonoscopy completed Art[address] Orozco [facility] 07/23/2022 14:42:00 05/19/19 09 Cardiac Catherization completed Arti Orozco [facility] 07/23/2022 14:41:47 02/17/20 07 Hernia Repair completed Not Available [facility] 2021 21:09:09 Imaging Results None recorded. Procedure Notes None recorded. Medical Equipment None Reported. Allergies Allergen ID Allergen Name Allergen Category Reaction Reaction Severity Criticality Documentation Date Start Date Code Code System Note Provider Name and Address Organization Details Recorded Time 8860558 Product containin g penicilli n (product) medicatio n rash Not available Not available 03/11/2022 46009 8001 SNOMED Not Available [facility] 21:17:36 Medications Name Sig Start Date Stop Date Status Note LastModified by Organization Details LastModified Time clindamycin HCl 300 mg capsule TAKE 1 CAPSULE BY MOUTH EVERY 8 HOURS FOR 10 DAYS 04/09 completed Not Available Not Available Not Available Iron (ferrous sulfate) 325 mg (65 mg iron) tablet Take 1 tablet every day by oral route. active Not Available Not Available No t Available azithromyci n 250 mg tablet TAKE 2 TABLETS (500 MG) BY ORAL ROUTE ONCE DAILY FOR 1 DAY THEN 1 TABLET (250 MG) BY ORAL ROUTE ONCE DAILY FOR 4 DAYS 04/17 completed Not Available Not Available Not Available pravastatin 40 mg tablet TAKE 1 TABLET BY MOUTH EVERY EVENING active Not Available Not Available No t Available clarithromy venkata 500 mg tablet TAKE 1 TABLET BY MOUTH TWICE DAILY 04/09 completed Not Available Not Available Not Available omeprazole 40 mg capsule,del ayed release TAKE 1 CAPSULE BY MOUTH EVERY DAY 04/17 completed Not Available Not Available Not Available omeprazole 20 mg capsule,del ayed release TAKE 1 CAPSULE BY MOUTH TWICE DAILY X 2 WEEKS THEN 1 CAPSULE DAILY UNTIL FOLLOW UP 04/09 completed Not Available Not Available Not Available methylpredn isolone 4 mg tablets in a dose pack FOLLOW PACKAGE DIRECTION S 04/17 completed Not Available Not Available Not Available albuterol sulfate HFA 90 mcg/actuati on aerosol inhaler INHALE 2 PUFFS BY MOUTH EVERY 4 HOURS 04/17 completed Not Available Not Available Not Available fluticasone propionate 50 mcg/actuati on nasal spray,suspe nsion SPRAY 2 SPRAYS IN EACH NOSTRIL EVERY DAY 04/09 completed Not Available Not Available Not Available multivitami n active Not Available Not Available Not Available PreviDent 5000 Booster Plus 1.1 % dental paste USE DIRECTED active Not Available Not Available No t Available Vitals Date Recorded Respiratory rate Provider Name a nd Address Organization Details Last Updated DateTime 07/23/2022 16 /min Fahad Paez MD [address], [address], [facility], [facility] 07/25/2022 09:49:15 Date Recorded Body height Body mass index (BMI) Body weight Body temperature Heart rate Oxygen saturation Oxygen saturation in Arterial blood by Pulse oximetry Provider Name and Address Organization Details Last Updated DateTime 3 180.34 cm 25.8 kg/m2 54896.5 9 g 96.5 [degF] 81 /min 96 % 96 % Arti Orozco [facility], [facility] 3 14:31:55 Date Recorded Systolic And Diastolic Systolic And Diastolic Provider Name and Address Organization Details Last Updated DateTime 07/23/2022 110/70 mm[Hg] 110/68 mm[Hg] Nathalie Gage [facility], [facility] 07/24/2022 14:58:47 Date Recorded Body height Body mass index (BMI) Body weight Respiratory rate Heart rate Oxygen saturation Oxygen saturation in Arterial blood by Pulse oximetry Body temperature Systolic And Diastolic Provider Name and Address Organization Details Last Updated DateTime 3 180.34 cm 25.8 kg/m2 68021.5 9 g 16 /min 83 /min 93 % 93 % 98.8 [degF] 100/62 mm[Hg] August Pal [facility], [facility] 3 14:00:41 Date Recorded Body mass index (BMI) Body height Oxygen saturation Oxygen saturation in Arterial blood by Pulse oximetry Heart rate Body weight Systolic And Diastolic Provider Name and Address Organization Details Last Updated DateTime 2 26.3 kg/m2 180.34 cm 98 % 98 % 84 /min 14344.4 7 g 124/70 mm[Hg] Not Available [facility] 2 21:12:39 Date Recorded Body height Body mass index (BMI) Body weight Heart rate Oxygen saturation Oxygen saturation in Arterial blood by Pulse oximetry Respiratory rate Body temperature Systolic And Diastolic Provider Name and Address Organization Details Last Updated DateTime 3 180.34 cm 26.8 kg/m2 44551.7 4 g 71 /min 97 % 97 % 16 /min 99.1 [degF] 118/60 mm[Hg] August [facility] 09:23:12 Date Recorded Systolic And Diastolic Provider Name and Address Organization Details Last Updated DateTime 04/17/2023 110/72 mm[Hg] Fahad Paez MD [address] [address], [place], [address], [facility] 04/17/2023 14:26:04 Date Recorded Body height Body mass index (BMI) Body weight Body temperature Heart rate Respiratory rate Oxygen saturation Oxygen saturation in Arterial blood by Pulse oximetry Provider Name and Address Organization Details Last Updated DateTime 180.34 cm 25.4 kg/m2 10923.8 1 g 98.7 [degF] 82 /min 16 /min 98 % 98 % Khushirebel Vázquez [facility] 13:46:57 Social History Question Answer Notes LastModified by Organizat ion Details LastModified Time Tobacco Smoking Status Former Smoker Arti hoff, [facility] 07/23/2022 14:42:49 What Type Of Diet Are You Following? REGULAR [email or web address] Information not available 07/23/2022 When Did You Quit Smoking? 16+yearssinc elastcigaret te [email or web address] Information not available 07/23/2022 Alcohol Use No Information n ot available 07/23/2022 Do You Smoke? No [email or web address] Information not available 07/23/2022 What Was The Date Of Your Most Recent Tobacco Screening? 04/17/2023 [email or web address] Information not available 04/17/2023 Have You Ever Been Counseled For Unhealthy Alcohol Use? No [email or web address] Information not available 07/23/2022 What Is Your Relationship Status? [email or web address] Information not available 07/23/2022 Do You Use Your Seat Belt Or Car Seat Routinely? Yes [email or web address] Information not available 07/23/2022 Has Tobacco Cessation Counseling Been Provided? No [email or web address] Information not available 07/23/2022 How Many Years Have You Smoked Tobacco? 14 1.5 PPD [email or web address] Information not available 07/23/2022 Do You Have Any Dietary Restrictions? No [email or web address] Information not available 07/23/2022 Sex: Male Functional Status Question Answer Note LastModified by Organizat ion Details LastModified Time How many times per week do you consume alcohol? Less than 1 time per week [email or web address] Information not available 07/23/2022 Do you use any illicit or recreational drugs? No [email or web address] Information not available 07/23/2022 Do you or have you ever used any other forms of tobacco or nicotine? No [email or web address] Information not available 07/23/2022 What is your level of alcohol consumption? Occasional [email or web address] Information not available 07/23/2022 Are you currently employed? No [email or web address] Information not available 07/23/2022 Do you have transportation difficulties? No Information not available 07/23/2022 Are you able to care for yourself? Yes [email or web address] Information n ot available 07/23/2022 What is your exercise level? Heavy [email or web address] Information not available 07/23/2022 Mental Status None recorded. Family History Relationship Description Onset Age of this Age Resolved Age Notes LastModified by Organization Details LastModified Time Father Family history of malignant neoplasm 77 Lung [email or web address] Not available 2022 13:29:27 Mother 49 Blood clot [email or web address] Not available 04/17/2023 13:29:27 Brother Heart disease [email or web address] Not available 2022 14:45:02 Brother Hypertensive disorder [email or web address] Not available 2022 14:45:12 Medical History Condition Response Cancer (location) N Coronary Artery Disease N Other Y Gout N Kidney Stones N Measles/Mumps Y Arthralgia N Vomiting N Yeast Infection N Sexually Transmitted Disease N Blood Clots N Depression N Wheezing N Pneumonia N Prostate Problems N Parkinson's N Paralysis N Headaches/Migraines N Cardiac Pacemaker/defibrillator N Dizziness N Arthritis Y Night Sweats N Artificial Joint N Blood in Stool N Crohn's Disease N HIV/AIDS N Stroke/TIA N Kidney Disease N Hiatal Hernia N High blood pressure N Gallbladder disease N Weight Loss N Alcohol Overuse N Blood Thinner Treatment N Gallstones N Hypogonadism N Nervous Breakdown N Cosme's Esophagus N Muscle Aches N Urinary Problems N Nausea N Gastritis N Back pain N Rheumatic Fever N Bleeding Disorder N Osteopenia/Osteoporosis N inflammation of vein N Asthma N Ostomies (location) N Seizures N Swelling/Edema N Jaundice N Hepatitis N Cirrhosis N Chicken Pox Y Allergies (other than meds) N Diarrhea N Thyroid Disease N Emphysema/COPD N Lung Disease N Vascular Disease N Rash/Skin Condition N Amputation (location) N Nerve Damage / Neuropathy N Blood in Urine N Sleep disorder/Insomnia N Heart disease / Heart Attack N Shortness of Breath N Colon Problems N High Cholesterol Y Serious Injuries N Dialysis N Leg Cramping N Chronic Cough N Memory Loss/Alzheimer's N Fever/Chills N Congestive heart failure N Falls N Hormone Replacement N Diabetic Eye Disease N Anemia N Chest Pain N Colon Polyps N Hospitalizations (other than operations) Y Diabetes N Cardiac Arrhythmias /irregular heart rat e N Heart Murmur N Phlebitis N Anxiety/Stress N Vision Problems N Erectile / Sexual Dysfunction N Epilepsy N Morning Cough N Sleep Apnea N Fainting N Bronchitis N GERD/Ulcer N Immunizations Vaccine Type Date Status Note Provider Nam e and Address Organization Details Recorded Time Influenza, high-dose, quadrivalent, PF 2 [facility] 14:32[facility]12 COVID-19, mRNA, LNP-S, PF, 30 mcg/0.3 mL dose, deb-sucrose 2 [facility] 14:32:12 COVID-19, mRNA, LNP-S, bivalent, PF, 30 mcg/0.3 mL dose 2 [facility] 14:32:12 COVID-19, mRNA, LNP-S, PF, 30 mcg/0.3 mL dose, deb-sucrose 1 completed Khushi Vázquez [facility] 04/17/2023 13:35:17 pneumococcal polysaccharide PPV23 0 completed Khushi Vázquez [facility] 04/17/2023 13:35:17 Pneumococcal conjugate PCV 13 7 completed Khushi Vázquez [facility] 04/17/2023 13:35:17 zoster live 7 completed Khushi Gurpreet [facility], [facility] 04/17/2023 13:35:17 Tdap 7 [facility], [facility] 04/17/2023 13:35:17 zoster recombinant 3 completed [facility], [facility] 04/17/2023 13:35:17 COVID-19, mRNA, LNP-S, PF, deb-sucrose, 30 mcg/0.3 mL 3 [facility] 04/17/2023 13:35:17 RSV, recombinant, protein subunit RSVpreF, adjuvant reconstituted, 0.5 mL, PF 3 [facility] 04/17/2023 13:35:17 zoster recombinant 3 [facility] 04/17/2023 13:35:17 Influenza, adjuvanted, quadrivalent, PF 3 completed Khushi Gurpreet [facility], [facility] 04/17/2023 13:35:17 COVID-19, mRNA, LNP-S, bivalent, PF, 30 mcg/0.3 mL dose 3 completed [facility], [facility] 04/17/2023 13:35:17 Past Encounters Encounter ID Performer Location Encounter Start Date Encounter Closed Date Diagnosis/Indication Diagnosis SNOMED-CT Code Diagnosis ICD10 Code Diagnosis Note [id number] [facility] [address] [address] 06/11/2021 00:00:00 06/14/2021 07:49:06 [id number] [facility] [address] [address] 12/11/2021 00:00:00 12/16/2021 17:28:24 [id number] MD [facility]ONI [facility] [address] [place] [address] 07/23/2022 13:40:22 07/23/2022 15:27:34 Monoclonal gammopathy of uncertain significance [id number] D47.2 Hyperlipidemia 09139887 E78.5 [id number] XIMENA SOUSA [address] [place] [address] 11/27/2022 13:26:22 11/27/2022 15:50:27 Screening for malignant neoplasm of prostate [id number] Z12.5 Iron defic iency anemia 34135991 D50.9 Hyperlipidemia 02281095 E78.5 Monoclonal gammopathy of uncertain significance [id number] D47.2 Depression screening 171 347202 Z13.31 [id number] XIMENA SOUSA [address] [place] [address] 04/09/2023 09:04:11 04/09/2023 10:12:31 Suspected COVID-19 [id number] Z20.822 Atypical chest pain 1025 79137 R07.89 Patient complains of intermitte nt atypical tightness in his chest, worse with inspiratio nI obtained an EKG in my office today which was normal sinus rhythm without any acute ST-T wave changes. Chest x-ray has been done on March 19 in the emergency room at [facility] and was essentiall y normal/neg ative.Radha ent has an appointmen t next week with Dr. Aj and he will discuss although his symptoms seem to be due to bronchitis /congestio n than that of cardiac nature.Renetta vyas has been seen for the same concern a few weeks ago on March 19 in the emergency room and no cardiac abnormalit y has been found although his D-dimer was slightly elevated at that time which does not appear that it was worked up with a CTA chest-unsu re why. Patient denies at this point any shortness of breath feeling of impending doom and chest pain . I calculated the Wells score which was 0.I advised him to start on a baby aspirin now and continue until he has a full cardiac workup with Dr. Santos any worsening increasing shortness of breath chest pain palpitatio ns or feeling of impending doom I advised him to call immediatel y 911 or go to the nearest emergency roomPatien t is returning back to our office in 1 week at which time we will reassess Acute bronchitis [id number] 2 J20.9 Acute, gradually worsening since onset, acute bronchitis :RX as prescribed , sent electronic ally: reviewed risk vs. benefits, and side effects and dosage. May take Mucinex DM 600 mg tablet, extended release every 12 hours by oral route as needed for cough and congestion OTC (over the counter). May take OTC antihistam ine or decongesta nt, nasal spray, throat lozenges, vitamin C, and zinc products for symptom control. For pain or fever: ok to take OTC Tylenol 1,000 mg (no more than 4,000 mg/24 hrs) every 6 hours for fever as instructed on the bottle. May alternate with OTC ibuprofen 400-600mg every 6 hrs or as instructed on the bottle. Increase PO fluids, rest, and practice good hand hygiene to reduce the spread of illness. Patient instructed to call or return to office if symptoms worsen, do not improve, fever develops, or with any questions/ concerns. [id number] Fahad Paez MD [facility] [address] [place] [address] 04/17/2023 13:29:25 04/17/2023 14:25:57 Adult health examination [id number] Z00.00 Annual Wellness Visit done today Increased body mass index 46171539 Z68.25 Elevated BMI 25-25.9. Dietary restrictio ns and better therapeuti c lifestyle discussed Diet education 80521836 Z71.3 see above Depression screening 171 272089 Z13.31 Health Concerns Section Related Observation LastModified by Organization Detai ls LastModified Time None Recorded Concern Status LastModified by Organization Details LastModified Time None Recorded Advance Directives Directive None Recorded Payers Insurance Date Sequence Insurance Name Policy Number Policy Reddy Covered Member ID Reddy Member ID Guarantor Name 04/24/2023 1 [place] Justin Mckeon [id number] Justin Mckeon 04/24/2023 2 [facility] Justin Mckeon [id number] Justin Mckeon Notes Date Note Type Note Provider Name and Address Organization Details Recorded Time 3 text/html DyslipidemiaReported bypatient.Reason for visit:establishing care Diagnosis:hyperlipidemia Complications due to diagnosis:no complicatons Presenting symptoms/method of diagnosis:asymptomatic / coincidental finding on test Current therapy:medication list reviewed Current tests/results:Lipid profile shows good control as out patient Current Symptoms/Concerns:no myalgias; no chest pain; no shortness of breathHematologic ComplaintReported bypatient.Reason for visit:establishing care Diagnosis:Monoclonal gammopathy(IgM MGUS) Current control and compliance:usually well controlled/stable Current symptoms/concerns:none Fahad Paez MD [address], [employer] [place], [address], [facility] [email or web address] 07/25/2022 09:49:58 3 text/html DyslipidemiaReported bypatient.Reason for visit:continued care of chronic complaint Diagnosis:hyperlipidemia Complications due to diagnosis:no complicatons Presenting symptoms/method of diagnosis:asymptomatic / coincidental finding on test Current therapy:medication list reviewed Current tests/results:Lipid profile shows good control as out patient Current Symptoms/Concerns:no myalgias; no chest pain; no shortness of breathHematologic ComplaintReported bypatient.Reason for visit:continued care of chronic complaint Diagnosis:Monoclonal gammopathy(IgM MGUS); JUN Current control and compliance:usually well controlled/stable Current symptoms/concerns:none KAL NARAYAN APRN [address], [place] [place], [address], [facility], [employer] 11/27/2022 15:21:49 3 text/html Cough / ColdReported bypatient.Reason for visit:acute complaint Quality:dry / nonproductive Severity:moderate; unchanged Duration:constant Onset/Timing:gradual;3 weeks ago Context:usual activity Alleviating factors:nothing helps Associated Symptoms:congestion;post nasal drip; no shortness of breath; no sore throat; chest tightness KAL NARAYAN APRN [address], [employer] [place], [address], [facility], [facility] 04/09/2023 14:35:55 3 text/html ANNUAL WELLNESS VISIT QUESTIONNAIRE Has the patient had any change or additions to their Medical Care Team since the last visit? i.e. pharmacy, medical suppliers, doctors No What is the Patient's living arrangements? Live with Spouse What type of residence does the Patient live in? Single Family Home How many stories (floors) to the Patient's residence? Single Story (1 floor) Does the Patient have smoke / CO detectors in the home? Yes Does the Patient use any of the following Respirator Machines? Nebulizer - No Oxygen - No CPAP/BiPAP - No Is the Patient able to afford his/her medications? Yes What type of transportation does the Patient use? I use my own car Has the Patient had a weight change in the past 6 months? No What type of diet the patient is currently following? Regular What best describes the Patient's level of Physical activity? Moderate Does the Patient use Tobacco Products? No Has the Patient seen a Dentist in the last 12 months? Yes Does the Patient always use a seat belt routinely? Yes Does the Patient use sunscreen routinely? Yes Does the Patient wear a helmet when riding a bicycle/motorcycle? Yes Is the Patient sexually active? Yes, uses safe sex practices How would the patient rate their health compared to others your age? Better How would the patient rate their health today compared to last year? Same Does the Patient have Pain? No Is the patient using narcotics/opioids for pain? No Is the patient taking or using any other harmful substances? No How much urinary incontinence does the Patient experience? None Does the Patient or people around the Patient have concerns about the Patient's hearing? No Does the Patient or people around the Patient have concerns about the Patient's vision? Currently wear glasses/contacts Does the Patient use any of the following for mobility assistance? Cane - No Crutches - No Walker - No Wheelchair/Scooter - No In the past year has the Patient had concerns about balance or walking or feeling unsteady on his/her feet? No In the past year has the Patient had a fall? No STEADI Fall Risk Assessment I have fallen in the past year. - No I use or have been advised to use a cane or walker to get around safely. - No Sometimes I feel unsteady when I am walking. - No I steady myself by holding onto furniture when walking at home - No I am worried about falling. - No I need to push with my hands to stand up from a chair. - No I have some trouble stepping up onto a curb. - No I often have to mcgrath to the toilet. - No I have lost some feeling in my feet. - No I take medicine that sometimes makes me feel light-headed or more tired than usual - No I take medicine to help me sleep or improve my mood. - No I often feel sad or depressed. - No Does the Patient's home have any trip hazards like throw rugs or uneven floors? No Does the Patient need assistance with Bathing/Toileting/Eating Bathing/Grooming - No Toileting - No Eating - No Does the Patient or the people around the Patient have concerns about his/her memory? No Does the Patient have an Advance Directive (Living Will)? No Colonoscopy Date 01/02/2023 Date of Last Prostate Cancer Screening 01/01/2023 PHQ Score No or Minimal depression, (0). Imported from [employer] on 04/17/2023 Fahad Paez MD [address] [facility] [address], [place], [address], [facility] - [facility], [facility] 04/21/2023 14:04:05
--- OUTSIDE RECORDS SUMMARY | 2024-11-29 08:43 | XMS_ITS | Data Portability ---
Author Organization [place] - [facility] [place], [facility] Address [address] [place] [address] Assessment Encounter Date Assessment Date Assessment LastModified [...] None recorded. Lab lipid panel, serum 2021 022 PARISH Not available 13:05:23 PTH (parathyroi d hormone), intact, serum or plasma 2021 022 [email or web address] Not available 10:31:36 CMP, serum or plasma 2021 022 PARISH Not available 18:37:04 calcium, ionized, blood 2021 022 PARISH Not available 18:37:05 Referral cardiologis t referral 2021 022 Masood Bonilla MD ([facility]), [address], [place], [address], 15:43:[address] referral 2021 022 0 [facility], [address] [facility], [place], [address], 16:19:24 Procedures None recorded. Surgeries None recorded. Imaging None recorded. Medication Orders None recorded. Patient TargetsNo targets recorded. Patient Instructions Encounter Date Encounter Id Patient Instructions Last Modified By Organization Details Last Modified Time 06/11/2021 [id number] chest pain: care instructions Not available 06/11/2021 16:38:17 hypercalcemia: care instructions Not available 06/11/2021 16:24:34 Consideration fo r MDM included time spent. The Time spent on on this patient encounter may have included (But not exclusively limited to): Time spent on referrals to other health critical care registered nurse Time spent documenting the encounter Time spent [...] ordering treatment(s) Not available 06/14/2021 07:48:50 12/11/2021 [id number] When You Want to Lose Weight: Care [...] Time spent on referrals to other health critical care registered nurse Time spent documenting the encounter Time spent [...] Not available 12/16/2021 17:27:50 Reason for Referral Pharmacist Manager Referral for S creening for malignant neoplasm of skin Referring Physician: Evan Villegas [facility], Encounter Date: 06/11/2021 Storage Manager Referral for Ch est pain Referring Physician: Evan Villegas [facility], Encounter Date: 06/11/2021 Results Created Date Observation Date Name Description Value Unit Range Abnormal Flag Note LastModifiedBy Organization Detail LastModifiedTime 06/12/19 22 06/13/2021 PTH, INTAC T AND CALCI UM parathyroid [...] or Low Carmen l High Not Available [facility] [address], [place], [address], 06/13/2021 18:37:03 06/12/19 22 06/13/2021 PTH, INTAC T AND CALCI UM calcium 9.3 mg/dL 8.6-10 .3 normal Not Available [facility] [place] [facility] [address], [place], [address], 06/13/2021 18:37:03 06/12/19 22 06/13/2021 COMPR EHENS JULIAN METAB OLIC PANEL glucose 89 mg/dL 65-99 normal Fasti ng refer ence inter stephanie Not Available [facility] [place] [facility] [address], [place], [address], 06/13/2021 18:37:04 06/12/19 22 06/13/2021 COMPR EHENS JULIAN METAB OLIC PANEL urea nitrogen (BUN) 21 mg/dL 7-25 normal Not Available [facility] [address], [place], [address], 06/13/2021 18:37:04 06/12/19 22 06/13/2021 COMPR EHENS JULIAN METAB OLIC PANEL creatinine 1.09 mg/dL 0.70-1 .25 normal For patie nts >49 years of age, the refer ence limit for Creat inine is appro ximat schuyler 13% highe r for peopl e ident ified as Afric an-Am francisco javier n. Not Available [facility] [address], [place], [address], 06/13/2021 18:37:04 06/12/19 22 06/13/2021 COMPR EHENS JULIAN METAB OLIC PANEL eGFR non-afr. indonesian 70 mL/mi n/1.7 3m2 > or = 60 normal Not Available [facility] [address], [place], [address], 06/13/2021 18:37:04 06/12/19 22 06/13/2021 COMPR EHENS JULIAN METAB OLIC PANEL eGFR 82 mL/mi n/1.7 3m2 > or = 60 normal Not Available [facility] [place] [facility] [address], [place], [address], 06/13/2021 18:37:04 06/12/19 22 06/13/2021 COMPR EHENS JULIAN METAB OLIC PANEL BUN/creatini ne ratio NOT APPLIC ABLE (calc ) 6-22 Not Available [facility] [address], [place], [address], 06/13/2021 18:37:04 06/12/19 22 06/13/2021 COMPR EHENS JULIAN METAB OLIC PANEL sodium 138 mmol/ L 135-14 6 normal Not Available [facility] [address], [place], [address], 06/13/2021 18:37:04 06/12/19 22 06/13/2021 COMPR EHENS JULIAN METAB OLIC PANEL potassium 4.6 mmol/ L 3.5-5. 3 normal Not Available [facility] [address], [place], [address], 06/13/2021 18:37:04 06/12/19 22 06/13/2021 COMPR EHENS JULIAN METAB OLIC PANEL chloride 101 mmol/ L 98-110 normal Not Available [facility] [address], [place], [address], 06/13/2021 18:37:04 06/12/19 22 06/13/2021 COMPR EHENS JULIAN METAB OLIC PANEL carbon dioxide 29 mmol/ L 20-32 normal Not Available [facility] [address], [place], [address], 06/13/2021 18:37:04 06/12/19 22 06/13/2021 COMPR EHENS JULIAN METAB OLIC PANEL calcium 9.3 mg/dL 8.6-10 .3 normal Not Available [facility] [address], [place], [address], 06/13/2021 18:37:04 06/12/19 22 06/13/2021 COMPR EHENS JULIAN METAB OLIC PANEL protein, total 8.0 g/dL 6.1-8. 1 normal Not Available [facility] [address], [place], [address], 06/13/2021 18:37:04 06/12/19 22 06/13/2021 COMPR EHENS JULIAN METAB OLIC PANEL albumin 3.6 g/dL 3.6-5. 1 normal Not Available [facility] [address], [place], [address], 06/13/2021 18:37:04 06/12/19 22 06/13/2021 COMPR EHENS JULIAN METAB OLIC PANEL globulin 4.4 g/dL_ (calc ) 1.9-3. 7 high Not Available [facility] [address], [place], [address], 06/13/2021 18:37:04 06/12/19 22 06/13/2021 COMPR EHENS JULIAN METAB OLIC PANEL albumin/glob ulin ratio 0.8 (calc ) 1.0-2. 5 low Not Available [facility] [address], [place], [address], 06/13/2021 18:37:04 06/12/19 22 06/13/2021 COMPR EHENS JULIAN METAB OLIC PANEL bilirubin, total 0.3 mg/dL 0.2-1. 2 normal Not Available [facility] [address], [place], [address], 06/13/2021 18:37:04 06/12/19 22 06/13/2021 COMPR EHENS JULIAN METAB OLIC PANEL alkaline phosphatase 65 U/L 35-144 normal Not Available [facility] [address], [place], [address], 06/13/2021 18:37:04 06/12/19 22 06/13/2021 COMPR EHENS JULIAN METAB OLIC PANEL AST 21 U/L 10-35 normal Not Available [facility] [address], [place], [address], 06/13/2021 18:37:04 06/12/19 22 06/13/2021 COMPR EHENS JULIAN METAB OLIC PANEL ALT 17 U/L 9-46 normal Not Available [facility] [address], [place], [address], 06/13/2021 18:37:04 06/12/19 22 06/13/2021 CALCI UM, IONIZ ED calcium, ionized 5.2 mg/dL 4.8-5. 6 normal Not Available [facility] [place] [facility] [address], [place], [address], 06/13/2021 18:37:05 12/15/19 22 12/15/2021 LIPID PANEL , STAND HERLINDA cholesterol, total 115 mg/dL <200 normal Not Available [facility] [address], [place], [address], 12/15/2021 13:05:23 12/15/19 22 12/15/2021 LIPID PANEL , STAND HERLINDA HDL cholesterol 39 mg/dL > or = 40 low Not Available [facility] [address], [place], [address], 12/15/2021 13:05:23 12/15/19 22 12/15/2021 LIPID PANEL , STAND HERLINDA triglyceride s 50 mg/dL <150 normal Not Available [facility] [address], [place], [address], 12/15/2021 13:05:23 12/15/19 22 12/15/2021 LIPID PANEL [...] lated using the Tita n-Hop kins calcu latgreg n, which is a valid ated novel metho d provi ariel wise r accur acy than the Fried jenny equat ion in the estim ation of LDL-C . Tita n SS et al. ZEYAD. 2013; 310(9 0): 2061- 2068 (http ://ed ucati on.Jesu sandersonMonotype Imaging Holdingss. com/f aq/FA Q164) Not Available [facility] [place] [facility] [address], [place], [address], 12/15/2021 13:05:23 12/15/19 22 12/15/2021 LIPID PANEL , STAND HERLINDA chol/HDLC ratio 2.9 (calc ) <5.0 normal Not Available [facility] [place] [facility] [address], [place], [address], 12/15/2021 13:05:23 12/15/19 22 12/15/2021 LIPID PANEL , STAND HERLINDA non HDL cholesterol 76 mg/dL _(igor c) <130 normal For patie nts with diabe jennifer plus 1 major ASCVD risk facto r, treat ing to a non-H DL-C goal of <100 mg/dL (LDL- C of <70 mg/dL ) is consi dered a thera peuti c optio n. Not Available [facility] [place] [facility] [address], [place], [address], 12/15/2021 13:05:23 12/26/19 22 12/26/2021 PSA (FREE AND TOTAL ) PSA, total 0.8 NG/mL < or = 4.0 normal Not Available [facility] [place] [facility] [address], [place], [address], 12/26/2021 13:50:35 12/26/19 22 12/26/2021 PSA (FREE AND TOTAL ) PSA, free 0.2 NG/mL normal Not Available [facility] [place] [facility] [address], [place], [address], 12/26/2021 13:50:35 12/26/19 22 12/26/2021 PSA (FREE AND TOTAL ) PSA, % free 25 %_(ca lc) >25 low PSA(n g/mL) Free PSA(% ) Estim ated( x) Proba bilit y of Cance r(as% ) 0-2.5 (*) Appro x. 1 2.6-4 .0(1) 0-27( 2) 24(3) 4.1-1 0(4) 0-10 56 11-15 28 16-20 20 21-25 16 >or =26 8 >10(+ ) N/A >50 Refer ences :(1)C yusuf zelaya et al.:U rolog y 60: 469-4 [...] ds canno t be used inter espinoza eably . PSA level s, regar dless of value , shoul d not be inter prete d as absol chickahominy indian tribe evide nce of the prese nce or absen ce of [facility] se. Not Available [facility] [place] [facility] [address], [place], [address], 12/26/2021 13:50:35 Result Notes None recorded. Problems Name Problem SNOMED Code Status Onset Date Resolution Date Notes Provider Name and Address Organization Details Recorded Time Hyperproteinem ia 07031904 Active 2021 Evan salinas MD [address] [place] [address],[place] [address], [address], [address] 07:46:06 Chest pain 66687205 Active 2021 Evan salinas MD [address] [place], [place] [address]UN[place] [address], [address], [address] 07:46:46 Hypercalcemia 58866214 Active 2021 vEan salinas MD [address] [place], [place] [address]UNI [address], [address], [address] 07:46:51 Monoclonal free kappa light chain detected 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 Procedures Surgical History Date Name Laterality Status Provider Name and Address Organization Details Recorded Time 07/01/202 1 [facility] [place] 06/11/2021 15:03:45 7 Hernia Repair completed Osiris MAGANA [address] 06/11/2021 15:03:36 Imaging Results None recorded. Procedure Notes None recorded. Medical Equipment None Reported. Allergies Allergen ID Allergen Name Allergen Category Reaction Reaction Severity Criticality Documentation Date Start Date Code Code System Note Provider Name and Address Organization Details Recorded Time 424171 Product containin g penicilli n (product) medicatio n Not available Not available Not available 06/11/2021 10787 8001 SNOMED Osiris hoff [address] 15:01:52 Medications Name Sig Start Date Stop [...] Address Organization Details Last Updated DateTime 2 80586.1 1 g 26.4 kg/m2 180.34 cm 66 /min 97 % 97 % 130/81 mm[Hg] [facility] [place] 2 15:01:22 Date Recorded Body height Body mass index (BMI) Body weight Heart rate Oxygen saturation Oxygen saturation in Arterial blood by Pulse oximetry Systolic And Diastolic Provider Name and Address Organization Details Last Updated DateTime 2 180.34 cm 26.3 kg/m2 78849.4 7 g 84 /min 98 % 98 % 124/70 mm[Hg] [facility]is [facility] [place] 2 09:03:38 Social History Question Answer Notes LastModified by Organizat ion Details LastModified Time Tobacco Smoking Status Former Smoker CHINO Cartagena [facility] [place] 06/11/2021 15:02:24 Do You Have An Advance Directive? No Information not available 06/11/2021 Do You Wear A Helmet When Biking? Yes Information not available 12/11/2021 Are You Blind Or Do You Have Difficulty Seeing? No Information not available 12/11/2021 Is Blood Transfusion Acceptable In An Emergency? Yes Information not available 12/11/2021 What Is Your Level Of Caffeine Consumption? Occasional Information not available 06/11/2021 Are You Deaf Or Do You Have Serious Difficulty Hearing? No Information not available 12/11/2021 What Type Of Diet Are You Following? REGULAR Information not available 06/11/2021 When Did You Quit Smoking? 16+yearssincel astcigarette Information not available 12/11/2021 Are There Any Guns Present In Your Home? No Information not available 06/11/2021 Do You Have A Medical Power Of Automat Watcher? No Information not available 12/11/2021 How Many Children Do You Have? 2 Information not available 12/11/2021 Do You Have Any Pets? Yes Information not available 12/11/2021 What Is Your Relationship Status? Information not available 06/11/2021 Do You Use Your Seat Belt Or Car Seat Routinely? Yes Information not available 06/11/2021 Are You Sexually Active? Yes Information not available 12/11/2021 Do You Have Smoke And Carbon Monoxide Detectors In Your Home? Yes Information not available 06/11/2021 Are You Passively Exposed To Smoke? No Information no t available 06/11/2021 Do You Use Sunscreen Routinely? Yes Information not available 06/11/2021 How Many Years Have You Smoked Tobacco? 14 Information not available 06/11/2021 Do You Have Difficulty Walking Or Climbing Stairs? No [facility] Information not available 12/11/2021 Sex: Unknown Functional Status Question Answer Note LastModified by Organizat ion Details LastModified Time Do you use any illicit or recreational drugs? No Information not available 12/11/2021 Do you or have you ever used any other forms of tobacco or nicotine? No Information not available 12/11/2021 What is your level of alcohol consumption? None Information not available 06/11/2021 Are you currently employed? No [facility] Information not available 12/11/2021 Do you have difficulty doing errands alone? No [facility] Information not available 12/11/2021 Are you able to care for yourself? Yes Information n ot available 12/11/2021 Do you have difficulty dressing or bathing? No Information not available 12/11/2021 What is your exercise level? Moderate Information not available 06/11/2021 Mental Status Question Answer Note LastModified by Organization D etails LastModified Time Do you have difficulty concentrating, remembering or making decisions? No [facility] Information no t available 12/11/2021 Family History Relationship Description Onset Age of this Age Resolved Age Notes LastModified by Organization Details LastModified Time Father Family history of malignant neoplasm Not available 2021 15:04:28 Medical History Condition Response Hyperlipidemia Y Past Encounters Encounter ID Performer Location Encounter Start Date Encounter Closed Date Diagnosis/Indication Diagnosis SNOMED-CT Code Diagnosis ICD10 Code Diagnosis Note [id number] Evan Villegas MD [facility] [place] [id number] [facility] [address] [place] [address] 06/11/2021 14:27:33 06/11/2021 16:40:33 Hyperprotein[facility] 35220075 [facility] 1 year follow up in get labs Hypercalcemia 10031933 E 83.52 albumin corrected 10.2it was 10.3 and correted was 10.5will do work up Screening for malignant neoplasm of skin 202863695 Z12.83 Utilizing the [address] 4, an [...] need: -dermatolo gy/surgica l referral Chest pain 24487852 R07. 9 atypicalwi ll send to cardiology for evaluation [id number] Evan Villegas MD [facility] [address] [place] [address] 12/11/2021 08:58:19 12/11/2021 09:34:04 Monoclonal free kappa light chain detected 299927273 R89.4 following with heme Hyperlipidemia 67921524 E78.5 lipids Hyperproteinemia 7031724 9 E88.09 following with heme Hyperimmun oglobulin M syndrome 85696583 D80.5 following with heme Overweight 723969230 E66 .3 Recommend weight loss of 1 [...] Member ID Reddy Member ID Guarantor Name 12/03/2023 1 [place] Justin Mckeon [id number] Justin Mckeon 12/16/2021 2 [facility] Justin Mckeon [id number] Justin Mckeon Notes Date Note Type Note Provider Name and Address Organization Details Recorded Time 2 text/html Initial Bhhh04tn male who presents for initial visit:PMHhyperlipidemiaS ome atypical chestpain - 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 Singhjust had blood work for FCSprotein 8.2albumin 3.6 kappa light chains+igm kappa monoclonal detected was found to have hypercalcemia but repeat was norm phizercovid vaccine06/27/213/06/2109// /12/07 Evan Villegas MD [address] [facility] [facility], [place], [address], [facility] [place] 12/16/2021 17:28:24
--- OUTSIDE RECORDS SUMMARY | 2024-11-29 08:43 | XMS_ITS | Encounter Summary ---
Author Organization [facility] Address [address] [place] [address] Care Team Providers Care House Carpenter Name Role Phone Unavailable Primary Care Provider Unavailabl e Encounter Details Date Type Department Care Team (Late st Contact Info) Description 08/07/2023 Lab Requisition [facility] - Pathology Lab [address] [place] [address] Jason Meehan MD [address] [address] Illness, unspecified Social History Tobacco Use [...] Report Bone Marrow Patholog y Report Case: [id number] Authorizing Provider: Jason Meehan Collected: 08/06/2023 10:27 AM MD David Ordering Location: [facility] - Received: 08/07/2023 04:42 PM Pathology Lab Pathologist: Henrry Gage MD Specimens: A) - Bone Marrow Clot B) - Bone Marrow Core 08/11/2023 12:47 PM CDT [facility] Final Diagnosis Bone marrow, aspirate, clot section, and core biopsy: - 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 - See description. 08/11/2023 12:47 PM [facility] at 1544 CDT AP Comment Immunohistochemistry is performed to assess staining cells in an architectural context: CD20 highlights ~90% of marrow cellularity as lymphoid cells. CD138 highlights ~5-7% of marrow elements as plasma cells. CD3 highlights background T-lymphocytes. 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 08/11/2023 12:47 PM [facility] Peripheral Smear Description RBC: normocytic anemia, marked Rouleaux formation. WBC: normal in number and morphology Platelets: normal in number and morphology. 08/11/2023 12:47 PM [facility] Bone Marrow Aspirate Differential count (200 cells): 0% blasts, 31% maturing myeloid precursors, 7% erythroid progenitors, 1% monocytes, 0% eosinophils, 50% lymphocytes, 10% plasma cells. Specimen quality: adequate. Spicules: numerous. Trilineage Hematopoiesis: present. Myeloid:Erythroid ratio: normal. Myeloid Maturation: normal, but decreased in number. Erythroid Maturation: normal, but decreased in number. Megakaryocyte morphology: normal size. 08/11/2023 12:47 PM [facility] Bone Marrow Core Biopsy and [...] similar to core biopsy. 08/11/2023 12:47 PM [facility] Flow Cytometry Summary Bone marrow, flow cytometry ([id number]): - Clonal kappa restricted B-cell population detected (~26% of overall events) - Minute clonal kappa restricted plasma cell population detected (~2% of overall events) 08/11/2023 12:47 PM [facility] Clinical History IgM monoclonal protein. 08/11/2023 12:47 PM CDT [facility] Microscopic Description Received are 20 slide(s) and 3 blocks labeled [id number] along with a copy of the outside pathology report. [place] [address] . All original materials are returned to the referring institution, along with a copy of our final report. 08/11/2023 12:47 PM CDT [facility] Pathologist Location at [facility] 08/11/2023 12:47 PM CDT [facility] Disclaimer The performance characteristics of all immunohistochemical and indirect immunofluorescence stains (if any) cited in this report were determined by the Histopathology Laboratory of [facility]. Some of these tests were developed by [...] attending (teaching) pathologist. 08/11/2023 12:47 PM [facility] Addendum 1 In situ hybridizatio n for kappa and lambda mRNA shows kappa restriction in plasma cells and plasmacytoid lymphocytes (kappa:lambda .5:1). Original diagnosis remains unchanged 08/11/2023 12:47 PM [facility] Addendum electronically signed by Henrry Gage MD on 08/11/2023 at 1247 CDT Embedded Images 08/11/2023 12:47 PM CDT [facility] Pathology/Cytology BONE MARROW SPECIMEN / Unknown 08/06/2023 10:27 AM CDT 08/07/2023 4:42 PM CDT Miscellaneous samples (specimen) BONE MARROW SPECIMEN / Unknown 08/06/2023 10:27 AM CDT 08/07/2023 4:42 PM CDT Jason Meehan MD LAB - PATHO LOGY/CYTOLOGY ORDERABLES Edited Result - Final [facility] [address] [place] [address], [facility] [phone] documented in this encounter Visit Diagnoses Diagnosis Illness, unspecified documented in this encounter
--- OUTSIDE RECORDS SUMMARY | 2024-11-29 08:43 | XMS_ITS | Clinical Summary ---
Author Organization [facility] Facility Address [address] [place] [address] Care Team Providers Care Landscape Drafter Name Role Phone Joy Henriquez MD Primary Care Provider [phone] Allergies Active Allergy Reactions Criticality Noted Date Comments Penicillins Rash Medium 06/10/2018 Minor reaction. PCN allergy form filled out Social History Tobacco Use Types Packs/Day Years Used Date Smoking Tobacco: Never Assessed Sex and Gender Information Value Date Recorded Sex Assigned at Not on file Legal Sex Male 3:33 PM EDT Gender Identity Not on file Sexual Orientation Not on file Last Filed Vital Signs Vital Sign Reading Time Taken Comments Blood Pressure 110/60 07/27/2024 2:12 PM CDT Pulse 72 07/27/2024 2:12 PM CDT Temperature 36.7 C (98 F) 07/27/2024 2:12 PM CDT Respiratory Rate 18 07/27/2024 2:12 PM CDT Oxygen Saturation 97% 07/27/2024 2:12 PM CDT Inhaled Oxygen Concentration - - Weight 88 kg (194 lb) 07/27/2024 2:12 PM CDT Height 180.3 cm (5' 11) 10/22/2023 2:25 PM CDT Body Mass Index 27.06 10/22/2023 2:25 PM CDT Plan of Treatment Upcoming Encounters Date Type Department Care Team (Late st Contact Info) Description 08/02/2025 12:30 PM CDT Office Visit [facility], [facility] [address] [facility] [address] [place] [address] Shoaib Murray, [address] [place] [phone] Health Maintenance Due Date Last Done Comments Colorectal Cancer Screening: Annual FOBT 08/14/2003 Colorectal Cancer Screening: Colonoscopy 08/14/2003 Colorectal Cancer Screening: Sigmoidoscopy 08/14/2003 Pneumococcal Vaccine: 50+ Years (4 of 4 - PCV20 or PCV21) 11/21/2024 11/22/2019, 12/27/2016, 12/01/2016 Influenza Vaccine (#1) 2025 , 02/01/2020, 02/04/2019, Additional history exists Hepatitis B Vaccine Aged Out No longe r eligible based on patient's age to complete this topic Insurance Medicare [facility] Advance Directives Documents on File Type Date Recorded 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
--- OUTSIDE RECORDS SUMMARY | 2024-11-29 08:43 | XMS_ITS | Encounter Summary ---
Author Organization [facility] Address [address] [facility] [facility] [place] [address] Care Team Providers Care Laundry Supervisor Name Role Phone Unavailable Primary Care Provider Unavailabl e Encounter Details Date Type Department Care Team (Late st Contact Info) Description 08/06/2023 Lab Requisition [facility] - Pathology Lab [address] [place] [phone] Jason Meehan MD [address] [facility] [address] [place] [address] Multiple myeloma not having achieved remission Social History Tobacco Use Types Packs/Day Years [...] AM CDT) Case Report Flow Cytometry Case: [id number] Authorizing Provider: Jason Meehan Collected: 08/06/2023 10:27 AM MD David Ordering Location: [facility] Physician [facility] - Received: 08/06/2023 01:52 PM Pathology Lab Pathologist: Henrry Gage MD Specimen: Bone Marrow 08/06/2023 4:36 PM CDT [facility] Final Diagnosis Bone marrow, flow cytometry: - Clonal kappa restricted B-cell population detected (~26% of overall events) - Minute clonal kappa restricted plasma cell population detected (~2% of overall events) 08/06/2023 4:36 PM [facility] PATH[facility] at 1636 CDT Flow Cytometry Interpretation Viability: 88% B-cells: monoclonal, [...] flow cytometry specimen has been reviewed for nurse quality purposes. 08/06/2023 4:36 PM [facility] Flow Cytometry Results Differential Result Comment Flow Cell Count /uL 50,000 Total Viability % 88.0 Lymphocytes % 51 Dim CD45 Region % 13 Monocytes % 14 Granulocytes % 21 08/06/2023 4:36 PM [facility] Reason for test Multiple myeloma not having achieved remission (HCC) 203.00 08/06/2023 4:36 PM [facility] Client Specimen ID # [id number] 08/06/2023 4:36 PM [facility] Number of markers 14 were performed. A-2 Flow CD10 A-3 Flow CD13 A-5 Flow CD20 A-13 Flow CD117 A-14 FLOW CD138 A-1 Flow CD5 A-4 Flow CD19 A-6 Flow CD33 A-7 Flow CD34 A-8 Flow CD45 A-11 Flow CD38 A-12 Flow CD56 A-9 [place]+CD19+ A-10 Lambda+CD19+ 08/06/2023 4:36 PM [facility] Pathologist Location at [facility] 08/06/2023 4:36 PM [facility] Disclaimer Test performed at [facility], [address] [place] [address], [address]. *The established laboratory minimum viability is 70%. [...] complexity clinical testing. 08/06/2023 4:36 PM CDT [facility] Embedded Images 4:36 PM CDT [facility] Pathology/Cytolo gy BONE MARROW SPECIMEN / Unknown 08/06/2023 10:27 AM CDT 08/06/2023 1:52 PM CDT Jason Meehan MD LAB - PATHOLOGY/CYT OLOGY ORDERABLES Final Result [facility] [address] [facility] [address], [facility] [phone] documented in this encounter Visit Diagnoses Diagnosis Multiple myeloma not having achieved remission (HCC) Multiple myeloma, without mention of having achieved remission documented in this encounter
[2024-11-29 08:53] LABS: Hematocrit 42.8 % (42.0-52.0); Hemoglobin 14.6 g/dL (14.0-18.0); Immature Granulocyte Percent A 0.3 % (0-0.5); Lymphocytes Absolute Auto 2.18 K/mm3 (0.9-3.2); Mean Corpuscular HGB Conc 34.1 g/dl (32-36); Mean Corpuscular Hemoglobin 30.5 pg (26-34); Mean Corpuscular Volume 89.4 fl (80-100); Nucleated Red Blood Cells Absolute Auto 0.000 K/mm3 (0.0-0.012); Nucleated Red Blood Cells Perc 0.0 % (0.0-0.2); Platelet Count Result 199 k/mm3 (150-375); Red Blood Count 4.79 M/mm3 (4.6-6.20); White Blood Count 6.5 K/mm3 (4.5-10.0)
[2024-11-29 10:20] LABS: Alanine Aminotransferase 18 U/L (6-50); Albumin Level 4.0 g/dL (3.5-5.1); Alkaline Phosphatase 55 U/L (38-126); Anion Gap 7 mmol/L (4-12); Aspartate Amino Transferase 55 U/L (17-59); Bilirubin,Total 0.4 mg/dL (0.2-1.3); Blood Urea Nitrogen 15 mg/dL (9-20); Calcium 9.0 mg/dL (8.4-10.2); Carbon Dioxide 29 mmol/L (22-30); Chloride 104 mmol/L (98-107); Estimated Glomerular Filt Rate 60; Glucose 97 mg/dL (65-110); Potassium 4.3 mmol/L (3.4-5.0); Sodium 140 mmol/L (137-145); Total Protein 7.0 g/dL (6.3-8.2)
[2024-11-29 10:24] LABS: Immunoglobulin G 685 mg/dL (700-1600)
[2024-11-29 12:51] LABS: Immunoglobulin A < 40 mg/dL (70-400)
[2024-11-29 12:52] LABS: Immunoglobulin M 1050 mg/dL (40-230)
[2024-11-30 16:08] LABS: Albumin 3.6 g/dL (2.9-4.4); Alpha-1-Globulin 0.2 g/dL (0.0-0.4); Alpha-2-Globulin 0.6 g/dL (0.4-1.0); Gamma Globulin 1.3 g/dL (0.4-1.8)
== END 2024-11-29 08:36 | disposition home or self-care (01) ==
LOC: ANHLAB 08:36
PROVIDERS: PCP Internal Medicine; Visit Provider Internal Medicine Hematology & Oncology
DX: D47.2 Monoclonal gammopathy (principal)
CPT/HCPCS: 36415; 80053; 82784; 84165; 85025

== ENCOUNTER 2025-04-11 09:38 | Outpatient (CLI) | payer MEDICARE, SELFPAY ==
[2025-04-11 10:00] LABS: Hematocrit 46.1 % (42.0-52.0); Hemoglobin 15.1 g/dL (14.0-18.0); Immature Granulocyte Percent A 0.4 % (0-0.5); Lymphocytes Absolute Auto 1.44 K/mm3 (0.9-3.2); Mean Corpuscular HGB Conc 32.8 g/dl (32-36); Mean Corpuscular Hemoglobin 30.1 pg (26-34); Mean Corpuscular Volume 92.0 fl (80-100); Nucleated Red Blood Cells Absolute Auto 0.000 K/mm3 (0.0-0.012); Nucleated Red Blood Cells Perc 0.0 % (0.0-0.2); Platelet Count Result 209 k/mm3 (150-375); Red Blood Count 5.01 M/mm3 (4.6-6.20); White Blood Count 7.0 K/mm3 (4.5-10.0)
--- OUTSIDE RECORDS SUMMARY | 2025-04-11 10:51 | XMS_ITS | Clinical Summary ---
Author Organization [facility] [address] [place] [address] Care Team Providers Care Strike Operations Officer Name Role Phone Ceferino Henriquez MD Primary [...] of Treatment Not on file Insurance MEDICARE [facility] MEDICARE MEDICARE AAR MEDICARE Care Teams Strike Operations Officer Relationship Specialty Start Date End Date Ceferino Henriquez MD [address] [facility] [address] [place] [address] PCP - General Internal Medicine 08/15/20
--- OUTSIDE RECORDS SUMMARY | 2025-04-11 10:52 | XMS_ITS | Clinical Summary ---
Author Organization [facility] Address [address] [place] [address] Care Team Providers Care Home Health Care Coordinator Name Role Phone Unavailable Primary Care Provider Unavailabl e Source Comments [facility],non-owned Affiliates and Associated Physician Practices is amultiple site organization consisting of ambulatory clinics and hospital sitesin [place], [place], [place] and [place]. This disclosure is being madepursuant to the Care Everywhere program and may not contain all information available regarding this patient. Last updated 18.[facility] Social History Tobacco Use Types Packs/Day Years [...] 2004 ZOSTER VACCINE (1 of 2) 2004 DEPRESSION SCREENING 05/19/2024 COVID-19 VACCINE (1 - 2024-2 6 season) 2025 INFLUENZA VACCINE (#1) 2025 Respiratory Syncytial Virus [...]
--- OUTSIDE RECORDS SUMMARY | 2025-04-11 10:52 | XMS_ITS | Encounter Summary ---
Author Organization [facility] Address [address] [facility] [place] [address] Care Team Providers Care Non Destructive Testing Inspector Name Role Phone Unavailable Primary Care Provider Unavailabl e Encounter Details Date Type Department Care Team (Late st Contact Info) Description 08/06/2023 Lab Requisition [facility] - Pathology Lab [address] [place] [phone] Jason Meehan MD [address] [facility] [address] [place] [address] Multiple myeloma not having achieved remission [...] AM CDT) Case Report Flow Cytometry Case: [id number] Authorizing Provider: Jason Meehan Collected: 08/06/2023 10:27 AM MD David Ordering Location: [facility] Physician [facility] - Received: 08/06/2023 01:52 PM Pathology Lab Pathologist: Henrry Gage MD Specimen: Bone Marrow 08/06/2023 4:36 PM CDT [facility] Final Diagnosis Bone marrow, flow cytometry: - Clonal kappa restricted B-cell population detected (~26% of overall events) - Minute clonal kappa restricted plasma cell population detected (~2% of overall events) 08/06/2023 4:36 PM [facility] PATH[facility] LAB at 1636 CDT Flow Cytometry [...] flow cytometry specimen has been reviewed for software quality assurance analyst purposes. 08/06/2023 4:36 PM [facility] Flow Cytometry Results Differential Result Comment Flow Cell Count /uL 50,000 Total Viability % 88.0 Lymphocytes % 51 Dim CD45 Region % 13 Monocytes % 14 Granulocytes % 21 08/06/2023 4:36 PM [facility] Reason for test Multiple myeloma not having achieved remission (HCC) 203.00 08/06/2023 4:36 PM [facility] Client Specimen ID # [id number] 08/06/2023 4:36 PM [facility] Number of markers 14 were performed. A-2 Flow CD10 A-3 Flow CD13 A-5 Flow CD20 A-13 Flow CD117 A-14 FLOW CD138 A-1 Flow CD5 A-4 Flow CD19 A-6 Flow CD33 A-7 Flow CD34 A-8 Flow CD45 A-11 Flow CD38 A-12 Flow CD56 A-9 [place]+CD19+ A-10 Lambda+CD19+ 08/06/2023 4:36 PM [facility] Pathologist Location at [facility] 08/06/2023 4:36 PM [facility] Disclaimer Test performed at [facility], [address] [place] [address], [address]. *The established laboratory minimum viability is 70%. [...] complexity clinical testing. 08/06/2023 4:36 PM CDT [facility] PATH[facility] Embedded Images 4:36 PM CDT [facility] Pathology/Cytolo gy BONE MARROW SPECIMEN / Unknown 08/06/2023 10:27 AM CDT 08/06/2023 1:52 PM CDT Jason Meehan MD LAB - PATHOLOGY/CYT OLOGY ORDERABLES Final Result [facility] PATH[facility] LAB [address] [facility] [place] [address], [facility] [phone] documented in this encounter Visit Diagnoses Diagnosis Multiple myeloma not having achieved remission (HCC) Multiple myeloma, without mention of having achieved remission documented in this encounter
--- OUTSIDE RECORDS SUMMARY | 2025-04-11 10:52 | XMS_ITS | Encounter Summary ---
Author Organization [facility] Address [address] [facility] [place] [address] Care Team Providers Care Regional Sales Engineer Name Role Phone Unavailable Primary Care Provider Unavailabl e Encounter Details Date Type Department Care Team (Late st Contact Info) Description 08/07/2023 Lab Requisition [facility] - Pathology Lab [address] [place] [phone] Jason Meehan MD [address] [address] Illness, unspecified Social History Tobacco [...] Report Bone Marrow Patholog y Report Case: [id number] Authorizing Provider: Jason Meehan Collected: 08/06/2023 10:27 AM MD David Ordering Location: [facility] - Received: 08/07/2023 04:42 PM Pathology Lab Pathologist: Henrry Gage MD Specimens: A) - Bone Marrow Clot B) - Bone Marrow Core 08/11/2023 12:47 PM CDT [facility] Final Diagnosis Bone marrow, aspirate, clot section, and core biopsy: - 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 - See description. 08/11/2023 12:47 PM [facility] PATH[facility] LAB at 1544 CDT AP Comment Immunohistochemistry is performed to assess staining cells in an architectural context: CD20 highlights ~90% of marrow cellularity as lymphoid cells. CD138 highlights ~5-7% of marrow elements as plasma cells. CD3 highlights background T-lymphocytes. 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 08/11/2023 12:47 PM [facility] Peripheral Smear Description RBC: normocytic anemia, marked Rouleaux formation. WBC: normal in number and morphology Platelets: normal in number and morphology. 08/11/2023 12:47 PM [facility] Bone Marrow Aspirate Differential count (200 cells): 0% blasts, 31% maturing myeloid precursors, 7% erythroid progenitors, 1% monocytes, 0% eosinophils, 50% lymphocytes, 10% plasma cells. Specimen quality: adequate. Spicules: numerous. Trilineage Hematopoiesis: present. Myeloid:Erythroid ratio: normal. Myeloid Maturation: normal, but decreased in number. Erythroid Maturation: normal, but decreased in number. Megakaryocyte morphology: normal size. 08/11/2023 12:47 PM [facility] Bone Marrow Core Biopsy [...] similar to core biopsy. 08/11/2023 12:47 PM [facility] Flow Cytometry Summary Bone marrow, flow cytometry ([id number]): - Clonal kappa restricted B-cell population detected (~26% of overall events) - Minute clonal kappa restricted plasma cell population detected (~2% of overall events) 08/11/2023 12:47 PM [facility] Clinical History IgM monoclonal protein. 08/11/2023 12:47 PM CDT [facility] Microscopic Description Received are 20 slide(s) and 3 blocks labeled [id number] along with a copy of the outside pathology report. [place] [address] . All original materials are returned to the referring institution, along with a copy of our final report. 08/11/2023 12:47 PM CDT [facility] Pathologist Location at [facility] 08/11/2023 12:47 PM CDT [facility] Disclaimer The performance characteristics of all immunohistochemical and indirect immunofluorescence stains (if any) cited in this report were determined by the Histopathology Laboratory of [facility]. Some of these tests were developed [...] PATHO LOGY/CYTOLOGY ORDERABLES Edited Result - Final [facility] [address] [facility] [place] [address], [facility] [phone] documented in this encounter Visit Diagnoses Diagnosis Illness, unspecified documented in this encounter
--- OUTSIDE RECORDS SUMMARY | 2025-04-11 10:52 | XMS_ITS | Clinical Summary ---
Author Organization [facility] Address [address] [place] [address] Care Team Providers Care Lab Aid Name Role Phone Joy Henriquez MD Primary [...] 20 mg by mouth daily. 5 Active cetirizine (ZyrTEC) 10 mg tablet Take 10 mg by mouth daily. Active zanubrutinib (Brukinsa) 80 mg capsuleIndicatio ns:MGUS (monoclonal gammopathy of unknown significance) TAKE 2 CAPSULES BY MOUTH TWICE A DAY. 120 Capsule 3 5 Active Active Problems Problem Noted Date Diagnosed Date MGUS (monoclonal gammopathy of unknown significa nce) 06/10/2018 Encounters Date Type Department Care Team Description 03/04/2025 Abstract [facility] Oncology [facility] - [place] [address] [place] [address] Eduardo Zuniga MD 02/23/2025 Refill [facility] - [place] [address] [place] [phone] Eduardo Zuniga MD MGUS (monoclonal gammopathy of unknown significance) 02/22/2025 External Device Data [facility] ABSTRACTION Provider, Abstract 02/01/2025 External Device Data [facility] ABSTRACTION Provider, Abstract 01/25/2025 External Device Data [facility] ABSTRACTION Provider, Abstract [...] PM CDT Legal Sex Male 1:36 PM JOB ANALYST Gender Identity Male 03/01/2024 7:22 PM CDT Sexual Orientation Not on file Last Filed Vital Signs Vital Sign Reading Time Taken Comments Blood Pressure 105/61 12/10/2024 10:41 AM CDT Pulse 55 12/10/2024 10:41 AM CDT Temperature 36.6 C (97.9 F) 12/10/2024 10:41 AM CDT Respiratory Rate 16 12/10/2024 10:4 1 AM CDT Oxygen Saturation 96% 12/10/2024 10: 41 AM CDT Inhaled Oxygen Concentration - - Weight 85.2 kg (187 lb 12.8 oz) 025 10:41 AM CDT Height 180.3 cm (5' 11) 11/07/2020 10: 40 AM CDT Body Mass Index 26.19 11/07/2020 10:40 AM CDT Plan of Treatment Upcoming Encounters Date Type Department Care Team (Late st Contact Info) Description 04/22/2025 11:45 AM JOB ANALYST Office Visit [facility] Oncology and Hematology [facility] [address] [place] [address] Eduardo Zuniga MD [address] [facility] [address] [place] [address] Health Maintenance Due Date Last Done Comments Pre-Diabetes and Diabetes Screening 1955 FIT-DNA Q 3 years 08/14/1999 FIT/FOBT Q 1 year 08/14/1999 Flex Sig/CT Colonography Q 5 years 08/14/1999 RSV VACCINE (60+ or ) (1 - Risk 50-74 years 1-dose series) 2004 ZOSTER VACCINE (2 of 3) 12/22/2016 10/27/2016 Abdominal Aortic Aneurysm (A AA) Screening 08/14/2019 Traditional Medicare (ACO) A nnual Wellness Visit 09/08/2024 09/08/2023 PNEUMOCOCCAL VACCINE 50+ YEA RS (3 of 3 - PCV20 or PCV21) 11/21/2024 11/22/2019, 12/27/2016, 12/01/2016 INFLUENZA VACCINE (#1) 2024 , 02/21/2021, 02/01/2020, Additional history exists COVID-19 Vaccine (4 - 2024-2 6 season) 2025 02/22/2021, 07/18/2020, 06/27/2020 DTAP/TDAP/TD VACCINES (3 - T d or Tdap) 11/26/2026 11/26/2016, 10/27/2016 COLORECTAL SCREENING 01/02/2033 01/02/2023 Colorectal Cancer Screening 01/02/2033 Insurance MEDICARE PART A AND B [facility] [id number] RX [employer] Medicare Part D RX [employer] Member Subscriber Plan / Payer (Ef fective 2024-Present) Name:Justin Mckeon Relation to Subscriber:Self Name:Justin Mckeon Payer ID:Not on file Group ID:[id number] Type:RX Medicare Part D Address: [address] Care Teams Lab Aid Relationship Specialty Start Date End Date Joy Henriquez MD PCP - General Internal Medicine 05/25/18
[2025-04-11 11:32] LABS: Alanine Aminotransferase 21 U/L (6-50); Albumin Level 4.2 g/dL (3.5-5.1); Alkaline Phosphatase 64 U/L (38-126); Anion Gap 6 mmol/L (4-12); Aspartate Amino Transferase 30 U/L (17-59); Bilirubin,Total 0.5 mg/dL (0.2-1.3); Blood Urea Nitrogen 14 mg/dL (9-20); Calcium 9.2 mg/dL (8.4-10.2); Carbon Dioxide 28 mmol/L (22-30); Chloride 103 mmol/L (98-107); Estimated Glomerular Filt Rate > 60; Glucose 87 mg/dL (65-110); Potassium 4.2 mmol/L (3.4-5.0); Sodium 137 mmol/L (137-145); Total Protein 7.5 g/dL (6.3-8.2)
[2025-04-11 11:34] LABS: Immunoglobulin G 674 mg/dL (700-1600)
[2025-04-11 11:35] LABS: Immunoglobulin A < 40 mg/dL (70-400)
[2025-04-11 13:08] LABS: Immunoglobulin M 1013 mg/dL (40-230)
[2025-04-12 14:08] LABS: Free Lambda Lt Chains, Serum 5.2 mg/L (5.7-26.3); Kappa/Lambda Ratio, Serum 11.23 (0.26-1.65)
[2025-04-12 14:08] LABS: Albumin 3.6 g/dL (2.9-4.4); Alpha-1-Globulin 0.2 g/dL (0.0-0.4); Alpha-2-Globulin 0.7 g/dL (0.4-1.0); Gamma Globulin 1.1 g/dL (0.4-1.8)
== END 2025-04-11 09:39 | disposition home or self-care (01) ==
LOC: ANHLAB 09:39
PROVIDERS: PCP Internal Medicine; Visit Provider Internal Medicine Hematology & Oncology
DX: D47.2 Monoclonal gammopathy (principal)
CPT/HCPCS: 36415; 80053; 82784; 83521; 84155; 84165; 85025